=== PATIENT | female | born 1980 | race Caucasian/White ===

== ENCOUNTER 2016-10-19 08:37 | Emergency (ER) | payer MEDICARE, OTHER ==
--- NOTE | 2016-10-19 09:15 | ER Document Report ---
ED GI/ - General Chief Complaint: Lower Abdominal Pain Stated Complaint: MOLD EXPOSURE Time seen by provider: 09:00 Mode of Arrival: Ambulatory Information source: Patient Notes: 36-year-old female presents to ED for abdominal pain concern of swelling to her leg feels like she has a baby moving in her abdomen and concerned about black mold that she might have gotten in [place]. TRAVEL OUTSIDE OF THE [place] IN LAST 30 DAYS: No - HPI Patient complains to provider of: Abdominal pain - Generalized, Other - States she thinks she's and she has been exposed to black mold, states she has some swelling in her legs. Onset: Other - Unsure of the time frame Timing/Duration: Gradual Quality of pain: Achy, Cramping Severity at maximum: Mild Severity in ED: Mild Pain Level: 1 Location: Other - Generalized Vaginal bleeding (Compared to normal period): None LMP: April or May Associated symptoms: Other - Date she feels that her thighs are enlarged Exacerbated by: Denies Relieved by: Denies Similar symptoms previously: Yes Recently seen / treated by doctor: No - Related Data Allergies/Adverse Reactions: oxycodone HCl [From OxyContin] Allergy (Verified 10/19/16 08:38) Past Medical History - General Information source: Patient - Social History Smoking Status: Never Smoker Cigarette use (# per day): No Chew tobacco use (# tins/day): No Smoking Education Provided: No Frequency of alcohol use: None Drug Abuse: None Occupation: none Lives with: Spouse/Significant other Family History: CAD, DM, Malignancy, Other Patient has suicidal ideation: No Patient has homicidal ideation: No - Past Medical History Cardiac Medical History: Reports: None Pulmonary Medical History: Reports: Hx Asthma EENT Medical History: Reports: None Neurological Medical History: Reports: None Endocrine Medical History: Reports: Hx Diabetes Mellitus Type 2 Renal/ Medical History: Reports: None, Hx Pelvic Inflammatory Disease Malignancy Medical History: Reports: None GI Medical History: Reports: Hx Gastroesophageal Reflux Disease Musculoskeltal Medical History: Reports None Skin Medical History: Reports None Psychiatric Medical History: Reports: Hx Bipolar Disorder, Hx Depression Traumatic Medical History: Reports: None Infectious Medical History: Reports: None Past Surgical History: Reports: Hx Adenoidectomy, Hx Section - x1, Hx Gynecologic Surgery - , Hx Orthopedic Surgery - Right Leg Surgery, Hx Tonsillectomy - Immunizations Immunizations up to date: No Hx Diphtheria, Pertussis, Tetanus Vaccination: Yes Hx Pneumococcal Vaccination: 07/12/00 Review of Systems - Review of Systems Constitutional: No symptoms reported EENT: Nose discharge, Sinus discharge Cardiovascular: No symptoms reported Respiratory: No symptoms reported Gastrointestinal: Abdominal pain Genitourinary: No symptoms reported Female Genitourinary: Last menstrual period - April or May Musculoskeletal: Leg swelling - thighs Skin: No symptoms reported Hematologic/Lymphatic: No symptoms reported Neurological/Psychological: No symptoms reported -: Yes All other systems reviewed and negative Physical Exam - Vital signs Vitals: Temp Pulse Resp BP Pulse Ox 98.0 F 106 H 18 136/95 H 98 10/19/16 08:41 10/19/16 08:41 10/19/16 08:41 10/19/16 08:41 10/19/16 08:41 Interpretation: Normal - General General appearance: Appears well, Alert Notes: Morbidly Obese woman with a BMI of 48.6 - HEENT Head: Normocephalic, Atraumatic Eyes: Normal Pupils: PERRL Ears: Normal External canal: Normal Tympanic membrane: Normal Sinus: Normal Nasal: Purulent discharge, Swelling Mouth/Lips: Normal Mucous membranes: Normal Pharynx: Normal Neck: Normal - Respiratory Respiratory status: No respiratory distress Chest status: Nontender Breath sounds: Normal Chest palpation: Normal - Cardiovascular Rhythm: Regular Heart sounds: Normal auscultation Murmur: No - Abdominal Inspection: Normal, Morbidly Obese Distension: No distension Bowel sounds: Normal Tenderness: Tender - Generalized Organomegaly: No organomegaly - Back Back: Normal, Nontender - Extremities General upper extremity: Normal inspection, Nontender, Normal color, Normal ROM , Normal temperature General lower extremity: Normal inspection, Nontender, Normal color, Normal ROM , Normal temperature, Normal weight bearing. No: Cele's sign - Neurological Neuro grossly intact: Yes Cognition: Normal Orientation: AAOx4 Eliu Coma Scale Eye Opening: Spontaneous [place] Coma Scale Verbal: Oriented Eliu Coma Scale Motor: Obeys Commands [place] Coma Scale Total: 15 Speech: Normal Motor strength normal: LUE, RUE, LLE, RLE Sensory: Normal - Psychological Associated symptoms: Normal affect, Normal mood - Skin Skin Temperature: Warm Skin Moisture: Dry Skin Color: Normal Course - Re-evaluation Re-evalutation: 10/19/16 11:[address] Blandon concerning her abdominal pain. He suggested an abdominal ultrasound was CBC and chemistry. Urine and urine had already been ordered. Ultrasound came back with a small fatty umbilical hernia no intestines in the hernia. And the patient has an upper respiratory infection will discharge patient home with a name and number of the local surgical group if she would like to follow-up for her umbilical hernia. - Vital Signs Vital signs: Temp Pulse Resp BP Pulse Ox 98 F 106 H 20 134/95 H 98 10/19/16 08:45 10/19/16 08:45 10/19/16 08:45 10/19/16 08:45 10/19/16 08:45 - Laboratory Result Diagrams: 10/19/16 09:35 10/19/16 09:35 Laboratory results interpreted by me: 10/19/16 10/19/16 09:35 09:35 WBC 12.4 H Hgb 11.5 L Hct 34.5 L RDW 15.3 H Glucose 149 H Discharge - Discharge Clinical Impression: small fat umbilical hernia URI (upper respiratory infection) Qualifiers: URI type: unspecified URI Qualified Code(s): J06.9 - Acute upper respiratory infection, unspecified Additional Instructions: UPPER RESPIRATORY ILLNESS: You have a viral infection of the respiratory passages -- a "cold." This common infection causes nasal congestion, drainage, and often sore throat and cough. It is highly contagious. The disease usually lasts about 10 to 14 days. There is no "cure" for the viral infection -- it must run its course. If there is a complication, such as bacterial infection in the nose, sinuses, middle ear, or bronchial tubes, antibiotics may be required. The antibiotics won't affect the virus. Drink plenty of fluids. A humidifier may help. An expectorant medication or decongestant may make you more comfortable. Use acetaminophen or ibuprofen for fever or aches. See the doctor if fever persists over two days, if there is any significant worsening of your symptoms, or if you simply fail to improve as expected. USE OF ACETAMINOPHEN (Tylenol): Acetaminophen may be taken for pain relief or fever control. It's much safer than aspirin, offering a wider range of "safe" dosages. It is safe during . Some brand names are Tylenol, Panadol, Datril, Anacin 3, Tempra, and Liquiprin. Acetaminophen can be repeated every four hours. The following are maximum recommended dosages: >89 pounds or adults 650 mg to 900 mg Acetaminophen can be repeated every four hours. Maximum dose not to exceed 4000 mg a day. Umbilical Hernia There is a hernia in the belly-button area, called an umbilical hernia. There's a weak spot in the abdominal wall where the umbilical cord was attached. Sometimes this weak spot opens up, and bowel slips out of the abdominal cavity, creating a bulge under the skin at the naval. In infants, a small umbilical hernia may seal off by itself. Adults usually need surgery to repair the hernia. It's important that you follow up as recommended. For now, avoid straining , heavy lifting, and vigorous exercise. If the hernia has just appeared and the naval area is painful, apply ice packs to reduce swelling. Complications occur if bowel gets tightly stuck in the hernia. You should come back immediately if the area becomes increasingly painful, swollen, or discolored, or if you develop abdominal pain and vomiting. FOLLOW-UP CARE: If you have been referred to a physician for follow-up care, call the physician s office for an appointment as you were instructed or within the next two days. If you experience worsening or a significant change in your symptoms, notify the physician immediately or return to the Emergency Department at any time for re-evaluation. Prescriptions: Ibuprofen 600 mg PO Q8HP PRN #20 tablet PRN Reason: Forms: Elevated Blood Pressure Referrals: [facility] [Provider Group] - Follow up as needed
[2016-10-19 09:40] LABS: APPEARANCE,URINE CLEAR; BILIRUBIN,URINE NEGATIVE (NEGATIVE); GLUCOSE, URINE NEGATIVE (NEGATIVE); KETONES,URINE NEGATIVE (NEGATIVE); LEUKOCYTE ESTERASE,URINE NEGATIVE (NEGATIVE); NITRITE,URINE NEGATIVE (NEGATIVE); PROTEIN,URINE NEGATIVE (NEGATIVE); URINE SPECIFIC GRAVITY 1.012; UROBILINOGEN,URINE NEGATIVE mg/dL (<2.0)
[2016-10-19 09:54] LABS: ABSOLUTE BASOPHILS # (AUTO) 0.1 10^3/uL (0.0-0.2); ABSOLUTE EOSINOPHILS # (AUTO) 0.2 10^3/uL (0.0-0.6); ABSOLUTE LYMPHOCYTES (AUTO) 3.5 10^3/uL (0.5-4.7); ABSOLUTE NEUT (AUTO) 7.7 10^3/uL (1.7-8.2); BASOPHILS % (AUTO) 0.5 % (0-2); EOSINOPHILS % (AUTO) 1.4 % (0-6); HEMATOCRIT 34.5 % (36.0-47.0); HEMOGLOBIN 11.5 g/dL (12.0-15.5); LYMPHOCYTES % (AUTO) 27.9 % (13-45); MEAN CORPUSCULAR HEMOGLOBIN 27.5 pg (27.0-33.4); MEAN CORPUSCULAR HGB CONC 33.2 g/dL (32.0-36.0); MEAN CORPUSCULAR VOLUME 83 fl (80-97); RED BLOOD COUNT 4.16 10^6/uL (3.72-5.28); RED CELL DISTRIBUTION WIDTH 15.3 % (11.5-14.0); SEGMENTED NEUTROPHILS % (AUTO) 62.2 % (42-78); WHITE BLOOD COUNT 12.4 10^3/uL (4.0-10.5)
[2016-10-19 10:19] LABS: ALANINE AMINOTRANSFERASE 26 U/L (9-52); ALKALINE PHOSPHATASE 121 U/L (38-126); ANION GAP 13 (5-19); ASPARTATE AMINO TRANSFERASE 14 U/L (14-36); BILIRUBIN,DIRECT 0.1 mg/dL (0.0-0.4); BILIRUBIN,TOTAL 0.3 mg/dL (0.2-1.3); BLOOD UREA NITROGEN 15 mg/dL (7-20); CALCIUM 9.4 mg/dL (8.4-10.2); CARBON DIOXIDE 25 mmol/L (22-30); CHLORIDE 104 mmol/L (98-107); CREATININE RESULT 0.67 mg/dL (0.52-1.25); GLUCOSE 149 mg/dL (75-110); SODIUM 141.7 mmol/L (137-145); TOTAL PROTEIN 6.8 g/dL (6.3-8.2)
[2016-10-19 11:13] VITALS: BP 132/90
== END 2016-10-19 11:11 | disposition home or self-care (01) ==
LOC: ER 08:37
DX: K42.9 Umbilical hernia without obstruction or gangrene (principal); J06.9 Acute upper respiratory infection, unspecified; R10.30 Lower abdominal pain, unspecified; R10.84 Generalized abdominal pain; E11.9 Type 2 diabetes mellitus without complications; K21.9 Gastro-esophageal reflux disease without esophagitis; E66.01 Morbid (severe) obesity due to excess calories; Z68.42 Body mass index [BMI] 45.0-49.9, adult; Z88.6 Allergy status to analgesic agent
CPT/HCPCS: 36415; 76705; 80053; 81001; 81025; 85025; 99284

== ENCOUNTER 2016-10-23 11:24 | Emergency (ER) | payer MEDICARE, OTHER ==
[2016-10-23] MEDS ORDERED: KETOROLAC TROMETHAMINE INJ/PF 30 MG/1 ML SDV IV ONE (11:39)
--- NOTE | 2016-10-23 11:42 | ER Document Report ---
ED Medical Screen (RME) - General Chief Complaint: Abdominal Pain Stated Complaint: STOMACH PAIN Notes: I briefly seen and evaluated this patient in my role as physician in triage. I have initiated orders based on this initial evaluation. Please see my colleague' s documentation for complete history, physical, management, diagnosis, and ultimate disposition. My brief evaluation: Patient indicates that she was here on Wednesday and diagnosed with a fat hernia in her abdomen. She says that on Wednesday she started having continuous pain in the abdomen. Pain is increasing in severity. She says that she has been trying to eat but has no appetite. She denies any nausea or vomiting. She says that she has not had a bowel movement in 3 days. She is Simone urinary frequency but denies any dysuria or hematuria. The patient says that she is a diet-controlled diabetic. On exam, patient alert and oriented in no acute distress vital signs are stable patient is afebrile nontoxic appearing. Abdomen is soft with tenderness to mild palpation mid abdomen, no peritoneal findings, bowel sounds are present. Medical decision making: Well initiated abdominal pain workup and give Toradol for pain. TRAVEL OUTSIDE OF THE [place] IN LAST 30 DAYS: No - Related Data Allergies/Adverse Reactions: oxycodone HCl [From OxyContin] Allergy (Verified 10/23/16 11:30) Past Medical History Pulmonary Medical History: Reports: Hx Asthma Endocrine Medical History: Reports: Hx Diabetes Mellitus Type 2 Renal/ Medical History: Reports: Hx Pelvic Inflammatory Disease. Denies: Hx Peritoneal Dialysis GI Medical History: Reports: Hx Gastroesophageal Reflux Disease Psychiatric Medical History: Reports: Hx Bipolar Disorder, Hx Depression Past Surgical History: Reports: Hx Adenoidectomy, Hx Section - x1, Hx Gynecologic Surgery - , Hx Orthopedic Surgery - Right Leg Surgery, Hx Tonsillectomy - Immunizations Immunizations up to date: No Hx Diphtheria, Pertussis, Tetanus Vaccination: Yes Physical Exam - Vital signs Vitals: Temp Pulse Resp BP Pulse Ox 97.6 F 84 20 133/76 H 96 10/23/16 11:30 10/23/16 11:30 10/23/16 11:30 10/23/16 11:30 10/23/16 11:30 Course - Vital Signs Vital signs: Temp Pulse Resp BP Pulse Ox 97.6 F 84 20 133/76 H 96 10/23/16 11:30 10/23/16 11:30 10/23/16 11:30 10/23/16 11:30 10/23/16 11:30
[2016-10-23 12:05] LABS: ABSOLUTE BASOPHILS # (AUTO) 0.1 10^3/uL (0.0-0.2); ABSOLUTE EOSINOPHILS # (AUTO) 0.2 10^3/uL (0.0-0.6); ABSOLUTE LYMPHOCYTES (AUTO) 3.6 10^3/uL (0.5-4.7); ABSOLUTE MONOCYTES (AUTO) 0.7 10^3/uL (0.1-1.4); ABSOLUTE NEUT (AUTO) 5.9 10^3/uL (1.7-8.2); BASOPHILS % (AUTO) 0.7 % (0-2); EOSINOPHILS % (AUTO) 2.1 % (0-6); HEMATOCRIT 34.2 % (36.0-47.0); HEMOGLOBIN 11.5 g/dL (12.0-15.5); HGB HCT DIFFERENCE 0.3; LYMPHOCYTES % (AUTO) 34.5 % (13-45); MEAN CORPUSCULAR HEMOGLOBIN 27.7 pg (27.0-33.4); MEAN CORPUSCULAR HGB CONC 33.6 g/dL (32.0-36.0); MEAN CORPUSCULAR VOLUME 83 fl (80-97); MONOCYTES % (AUTO) 6.4 % (3-13); RED BLOOD COUNT 4.14 10^6/uL (3.72-5.28); RED CELL DISTRIBUTION WIDTH 14.7 % (11.5-14.0); SEGMENTED NEUTROPHILS % (AUTO) 56.3 % (42-78); WHITE BLOOD COUNT 10.5 10^3/uL (4.0-10.5)
[2016-10-23 12:22] LABS: ALANINE AMINOTRANSFERASE 23 U/L (9-52); ALBUMIN 3.7 g/dL (3.5-5.0); ALKALINE PHOSPHATASE 101 U/L (38-126); ANION GAP 9 (5-19); ASPARTATE AMINO TRANSFERASE 13 U/L (14-36); BILIRUBIN,DIRECT 0.1 mg/dL (0.0-0.4); BILIRUBIN,TOTAL 0.4 mg/dL (0.2-1.3); BLOOD UREA NITROGEN 16 mg/dL (7-20); CALCIUM 9.1 mg/dL (8.4-10.2); CARBON DIOXIDE 28 mmol/L (22-30); CHLORIDE 106 mmol/L (98-107); CREATININE RESULT 0.65 mg/dL (0.52-1.25); GLUCOSE 123 mg/dL (75-110); LIPASE 41.8 U/L (23-300); POTASSIUM 4.2 mmol/L (3.6-5.0); SODIUM 142.5 mmol/L (137-145); TOTAL PROTEIN 6.2 g/dL (6.3-8.2)
[2016-10-23 14:26] LABS: APPEARANCE,URINE SLIGHTLY-CLOUDY; BILIRUBIN,URINE NEGATIVE (NEGATIVE); GLUCOSE, URINE NEGATIVE (NEGATIVE); KETONES,URINE NEGATIVE (NEGATIVE); LEUKOCYTE ESTERASE,URINE TRACE (NEGATIVE); NITRITE,URINE NEGATIVE (NEGATIVE); PROTEIN,URINE NEGATIVE (NEGATIVE); URINE SPECIFIC GRAVITY 1.024; UROBILINOGEN,URINE NEGATIVE mg/dL (<2.0)
--- NOTE | 2016-10-23 15:18 | ER Document Report ---
ED GI/ - General Chief Complaint: Abdominal Pain Stated Complaint: STOMACH PAIN Time seen by provider: 15:18 Mode of Arrival: Ambulatory Information source: Patient Notes: 36-year-old obese female recently moved back to [place] after being gone a year came in the other day because of abdominal swelling and she felt like she was . She was found to have a small abdominal hernia , negative , and an upper respiratory infection. She feels like her symptoms are getting worse with increased abdominal pain and more nasal congestion. No fever or chills. No nausea or vomiting. Bowel movement 3 days ago. TRAVEL OUTSIDE OF THE [place] IN LAST 30 DAYS: No - Related Data Allergies/Adverse Reactions: oxycodone HCl [From OxyContin] Allergy (Verified 10/23/16 11:30) Past Medical History - General Information source: Patient - Social History Smoking Status: Never Smoker Frequency of alcohol use: None Drug Abuse: None Lives with: Spouse/Significant other Family History: Reviewed & Not Pertinent, CAD, DM, Malignancy, Other Patient has suicidal ideation: No Patient has homicidal ideation: No Pulmonary Medical History: Reports: Hx Asthma Endocrine Medical History: Reports: Hx Diabetes Mellitus Type 2 Renal/ Medical History: Reports: Hx Pelvic Inflammatory Disease. Denies: Hx Peritoneal Dialysis GI Medical History: Reports: Hx Gastroesophageal Reflux Disease, Other - Abdominal wall hernia Psychiatric Medical History: Reports: Hx Bipolar Disorder, Hx Depression Past Surgical History: Reports: Hx Adenoidectomy, Hx Section - x1, Hx Gynecologic Surgery - , Hx Orthopedic Surgery - Right Leg Surgery, Hx Tonsillectomy - Immunizations Immunizations up to date: No Hx Diphtheria, Pertussis, Tetanus Vaccination: Yes Hx Pneumococcal Vaccination: 07/12/00 Review of Systems - Review of Systems Constitutional: No symptoms reported EENT: See HPI Cardiovascular: No symptoms reported Respiratory: No symptoms reported Gastrointestinal: See HPI Genitourinary: No symptoms reported Female Genitourinary: No symptoms reported Musculoskeletal: No symptoms reported Skin: No symptoms reported Hematologic/Lymphatic: No symptoms reported Neurological/Psychological: No symptoms reported Physical Exam - Vital signs Vitals: Temp Pulse Resp BP Pulse Ox 97.6 F 84 20 133/76 H 96 10/23/16 11:30 10/23/16 11:30 10/23/16 11:30 10/23/16 11:30 10/23/16 11:30 Interpretation: Normal - General General appearance: Appears well, Alert In distress: None - HEENT Head: Normocephalic, Atraumatic Eyes: Normal Conjunctiva: Normal Pupils: PERRL Tympanic membrane: Normal Nasal: Other - boggy nares Mucous membranes: Normal Pharynx: Normal Neck: Supple. No: Lymphadenopathy - Respiratory Respiratory status: No respiratory distress Chest status: Nontender Breath sounds: Normal Chest palpation: Normal - Cardiovascular Rhythm: Regular Heart sounds: Normal auscultation Murmur: No - Abdominal Inspection: Normal Distension: No distension Bowel sounds: Normal Tenderness: Tender - Mild diffuse. No: McBurney's point, Kim's sign, Guarding, Rebound Organomegaly: No organomegaly, Other - Superior to the umbilicus is a small abdominal hernia that is nontender and flat when supine. No: Hepatomegaly, Splenomegaly - Back Back: Normal, Nontender. No: CVA tenderness - Extremities General upper extremity: Normal inspection, Nontender, Normal color, Normal ROM , Normal temperature General lower extremity: Normal inspection, Nontender, Normal color, Normal ROM , Normal temperature, Normal weight bearing. No: Cele's sign - Neurological Neuro grossly intact: Yes Cognition: Normal Orientation: AAOx4 Eliu Coma Scale Eye Opening: Spontaneous [place] Coma Scale Verbal: Oriented Eliu Coma Scale Motor: Obeys Commands Eliu Coma Scale Total: 15 Speech: Normal Motor strength normal: LUE, RUE, LLE, RLE Sensory: Normal - Psychological Associated symptoms: Normal affect, Normal mood - Skin Skin Temperature: Warm Skin Moisture: Dry Skin Color: Normal Course - Re-evaluation Re-evalutation: 10/23/16 16:31 Labs are normal, acute abdomen shows constipation, reviewed the case with Dr. Driver, can be discharged home - Vital Signs Vital signs: Temp Pulse Resp BP Pulse Ox 98.0 F 77 16 141/86 H 100 10/23/16 16:26 10/23/16 16:26 10/23/16 16:26 10/23/16 16:26 10/23/16 16:26 - Laboratory Result Diagrams: 10/23/16 11:52 10/23/16 11:52 Laboratory results interpreted by me: 10/23/16 10/23/16 10/23/16 11:52 11:52 13:45 Hgb 11.5 L Hct 34.2 L RDW 14.7 H Glucose 123 H AST 13 L Total Protein 6.2 L Ur Leukocyte Esterase TRACE H Discharge - Discharge Clinical Impression: Abdominal wall hernia, upper respiratory infection Constipation Qualifiers: Constipation type: other constipation type Qualified Code(s): K59.09 - Other constipation Abdominal pain Qualifiers: Abdominal location: upper abdomen, unspecified Qualified Code(s): R10.10 - Upper abdominal pain, unspecified Upper respiratory tract infection Qualifiers: URI type: unspecified viral URI Qualified Code(s): J06.9 - Acute upper respiratory infection, unspecified Condition: Good Disposition: HOME, SELF-CARE Instructions: Abdominal Pain ([facility]), Acetaminophen, Upper Respiratory Illness ( [facility]), Constipation ([facility]) Additional Instructions: plenty of fluids to er if worse daily Miralax 1 capful in full glass of water daily Keep the appointment on October 28 the general surgeon as planned Please complete the patient satisfaction survey if you get one, and return it.. If you do not receive a survey, then you can go to the [facility] website, [email or web address] and place your comments about your very good care. Thank you very much. It was a pleasure being your medical provider today.
[2016-10-23 16:28] VITALS: BP 141/86
== END 2016-10-23 16:35 | disposition home or self-care (01) ==
LOC: ER 11:24
DX: K43.9 Ventral hernia without obstruction or gangrene (principal); K59.09 Other constipation; R10.10 Upper abdominal pain, unspecified; J06.9 Acute upper respiratory infection, unspecified; E11.9 Type 2 diabetes mellitus without complications; K21.9 Gastro-esophageal reflux disease without esophagitis; Z88.6 Allergy status to analgesic agent
CPT/HCPCS: 99284; 96374; 36415; 83690; 85025; 81025; 80053; 81001; 74022; J1885

== ENCOUNTER 2016-11-09 12:20 | Emergency (ER) | payer MEDICARE, OTHER ==
[2016-11-09 13:14] VITALS: BP 132/87
== END 2016-11-09 14:41 | disposition left against medical advice (07) ==
LOC: ER 12:20
DX: Z53.21 Procedure and treatment not carried out due to patient leaving prior to being seen by health care provider (principal)

== ENCOUNTER 2017-02-08 22:41 | Emergency (ER) | payer MEDICARE, MEDICAID ==
--- NOTE | 2017-02-08 23:32 | ER Document Report ---
ED General - General Chief Complaint: Accidental Overdose Stated Complaint: ABDOMINAL PAIN Time Seen by Provider: 02/08/17 23:12 Notes: Patient is a 37-year-old female presents with complaints of hernia pain and possible Tylenol overdose. She says that she has had a hernia for several months. She is at the pain is worse over the last week. She has had no vomiting. She has had normal bowel movements. No blood in her stool. No fevers. Hernias in the ventral location. She says because of the pain she took a bunch of Tylenol. She said she took the Tylenol approximately 2 hours prior to arrival. She took somewhere between fifteen to twenty five 500 mg Tylenol tablets. She denies taking any other medications other than her prescribed medications. She denies taking more than prescribed of her prescribed medications. She denies wanting to hurt herself. She did this because of pain. TRAVEL OUTSIDE OF THE [place] IN LAST 30 DAYS: No - Related Data Allergies/Adverse Reactions: oxycodone HCl [From OxyContin] Allergy (Verified 11/09/16 13:12) Past Medical History - Social History Smoking Status: Unknown if Ever Smoked Frequency of alcohol use: None Drug Abuse: None Family History: Reviewed & Not Pertinent, CAD, DM, Malignancy, Other Pulmonary Medical History: Reports: Hx Asthma Endocrine Medical History: Reports: Hx Diabetes Mellitus Type 2 Renal/ Medical History: Reports: Hx Pelvic Inflammatory Disease. Denies: Hx Peritoneal Dialysis GI Medical History: Reports: Hx Gastroesophageal Reflux Disease Psychiatric Medical History: Reports: Hx Bipolar Disorder, Hx Depression Past Surgical History: Reports: Hx Adenoidectomy, Hx Section - x1, Hx Gynecologic Surgery - , Hx Orthopedic Surgery - Right Leg Surgery, Hx Tonsillectomy - Immunizations Immunizations up to date: No Hx Diphtheria, Pertussis, Tetanus Vaccination: Yes Hx Pneumococcal Vaccination: 07/12/00 Review of Systems - Review of Systems Notes: My Normal Review Basic REVIEW OF SYSTEMS: CONSTITUTIONAL : Denies fever, chills, or sweats. Denies recent illness. EENT: Denies eye, ear, throat, or mouth pain or symptoms. Denies nasal or sinus congestion. CARDIOVASCULAR: Denies chest pain. RESPIRATORY: Denies cough, cold, or chest congestion. Denies shortness of breath, difficulty breathing, or wheezing. GASTROINTESTINAL: Has abdominal pain. Denies nausea, vomiting, or diarrhea. Denies constipation. Last BM: GENITOURINARY: Denies difficulty urinating, painful urination, burning, frequency, or blood in urine. MUSCULOSKELETAL: Denies neck or back pain or joint pain or swelling. SKIN: Denies rash or skin lesions. NEUROLOGICAL: Denies altered mental status or loss of consciousness. Denies headache. Denies weakness or paralysis or loss of use of either side. Denies problems with gait or speech. Denies sensory or motor loss. ALL OTHER SYSTEMS REVIEWED AND NEGATIVE. Physical Exam - Notes Notes: General Appearance: Well nourished, alert, cooperative, no acute distress, no obvious discomfort. Vitals: reviewed, See vital signs table. Head: no swelling or tenderness to the head Eyes: PERRL, EOMI, Conjuctiva clear Mouth: No decreasd moisture Neck: Supple, no neck tenderness, No thyromegaly Lungs: No wheezing, No rales, No rhonci, No accessory muscle use, good air exchange bilaterally. Heart: Normal rate, Regular rythm, No murmur, no rub Abdomen: Normal BS, soft, No rigidity, moderate ventral abdominal tenderness, I cannot feel hernia on my palpation. Patient's abdomen is very obese. No guarding, no rebound, no abdominal masses, no organomegaly Extremities: strength 5/5 in all extremities, good pulses in all extremities, no swelling or tenderness in the extremities, no edema. Skin: warm, dry, appropriate color, no rash Neuro: speech clear, oriented x 3, normal affect, responds appropriately to questions. Course - Re-evaluation Re-evalutation: 02/09/17 05:12 On multiple re-evaluations the patient looks very comfortable but then with complaint of pain whenever I push on her abdomen. She does have a leukocytosis and therefore I did order CT scan to further evaluate her hernia being that I cannot feel on palpation due to her obesity. CT scan just shows a fat- containing hernia without any evidence of process. Her lactic acid is normal. She obviously did not take near the amount of Tylenol that she said she took being that her initial Tylenol level and her 4 hour Tylenol levels were within normal range. At this time I will discharge patient home. I will refer her to the surgery clinic. Encouraged to return to ER if she has vomiting, worsening pain, fevers, or feels unwell. Patient agrees with plan and will be discharged home. Dictation of this chart was performed using voice recognition software; therefore, there may be some unintended grammatical errors. - Laboratory Result Diagrams: 02/08/17 23:19 02/08/17 23:19 Laboratory results interpreted by me: 02/08/17 02/08/17 02/08/17 23:19 23:19 23:40 WBC 14.8 H RDW 15.1 H Absolute Neutrophils 9.7 H Glucose 213 H AST 13 L Urine Glucose (UA) 50 H Salicylates < 1.0 L - EKG Interpretation by Me Additional EKG results interpreted by me: 02/09/17 01:02 EKG is reviewed and interpreted by me. EKG shows normal sinus rhythm with a rate of [address] segment elevation or depression. No ischemic T-wave inversions. NC interval, QRS duration, QTc intervals are within normal range. Old EKG for comparison is from October 12, 2014. Discharge - Discharge Clinical Impression: Abdominal pain Qualifiers: Abdominal location: unspecified location Qualified Code(s): R10.9 - Unspecified abdominal pain Ventral hernia Qualifiers: Obstruction and gangrene presence: without obstruction or gangrene Qualified Code(s): K43.9 - Ventral hernia without obstruction or gangrene Condition: Good Disposition: HOME, SELF-CARE Additional Instructions: Please return to the ER immediately if you develop vomiting, fevers, worsening pain, or feel unwell. Do not take more of the medicine that what is prescribed. Please take the medication with food. Please follow up with the surgery clinic, Dr. Urias. Prescriptions: Naproxen [Naprosyn 250 mg Tablet] 250 mg PO BID #20 tablet Referrals: PERLA URIAS MD [ACTIVE STAFF] - Follow up in 3-5 days
[2017-02-08 23:35] LABS: ABSOLUTE BASOPHILS # (AUTO) 0.1 10^3/uL (0.0-0.2); ABSOLUTE EOSINOPHILS # (AUTO) 0.2 10^3/uL (0.0-0.6); ABSOLUTE LYMPHOCYTES (AUTO) 3.9 10^3/uL (0.5-4.7); ABSOLUTE MONOCYTES (AUTO) 0.9 10^3/uL (0.1-1.4); ABSOLUTE NEUT (AUTO) 9.7 10^3/uL (1.7-8.2); BASOPHILS % (AUTO) 0.7 % (0-2); EOSINOPHILS % (AUTO) 1.1 % (0-6); HEMOGLOBIN 13.1 g/dL (12.0-15.5); HGB HCT DIFFERENCE 1.3; LYMPHOCYTES % (AUTO) 26.3 % (13-45); MEAN CORPUSCULAR HEMOGLOBIN 28.5 pg (27.0-33.4); MEAN CORPUSCULAR HGB CONC 34.4 g/dL (32.0-36.0); MEAN CORPUSCULAR VOLUME 83 fl (80-97); MONOCYTES % (AUTO) 6.4 % (3-13); RED BLOOD COUNT 4.59 10^6/uL (3.72-5.28); RED CELL DISTRIBUTION WIDTH 15.1 % (11.5-14.0); SEGMENTED NEUTROPHILS % (AUTO) 65.5 % (42-78); WHITE BLOOD COUNT 14.8 10^3/uL (4.0-10.5)
[2017-02-08 23:42] LABS: ALANINE AMINOTRANSFERASE 24 U/L (9-52); ALKALINE PHOSPHATASE 112 U/L (38-126); ANION GAP 11 (5-19); ASPARTATE AMINO TRANSFERASE 13 U/L (14-36); BILIRUBIN,DIRECT 0.3 mg/dL (0.0-0.4); BILIRUBIN,TOTAL 0.4 mg/dL (0.2-1.3); BLOOD UREA NITROGEN 13 mg/dL (7-20); CALCIUM 9.2 mg/dL (8.4-10.2); CARBON DIOXIDE 24 mmol/L (22-30); CHLORIDE 103 mmol/L (98-107); CREATININE RESULT 0.67 mg/dL (0.52-1.25); GLUCOSE 213 mg/dL (75-110); POTASSIUM 4.4 mmol/L (3.6-5.0); SODIUM 138.1 mmol/L (137-145); TOTAL PROTEIN 7.2 g/dL (6.3-8.2)
[2017-02-08 23:43] LABS: ALCOHOL < 10 mg/dL (NONE DETECTED)
[2017-02-09 00:34] LABS: APPEARANCE,URINE CLOUDY; BILIRUBIN,URINE NEGATIVE (NEGATIVE); CALCIUM OXALATE CRYSTALS,URINE MANY /HPF; GLUCOSE, URINE 50 mg/dL (NEGATIVE); KETONES,URINE NEGATIVE (NEGATIVE); LEUKOCYTE ESTERASE,URINE NEGATIVE (NEGATIVE); NITRITE,URINE NEGATIVE (NEGATIVE); PROTEIN,URINE NEGATIVE (NEGATIVE); URINE SPECIFIC GRAVITY 1.033; UROBILINOGEN,URINE NEGATIVE mg/dL (<2.0)
[2017-02-09 02:07] LABS: URINE BARBITURATES SCREEN NEGATIVE; URINE METHADONE SCREEN NEGATIVE; URINE OPIATES LOW NEGATIVE; URINE PHENCYCLIDINE SCREEN NEGATIVE
[2017-02-09] MEDS ORDERED: NORMAL SALINE 1000 ML 1,000 ML IV ONE (03:30)
--- NOTE | 2017-02-09 04:53 | RADIOLOGY REPORT (SQ) ---
EXAM DESCRIPTION: CT ABD/PELVIS WITH IV ONLY COMPLETED DATE/TIME: 02/09/2017 4:25 am REASON FOR STUDY: ventral abdominal pain, hx of hernia COMPARISON: 12/04/2015. TECHNIQUE: CT scan of the abdomen and pelvis performed using helical scanning technique with dynamic intravenous contrast injection. No oral contrast. Images reviewed with lung, soft tissue, and bone windows. Reconstructed coronal and sagittal MPR images reviewed. Delayed images for evaluation of the urinary system also acquired. All images stored on PACS. All CT scanners at this facility use dose modulation, iterative reconstruction, and/or weight based d osing when appropriate to reduce radiation dose to as low as reasonably achievable (ALARA). [facility]: Dose Right [facility]: CareDose [facility]: Dose Right [facility]: Teradose 4D [facility]: Lorena Gaxiola CONTRAST TYPE AND DOSE: contrast/concentration: Isovue 370.00 mg/ml; Total Contrast Delivered: 99.0 ml; Total Saline Delivered: 54.0 ml RENAL FUNCTION: None required. The patient is less than 50 years old. RADIATION DOSE: Up-to-date CT equipment and radiation dose reduction techniques were employed. CTDIv ol: 36.0 - 36.3 mGy. DLP: 4254 mGy-cm.. LIMITATIONS: None. FINDINGS: LOWER CHEST: No significant findings. No nodules or infiltrates. LIVER: 2.7 cm likely benign low-attenuation right hepatic lesion with peripheral nodular enhancement suspected consistent with a hepatic hemangioma not definitively characterize. SPLEEN: Normal size. No focal lesions. PANCREAS: No masses. No significant calcifications. No adjacent inflammation or peripancreatic fluid collections. Pancreatic duct not dilated. GALLBLADDER: No identified stones by CT criteria. No inflammatory changes to suggest cholecystitis. ADRENAL GLANDS: No significant masses or asymmetry. RIGHT KIDNEY AND URETER: Moderate malrotation. No solid masses. No significant calcifications. N o hydronephrosis or hydroureter. LEFT KIDNEY AND URETER: No solid masses. 0.3 cm stone. No hydronephrosis or hydroureter. AORTA AND VESSELS: No aneurysm. No dissection. Renal arteries, SMA, celiac without stenosis. RETROPERITONEUM: No retroperitoneal adenopathy, hemorrhage or masses. BOWEL AND PERITONEAL CAVITY: No masses or inflammatory changes. No free fluid or peritoneal masses. Subcentimeter lymph nodes of the mesentery in the right lower abdominal quadrant, stable. APPENDIX: Normal. PELVIS: No mass. No free fluid. Normal bladder. ABDOMINAL WALL: No masses. 5.8 cm umbilical fat only herniation. BONES: No significant or acute findings. OTHER: No other significant finding. IMPRESSION: No acute findings. Stable 5.8 cm umbilical fat only herniation. Uncomplicated 0.3 cm l eft renal stone. TECHNICAL DOCUMENTATION: JOB ID: [id number] Quality ID # [id number]: Final reports with documentation of one or more dose reduction techniques (e.g., Au tomated exposure control, adjustment of the mA and/or kV according to patient size, use of iterative reconstruction technique) 2010 [employer]- All Rights Reserved
[2017-02-09] MEDS ORDERED: NAPROXEN 250 MG TABLET PO ONE (05:11)
[2017-02-09 05:27] VITALS: BP 107/62
--- NOTE | 2017-02-09 08:05 | EKG REPORT ---
SEVERITY:- BORDERLINE ECG - SINUS RHYTHM BORDERLINE T WAVE ABNORMALITIES BORDERLINE PROLONGED QT INTERVAL : Confirmed by: Angel Luis Ruiz MD 09-Feb-2017 08:04:17
== END 2017-02-09 05:27 | disposition home or self-care (01) ==
LOC: ER 22:41
DX: K43.9 Ventral hernia without obstruction or gangrene (principal); R10.9 Unspecified abdominal pain; T39.1X1A Poisoning by 4-Aminophenol derivatives, accidental (unintentional), initial encounter; Z98.890 Other specified postprocedural states
CPT/HCPCS: 93005; 99284; 36415; 80307 ×4; 83605; 84703; 85025; 80053; 81001; 74177; 93010; A9270

== ENCOUNTER 2017-02-15 13:50 | Emergency (ER) | payer MEDICARE, MEDICAID ==
[2017-02-15 14:01] VITALS: BP 150/107
== END 2017-02-15 14:30 | disposition left against medical advice (07) ==
LOC: ER 13:50
DX: Z53.9 Procedure and treatment not carried out, unspecified reason (principal); R10.9 Unspecified abdominal pain

== ENCOUNTER 2017-02-23 12:44 | Day surgery (SDC) | payer MEDICARE, MEDICAID ==
[2017-02-22 10:07] LABS: HEMATOCRIT 35.7 % (36.0-47.0); HGB HCT DIFFERENCE 0.3; MEAN CORPUSCULAR HEMOGLOBIN 28.5 pg (27.0-33.4); MEAN CORPUSCULAR HGB CONC 33.7 g/dL (32.0-36.0); MEAN CORPUSCULAR VOLUME 85 fl (80-97); RED BLOOD COUNT 4.23 10^6/uL (3.72-5.28); RED CELL DISTRIBUTION WIDTH 15.2 % (11.5-14.0); WHITE BLOOD COUNT 10.2 10^3/uL (4.0-10.5)
[2017-02-22 10:38] LABS: ANION GAP 11 (5-19); BLOOD UREA NITROGEN 20 mg/dL (7-20); CALCIUM 9.4 mg/dL (8.4-10.2); CARBON DIOXIDE 25 mmol/L (22-30); CHLORIDE 103 mmol/L (98-107); CREATININE RESULT 0.72 mg/dL (0.52-1.25); GLUCOSE 115 mg/dL (75-110); POTASSIUM 4.2 mmol/L (3.6-5.0); SODIUM 139.1 mmol/L (137-145)
[~2017-02-23 12:44] MED LIST: ACETAMINOPHEN 325 MG TABLET PO PRN; CEFAZOLIN 2 GM/D5W RTU 2 GM/50 ML RTUPB IV PRN; DEXAMETHASONE SOD PHOSPHATE INJ 4 MG/1 ML VIAL ONE; GLYCOPYRROLATE INJ 0.4 MG/2 ML VIAL ONE; KETOROLAC TROMETHAMINE 60 MG/2 ML SDV ONE; LACTATED RINGERS 1000 ML IV PRN; LIDOCAINE 0.5% INJ-PF (5 MG/ML) 50 ML SDV SUBCUT PRN; LIDOCAINE 2% INJ-PF (20 MG/ML) 10 ML AMPUL ONE; NEOSTIGMINE METHYLSULFATE 10 MG/10 ML VIAL ONE; ONDANSETRON HCL INJ/PF 4 MG/2 ML SDV ONE; ROCURONIUM BROMIDE INJ 50 MG/5 ML VIAL IV ONE; SUCCINYLCHOLINE CHLORIDE INJ 200 MG/10 ML VIAL ONE
[2017-02-23] MEDS ORDERED: BUPIVACAINE HCL 0.25 % INJ/PF (2.5 MG/1 ML) 30 ML VIAL ONE (14:41)
[2017-02-23] MEDS ORDERED: ACETAMINOPHEN 100 ML IV ONE (15:30)
[2017-02-23] MEDS ORDERED: FENTANYL CITRATE INJ/PF 100 MCG/2 ML AMPUL ONE (15:30)
[2017-02-23] MEDS ORDERED: MIDAZOLAM 2 MG/2 ML INJ ONE (15:30)
[2017-02-23] MEDS ORDERED: DEXMEDETOMIDINE INJ 80 MCG/20 ML VIAL IV ONE (15:35)
[2017-02-23] MEDS ORDERED: DIPHENHYDRAMINE HCL 50 MG/ML VIAL IV PRN (16:41)
[2017-02-23] MEDS ORDERED: MEPERIDINE HCL/PF INJ 25 MG/1 ML DISP.SYRIN IV PRN (16:41)
[2017-02-23] MEDS ORDERED: FENTANYL CITRATE INJ/PF 100 MCG/2 ML AMPUL IV PRN ×3 (16:41)
[2017-02-23] MEDS ORDERED: OXYCODONE-ACETAMINOPHEN 5-325 MG TABLET PO PRN ×3 (16:41→18:16)
[2017-02-23] MEDS ORDERED: PROMETHAZINE HCL INJ 25 MG/1 ML VIAL IV PRN ×2 (16:41)
[2017-02-23] MEDS ORDERED: MORPHINE SULFATE 10 MG/ML INJ IV PRN ×2 (16:41→18:16)
--- NOTE | 2017-02-23 18:13 | Operative Report ---
Operative Report DATE OF SURGERY: 02/23/17 PREOPERATIVE DIAGNOSIS: Umbilical hernia POSTOPERATIVE DIAGNOSIS: Umbilical hernia OPERATION: Laparoscopic umbilical hernia repair with mesh SURGEON: SUZY PRAKASH ANESTHESIA: GA TISSUE REMOVED OR ALTERED: None COMPLICATIONS: None ESTIMATED BLOOD LOSS: Minimal PROCEDURE: Informed consent was obtained. Patient was brought to the operating room placed on the operating table in the supine position. After satisfactory induction of general anesthesia patient's abdomen was prepped and draped in usual sterile fashion. A subxiphoid midline incision was made dissection carried down through the fascia and the peritoneal cavity was entered without difficulty. Avila trocar was inserted and pneumoperitoneum produced with good patient toleration. Laparoscopic view demonstrated an incarcerated umbilical hernia with incarcerated omentum. There were lower midline omental adhesions as well. The omentum was gently teased away from the umbilicus reducing the omentum. There was some bleeding at the omentum but it is had excellent hemostasis at the end of the case. The omental adhesions at the midline were taken down as well. Taking great care to avoid injury to the underlying bowel. The hernia defect measured about 2 cm in size. A 9 cm Covidien parietex composite mesh was used for the repair. It was tacked on 4 quadrants using trans-fascial PDS sutures and tacked circumferentially using a absorbable tacking device. The insufflation pressure was reduced at the time of the fixation and this allowed the mesh to lay flat with excellent coverage. Hemostasis appeared excellent. All trochars were removed under the direct vision of the laparoscope to ensure hemostasis. Of note to 5 mm trochars were placed in the left lateral abdomen at the beginning of the case and these trochars were removed to the right side during the fixation of the mesh. The Avila trocar site fascial defect was closed with interrupted Vicryl sutures. All skin incisions were closed with subcuticular interrupted Monocryl sutures. Marcaine was injected at the port sites. Patient tolerated procedure well with no apparent complications and was taken to the recovery area in stable condition.
[2017-02-23] MEDS ORDERED: ONDANSETRON HCL INJ/PF 4 MG/2 ML SDV IV PRN (18:16)
[2017-02-23] MEDS ORDERED: RINGERS SOLUTION,LACTATED 1,000 ML IV PRN ×2 (18:16)
--- NOTE | 2017-02-23 18:16 | PDOC DISCHARGE SUMMARY ---
Discharge Summary (SDC) - Discharge Final Diagnosis: Umbilical hernia Date of Surgery: 02/23/17 Discharge Date: 02/23/17 Condition: Good Treatment or Instructions: Umbilical hernia repair with mesh laparoscopically. May discharge patient home when met discharge criteria. Follow-up with me in 2-3 weeks. Stay active but avoid strenuous activity. May shower in 2 days. Keep Steri-Strips on. Prescriptions: Docusate Sodium [Colace 100 mg Capsule] 100 mg PO BID #60 capsule Oxycodone HCl/Acetaminophen [Percocet 5-325 mg Tablet] 1 - 2 tab PO ASDIR PRN # 25 tablet PRN Reason: Discharge Diet: As Tolerated Discharge Activity: Activity As Tolerated - Stay active but avoid strenuous activity. Report the Following to Your Physician Immediately: Fever over 101 Degrees, Unusual Bleeding, Redness, Drainage-Foul Smelling
--- NOTE | 2017-02-23 18:48 | PDOC PROGRESS REPORT ---
Subjective Progress Note for:: 02/23/17 Subjective:: Feels okay. Mild abdominal pain. Physical Exam Vital Signs: Temp Pulse Resp BP Pulse Ox 98.3 F 102 H 16 138/82 H 94 02/23/17 18:14 02/23/17 18:14 02/23/17 18:14 02/23/17 18:14 02/23/17 18:14 Intake & Output 02/22/17 02/23/17 02/24/17 06:59 06:59 06:59 Intake Total 525 Output Total 495 Balance 30 Weight 145.15 kg 145.15 kg General appearance: PRESENT: no acute distress, cooperative Respiratory exam: PRESENT: clear to auscultation maddy Cardiovascular exam: PRESENT: RRR GI/Abdominal exam: PRESENT: other - Soft, nondistended, appropriate tenderness. Extremities exam: PRESENT: other - No tenderness, no swelling. Results Laboratory Results: 02/22/17 09:34 02/22/17 09:34 02/23/17 13:29 Serum HCG, Qual NEGATIVE Assessment & Plan - Diagnosis (1) Umbilical hernia Is this a current diagnosis for this admission?: YesPlan: Status post laparoscopic umbilical hernia repair with mesh. Patient looks good. Will discharge patient home later today. Encouraged patient to stay active at home.
[2017-02-23 21:34] VITALS: BP 147/84
== END 2017-02-23 21:10 | disposition home or self-care (01) ==
LOC: OROUT 12:44 → 2N 19:22 → OROUT 21:10
PROVIDERS: ATTEND Surgery
PROC: 0WUF4JZ Supplement Abdominal Wall with Synthetic Substitute, Percutaneous Endoscopic Approach (ICD-10-PCS; principal; 2017-02-23 14:45)
DX: K42.9 Umbilical hernia without obstruction or gangrene (principal); E11.9 Type 2 diabetes mellitus without complications; E66.9 Obesity, unspecified; I10 Essential (primary) hypertension; M41.9 Scoliosis, unspecified; F31.30 Bipolar disorder, current episode depressed, mild or moderate severity, unspecified; F90.9 Attention-deficit hyperactivity disorder, unspecified type; F41.9 Anxiety disorder, unspecified; Z79.899 Other long term (current) drug therapy; Z79.3 Long term (current) use of hormonal contraceptives
CPT/HCPCS: 36415 ×2; 82962; 84703; 85027; 81025; 80048; 49652; C1781; J2250; J3490 ×3; J1100; J1885; J3010; A9270; J0330; J2405; J0690; J0131; 750

== ENCOUNTER → 2017-03-10 | Outpatient (CLI) | payer MEDICARE, MEDICAID ==
--- NOTE | 2017-03-10 09:58 | RADIOLOGY REPORT (SQ) ---
EXAM DESCRIPTION: L SPINE WHOLE COMPLETED DATE/TIME: 03/10/2017 9:51 am REASON FOR STUDY: LOW BACK PAIN (M54.5) M54.5 LOW BACK PAIN COMPARISON: None. NUMBER OF VIEWS: Five views including obliques. TECHNIQUE: AP, lateral, oblique, and sacral radiographic images acquired of the lumbar spine. LIMITATIONS: None. FINDINGS: MINERALIZATION: Normal. SEGMENTATION: Normal. No transitional anatomy. ALIGNMENT: Normal. VERTEBRAE: Maintained height. No fracture or worrisome bone lesion. DISCS: Preserved height. No significant osteophytes or end plate irregularity. POSTERIOR ELEMENTS: Pedicles and facets are intact. No pars defect or posterior arch defects. HARDWARE: None in the spine. PARASPINAL SOFT TISSUES: Normal. PELVIS: Intact as visualized. No fractures or worrisome bone lesions. SI joints intact. OTHER: No other significant finding. IMPRESSION: NORMAL 5 VIEW LUMBAR SPINE. TECHNICAL DOCUMENTATION: JOB ID: [id number] [employer]- All Rights Reserved
== END ==
LOC: RAD 09:21
PROVIDERS: ATTEND Family Medicine
DX: M54.5 Low back pain (principal)
CPT/HCPCS: 72110

== ENCOUNTER 2017-03-22 20:10 | Emergency (ER) | payer MEDICARE, MEDICAID ==
--- NOTE | 2017-03-22 20:30 | EKG REPORT ---
SEVERITY:- NORMAL ECG - SINUS RHYTHM : Confirmed by: Peter Paul 22-Mar-2017 20:30:09
--- NOTE | 2017-03-22 20:49 | ER Document Report ---
ED Medical Screen (RME) - General Stated Complaint: CHEST PAIN Time Seen by Provider: 03/22/17 20:48 Mode of Arrival: Ambulatory Information source: Patient TRAVEL OUTSIDE OF THE [place] IN LAST 30 DAYS: No - HPI Patient complains to provider of: Chest pain Onset: This morning Notes: 03/22/17 20:48 Patient is a 37-year-old female presenting to the emergency room today complaining of sharp stabbing right-sided chest pain with shortness of breath that started around 11:00 this morning while she was walking, she has a history of diabetes, hypertension and mental illness - Related Data Allergies/Adverse Reactions: No Known Allergies Allergy (Unverified 02/23/17 13:19) Past Medical History - Past Medical History Cardiac Medical History: Reports: Hx Hypertension - on meds Denies: Hx Coronary Artery Disease, Hx Heart Attack Pulmonary Medical History: Denies: Hx Asthma, Hx Bronchitis, Hx COPD, Hx Pneumonia Neurological Medical History: Denies: Hx Cerebrovascular Accident, Hx Seizures Endocrine Medical History: Reports: Hx Diabetes Mellitus Type 2 Renal/ Medical History: Reports: Hx Pelvic Inflammatory Disease. Denies: Hx Peritoneal Dialysis GI Medical History: Reports: Hx Gastroesophageal Reflux Disease Musculoskeltal Medical History: Reports Hx Arthritis - generalized Psychiatric Medical History: Reports: Hx Bipolar Disorder, Hx Depression Past Surgical History: Reports: Hx Adenoidectomy, Hx Section - x1, Hx Gynecologic Surgery - , Hx Orthopedic Surgery - Right Leg Surgery, Hx Tonsillectomy - Immunizations Immunizations up to date: No Hx Diphtheria, Pertussis, Tetanus Vaccination: Yes
--- NOTE | 2017-03-22 21:18 | RADIOLOGY REPORT (SQ) ---
EXAM DESCRIPTION: CHEST SINGLE VIEW COMPLETED DATE/TIME: 03/22/2017 9:04 pm REASON FOR STUDY: cp COMPARISON: December 2013 EXAM PARAMETERS: NUMBER OF VIEWS: One view. TECHNIQUE: Single frontal radiographic view of the chest acquired. RADIATION DOSE: NA LIMITATIONS: None. FINDINGS: LUNGS AND PLEURA: No opacities, masses or pneumothorax. No pleural effusion. MEDIASTINUM AND HILAR STRUCTURES: No masses. Contour normal. HEART AND VASCULAR STRUCTURES: The configuration of the heart and mediastinal structures is unchanged . BONES: No acute findings. HARDWARE: None in the chest. OTHER: No other significant finding. IMPRESSION: No significant interval change. No acute findings. Other findings as noted above TECHNICAL DOCUMENTATION: JOB ID: [id number]
[2017-03-22 21:24] LABS: ABSOLUTE BASOPHILS # (AUTO) 0.1 10^3/uL (0.0-0.2); ABSOLUTE EOSINOPHILS # (AUTO) 0.2 10^3/uL (0.0-0.6); ABSOLUTE LYMPHOCYTES (AUTO) 3.6 10^3/uL (0.5-4.7); ABSOLUTE MONOCYTES (AUTO) 0.8 10^3/uL (0.1-1.4); ABSOLUTE NEUT (AUTO) 7.6 10^3/uL (1.7-8.2); EOSINOPHILS % (AUTO) 1.4 % (0-6); HEMOGLOBIN 11.9 g/dL (12.0-15.5); HGB HCT DIFFERENCE -1.3; LYMPHOCYTES % (AUTO) 29.2 % (13-45); MEAN CORPUSCULAR HEMOGLOBIN 26.9 pg (27.0-33.4); MEAN CORPUSCULAR HGB CONC 32.1 g/dL (32.0-36.0); MEAN CORPUSCULAR VOLUME 84 fl (80-97); MONOCYTES % (AUTO) 6.6 % (3-13); RED BLOOD COUNT 4.42 10^6/uL (3.72-5.28); RED CELL DISTRIBUTION WIDTH 14.2 % (11.5-14.0); SEGMENTED NEUTROPHILS % (AUTO) 61.8 % (42-78); WHITE BLOOD COUNT 12.3 10^3/uL (4.0-10.5)
[2017-03-22 21:36] LABS: ALANINE AMINOTRANSFERASE 28 U/L (9-52); ALBUMIN 4.2 g/dL (3.5-5.0); ALKALINE PHOSPHATASE 139 U/L (38-126); ANION GAP 12 (5-19); ASPARTATE AMINO TRANSFERASE 16 U/L (14-36); BILIRUBIN,DIRECT 0.3 mg/dL (0.0-0.4); BILIRUBIN,TOTAL 0.4 mg/dL (0.2-1.3); BLOOD UREA NITROGEN 15 mg/dL (7-20); CALCIUM 9.6 mg/dL (8.4-10.2); CARBON DIOXIDE 25 mmol/L (22-30); CHLORIDE 102 mmol/L (98-107); CREATINE KINASE 150 U/L (30-135); CREATININE RESULT 0.69 mg/dL (0.52-1.25); GLUCOSE 107 mg/dL (75-110); POTASSIUM 4.2 mmol/L (3.6-5.0); SODIUM 138.7 mmol/L (137-145); TOTAL PROTEIN 7.1 g/dL (6.3-8.2)
[2017-03-22 21:52] LABS: TROPONIN I < 0.012 ng/mL
[2017-03-22 22:20] LABS: CREATINE KINASE MB 0.57 ng/mL (<4.55)
--- NOTE | 2017-03-22 22:42 | ER Document Report ---
ED General - General Chief Complaint: Chest Pain Stated Complaint: CHEST PAIN Time Seen by Provider: 03/22/17 20:48 Mode of Arrival: Ambulatory Notes: The patient is a 37-year-old female, past medical history bipolar, hypertension , presents from the urgent care center after she was having 2 days of right upper chest wall pain and dry cough. Her blood pressure was elevated at the urgent care center, but she did not take her home hydrochlorothiazide this morning. Patient denies leg swelling, numbness, tingling, calf tenderness, estrogen use, nausea, vomiting, back pain, abdominal pain or injury TRAVEL OUTSIDE OF THE [place] IN LAST 30 DAYS: No - Related Data Allergies/Adverse Reactions: No Known Allergies Allergy (Unverified 02/23/17 13:19) Past Medical History - General Information source: Patient - Social History Smoking Status: Never Smoker Family History: Reviewed & Not Pertinent, CAD, DM, Malignancy, Other Patient has suicidal ideation: No Patient has homicidal ideation: No - Past Medical History Cardiac Medical History: Reports: Hx Hypertension - on meds Denies: Hx Coronary Artery Disease, Hx Heart Attack Pulmonary Medical History: Denies: Hx Asthma, Hx Bronchitis, Hx COPD, Hx Pneumonia Neurological Medical History: Denies: Hx Cerebrovascular Accident, Hx Seizures Endocrine Medical History: Reports: Hx Diabetes Mellitus Type 2 Renal/ Medical History: Reports: Hx Pelvic Inflammatory Disease. Denies: Hx Peritoneal Dialysis GI Medical History: Reports: Hx Gastroesophageal Reflux Disease Musculoskeltal Medical History: Reports Hx Arthritis - generalized Psychiatric Medical History: Reports: Hx Bipolar Disorder, Hx Depression Past Surgical History: Reports: Hx Adenoidectomy, Hx Section - x1, Hx Gynecologic Surgery - , Hx Orthopedic Surgery - Right Leg Surgery, Hx Tonsillectomy - Immunizations Immunizations up to date: No Hx Diphtheria, Pertussis, Tetanus Vaccination: Yes Hx Pneumococcal Vaccination: 07/12/00 Review of Systems - Review of Systems Notes: REVIEW OF SYSTEMS: CONSTITUTIONAL: -fevers, -chills EENT: -eye pain, -difficulty swallowing, -nasal congestion CARDIOVASCULAR: +chest pain, -syncope. RESPIRATORY: +cough, -SOB GASTROINTESTINAL: -abdominal pain, - nausea, -vomiting, -diarrhea GENITOURINARY: -dysuria, -hematuria MUSCULOSKELETAL: -back pain, -neck pain SKIN: -rash or skin lesions. HEMATOLOGIC: -easy bruising or bleeding. LYMPHATIC: -swollen, enlarged glands. NEUROLOGICAL: -altered mental status or loss of consciousness, -headache, - neurologic symptoms PSYCHIATRIC: -anxiety, -depression. ALL OTHER SYSTEMS REVIEWED AND NEGATIVE. Physical Exam - Vital signs Vitals: Temp Pulse Resp BP Pulse Ox 97.5 F 97 18 147/106 H 97 03/22/17 20:49 03/22/17 20:49 03/22/17 20:49 03/22/17 20:49 03/22/17 20:49 - Notes Notes: PHYSICAL EXAMINATION: GENERAL: Well-appearing, well-nourished and in no acute distress. HEAD: Atraumatic, normocephalic. EYES: Pupils equal round and reactive to light, extraocular movements intact, sclera anicteric, conjunctiva are normal. ENT: nares patent, oropharynx clear without exudates. Moist mucous membranes. NECK: Normal range of motion, supple without lymphadenopathy LUNGS: Breath sounds clear to auscultation bilaterally and equal. No wheezes rales or rhonchi. HEART: Regular rate and rhythm without murmurs. Tenderness over right upper chest wall. ABDOMEN: Soft, nontender, normoactive bowel sounds. No guarding, no rebound. No masses appreciated. EXTREMITIES: Normal range of motion, no pitting or edema. No cyanosis. NEUROLOGICAL: Cranial nerves grossly intact. Normal speech, normal gait. Normal sensory and motor exams. PSYCH: Normal mood, normal affect. SKIN: Warm, Dry, normal turgor, no rashes or lesions noted. Course - Re-evaluation Re-evalutation: The patient appears well. Her EKG and troponin are negative for ACS and CXR does not show any acute abnormalities. Rest of labs are unremarkable, other than a slight leukocytosis which is non-specific because she does not have anyfevers or signs of infection. She is not . She is PERC negative and her HEART score is 2. Instructed patient about chest wall pain management and following with her primary care physician for further evaluation and treatment. - Vital Signs Vital signs: Temp Pulse Resp BP Pulse Ox 97.5 F 89 17 140/97 H 95 03/22/17 20:50 03/22/17 22:19 03/22/17 22:19 03/22/17 22:19 03/22/17 22:19 - Laboratory Result Diagrams: 03/22/17 21:05 03/22/17 21:05 Laboratory results interpreted by me: 03/22/17 03/22/17 21:05 21:05 WBC 12.3 H Hgb 11.9 L MCH 26.9 L RDW 14.2 H Alkaline Phosphatase 139 H Creatine Kinase 150 H - Diagnostic Test Radiology reviewed: Image reviewed, Reports reviewed Radiology results interpreted by me: CXR: NAD - EKG Interpretation by Me EKG shows normal: Sinus rhythm, [place], Intervals, QRS Complexes, ST-T Waves Rate: Normal Discharge - Discharge Clinical Impression: Cough Chest pain Qualifiers: Chest pain type: unspecified Qualified Code(s): R07.9 - Chest pain, unspecified Condition: Stable Disposition: HOME, SELF-CARE Additional Instructions: CHEST PAIN OF UNCLEAR CAUSE: The exact cause of your chest pain isn't clear. Fortunately, there is no evidence of a dangerous medical condition. Further testing may be required to find the source of the pain. Most often, we find that this pain is coming from the chest wall -- the muscles or rib joints in the chest. But chest pain can come from the lung and lung lining, the esophagus, the heart valves or heart lining, and even the stomach or gallbladder. Rest. Eat lightly until the pain is gone. We may prescribe medicine for pain and inflammation. You should call the physician immediately if the pain radiates to the shoulder, jaw or arms; if you start to run a fever or develop a cough; or if you develop shortness of breath, or other new or alarming symptoms. NORMAL EXAM AND WORKUP: At this time, your examination and workup show no significant abnormality. No significant abnormal physical findings were noted. All laboratory, EKG, and imaging (x-ray, CT scans, ultrasound) studies that were ordered show no significant abnormality. Although your examination and all studies that were ordered showed no significant abnormal finding, there are no examinations and no studies that are 100% accurate. There is always the possibility that some abnormality could exist and not be detected with physical examination or within the limits and capabilities of laboratory and other studies. You should return or follow up as you were instructed on your visit today for further evaluation if your symptoms do not resolve. CHEST WALL PAIN: Your chest pain may be coming from the chest wall. This is often caused by straining the muscles or joints in the chest during physical activity, direct trauma, coughing, or vigorous vomiting. Persons with arthritis are especially prone to this type of pain, due to inflammation of the cartilage joints near the breast bone. Occasionally, no cause can be found. Rest from strenuous physical activity. This kind of chest pain is usually made worse by movement of the chest. Depending on the symptoms, we may prescribe medicine for pain, muscle relaxation, and antiinflammatory effects. If the pain is new, and seems to be due to muscle strain, cold packs can help. Otherwise, apply gentle warmth to the painful area for 15 minutes every hour or two. You should call contact the doctor immediately if things change. Further evaluation is needed if you develop a fever or cough, if the nature of the pain changes, or if you become short of breath. FOLLOW-UP CARE: If you have been referred to a physician for follow-up care, call the physician s office for an appointment as you were instructed or within the next two days. If you experience worsening or a significant change in your symptoms, notify the physician immediately or return to the Emergency Department at any time for re-evaluation. Referrals: HARRIS NARVAEZ MD [ACTIVE STAFF] - Follow up as needed
[2017-03-22 22:49] VITALS: BP 137/80
== END 2017-03-22 23:01 | disposition home or self-care (01) ==
LOC: ER 20:10
DX: R05 Cough (principal); R07.9 Chest pain, unspecified; R07.89 Other chest pain; F31.9 Bipolar disorder, unspecified; I10 Essential (primary) hypertension
CPT/HCPCS: 36415; 71010; 80053; 82550; 82553; 84484; 84703; 85025; 93005; 93010; 99285

== ENCOUNTER → 2017-04-05 | Outpatient (CLI) | payer MEDICARE, MEDICAID ==
--- NOTE | 2017-04-05 12:47 | RADIOLOGY REPORT (SQ) ---
EXAM DESCRIPTION: CHEST PA/LAT COMPLETED DATE/TIME: 04/05/2017 11:33 am REASON FOR STUDY: CHEST PAIN (R07.89) COMPARISON: Two-view chest 01/07/2014, 06/23/2011 EXAM PARAMETERS: NUMBER OF VIEWS: two views TECHNIQUE: Digital Frontal and Lateral radiographic views of the chest acquired. RADIATION DOSE: NA LIMITATIONS: none FINDINGS: LUNGS AND PLEURA: No opacities, masses or pneumothorax. No pleural effusion. MEDIASTINUM AND HILAR STRUCTURES: No masses or contour abnormalities. HEART AND VASCULAR STRUCTURES: Stable moderate cardiomegaly BONES: Osteoporotic. No thoracic compression deformity HARDWARE: None in the chest. OTHER: No other significant finding. IMPRESSION: Stable moderate cardiomegaly. TECHNICAL DOCUMENTATION: JOB ID: [id number] [email or web address]- All Rights Reserved
== END ==
LOC: RAD 11:17
PROVIDERS: ATTEND Family Medicine
DX: R07.89 Other chest pain (principal); I51.7 Cardiomegaly
CPT/HCPCS: 71020

== ENCOUNTER 2017-04-07 05:20 | Emergency (ER) | payer MEDICARE, MEDICAID ==
[2017-04-07 05:42] LABS: ABSOLUTE BASOPHILS # (AUTO) 0.1 10^3/uL (0.0-0.2); ABSOLUTE LYMPHOCYTES (AUTO) 1.7 10^3/uL (0.5-4.7); ABSOLUTE MONOCYTES (AUTO) 0.3 10^3/uL (0.1-1.4); ABSOLUTE NEUT (AUTO) 11.1 10^3/uL (1.7-8.2); BASOPHILS % (AUTO) 0.4 % (0-2); EOSINOPHILS % (AUTO) 0.2 % (0-6); HEMATOCRIT 35.7 % (36.0-47.0); HGB HCT DIFFERENCE 0.3; LYMPHOCYTES % (AUTO) 12.7 % (13-45); MEAN CORPUSCULAR HEMOGLOBIN 27.3 pg (27.0-33.4); MEAN CORPUSCULAR HGB CONC 33.5 g/dL (32.0-36.0); MEAN CORPUSCULAR VOLUME 82 fl (80-97); MONOCYTES % (AUTO) 2.3 % (3-13); RED BLOOD COUNT 4.38 10^6/uL (3.72-5.28); RED CELL DISTRIBUTION WIDTH 13.9 % (11.5-14.0); SEGMENTED NEUTROPHILS % (AUTO) 84.4 % (42-78); WHITE BLOOD COUNT 13.2 10^3/uL (4.0-10.5)
[2017-04-07 05:54] LABS: ALANINE AMINOTRANSFERASE 16 U/L (9-52); ALBUMIN 3.6 g/dL (3.5-5.0); ALKALINE PHOSPHATASE 124 U/L (38-126); ANION GAP 12 (5-19); ASPARTATE AMINO TRANSFERASE 13 U/L (14-36); BILIRUBIN,DIRECT 0.3 mg/dL (0.0-0.4); BILIRUBIN,TOTAL 0.3 mg/dL (0.2-1.3); BLOOD UREA NITROGEN 14 mg/dL (7-20); CALCIUM 9.1 mg/dL (8.4-10.2); CARBON DIOXIDE 22 mmol/L (22-30); CHLORIDE 104 mmol/L (98-107); CREATINE KINASE 66 U/L (30-135); GLUCOSE 362 mg/dL (75-110); POTASSIUM 4.3 mmol/L (3.6-5.0); TOTAL PROTEIN 6.3 g/dL (6.3-8.2)
--- NOTE | 2017-04-07 06:01 | RADIOLOGY REPORT (SQ) ---
EXAM DESCRIPTION: CHEST SINGLE VIEW COMPLETED DATE/TIME: 04/07/2017 5:43 am REASON FOR STUDY: cp COMPARISON: 04/05/2017. EXAM PARAMETERS: NUMBER OF VIEWS: One view. TECHNIQUE: Single frontal radiographic view of the chest acquired. RADIATION DOSE: NA LIMITATIONS: None. FINDINGS: LUNGS AND PLEURA: No opacities, masses or pneumothorax. No pleural effusion. MEDIASTINUM AND HILAR STRUCTURES: No masses. Contour normal. HEART AND VASCULAR STRUCTURES: Borderline cardiac silhouette size, chronic. BONES: No acute findings. HARDWARE: None in the chest. OTHER: No other significant finding. IMPRESSION: No acute cardiopulmonary findings. TECHNICAL DOCUMENTATION: JOB ID: [id number]
[2017-04-07 06:14] LABS: CREATINE KINASE MB 0.61 ng/mL (<4.55); TROPONIN I < 0.012 ng/mL
--- NOTE | 2017-04-07 07:04 | ER Document Report ---
ED General - General Chief Complaint: Chest Pain Stated Complaint: CHEST PAIN Time Seen by Provider: 04/07/17 06:07 Mode of Arrival: Ambulatory Information source: Patient Notes: 37-year-old female presents with complaints of chest pain. Patient has been having chest pain for over 2-3 weeks. Patient notes the pain is on the right anterior chest and is reproducible. Patient denies any fevers or chills nausea vomiting or diarrhea TRAVEL OUTSIDE OF THE [place] IN LAST 30 DAYS: No - HPI Onset: Other Onset/Duration: Persistent Quality of pain: Achy Severity: Mild Pain Level: 1 Associated symptoms: Body/muscle aches, Chest pain Exacerbated by: Movement Relieved by: Denies Similar symptoms previously: Yes Recently seen / treated by doctor: Yes - Related Data Allergies/Adverse Reactions: oxycodone [From OxyContin] Allergy (Verified 04/07/17 05:39) Past Medical History - Social History Smoking Status: Never Smoker Cigarette use (# per day): No Chew tobacco use (# tins/day): No Smoking Education Provided: No Family History: Reviewed & Not Pertinent, CAD, DM, Malignancy, Other - Past Medical History Cardiac Medical History: Reports: Hx Hypertension - on meds Denies: Hx Coronary Artery Disease, Hx Heart Attack Pulmonary Medical History: Denies: Hx Asthma, Hx Bronchitis, Hx COPD, Hx Pneumonia Neurological Medical History: Denies: Hx Cerebrovascular Accident, Hx Seizures Endocrine Medical History: Reports: Hx Diabetes Mellitus Type 2 Renal/ Medical History: Reports: Hx Pelvic Inflammatory Disease. Denies: Hx Peritoneal Dialysis GI Medical History: Reports: Hx Gastroesophageal Reflux Disease Musculoskeltal Medical History: Reports Hx Arthritis - generalized Psychiatric Medical History: Reports: Hx Bipolar Disorder, Hx Depression Past Surgical History: Reports: Hx Adenoidectomy, Hx Section - x1, Hx Gynecologic Surgery - , Hx Orthopedic Surgery - Right Leg Surgery, Hx Tonsillectomy - Immunizations Immunizations up to date: No Hx Diphtheria, Pertussis, Tetanus Vaccination: Yes Hx Pneumococcal Vaccination: 07/12/00 Review of Systems - Review of Systems Notes: REVIEW OF SYSTEMS: CONSTITUTIONAL : Denies fever, chills, or sweats. Denies recent illness. EENT: Denies eye, ear, throat, or mouth pain or symptoms. Denies nasal or sinus congestion or discharge. Denies throat, tongue, or mouth swelling or difficulty swallowing. CARDIOVASCULAR: Admits to right chest wall tenderness RESPIRATORY: Denies cough, cold, or chest congestion. Denies shortness of breath, difficulty breathing, or wheezing. GASTROINTESTINAL: Denies abdominal pain or distention. Denies nausea, vomiting , or diarrhea. Denies blood in vomitus, stools, or per rectum. Denies black, tarry stools. Denies constipation. GENITOURINARY: Denies difficulty urinating, painful urination, burning, frequency, blood in urine, or discharge. FEMALE GENITOURINARY: Denies vaginal bleeding, heavy or abnormal periods, irregular periods. Denies vaginal discharge or odor. MUSCULOSKELETAL: Denies back or neck pain or stiffness. Denies joint pain or swelling. SKIN: Denies rash, lesions or sores. HEMATOLOGIC : Denies easy bruising or bleeding. LYMPHATIC: Denies swollen, enlarged glands. NEUROLOGICAL: Denies confusion or altered mental status. Denies passing out or loss of consciousness. Denies dizziness or lightheadedness. Denies headache. Denies weakness or paralysis or loss of use of either side. Denies problems with gait or speech. Denies sensory loss, numbness, or tingling. Denies seizures. PSYCHIATRIC: Denies anxiety or stress. Denies depression, suicidal ideation, or homicidal ideation. ALL OTHER SYSTEMS REVIEWED AND NEGATIVE. PHYSICAL EXAMINATION: GENERAL: Well-appearing, well-nourished and in no acute distress. HEAD: Atraumatic, normocephalic. EYES: Pupils equal round and reactive to light, extraocular movements intact, conjunctiva are normal. ENT: Nares patent, oropharynx clear without exudates. Moist mucous membranes. NECK: Normal range of motion, supple without lymphadenopathy LUNGS: Breath sounds clear to auscultation bilaterally and equal. No wheezes rales or rhonchi. HEART: Regular rate and rhythm without murmurs ABDOMEN: Soft, nontender, nondistended abdomen. No guarding, no rebound. No masses appreciated. Female : deferred Musculoskeletal: Tenderness on palpation right anterior chest wall NEUROLOGICAL: Cranial nerves grossly intact. Normal speech, normal gait. Normal sensory, motor exams PSYCH: Normal mood, normal affect. SKIN: Warm, Dry, normal turgor, no rashes or lesions noted. Dictation was performed using [employer] voice recognition software Physical Exam - Vital signs Vitals: Pulse Ox 97 04/07/17 05:35 Course - Re-evaluation Re-evalutation: 04/07/17 07:01 Patient's pain is completely reproducible workup was negative it appears to be completely musculoskeletal I will discharge the patient home with anti- inflammatories and follow-up with his primary care physician After performing a Medical Screening Examination, I estimate there is LOW risk for ACUTE CORONARY SYNDROME, RESPIRATORY FAILURE, SEPSIS OR MENINGITIS, thus I consider the discharge disposition reasonable. I have reevaluated this patient multiple times and no significant life threatening changes are noted. The patient and I have discussed the diagnosis and risks, and we agree with discharging home with close follow-up. We also discussed returning to the Emergency Department immediately if new or worsening symptoms occur. We have discussed the symptoms which are most concerning (e.g., changing or worsening pain, trouble swallowing or breathing, neck stiffness, fever) that necessitate immediate return. - Vital Signs Vital signs: Temp Pulse Resp BP Pulse Ox 98.1 F 7 L 150/95 H 98 04/07/17 05:39 04/07/17 05:41 04/07/17 05:41 04/07/17 05:41 - Laboratory Result Diagrams: 04/07/17 05:31 04/07/17 05:31 Laboratory results interpreted by me: 04/07/17 04/07/17 05:31 05:31 WBC 13.2 H Hct 35.7 L Seg Neutrophils % 84.4 H Lymphocytes % 12.7 L Monocytes % 2.3 L Absolute Neutrophils 11.1 H Glucose 362 H AST 13 L - Diagnostic Test Radiology reviewed: Image reviewed, Reports reviewed - EKG Interpretation by Ia EKG shows normal: Sinus rhythm, [place], Intervals, QRS Complexes Discharge - Discharge Clinical Impression: Chest wall pain Condition: Stable Disposition: HOME, SELF-CARE Instructions: Chest Wall Pain ([facility]) Additional Instructions: Follow up with your physician tomorrow for further care or return to the ED IMMEDIATELY if symptoms worsen or new concerns occur. If you cannot afford to follow up with your primary care physician a list of low cost clinics have been provided at the end of your discharge papers as well. Prescriptions: Naproxen 500 mg PO BID #20 tablet
[2017-04-07] MEDS ORDERED: NAPROXEN 250 MG TABLET PO ONE (07:39)
[2017-04-07 07:51] VITALS: BP 146/79
--- NOTE | 2017-04-07 12:19 | EKG REPORT ---
SEVERITY:- BORDERLINE ECG - SINUS RHYTHM BORDERLINE Q WAVES IN INFERIOR LEADS INFERIOR Q WAVES, PROBABLY NORMAL VARIATION : Confirmed by: Regina Almanzar MD 07-Apr-2017 12:18:32
== END 2017-04-07 07:45 | disposition home or self-care (01) ==
LOC: ER 05:20
DX: R07.89 Other chest pain (principal); E11.9 Type 2 diabetes mellitus without complications; I10 Essential (primary) hypertension; Z88.5 Allergy status to narcotic agent; Z82.49 Family history of ischemic heart disease and other diseases of the circulatory system
CPT/HCPCS: 93005; 99285; 36415; 82553; 82550; 85025; 80053; 84484; 71010; 93010; A9270

== ENCOUNTER 2017-04-29 13:49 | Emergency (ER) | payer MEDICARE, MEDICAID ==
--- NOTE | 2017-04-29 15:09 | ER Document Report ---
HPI - HPI Pain Level: 5 Context: patient is a 37-year-old female presents emergency department via EMS complaining of right leg pain. Patient states that she has been having leg pain for a couple of months but states it got worse today when she is at the store. Patient admits to pain along the lateral aspect of the right thigh and into her right knee worse with movement. She denies any fall or trauma. She has been able to ambulate. - REPRODUCTIVE Reproductive: DENIES: : Past Medical History - Social History Smoking Status: Never Smoker Chew tobacco use (# tins/day): No Frequency of alcohol use: None Drug Abuse: None Family History: Reviewed & Not Pertinent, CAD, DM, Malignancy, Other - Past Medical History Cardiac Medical History: Reports: Hx Hypertension - on meds Denies: Hx Coronary Artery Disease, Hx Heart Attack Pulmonary Medical History: Denies: Hx Asthma, Hx Bronchitis, Hx COPD, Hx Pneumonia Neurological Medical History: Denies: Hx Cerebrovascular Accident, Hx Seizures Endocrine Medical History: Reports: Hx Diabetes Mellitus Type 2 Renal/ Medical History: Reports: Hx Pelvic Inflammatory Disease. Denies: Hx Peritoneal Dialysis GI Medical History: Reports: Hx Gastroesophageal Reflux Disease Musculoskeltal Medical History: Reports Hx Arthritis - generalized Psychiatric Medical History: Reports: Hx Bipolar Disorder, Hx Depression Past Surgical History: Reports: Hx Adenoidectomy, Hx Section - x1, Hx Gynecologic Surgery - , Hx Orthopedic Surgery - Right Leg Surgery, Hx Tonsillectomy - Immunizations Immunizations up to date: No Hx Diphtheria, Pertussis, Tetanus Vaccination: Yes Hx Pneumococcal Vaccination: 07/12/00 Vertical Provider Document - CONSTITUTIONAL Notes: PHYSICAL EXAM GENERAL: Alert, interacts well. HEAD: Normocephalic, atraumatic. EYES: Pupils equal, round, and reactive to light. Extraocular movements intact. ENT: Oral mucosa moist, tongue midline. NECK: Full range of motion. Supple. Trachea midline. LUNGS: Clear to auscultation bilaterally, no wheezes, rales, or rhonchi. No respiratory distress. HEART: Regular rate and rhythm. No murmurs, gallops, or rubs. EXTREMITIES: Moves all 4 extremities spontaneously. Has pain with resistance to active range of motion with hip lateral abduction and tenderness over the IT band of the right leg. No palpable deformities. No edema, radial and dorsalis pedis pulses 2/4 bilaterally. No cyanosis. Back: No evidence of paraspinous or spinous process tenderness. Negative for CVA tenderness. No evidence of step-offs, deformities . Gait stable. NEUROLOGICAL: Alert and oriented x4. Normal speech. PSYCH: Normal affect, normal mood. SKIN: Warm, dry, normal turgor. No rashes or lesions noted. - INFECTION CONTROL TRAVEL OUTSIDE OF THE [place] IN LAST 30 DAYS: No - RESPIRATORY O2 Sat by Pulse Oximetry: 97 Course - Re-evaluation Re-evalutation: 04/29/17 14:00 patient is a 37-year-old female who is hemodynamically stable, no acute distress and afebrile. Presentation today is consistent with IT band syndrome. The patient presents with low back pain without signs of spinal cord compression , cauda equina syndrome, infection, aneurysm, or other serious etiology. The patient is neurologically intact. Given the extremely low risk of these diagnoses further testing and evaluation for these possibilities does not appear to be indicated at this time. The patient has been instructed to return if the symptoms worsen or change in any way. - Vital Signs Vital signs: Temp Pulse Resp BP Pulse Ox 98.1 F 99 18 155/108 H 97 04/29/17 13:59 04/29/17 13:59 04/29/17 13:59 04/29/17 13:59 04/29/17 13:59 Discharge - Discharge Clinical Impression: Leg pain Qualifiers: Laterality: right Qualified Code(s): M79.604 - Pain in right leg Condition: Good Disposition: HOME, SELF-CARE Instructions: Low Back Pain ([facility]) Prescriptions: Meloxicam [Mobic] 7.5 mg PO BID #20 tablet Referrals: [facility] [Provider Group] - Follow up as needed
[2017-04-29 15:21] VITALS: BP 148/96
== END 2017-04-29 15:15 | disposition home or self-care (01) ==
LOC: ER 13:49
DX: M79.604 Pain in right leg (principal); I10 Essential (primary) hypertension; E11.9 Type 2 diabetes mellitus without complications; K21.9 Gastro-esophageal reflux disease without esophagitis
CPT/HCPCS: 99283

== ENCOUNTER 2017-08-29 13:58 | Emergency (ER) | payer MEDICARE, MEDICAID ==
[2017-08-29 14:09] VITALS: BP 151/95
[2017-08-29] MEDS ORDERED: DEXAMETHASONE 4 MG TABLET PO ONE (14:31)
[2017-08-29] MEDS ORDERED: DIPHENHYDRAMINE HCL 50 MG CAPSULE PO ONE (14:31)
[2017-08-29] MEDS ORDERED: FAMOTIDINE 20 MG TABLET PO ONE (14:31)
--- NOTE | 2017-08-29 14:31 | ER Document Report ---
HPI - HPI Patient complains to provider of: rash, itching Pain Level: 2 Context: Patient is a 37-year-old female presents emergency department complaining of itching on bilateral upper extremities and lower extremities. Patient states that this is been for the past 3 days. Patient states that she has been taking metronidazole for a bacterial infection in her vagina. She states that since she started taking that she has noticed the itching. She has not taken anything for her symptoms. Other home medications include Trileptal and Cymbalta which she states she has never had any issues with before and has been on them for many many years/. She otherwise denies any difficulty breathing, difficulty swallowing, nausea or vomiting Patient also states that she has had an upper respiratory cold for the past couple of days has been taking a lot of Sudafed as well as [id number] cough medication and states that she has not been drinking as much water she should be. States that she has had normal urine output. - REPRODUCTIVE Reproductive: DENIES: : Past Medical History - Social History Smoking Status: Current Every Day Smoker Family History: Reviewed & Not Pertinent, CAD, DM, Malignancy, Other - Past Medical History Cardiac Medical History: Reports: Hx Hypertension - on meds Denies: Hx Coronary Artery Disease, Hx Heart Attack Pulmonary Medical History: Denies: Hx Asthma, Hx Bronchitis, Hx COPD, Hx Pneumonia Neurological Medical History: Denies: Hx Cerebrovascular Accident, Hx Seizures Endocrine Medical History: Reports: Hx Diabetes Mellitus Type 2 Renal/ Medical History: Reports: Hx Pelvic Inflammatory Disease. Denies: Hx Peritoneal Dialysis GI Medical History: Reports: Hx Gastroesophageal Reflux Disease Musculoskeltal Medical History: Reports Hx Arthritis - generalized Psychiatric Medical History: Reports: Hx Bipolar Disorder, Hx Depression Past Surgical History: Reports: Hx Adenoidectomy, Hx Section - x1, Hx Gynecologic Surgery - , Hx Orthopedic Surgery - Right Leg Surgery, Hx Tonsillectomy - Immunizations Immunizations up to date: No Hx Diphtheria, Pertussis, Tetanus Vaccination: Yes Hx Pneumococcal Vaccination: 07/12/00 Vertical Provider Document - CONSTITUTIONAL Agree With Documented VS: Yes Notes: PHYSICAL EXAM GENERAL: Alert, interacts well. HEAD: Normocephalic, atraumatic. EYES: Pupils equal, round, and reactive to light. Extraocular movements intact. ENT: Oral mucosa moist, tongue midline. NECK: Full range of motion. Supple. Trachea midline. LUNGS: Clear to auscultation bilaterally, no wheezes, rales, or rhonchi. No respiratory distress. HEART: Regular rate and rhythm. No murmurs, gallops, or rubs. ABDOMEN: Soft, nondistended, nontender. No guarding, rebound, or rigidity.. Bowel sounds present in all 4 quadrants. EXTREMITIES: Moves all 4 extremities spontaneously. No edema, radial and dorsalis pedis pulses 2/4 bilaterally. No cyanosis. NEUROLOGICAL: Alert and oriented x4. Normal speech. PSYCH: Normal affect, normal mood. SKIN: Warm, dry, normal turgor. Mild balnching erythema without distinct border noted along bilateral upper extremities, no bulla, vesicle, hives - INFECTION CONTROL TRAVEL OUTSIDE OF THE [place] IN LAST 30 DAYS: No COUNTRY TRAVELED TO/FROM: [facility] - RESPIRATORY O2 Sat by Pulse Oximetry: 98 Course - Re-evaluation Re-evalutation: 08/29/17 14:35 Patient presents with symptoms consistent with an allergic reaction without anaphylaxis. Only cutaneous involvement with multiple areas of blanching erythema on the extremities. Vitals otherwise within normal limits at time of arrival. No respiratory, GI, cardiovascular, or oral pharyngeal symptoms. A trial of decadron, benadryl and pepcid for symptom resolution was offered to the patient. This did resolve the majority of the patient's pruritus. Will recommend ongoing antihistamine therapy as an outpatient. At this time will discharge with return precautions and follow-up recommendations. Verbal discharge instructions given a the bedside and opportunity for questions given. Medication warnings reviewed. Patient is in agreement with this plan and has verbalized understanding of return precautions and the need for primary care follow-up in the next 24-72 hours. - Vital Signs Vital signs: Temp Pulse Resp BP Pulse Ox 97.6 F 133 H 22 H 151/95 H 98 08/29/17 14:03 08/29/17 14:03 08/29/17 14:03 08/29/17 14:03 08/29/17 14:03 Discharge - Discharge Clinical Impression: Rash Condition: Good Disposition: HOME, SELF-CARE Instructions: Acute Allergic Reaction to Drugs ([facility]) Additional Instructions: Please stop taking your home medications for your vaginal infection which is likely the cause your symptoms. He can continue to take Benadryl 25 mg at least twice a day for your itching. Forms: Elevated Blood Pressure Referrals: CEDRIC MCINTOSH MD [Primary Care Provider] - Follow up as needed
== END 2017-08-29 15:18 | disposition home or self-care (01) ==
LOC: ER 13:58
DX: R21 Rash and other nonspecific skin eruption (principal); L29.8 Other pruritus; N76.0 Acute vaginitis; B96.89 Other specified bacterial agents as the cause of diseases classified elsewhere; J00 Acute nasopharyngitis [common cold]; F17.200 Nicotine dependence, unspecified, uncomplicated; I10 Essential (primary) hypertension; E11.9 Type 2 diabetes mellitus without complications
CPT/HCPCS: 99282; A9270 ×3

== ENCOUNTER 2017-09-02 10:41 | Emergency (ER) | payer MEDICARE, MEDICAID ==
--- NOTE | 2017-09-02 11:20 | ER Document Report ---
ED General - General Chief Complaint: Abdominal Pain Stated Complaint: ABDOMINAL PAIN Time Seen by Provider: 09/02/17 11:04 Mode of Arrival: Medic Information source: Patient Notes: 37-year-old female believes she is . Patient states she feels the baby moving and kicking her. She took a home test which was negative, states she had pain approximately an hour ago felt like a contraction therefore she presented to the ED patient denies any vaginal bleeding or discharge she is unsure when her last menses was TRAVEL OUTSIDE OF THE [place] IN LAST 30 DAYS: No COUNTRY TRAVELED TO/FROM: [facility] Onset: Just prior to arrival Onset/Duration: Sudden Quality of pain: Cramping Severity: Mild Pain Level: 1 Associated symptoms: Other Exacerbated by: Denies Relieved by: Denies Similar symptoms previously: Yes Recently seen / treated by doctor: Yes - Related Data Allergies/Adverse Reactions: oxycodone [From OxyContin] Allergy (Verified 09/02/17 10:45) Past Medical History - Social History Smoking Status: Former Smoker Cigarette use (# per day): No Chew tobacco use (# tins/day): No Smoking Education Provided: No Frequency of alcohol use: Rare Drug Abuse: None Family History: Reviewed & Not Pertinent, CAD, DM, Malignancy, Other Patient has suicidal ideation: No Patient has homicidal ideation: No - Past Medical History Cardiac Medical History: Reports: Hx Hypertension - on meds Denies: Hx Coronary Artery Disease, Hx Heart Attack Pulmonary Medical History: Denies: Hx Asthma, Hx Bronchitis, Hx COPD, Hx Pneumonia Neurological Medical History: Denies: Hx Cerebrovascular Accident, Hx Seizures Endocrine Medical History: Reports: Hx Diabetes Mellitus Type 2 Renal/ Medical History: Reports: Hx Pelvic Inflammatory Disease. Denies: Hx Peritoneal Dialysis GI Medical History: Reports: Hx Gastroesophageal Reflux Disease Musculoskeltal Medical History: Reports Hx Arthritis - generalized Psychiatric Medical History: Reports: Hx Bipolar Disorder, Hx Depression Past Surgical History: Reports: Hx Adenoidectomy, Hx Section - x1, Hx Gynecologic Surgery - , Hx Orthopedic Surgery - Right Leg Surgery, Hx Tonsillectomy - Immunizations Immunizations up to date: No Hx Diphtheria, Pertussis, Tetanus Vaccination: Yes Hx Pneumococcal Vaccination: 07/12/00 Review of Systems - Review of Systems Notes: REVIEW OF SYSTEMS: CONSTITUTIONAL : Denies fever, chills, or sweats. Denies recent illness. EENT: Denies eye, ear, throat, or mouth pain or symptoms. Denies nasal or sinus congestion or discharge. Denies throat, tongue, or mouth swelling or difficulty swallowing. CARDIOVASCULAR: Denies chest pain. Denies palpitations or racing or irregular heart beat. Denies ankle edema. RESPIRATORY: Denies cough, cold, or chest congestion. Denies shortness of breath, difficulty breathing, or wheezing. GASTROINTESTINAL: Admits to abdominal pain GENITOURINARY: Denies difficulty urinating, painful urination, burning, frequency, blood in urine, or discharge. FEMALE GENITOURINARY: Denies vaginal bleeding, heavy or abnormal periods, irregular periods. Denies vaginal discharge or odor. MUSCULOSKELETAL: Denies back or neck pain or stiffness. Denies joint pain or swelling. SKIN: Denies rash, lesions or sores. HEMATOLOGIC : Denies easy bruising or bleeding. LYMPHATIC: Denies swollen, enlarged glands. NEUROLOGICAL: Denies confusion or altered mental status. Denies passing out or loss of consciousness. Denies dizziness or lightheadedness. Denies headache. Denies weakness or paralysis or loss of use of either side. Denies problems with gait or speech. Denies sensory loss, numbness, or tingling. Denies seizures. PSYCHIATRIC: Denies anxiety or stress. Denies depression, suicidal ideation, or homicidal ideation. ALL OTHER SYSTEMS REVIEWED AND NEGATIVE. PHYSICAL EXAMINATION: GENERAL: Morbidly obese female HEAD: Atraumatic, normocephalic. EYES: Pupils equal round and reactive to light, extraocular movements intact, conjunctiva are normal. ENT: Nares patent, oropharynx clear without exudates. Moist mucous membranes. NECK: Normal range of motion, supple without lymphadenopathy LUNGS: Breath sounds clear to auscultation bilaterally and equal. No wheezes rales or rhonchi. HEART: Regular rate and rhythm without murmurs ABDOMEN: Soft, nontender, nondistended abdomen. No guarding, no rebound. No masses appreciated. Female : deferred Musculoskeletal: Normal range of motion, no pitting or edema. No cyanosis. NEUROLOGICAL: Cranial nerves grossly intact. Normal speech, normal gait. Normal sensory, motor exams PSYCH: Normal mood, normal affect. SKIN: Warm, Dry, normal turgor, no rashes or lesions noted. Dictation was performed using Dragon voice recognition software Physical Exam - Vital signs Vitals: Temp Pulse Resp BP Pulse Ox 98.6 F 112 H 20 148/102 H 94 09/02/17 10:47 09/02/17 10:47 09/02/17 10:47 09/02/17 10:47 09/02/17 10:47 Course - Re-evaluation Re-evalutation: 09/02/17 11:20 On evaluation the patient is morbidly obese and difficult to tell if she is or not, I will order blood work at her request 09/02/17 12:12 pts hcg was negative , I have extremely low suspicion for any life threatening concerns. Patient examination otherwise is quite benign After performing a Medical Screening Examination, I estimate there is LOW risk for ACUTE APPENDICITIS, BOWEL OBSTRUCTION, ACUTE CHOLECYSTITIS, PERFORATED DIVERTICULITIS, INCARCERATED HERNIA, PANCREATITIS, PELVIC INFLAMMATORY DISEASE, PERFORATED ULCER, ECTOPIC , or TUBO-OVARIAN ABSCESS, thus I consider the discharge disposition reasonable. Also, there is no evidence or peritonitis , sepsis, or toxicity. I have reevaluated this patient multiple times and no significant life threatening changes are noted. The patient and I have discussed the diagnosis and risks, and we agree with discharging home with close follow-up with the understanding that symptoms and presentations can change. We also discussed returning to the Emergency Department immediately if new or worsening symptoms occur. We have discussed the symptoms which are most concerning (e.g., bloody stool, fever, changing or worsening pain, vomiting) that necessitate immediate return. - Vital Signs Vital signs: Temp Pulse Resp BP Pulse Ox 98.6 F 112 H 20 148/102 H 94 09/02/17 10:47 09/02/17 10:47 09/02/17 10:47 09/02/17 10:47 09/02/17 10:47 Discharge - Discharge Clinical Impression: Abdominal pain Qualifiers: Abdominal location: generalized Qualified Code(s): R10.84 - Generalized abdominal pain Condition: Stable Disposition: HOME, SELF-CARE Instructions: Abdominal Pain ([facility]) Referrals: CEDRIC MCINTOSH MD [Primary Care Provider] - Follow up tomorrow
[2017-09-02 12:44] VITALS: BP 141/97
== END 2017-09-02 12:30 | disposition home or self-care (01) ==
LOC: ER 10:41
DX: R10.84 Generalized abdominal pain (principal); K59.00 Constipation, unspecified; E66.01 Morbid (severe) obesity due to excess calories; I10 Essential (primary) hypertension; E11.9 Type 2 diabetes mellitus without complications; K21.9 Gastro-esophageal reflux disease without esophagitis
CPT/HCPCS: 36415; 84702; 99284

== ENCOUNTER 2017-09-20 10:37 | Emergency (ER) | payer MEDICARE, MEDICAID ==
--- NOTE | 2017-09-20 11:32 | ER Document Report ---
ED Medical Screen (RME) - General Chief Complaint: Urinary Retention Stated Complaint: URINARY PROBLEM Time Seen by Provider: 09/20/17 11:30 Notes: Patient states that she is "tired of being sick". She states she commonly has upper respiratory symptoms that come and go. She thinks that she may have been exposed to carbon monoxide due to poor air conditioning and living [place]. She also states that she has had trouble urinating and it does burn when she urinates. She states that she is not sure if she is . No vomiting diarrhea. TRAVEL OUTSIDE OF THE [place] IN LAST 30 DAYS: No COUNTRY TRAVELED TO/FROM: [facility] - Related Data Allergies/Adverse Reactions: oxycodone [From OxyContin] Allergy (Verified 09/02/17 10:45) Past Medical History - Social History Chew tobacco use (# tins/day): No Frequency of alcohol use: None Drug Abuse: None - Past Medical History Cardiac Medical History: Reports: Hx Hypertension - on meds Denies: Hx Coronary Artery Disease, Hx Heart Attack Pulmonary Medical History: Denies: Hx Asthma, Hx Bronchitis, Hx COPD, Hx Pneumonia Neurological Medical History: Denies: Hx Cerebrovascular Accident, Hx Seizures Endocrine Medical History: Reports: Hx Diabetes Mellitus Type 2 Renal/ Medical History: Reports: Hx Pelvic Inflammatory Disease. Denies: Hx Peritoneal Dialysis GI Medical History: Reports: Hx Gastroesophageal Reflux Disease Musculoskeltal Medical History: Reports Hx Arthritis - generalized Psychiatric Medical History: Reports: Hx Bipolar Disorder, Hx Depression Past Surgical History: Reports: Hx Adenoidectomy, Hx Section - x1, Hx Gynecologic Surgery - , Hx Orthopedic Surgery - Right Leg Surgery, Hx Tonsillectomy - Immunizations Immunizations up to date: No Hx Diphtheria, Pertussis, Tetanus Vaccination: Yes Physical Exam - Vital signs Vitals: Temp Pulse Resp BP Pulse Ox 98.0 F 94 20 154/102 H 98 09/20/17 10:45 09/20/17 10:45 09/20/17 10:45 09/20/17 10:45 09/20/17 10:45 Course - Vital Signs Vital signs: Temp Pulse Resp BP Pulse Ox 98.0 F 94 20 154/102 H 98 09/20/17 10:45 09/20/17 10:45 09/20/17 10:45 09/20/17 10:45 09/20/17 10:45
[2017-09-20 11:52] LABS: ABSOLUTE BASOPHILS # (AUTO) 0.1 10^3/uL (0.0-0.2); ABSOLUTE EOSINOPHILS # (AUTO) 0.1 10^3/uL (0.0-0.6); ABSOLUTE MONOCYTES (AUTO) 0.9 10^3/uL (0.1-1.4); ABSOLUTE NEUT (AUTO) 10.4 10^3/uL (1.7-8.2); BASOPHILS % (AUTO) 0.5 % (0-2); EOSINOPHILS % (AUTO) 0.7 % (0-6); HEMATOCRIT 40.7 % (36.0-47.0); HEMOGLOBIN 13.6 g/dL (12.0-15.5); LYMPHOCYTES % (AUTO) 20.7 % (13-45); MEAN CORPUSCULAR HEMOGLOBIN 28.4 pg (27.0-33.4); MEAN CORPUSCULAR HGB CONC 33.5 g/dL (32.0-36.0); MEAN CORPUSCULAR VOLUME 85 fl (80-97); MONOCYTES % (AUTO) 6.4 % (3-13); PLATELET COUNT 284 10^3/uL (150-450); RED CELL DISTRIBUTION WIDTH 14.3 % (11.5-14.0); SEGMENTED NEUTROPHILS % (AUTO) 71.7 % (42-78); TOTAL CELLS COUNTED % (AUTO) 100 %; WHITE BLOOD COUNT 14.5 10^3/uL (4.0-10.5)
[2017-09-20 12:13] LABS: ALANINE AMINOTRANSFERASE 32 U/L (9-52); ALBUMIN 3.9 g/dL (3.5-5.0); ALKALINE PHOSPHATASE 104 U/L (38-126); ANION GAP 9 (5-19); ASPARTATE AMINO TRANSFERASE 18 U/L (14-36); BILIRUBIN,DIRECT 0.4 mg/dL (0.0-0.4); BILIRUBIN,TOTAL 0.4 mg/dL (0.2-1.3); BLOOD UREA NITROGEN 15 mg/dL (7-20); CALCIUM 9.4 mg/dL (8.4-10.2); CARBON DIOXIDE 25 mmol/L (22-30); CHLORIDE 108 mmol/L (98-107); GLUCOSE 190 mg/dL (75-110); POTASSIUM 3.8 mmol/L (3.6-5.0); SODIUM 142.3 mmol/L (137-145); TOTAL PROTEIN 6.7 g/dL (6.3-8.2)
--- NOTE | 2017-09-20 12:26 | RADIOLOGY REPORT (SQ) ---
EXAM DESCRIPTION: CHEST PA/LAT COMPLETED DATE/TIME: 09/20/2017 12:15 pm REASON FOR STUDY: cough COMPARISON: 04/05/2017 EXAM PARAMETERS: NUMBER OF VIEWS: two views TECHNIQUE: Digital Frontal and Lateral radiographic views of the chest acquired. RADIATION DOSE: NA LIMITATIONS: none FINDINGS: LUNGS AND PLEURA: No opacities, masses or pneumothorax. No pleural effusion. MEDIASTINUM AND HILAR STRUCTURES: No masses or contour abnormalities. HEART AND VASCULAR STRUCTURES: Stable mild cardiomegaly. No evidence for failure. BONES: No acute findings. HARDWARE: None in the chest. OTHER: No other significant finding. IMPRESSION: 1 No significant interval changes since the prior study dated 04/05/2017. No acute pulmo nary findings. 2 Stable mild cardiomegaly. TECHNICAL DOCUMENTATION: JOB ID: [id number] [employer]- All Rights Reserved Reading location - IP/workstation name: [email or web address]
[2017-09-20 14:23] LABS: APPEARANCE,URINE TURBID; BILIRUBIN,URINE NEGATIVE (NEGATIVE); COLOR,URINE AMBER; GLUCOSE, URINE 50 mg/dL (NEGATIVE); KETONES,URINE NEGATIVE (NEGATIVE); LEUKOCYTE ESTERASE,URINE MODERATE (NEGATIVE); NITRITE,URINE NEGATIVE (NEGATIVE); PROTEIN,URINE >=500 mg/dL (NEGATIVE); URINE SPECIFIC GRAVITY 1.029; UROBILINOGEN,URINE NEGATIVE mg/dL (<2.0)
[2017-09-20] MEDS ORDERED: CEFTRIAXONE INJ 1000 MG VIAL IM ONE (15:34)
[2017-09-20] MEDS ORDERED: LIDOCAINE 1% INJ-PF (10 MG/ML) 30 ML SDV INFIL ONE (15:34)
--- NOTE | 2017-09-20 15:35 | ER Document Report ---
ED General - General Mode of Arrival: Ambulatory Information source: Patient TRAVEL OUTSIDE OF THE [place] IN LAST 30 DAYS: No COUNTRY TRAVELED TO/FROM: [place] <DAR RODRIGUEZ - Last Filed: 09/20/17 21:09> <BRIA SHEA - Last Filed: 09/20/17 22:19> - General Chief Complaint: Urinary Retention Stated Complaint: URINARY PROBLEM Time Seen by Provider: 09/20/17 11:30 Notes: Patient is a 37 year old female presenting to the emergency department complaining of multiple symptoms including urinary retention, sore throat, neck pain, ear pain, and itchiness. Patient states she is aware of her UTI and further states that she feels something in her apartment is causing her symptoms and frequent respiratory problems. (DAR RODRIGUEZ) - Related Data Allergies/Adverse Reactions: oxycodone [From OxyContin] Allergy (Verified 09/02/17 10:45) Past Medical History - General Information source: Patient - Social History Smoking Status: Never Smoker Chew tobacco use (# tins/day): No Frequency of alcohol use: None Drug Abuse: None Family History: Reviewed & Not Pertinent, CAD, DM, Malignancy, Other Patient has suicidal ideation: No Patient has homicidal ideation: No - Past Medical History Cardiac Medical History: Reports: Hx Hypertension - on meds Endocrine Medical History: Reports: Hx Diabetes Mellitus Type 2 Renal/ Medical History: Reports: Hx Pelvic Inflammatory Disease GI Medical History: Reports: Hx Gastroesophageal Reflux Disease Musculoskeltal Medical History: Reports Hx Arthritis - generalized Psychiatric Medical History: Reports: Hx Bipolar Disorder, Hx Depression Past Surgical History: Reports: Hx Adenoidectomy, Hx Section - x1, Hx Gynecologic Surgery - , Hx Orthopedic Surgery - Right Leg Surgery, Hx Tonsillectomy - Immunizations Immunizations up to date: No Hx Diphtheria, Pertussis, Tetanus Vaccination: Yes Hx Pneumococcal Vaccination: 07/12/00 <DAR RODRIGUEZ - Last Filed: 09/20/17 21:09> Review of Systems - Review of Systems Constitutional: No symptoms reported EENT: See HPI, Ear pain, Throat pain Cardiovascular: No symptoms reported Respiratory: No symptoms reported Gastrointestinal: No symptoms reported Genitourinary: See HPI, Retention Female Genitourinary: No symptoms reported Musculoskeletal: No symptoms reported Skin: No symptoms reported Hematologic/Lymphatic: No symptoms reported Neurological/Psychological: No symptoms reported -: Yes All other systems reviewed and negative <DAR RODRIGUEZ - Last Filed: 09/20/17 21:09> Physical Exam - Vital signs Interpretation: Normal - General General appearance: Appears well, Alert - HEENT Head: Normocephalic, Atraumatic Eyes: Normal Pupils: PERRL - Respiratory Respiratory status: No respiratory distress Chest status: Nontender Breath sounds: Normal Chest palpation: Normal - Cardiovascular Rhythm: Regular Heart sounds: Normal auscultation Murmur: No - Abdominal Inspection: Normal Distension: No distension Bowel sounds: Normal Tenderness: Nontender Organomegaly: No organomegaly - Back Back: Normal, Nontender - Extremities General upper extremity: Normal inspection, Nontender, Normal color, Normal ROM , Normal temperature General lower extremity: Normal inspection, Nontender, Normal color, Normal ROM , Normal temperature, Normal weight bearing. No: Cele's sign - Neurological Neuro grossly intact: Yes Cognition: Normal Orientation: AAOx4 [place] Coma Scale Eye Opening: Spontaneous Eliu Coma Scale Verbal: Oriented Eliu Coma Scale Motor: Obeys Commands [place] Coma Scale Total: 15 Speech: Normal Motor strength normal: LUE, RUE, LLE, RLE Sensory: Normal - Psychological Associated symptoms: Normal affect, Normal mood - Skin Skin Temperature: Warm Skin Moisture: Dry Skin Color: Normal <BRIA SHEA - Last Filed: 09/20/17 22:19> - Vital signs Vitals: Temp Pulse Resp BP Pulse Ox 98.0 F 94 20 154/102 H 98 09/20/17 10:45 09/20/17 10:45 09/20/17 10:45 09/20/17 10:45 09/20/17 10:45 Course - Laboratory Result Diagrams: 09/20/17 11:42 09/20/17 11:42 <DAR RODRIGUEZ - Last Filed: 09/20/17 21:09> - Laboratory Result Diagrams: 09/20/17 11:42 09/20/17 11:42 <BRIA SHEA - Last Filed: 09/20/17 22:19> - Re-evaluation Re-evalutation: 09/20/17 Patient comes in complaining of difficulty urinating and pain with urination. Urine is positive for infection and also blood. Patient states she knows she has UTI. She is not on any medication for. Also complaining of runny nose, itching. She is moving out of her apartment today which she thinks is causing her symptoms. Patient will be given a dose of Rocephin and discharged home with Keflex. Urine culture sent. Able to urinate at the time of discharge. Follow-up with PMD. Return if worsening or concerning symptoms. Stable for discharge. (BRIA SHEA) - Vital Signs Vital signs: Temp Pulse Resp BP Pulse Ox 97.8 F 88 18 149/99 H 99 09/20/17 16:00 09/20/17 16:00 09/20/17 16:00 09/20/17 16:00 09/20/17 16:00 - Laboratory Laboratory results interpreted by me: 09/20/17 09/20/17 09/20/17 11:42 11:42 13:25 WBC 14.5 H RDW 14.3 H Absolute Neutrophils 10.4 H Chloride 108 H Glucose 190 H POC Glucose Urine Protein >=500 H Urine Glucose (UA) 50 H Urine Blood LARGE H Ur Leukocyte Esterase MODERATE H 09/20/17 15:07 WBC RDW Absolute Neutrophils Chloride Glucose POC Glucose 239 H Urine Protein Urine Glucose (UA) Urine Blood Ur Leukocyte Esterase Discharge <DAR RODRIGUEZ - Last Filed: 09/20/17 21:09> <BRIA SHEA - Last Filed: 09/20/17 22:19> - Discharge Clinical Impression: UTI (urinary tract infection) Qualifiers: Urinary tract infection type: site unspecified Hematuria presence: with hematuria Qualified Code(s): N39.0 - Urinary tract infection, site not specified ; R31.9 - Hematuria, unspecified; R31.9 - Hematuria, unspecified Contact dermatitis Qualifiers: Contact dermatitis type: allergic Contact dermatitis trigger: unspecified trigger Qualified Code(s): L23.9 - Allergic contact dermatitis, unspecified cause Condition: Stable Disposition: HOME, SELF-CARE Instructions: Urinary Tract Infection ([facility]) Additional Instructions: Please discuss your allergy symptoms with your primary doctor. Please take medications that were sent to your pharmacy for UTI. A urine culture has been sent. Prescriptions: Ciprofloxacin HCl [Cipro 500 mg Tablet] 500 mg PO BID #10 tablet Referrals: CEDRIC MCINTOSH MD [Primary Care Provider] - Follow up in 3-5 days Scribe Attestation: 09/20/17 22:19 I personally performed the services described in the documentation, reviewed and edited the documentation which was dictated to the scribe in my presence, and it accurately records my words and actions. (BRIA SHEA) Scribe Documentation - Scribe Written by Scribe:: Pito Larios, 09/20/2017 15:42 acting as scribe for :: Jennifer <DAR RODRIGUEZ - Last Filed: 09/20/17 21:09>
[2017-09-20 16:01] VITALS: BP 149/99
== END 2017-09-20 16:01 | disposition home or self-care (01) ==
LOC: ER 10:37
DX: N39.0 Urinary tract infection, site not specified (principal); R31.9 Hematuria, unspecified; R33.9 Retention of urine, unspecified; L23.9 Allergic contact dermatitis, unspecified cause; J02.9 Acute pharyngitis, unspecified; R09.89 Other specified symptoms and signs involving the circulatory and respiratory systems; M54.2 Cervicalgia; H92.09 Otalgia, unspecified ear; I10 Essential (primary) hypertension; E11.9 Type 2 diabetes mellitus without complications; Z88.5 Allergy status to narcotic agent
CPT/HCPCS: 99284; 96372; 51701; 36415; 87086; 82962; 85025; 81025; 87088; 80053; 81001; 87186; 71046; J3490; J0696

== ENCOUNTER 2017-10-09 13:57 | Emergency (ER) | payer MEDICARE, MEDICAID ==
[2017-10-09 14:12] VITALS: BP 147/103
--- NOTE | 2017-10-09 14:37 | ER Document Report ---
ED General - General Chief Complaint: Abdominal Pain Stated Complaint: ABDOMINAL PAIN Time Seen by Provider: 10/09/17 14:26 Mode of Arrival: Ambulatory Information source: Patient Notes: 37-year-old female extensive psychiatric history who has been here multiple times for abdominal pain stating that she wishes to be and has poked holes and condoms of her boyfriend before presents with complaints of right upper quadrant abdominal pain patient notes the pain is been going on for a few days TRAVEL OUTSIDE OF THE [place] IN LAST 30 DAYS: No COUNTRY TRAVELED TO/FROM: [facility] - [facility] Onset: Yesterday Onset/Duration: Persistent Quality of pain: Sharp Severity: Mild Pain Level: 1 Associated symptoms: None Exacerbated by: Denies Relieved by: Denies Similar symptoms previously: Yes Recently seen / treated by doctor: Yes - Related Data Allergies/Adverse Reactions: oxycodone [From OxyContin] Allergy (Verified 10/09/17 14:23) Past Medical History - Social History Smoking Status: Former Smoker Cigarette use (# per day): No Chew tobacco use (# tins/day): No Smoking Education Provided: No Frequency of alcohol use: None Drug Abuse: None Family History: Reviewed & Not Pertinent, CAD, DM, Malignancy, Other Patient has suicidal ideation: No Patient has homicidal ideation: No - Past Medical History Cardiac Medical History: Reports: Hx Hypertension - on meds Denies: Hx Coronary Artery Disease, Hx Heart Attack Pulmonary Medical History: Denies: Hx Asthma, Hx Bronchitis, Hx COPD, Hx Pneumonia Neurological Medical History: Denies: Hx Cerebrovascular Accident, Hx Seizures Endocrine Medical History: Reports: Hx Diabetes Mellitus Type 2 Renal/ Medical History: Reports: Hx Pelvic Inflammatory Disease. Denies: Hx Peritoneal Dialysis GI Medical History: Reports: Hx Gastroesophageal Reflux Disease Musculoskeltal Medical History: Reports Hx Arthritis - generalized Psychiatric Medical History: Reports: Hx Bipolar Disorder, Hx Depression Past Surgical History: Reports: Hx Adenoidectomy, Hx Section - x1, Hx Gynecologic Surgery - , Hx Orthopedic Surgery - Right Leg Surgery, Hx Tonsillectomy - Immunizations Immunizations up to date: No Hx Diphtheria, Pertussis, Tetanus Vaccination: Yes Hx Pneumococcal Vaccination: 07/12/00 Review of Systems - Review of Systems Notes: REVIEW OF SYSTEMS: CONSTITUTIONAL : Denies fever, chills, or sweats. Denies recent illness. EENT: Denies eye, ear, throat, or mouth pain or symptoms. Denies nasal or sinus congestion or discharge. Denies throat, tongue, or mouth swelling or difficulty swallowing. CARDIOVASCULAR: Denies chest pain. Denies palpitations or racing or irregular heart beat. Denies ankle edema. RESPIRATORY: Denies cough, cold, or chest congestion. Denies shortness of breath, difficulty breathing, or wheezing. GASTROINTESTINAL: Admits to right upper quadrant abdominal pain GENITOURINARY: Denies difficulty urinating, painful urination, burning, frequency, blood in urine, or discharge. FEMALE GENITOURINARY: Denies vaginal bleeding, heavy or abnormal periods, irregular periods. Denies vaginal discharge or odor. MUSCULOSKELETAL: Denies back or neck pain or stiffness. Denies joint pain or swelling. SKIN: Denies rash, lesions or sores. HEMATOLOGIC : Denies easy bruising or bleeding. LYMPHATIC: Denies swollen, enlarged glands. NEUROLOGICAL: Denies confusion or altered mental status. Denies passing out or loss of consciousness. Denies dizziness or lightheadedness. Denies headache. Denies weakness or paralysis or loss of use of either side. Denies problems with gait or speech. Denies sensory loss, numbness, or tingling. Denies seizures. PSYCHIATRIC: Denies anxiety or stress. Denies depression, suicidal ideation, or homicidal ideation. ALL OTHER SYSTEMS REVIEWED AND NEGATIVE. PHYSICAL EXAMINATION: GENERAL: Morbidly obese female HEAD: Atraumatic, normocephalic. EYES: Pupils equal round and reactive to light, extraocular movements intact, conjunctiva are normal. ENT: Nares patent, oropharynx clear without exudates. Moist mucous membranes. NECK: Normal range of motion, supple without lymphadenopathy LUNGS: Breath sounds clear to auscultation bilaterally and equal. No wheezes rales or rhonchi. HEART: Regular rate and rhythm without murmurs ABDOMEN: Soft, nontender, nondistended abdomen. No guarding, no rebound. No masses appreciated. Female : deferred Musculoskeletal: Normal range of motion, no pitting or edema. No cyanosis. NEUROLOGICAL: Cranial nerves grossly intact. Normal speech, normal gait. Normal sensory, motor exams PSYCH: Normal mood, normal affect. SKIN: Warm, Dry, normal turgor, no rashes or lesions noted. Dictation was performed using [employer] recognition software Physical Exam - Vital signs Vitals: Temp Pulse Resp BP Pulse Ox 97.3 F 113 H 22 H 147/103 H 95 10/09/17 14:09 10/09/17 14:09 10/09/17 14:09 10/09/17 14:09 10/09/17 14:09 Course - Re-evaluation Re-evalutation: 10/09/17 14:37 Patient's examination is quite benign and I do not expect any life-threatening issues I do not expect any issues related to surgical intervention, lab work is pending at this time 10/09/17 15:59 Patient's lab was noted only hyperglycemia, this is been provided to the patient , she otherwise looks well is in no distress will be discharged home with close follow-up After performing a Medical Screening Examination, I estimate there is LOW risk for ACUTE APPENDICITIS, BOWEL OBSTRUCTION, ACUTE CHOLECYSTITIS, PERFORATED DIVERTICULITIS, INCARCERATED HERNIA, PANCREATITIS, PELVIC INFLAMMATORY DISEASE, PERFORATED ULCER, ECTOPIC , or TUBO-OVARIAN ABSCESS, thus I consider the discharge disposition reasonable. Also, there is no evidence or peritonitis , sepsis, or toxicity. I have reevaluated this patient multiple times and no significant life threatening changes are noted. The patient and I have discussed the diagnosis and risks, and we agree with discharging home with close follow-up with the understanding that symptoms and presentations can change. We also discussed returning to the Emergency Department immediately if new or worsening symptoms occur. We have discussed the symptoms which are most concerning (e.g., bloody stool, fever, changing or worsening pain, vomiting) that necessitate immediate return. - Vital Signs Vital signs: Temp Pulse Resp BP Pulse Ox 97.3 F 113 H 22 H 147/103 H 95 10/09/17 14:09 10/09/17 14:09 10/09/17 14:09 10/09/17 14:09 10/09/17 14:09 - Laboratory Result Diagrams: 10/09/17 14:40 10/09/17 14:40 Laboratory results interpreted by me: 10/09/17 10/09/17 14:40 14:40 RDW 14.4 H Glucose 276 H Discharge - Discharge Clinical Impression: Abdominal pain Qualifiers: Abdominal location: epigastric Qualified Code(s): R10.13 - Epigastric pain Condition: Stable Disposition: HOME, SELF-CARE Instructions: Abdominal Pain ([facility]) Additional Instructions: Follow up with your physician tomorrow for further care or return to the ED IMMEDIATELY if symptoms worsen or new concerns occur. If you cannot afford to follow up with your primary care physician a list of low cost clinics have been provided at the end of your discharge papers as well.
[2017-10-09 14:51] LABS: ABSOLUTE BASOPHILS # (AUTO) 0.1 10^3/uL (0.0-0.2); ABSOLUTE EOSINOPHILS # (AUTO) 0.1 10^3/uL (0.0-0.6); ABSOLUTE LYMPHOCYTES (AUTO) 2.5 10^3/uL (0.5-4.7); ABSOLUTE MONOCYTES (AUTO) 0.5 10^3/uL (0.1-1.4); ABSOLUTE NEUT (AUTO) 6.2 10^3/uL (1.7-8.2); BASOPHILS % (AUTO) 0.7 % (0-2); EOSINOPHILS % (AUTO) 1.2 % (0-6); HEMATOCRIT 38.7 % (36.0-47.0); HEMOGLOBIN 12.9 g/dL (12.0-15.5); LYMPHOCYTES % (AUTO) 26.7 % (13-45); MEAN CORPUSCULAR HGB CONC 33.3 g/dL (32.0-36.0); MEAN CORPUSCULAR VOLUME 84 fl (80-97); PLATELET COUNT 280 10^3/uL (150-450); RED CELL DISTRIBUTION WIDTH 14.4 % (11.5-14.0); SEGMENTED NEUTROPHILS % (AUTO) 66.4 % (42-78); TOTAL CELLS COUNTED % (AUTO) 100 %; WHITE BLOOD COUNT 9.3 10^3/uL (4.0-10.5)
[2017-10-09 15:11] LABS: ALANINE AMINOTRANSFERASE 26 U/L (9-52); ALBUMIN 3.8 g/dL (3.5-5.0); ALKALINE PHOSPHATASE 103 U/L (38-126); ANION GAP 9 (5-19); ASPARTATE AMINO TRANSFERASE 20 U/L (14-36); BILIRUBIN,DIRECT 0.2 mg/dL (0.0-0.4); BILIRUBIN,TOTAL 0.3 mg/dL (0.2-1.3); BLOOD UREA NITROGEN 13 mg/dL (7-20); CALCIUM 9.2 mg/dL (8.4-10.2); CARBON DIOXIDE 28 mmol/L (22-30); CHLORIDE 102 mmol/L (98-107); GLUCOSE 276 mg/dL (75-110); POTASSIUM 4.1 mmol/L (3.6-5.0); SODIUM 139.4 mmol/L (137-145); TOTAL PROTEIN 6.3 g/dL (6.3-8.2)
== END 2017-10-09 16:07 | disposition home or self-care (01) ==
LOC: ER 13:57
DX: R10.13 Epigastric pain (principal); R10.11 Right upper quadrant pain; I10 Essential (primary) hypertension; E11.65 Type 2 diabetes mellitus with hyperglycemia; E66.01 Morbid (severe) obesity due to excess calories; Z68.43 Body mass index [BMI] 50.0-59.9, adult; Z87.42 Personal history of other diseases of the female genital tract; Z87.891 Personal history of nicotine dependence; Z87.19 Personal history of other diseases of the digestive system
CPT/HCPCS: 36415; 80053; 84703; 85025; 99284

== ENCOUNTER 2017-10-10 21:37 | Emergency (ER) | payer MEDICARE, MEDICAID ==
[2017-10-10] MEDS ORDERED: LIDOCAINE 5% (700 MG) TRANSDERMAL ADH..PATCH TP ONE (23:35)
[2017-10-10] MEDS ORDERED: ACETAMINOPHEN 325 MG TABLET PO ONE (23:35)
--- NOTE | 2017-10-11 | ER Document Report ---
ED General - General Chief Complaint: Rib Pain Stated Complaint: RIGHT RIB PAIN Time Seen by Provider: 10/10/17 23:21 Notes: Patient is a 37-year-old female well-known to me and this emergency department presents with abdominal pain. Patient reports that for the past several hours she has had a dull, constant, throbbing pain to her right upper quadrant but she also notes that she has pain at the bilateral lower ribs slightly worse than the right versus the left. She notes a history of similar symptoms many times in the past. She has not tried anything to improve the pain. Nothing worsens the pain. She has not seen her primary doctor regarding today's concerns. She denies any pleuritic pain any dyspnea, any chest pressure, nausea , vomiting or diaphoresis. She denies any association with eating and in fact is asking for food. TRAVEL OUTSIDE OF THE [place] IN LAST 30 DAYS: No COUNTRY TRAVELED TO/FROM: [place] - Related Data Allergies/Adverse Reactions: oxycodone [From OxyContin] Allergy (Verified 10/09/17 14:23) Past Medical History - General Information source: Patient - Social History Smoking Status: Never Smoker Frequency of alcohol use: None Drug Abuse: None Lives with: Family Family History: Reviewed & Not Pertinent, CAD, DM, Malignancy, Other Patient has suicidal ideation: No Patient has homicidal ideation: No - Past Medical History Cardiac Medical History: Reports: Hx Hypertension - on meds Denies: Hx Coronary Artery Disease, Hx Heart Attack Pulmonary Medical History: Denies: Hx Asthma, Hx Bronchitis, Hx COPD, Hx Pneumonia Neurological Medical History: Denies: Hx Cerebrovascular Accident, Hx Seizures Endocrine Medical History: Reports: Hx Diabetes Mellitus Type 2 Renal/ Medical History: Reports: Hx Pelvic Inflammatory Disease. Denies: Hx Peritoneal Dialysis GI Medical History: Reports: Hx Gastroesophageal Reflux Disease Musculoskeltal Medical History: Reports Hx Arthritis - generalized Psychiatric Medical History: Reports: Hx Bipolar Disorder, Hx Depression Past Surgical History: Reports: Hx Adenoidectomy, Hx Section - x1, Hx Gynecologic Surgery - , Hx Orthopedic Surgery - Right Leg Surgery, Hx Tonsillectomy - Immunizations Immunizations up to date: No Hx Diphtheria, Pertussis, Tetanus Vaccination: Yes Hx Pneumococcal Vaccination: 07/12/00 Review of Systems - Review of Systems Notes: Constitutional: Negative for fever. HENT: Negative for sore throat. Eyes: Negative for visual changes. Cardiovascular: Negative for chest pain. Respiratory: Negative for shortness of breath. Gastrointestinal: Positive for abdominal pain Genitourinary: Negative for dysuria. Musculoskeletal: Negative for back pain. Skin: Negative for rash. Neurological: Negative for headaches, weakness or numbness. 10 point ROS negative except as marked above and in HPI. Physical Exam - Vital signs Vitals: Temp Pulse Resp BP Pulse Ox 98.0 F 103 H 20 154/112 H 96 10/10/17 22:34 10/10/17 22:34 10/10/17 22:34 10/10/17 22:34 10/10/17 22:34 Interpretation: Hypertensive Notes: PHYSICAL EXAMINATION: GENERAL: Morbidly obese, otherwise well-appearing, well-nourished and in no acute distress. HEAD: Atraumatic, normocephalic. EYES: Pupils equal round and reactive to light, extraocular movements intact, sclera anicteric, conjunctiva are normal. ENT: nares patent, oropharynx clear without exudates. Moist mucous membranes. NECK: Normal range of motion, supple without lymphadenopathy LUNGS: Breath sounds clear to auscultation bilaterally and equal. No wheezes rales or rhonchi. HEART: Regular rate and rhythm without murmurs Chest wall: Pain on palpation of the bilateral lower ribs slightly worse on the right versus the left ABDOMEN: Soft, morbidly obese abdomen, nontender, normoactive bowel sounds. No guarding, no rebound. No masses appreciated. EXTREMITIES: Normal range of motion, no pitting or edema. No cyanosis. NEUROLOGICAL: No focal neurological deficits. Moves all extremities spontaneously and on command. PSYCH: Normal mood, normal affect. SKIN: Warm, Dry, normal turgor, no rashes or lesions noted. Course - Re-evaluation Re-evalutation: 10/10/17 23:59 Presentation of a patient complaining of right upper quadrant abdominal pain although she is admittedly complaining of bilateral lower rib pain. Patient is well known to me in this emergency department, frequently presents for pain related complaints. She is actually asking to eat denies any association between eating her abdominal pain. Overall very low clinical suspicion for any acute left any pathology but given her complaint of ongoing right upper quadrant abdominal pain will obtain right upper quadrant ultrasound to further clarify. Will also obtain basic laboratories to further exclude an acute pancreatitis, acute hepatitis as well as a chest x-ray to exclude any rib injuries or associated infection. States that this workup will likely be unrevealing the patient can subsequently be discharged home with follow-up recommendations and return precautions. 10/11/17 02:13 Right upper quadrant ultrasound is normal without any evidence of gallbladder pathology. Hepatic steatosis is noted which is consistent with the patient's morbid obesity. After is otherwise unremarkable. Chest x-ray is clear. At this time will discharge with return precautions and follow-up recommendations. Verbal discharge instructions given a the bedside and opportunity for questions given. Medication warnings reviewed. Patient is in agreement with this plan and has verbalized understanding of return precautions and the need for primary care follow-up in the next 24-72 hours. - Vital Signs Vital signs: Temp Pulse Resp BP Pulse Ox 98.0 F 99 20 148/98 H 96 10/10/17 22:34 10/11/17 02:21 10/11/17 02:21 10/11/17 02:21 10/11/17 02:21 - Laboratory Result Diagrams: 10/10/17 23:50 10/10/17 23:50 Laboratory results interpreted by me: 10/10/17 10/10/17 23:50 23:50 WBC 11.0 H RDW 14.2 H Sodium 136.7 L Chloride 97 L Glucose 242 H - Diagnostic Test Radiology reviewed: Image reviewed, Reports reviewed Radiology results interpreted by me: 10/11/17 02:13 Chest x-ray: No acute infiltrate or pneumothorax - EKG Interpretation by Me Additional EKG results interpreted by me: 10/11/17 02:13 Normal sinus rhythm. Rate 99. No ST elevations or depressions. Discharge - Discharge Clinical Impression: Chronic abdominal pain, Rib pain Condition: Good Disposition: HOME, SELF-CARE Additional Instructions: You have been seen in the Emergency Department (ED) for abdominal pain. Your evaluation did not identify a clear cause of your symptoms but was generally reassuring. Please follow up with your doctor as soon as possible regarding today's emergent visit and the symptoms that are bothering you. Return to the ED if your abdominal pain worsens or fails to improve, you develop bloody vomiting, bloody diarrhea, you are unable to tolerate fluids due to vomiting, fever greater than 101, or other symptoms that concern you. Referrals: JAVIER GARCIA MD [Primary Care Provider] - Follow up as needed
[2017-10-11 00:16] LABS: ABSOLUTE BASOPHILS # (AUTO) 0.1 10^3/uL (0.0-0.2); ABSOLUTE EOSINOPHILS # (AUTO) 0.1 10^3/uL (0.0-0.6); ABSOLUTE LYMPHOCYTES (AUTO) 3.1 10^3/uL (0.5-4.7); ABSOLUTE MONOCYTES (AUTO) 0.6 10^3/uL (0.1-1.4); ABSOLUTE NEUT (AUTO) 7.1 10^3/uL (1.7-8.2); BASOPHILS % (AUTO) 0.7 % (0-2); EOSINOPHILS % (AUTO) 1.1 % (0-6); HEMATOCRIT 39.6 % (36.0-47.0); HEMOGLOBIN 13.1 g/dL (12.0-15.5); LYMPHOCYTES % (AUTO) 28.3 % (13-45); MEAN CORPUSCULAR HEMOGLOBIN 27.9 pg (27.0-33.4); MEAN CORPUSCULAR HGB CONC 33.1 g/dL (32.0-36.0); MEAN CORPUSCULAR VOLUME 84 fl (80-97); MONOCYTES % (AUTO) 5.5 % (3-13); PLATELET COUNT 292 10^3/uL (150-450); RED BLOOD COUNT 4.69 10^6/uL (3.72-5.28); RED CELL DISTRIBUTION WIDTH 14.2 % (11.5-14.0); SEGMENTED NEUTROPHILS % (AUTO) 64.4 % (42-78); TOTAL CELLS COUNTED % (AUTO) 100 %
[2017-10-11 00:58] LABS: ALANINE AMINOTRANSFERASE 24 U/L (9-52); ALKALINE PHOSPHATASE 100 U/L (38-126); ANION GAP 11 (5-19); ASPARTATE AMINO TRANSFERASE 23 U/L (14-36); BILIRUBIN,DIRECT 0.2 mg/dL (0.0-0.4); BILIRUBIN,TOTAL 0.4 mg/dL (0.2-1.3); BLOOD UREA NITROGEN 12 mg/dL (7-20); CALCIUM 9.6 mg/dL (8.4-10.2); CARBON DIOXIDE 29 mmol/L (22-30); CHLORIDE 97 mmol/L (98-107); GLUCOSE 242 mg/dL (75-110); LIPASE 51.3 U/L (23-300); POTASSIUM 3.9 mmol/L (3.6-5.0); SODIUM 136.7 mmol/L (137-145); TOTAL PROTEIN 6.5 g/dL (6.3-8.2)
--- NOTE | 2017-10-11 01:08 | RADIOLOGY REPORT (SQ) ---
EXAM DESCRIPTION: CHEST PA/LAT CLINICAL HISTORY: 37 years, Female, rib pain COMPARISON: 3.12.18 NUMBER OF VIEWS: 2 LIMITATIONS: None. FINDINGS: Normal lung volume, clear parenchyma, normal cardiac silhouette, and intact bony thorax. IMPRESSION: No acute cardiopulmonary findings.
--- NOTE | 2017-10-11 02:12 | RADIOLOGY REPORT (SQ) ---
EXAM DESCRIPTION: U/S ABDOMEN LIMITED W/O DOP CLINICAL HISTORY: 37 years, Female, ruq pain COMPARISON: 4..16 LIMITATIONS: Body habitus. Bowel gas artifact. FINDINGS: Gallbladder, negative sonographic Kim's test, hepatobiliary ductal system including a 0.6 cm diameter common bile duct, 14 cm right kidney, moderate hepatic steatosis, obscured pancreas/aorta, and no ascites appear otherwise unremarkable. IMPRESSION: No acute findings. Moderate hepatic steatosis. Obscured pancreas/aorta.
[2017-10-11 02:25] VITALS: BP 148/98
== END 2017-10-11 02:25 | disposition home or self-care (01) ==
LOC: ER 21:37
DX: G89.29 Other chronic pain (principal); R10.9 Unspecified abdominal pain; R07.81 Pleurodynia; Z88.6 Allergy status to analgesic agent
CPT/HCPCS: 99284; 36415; 83690; 85025; 80053; 71046; 76705; A9270

== ENCOUNTER 2017-11-03 23:27 | Emergency (ER) | payer MEDICARE, MEDICAID ==
[2017-11-04 00:49] LABS: ABSOLUTE BASOPHILS # (AUTO) 0.1 10^3/uL (0.0-0.2); ABSOLUTE EOSINOPHILS # (AUTO) 0.1 10^3/uL (0.0-0.6); ABSOLUTE LYMPHOCYTES (AUTO) 3.5 10^3/uL (0.5-4.7); ABSOLUTE MONOCYTES (AUTO) 0.8 10^3/uL (0.1-1.4); ABSOLUTE NEUT (AUTO) 8.4 10^3/uL (1.7-8.2); BASOPHILS % (AUTO) 0.6 % (0-2); EOSINOPHILS % (AUTO) 0.6 % (0-6); HEMATOCRIT 41.6 % (36.0-47.0); HEMOGLOBIN 13.9 g/dL (12.0-15.5); LYMPHOCYTES % (AUTO) 27.3 % (13-45); MEAN CORPUSCULAR HEMOGLOBIN 27.8 pg (27.0-33.4); MEAN CORPUSCULAR HGB CONC 33.4 g/dL (32.0-36.0); MEAN CORPUSCULAR VOLUME 83 fl (80-97); MONOCYTES % (AUTO) 6.5 % (3-13); PLATELET COUNT 320 10^3/uL (150-450); RED CELL DISTRIBUTION WIDTH 14.5 % (11.5-14.0); TOTAL CELLS COUNTED % (AUTO) 100 %; WHITE BLOOD COUNT 12.9 10^3/uL (4.0-10.5)
[2017-11-04 01:10] LABS: ALANINE AMINOTRANSFERASE 32 U/L (9-52); ALBUMIN 4.4 g/dL (3.5-5.0); ALKALINE PHOSPHATASE 113 U/L (38-126); ANION GAP 12 (5-19); ASPARTATE AMINO TRANSFERASE 24 U/L (14-36); BILIRUBIN,DIRECT 0.4 mg/dL (0.0-0.4); BILIRUBIN,TOTAL 0.7 mg/dL (0.2-1.3); BLOOD UREA NITROGEN 11 mg/dL (7-20); CALCIUM 9.9 mg/dL (8.4-10.2); CARBON DIOXIDE 30 mmol/L (22-30); CHLORIDE 95 mmol/L (98-107); GLUCOSE 143 mg/dL (75-110); LIPASE 27.3 U/L (23-300); POTASSIUM 3.5 mmol/L (3.6-5.0); SODIUM 136.9 mmol/L (137-145); TOTAL PROTEIN 7.5 g/dL (6.3-8.2)
[2017-11-04 01:22] LABS: APPEARANCE,URINE SLIGHTLY-CLOUDY; BILIRUBIN,URINE NEGATIVE (NEGATIVE); COLOR,URINE YELLOW; GLUCOSE, URINE NEGATIVE (NEGATIVE); KETONES,URINE NEGATIVE (NEGATIVE); LEUKOCYTE ESTERASE,URINE NEGATIVE (NEGATIVE); NITRITE,URINE NEGATIVE (NEGATIVE); PROTEIN,URINE NEGATIVE (NEGATIVE); URINE SPECIFIC GRAVITY 1.009; UROBILINOGEN,URINE NEGATIVE mg/dL (<2.0)
[2017-11-04] MEDS ORDERED: HYDROCODONE/ACETAMINOPHEN 5-325 MG TABLET PO ONE (01:54)
[2017-11-04] MEDS ORDERED: ONDANSETRON 4 MG TAB.RAPDIS PO ONE (01:55)
--- NOTE | 2017-11-04 01:55 | ER Document Report ---
ED General - General Chief Complaint: Abdominal Pain Stated Complaint: ABDOMINAL PAIN Time Seen by Provider: 11/04/17 00:12 Notes: 37-year-old female patient comes to the emergency department by ambulance for abdominal pain. Patient states that she has a history of a hernia. Was seen by surgery and had hernia repair a year ago. Followed up with the surgeon and was told she was too fat according to patient to have anything done. Doctor told her she needed to lose about 100 pounds before he would operate on her. Patient states that she continues to have pain. Cannot necessarily describe where the pain is. Seems to make it better or worse. Of note, patient states that she has a large amount of nausea and vomiting and was started on some antibiotics a few days ago for "sinusitis". Patient has been taking Augmentin. Having significant amount of nausea. No Fever. No chills. TRAVEL OUTSIDE OF THE [place] IN LAST 30 DAYS: No COUNTRY TRAVELED TO/FROM: [employer] Onset/Duration: Constant Quality of pain: Achy Severity: Moderate Pain Level: 2 - Related Data Allergies/Adverse Reactions: oxycodone [From OxyContin] Allergy (Verified 10/09/17 14:23) Past Medical History - General Information source: Patient - Social History Smoking Status: Current Every Day Smoker Cigarette use (# per day): Yes Smoking Education Provided: Yes Frequency of alcohol use: None Drug Abuse: None Lives with: Family Family History: Reviewed & Not Pertinent, CAD, DM, Malignancy, Other Patient has suicidal ideation: No Patient has homicidal ideation: No - Past Medical History Cardiac Medical History: Reports: Hx Hypertension - on meds Denies: Hx Coronary Artery Disease, Hx Heart Attack Pulmonary Medical History: Denies: Hx Asthma, Hx Bronchitis, Hx COPD, Hx Pneumonia Neurological Medical History: Denies: Hx Cerebrovascular Accident, Hx Seizures Endocrine Medical History: Reports: Hx Diabetes Mellitus Type 2 Renal/ Medical History: Reports: Hx Pelvic Inflammatory Disease. Denies: Hx Peritoneal Dialysis GI Medical History: Reports: Hx Gastroesophageal Reflux Disease Musculoskeltal Medical History: Reports Hx Arthritis - generalized Psychiatric Medical History: Reports: Hx Bipolar Disorder, Hx Depression Past Surgical History: Reports: Hx Adenoidectomy, Hx Section - x1, Hx Gynecologic Surgery - , Hx Orthopedic Surgery - Right Leg Surgery, Hx Tonsillectomy - Immunizations Immunizations up to date: No Hx Diphtheria, Pertussis, Tetanus Vaccination: Yes Hx Pneumococcal Vaccination: 07/12/00 Review of Systems - Review of Systems Constitutional: No symptoms reported EENT: No symptoms reported Cardiovascular: No symptoms reported Respiratory: No symptoms reported Gastrointestinal: Abdominal pain Genitourinary: No symptoms reported Female Genitourinary: No symptoms reported Musculoskeletal: No symptoms reported Skin: No symptoms reported Hematologic/Lymphatic: No symptoms reported Neurological/Psychological: No symptoms reported Physical Exam - Vital signs Vitals: Temp Pulse Resp BP Pulse Ox 97.6 F 96 16 143/100 H 97 11/03/17 23:50 11/03/17 23:50 11/03/17 23:50 11/03/17 23:50 11/03/17 23:50 Interpretation: Normal - General General appearance: Appears well, Alert - HEENT Head: Normocephalic, Atraumatic Eyes: Normal Pupils: PERRL - Respiratory Respiratory status: No respiratory distress Chest status: Nontender Breath sounds: Normal Chest palpation: Normal - Cardiovascular Rhythm: Regular Heart sounds: Normal auscultation Murmur: No - Abdominal Inspection: Normal Distension: No distension Bowel sounds: Normal Tenderness: Nontender Organomegaly: No organomegaly - Back Back: Normal, Nontender - Extremities General upper extremity: Normal inspection, Nontender, Normal color, Normal ROM , Normal temperature General lower extremity: Normal inspection, Nontender, Normal color, Normal ROM , Normal temperature, Normal weight bearing. No: Cele's sign - Neurological Neuro grossly intact: Yes Cognition: Normal Orientation: AAOx4 Eliu Coma Scale Eye Opening: Spontaneous [place] Coma Scale Verbal: Oriented [place] Coma Scale Motor: Obeys Commands Eliu Coma Scale Total: 15 Speech: Normal Motor strength normal: LUE, RUE, LLE, RLE Sensory: Normal - Psychological Associated symptoms: Normal affect, Normal mood - Skin Skin Temperature: Warm Skin Moisture: Dry Skin Color: Normal Course - Re-evaluation Re-evalutation: 11/04/17 02:2 37-year-old female patient with numerous ER visits for abdominal pain and various issues. I find nothing acute at this time. Always has slightly elevated WBC count. Does not have significant epigastric or right upper quadrant tenderness. No guarding. No rebound. A gastroenterology appointment in the morning at 11 AM. At this time will DC. 11/04/17 02:59 X-ray unremarkable. Labs fairly unremarkable at baseline. Find nothing further at this time. Will DC. - Vital Signs Vital signs: Temp Pulse Resp BP Pulse Ox 97.6 F 96 16 143/100 H 97 11/03/17 23:50 11/03/17 23:50 11/03/17 23:50 11/03/17 23:50 11/03/17 23:50 - Laboratory Result Diagrams: 11/04/17 00:30 11/04/17 00:30 Laboratory results interpreted by me: 11/04/17 11/04/17 00:30 00:30 WBC 12.9 H RDW 14.5 H Absolute Neutrophils 8.4 H Sodium 136.9 L Potassium 3.5 L Chloride 95 L Glucose 143 H Discharge - Discharge Clinical Impression: Abdominal pain Qualifiers: Abdominal location: generalized Qualified Code(s): R10.84 - Generalized abdominal pain Disposition: HOME, SELF-CARE Instructions: Abdominal Pain ([facility]) Additional Instructions: These follow-up with your sandstone splitter, regular doctor, surgeon or return to the emergency department in 12 or 24 hours if symptoms are getting worse or no better. Prescriptions: Ondansetron [Zofran Odt 4 mg Tablet] 1 - 2 tab PO Q4H PRN #15 tab.rapdis PRN Reason: For Nausea/Vomiting Referrals: MARILU DAWSON PA-C [Primary Care Provider] - Follow up as needed
--- NOTE | 2017-11-04 02:52 | RADIOLOGY REPORT (SQ) ---
EXAM DESCRIPTION: ACUTE ABDOMEN SERIES CLINICAL HISTORY: 37 years Female, abd pain COMPARISON: None. NUMBER OF VIEWS/TECHNIQUE: 4 LIMITATIONS: None. FINDINGS: Intestinal gas pattern is within normal limits. No suspicious calcification. Grossly intact skeletal structures. No acute cardiopulmonary findings. IMPRESSION: No acute findings.
[2017-11-04] MEDS ORDERED: LACTULOSE SYRUP 20 GM/30 ML UDCUP PO ONE (02:59)
[2017-11-04 03:12] VITALS: BP 132/90
== END 2017-11-04 03:12 | disposition home or self-care (01) ==
LOC: ER 23:27
DX: R10.84 Generalized abdominal pain (principal); D72.829 Elevated white blood cell count, unspecified; R11.2 Nausea with vomiting, unspecified; J32.9 Chronic sinusitis, unspecified; I10 Essential (primary) hypertension; F17.210 Nicotine dependence, cigarettes, uncomplicated; E11.9 Type 2 diabetes mellitus without complications; Z87.19 Personal history of other diseases of the digestive system; Z88.5 Allergy status to narcotic agent
CPT/HCPCS: 99284; 36415; 83690; 85025; 81025; 80053; 81001; 74022; A9270 ×3; S0119

== ENCOUNTER 2017-12-04 12:11 | Emergency (ER) | payer MEDICARE, MEDICAID ==
--- NOTE | 2017-12-04 12:28 | ER Document Report ---
ED Medical Screen (RME) - General Chief Complaint: Shortness Of Breath Stated Complaint: DIFFICULTY BREATHING Time Seen by Provider: 12/04/17 12:25 Notes: RAPID MEDICAL EVALUATION DISCLOSURE I have seen this patient as part of a Rapid Medical Evaluation and, if applicable, placed any initially appropriate orders. The patient will be seen and fully evaluated, including a full history and physical exam, by a provider ( in Main ED or Fast Track) when a room becomes available. 37-year-old female here with complaints of shortness of breath that has been ongoing for quite some time now but is progressively worsening. She states that she has black mold in her apartment and believes this may be causing it. She also talks about having a muscle disorder but does not know the name of the muscle disorder. EXAM CTAB Tachycardic TRAVEL OUTSIDE OF THE [place] IN LAST 30 DAYS: No COUNTRY TRAVELED TO/FROM: [place] - Related Data Allergies/Adverse Reactions: oxycodone [From OxyContin] Allergy (Verified 10/09/17 14:23) Past Medical History - Past Medical History Cardiac Medical History: Reports: Hx Hypertension - on meds Denies: Hx Coronary Artery Disease, Hx Heart Attack Pulmonary Medical History: Denies: Hx Asthma, Hx Bronchitis, Hx COPD, Hx Pneumonia Neurological Medical History: Denies: Hx Cerebrovascular Accident, Hx Seizures Endocrine Medical History: Reports: Hx Diabetes Mellitus Type 2 Renal/ Medical History: Reports: Hx Pelvic Inflammatory Disease. Denies: Hx Peritoneal Dialysis GI Medical History: Reports: Hx Gastroesophageal Reflux Disease Musculoskeltal Medical History: Reports Hx Arthritis - generalized Psychiatric Medical History: Reports: Hx Bipolar Disorder, Hx Depression Past Surgical History: Reports: Hx Adenoidectomy, Hx Section - x1, Hx Gynecologic Surgery - , Hx Orthopedic Surgery - Right Leg Surgery, Hx Tonsillectomy - Immunizations Immunizations up to date: No Hx Diphtheria, Pertussis, Tetanus Vaccination: Yes Physical Exam - Vital signs Vitals: Temp Pulse Resp BP Pulse Ox 99.0 F 109 H 20 128/115 H 100 12/04/17 12:17 12/04/17 12:17 12/04/17 12:17 12/04/17 12:17 12/04/17 12:17 Course - Vital Signs Vital signs: Temp Pulse Resp BP Pulse Ox 99.0 F 109 H 20 128/115 H 100 12/04/17 12:17 12/04/17 12:17 12/04/17 12:17 12/04/17 12:17 12/04/17 12:17
--- NOTE | 2017-12-04 13:19 | RADIOLOGY REPORT (SQ) ---
EXAM DESCRIPTION: CHEST 2 VIEWS COMPLETED DATE/TIME: 12/04/2017 1:09 pm REASON FOR STUDY: SOB tachycardic COMPARISON: 10/11/2017. EXAM PARAMETERS: NUMBER OF VIEWS: two views TECHNIQUE: Digital Frontal and Lateral radiographic views of the chest acquired. RADIATION DOSE: NA LIMITATIONS: none FINDINGS: LUNGS AND PLEURA: No opacities, masses or pneumothorax. No pleural effusion. MEDIASTINUM AND HILAR STRUCTURES: No masses or contour abnormalities. HEART AND VASCULAR STRUCTURES: Heart normal size. No evidence for failure. BONES: No acute findings. HARDWARE: None in the chest. OTHER: No other significant finding. IMPRESSION: NO ACUTE RADIOGRAPHIC FINDING IN THE CHEST. TECHNICAL DOCUMENTATION: JOB ID: [id number] [employer]- All Rights Reserved Reading location - IP/workstation name: [email or web address]
[2017-12-04] MEDS ORDERED: DIPHENHYDRAMINE HCL 50 MG/ML VIAL IV ONE (13:40)
[2017-12-04] MEDS ORDERED: ALBUTEROL SULFATE 0.042% NEB (1.25 MG/3 ML) AMPUL NEB ONE (13:40)
--- NOTE | 2017-12-04 13:45 | ER Document Report ---
ED General - General Chief Complaint: Shortness Of Breath Stated Complaint: DIFFICULTY BREATHING Time Seen by Provider: 12/04/17 12:25 Notes: Chief complaint: Exposure to mold History of complain:( obtained from----patient) 37 years old female with a history of psychiatric disorder depression, states that she is exposed to mold which causing her to have sinus congestion and difficulty in breathing. She also claimed that she is under the care of pain clinic for generalized muscular pains. Denies any fever chills earache sore throat productive cough. Denies any nausea vomiting. Onset: As above gradual Severity: Mild to moderate Quality: Dull Context: Exposure to questionable mold Exacerbating factor and relieving factors: Walking and exercising REVIEW OF SYSTEMS: CONSTITUTIONAL : Denies fever, chills, or sweats. Denies recent illness. EENT: Denies eye, ear, throat, or mouth pain or symptoms. Denies nasal or sinus congestion or discharge. Denies throat, tongue, or mouth swelling or difficulty swallowing. CARDIOVASCULAR: Denies chest pain. Denies palpitations or racing or irregular heart beat. Denies ankle edema. RESPIRATORY: Denies cough, cold, or chest congestion. Denies shortness of breath, difficulty breathing, or wheezing. GASTROINTESTINAL: Denies distention. Denies nausea, vomiting, or diarrhea. Denies blood in vomitus, stools, or per rectum. Denies black, tarry stools. Denies constipation. GENITOURINARY: Denies difficulty urinating, painful urination, burning, frequency, blood in urine, or discharge. FEMALE GENITOURINARY: Denies vaginal bleeding, heavy or abnormal periods, irregular periods. Denies vaginal discharge or odor. MUSCULOSKELETAL: Denies back or neck pain or stiffness. Denies joint pain or swelling. SKIN: Denies rash, lesions or sores. HEMATOLOGIC : Denies easy bruising or bleeding. LYMPHATIC: Denies swollen, enlarged glands. NEUROLOGICAL: Denies confusion or altered mental status. Denies passing out or loss of consciousness. Denies dizziness or lightheadedness. Denies headache. Denies weakness or paralysis or loss of use of either side. Denies problems with gait or speech. Denies sensory loss, numbness, or tingling. Denies seizures. PSYCHIATRIC: Denies anxiety or stress. Denies depression, suicidal ideation, or homicidal ideation. ALL OTHER SYSTEMS REVIEWED AND NEGATIVE. PHYSICAL EXAMINATION: GENERAL: Well-appearing, well-nourished and in no acute distress. Morbid obesity HEAD: Atraumatic, normocephalic. EYES: Pupils equal round and reactive to light, extraocular movements intact, conjunctiva are normal. ENT: Nares patent, oropharynx clear without exudates. Moist mucous membranes. NECK: Normal range of motion, supple without lymphadenopathy LUNGS: Breath sounds clear to auscultation bilaterally and equal. No wheezes rales or rhonchi. HEART: Regular rate and rhythm without murmurs ABDOMEN: Soft, nontender, nondistended abdomen. No guarding, no rebound. No masses appreciated. Examination of genitals-deferred Musculoskeletal: Normal range of motion, no pitting or edema. No cyanosis. NEUROLOGICAL: Cranial nerves grossly intact. Normal speech, normal gait. Normal sensory, motor exams PSYCH: Normal mood, normal affect. SKIN: Warm, Dry, normal turgor, no rashes or lesions noted. Dictation was performed using Sponge voice recognition software TRAVEL OUTSIDE OF THE [place] IN LAST 30 DAYS: No COUNTRY TRAVELED TO/FROM: [facility] Patient complains to provider of: Dictated - Related Data Allergies/Adverse Reactions: oxycodone [From OxyContin] Allergy (Verified 12/04/17 12:31) Past Medical History - Social History Smoking Status: Former Smoker Chew tobacco use (# tins/day): No Frequency of alcohol use: Occasional Drug Abuse: Marijuana Family History: Reviewed & Not Pertinent, CAD, DM, Malignancy, Other Patient has suicidal ideation: No Patient has homicidal ideation: No - Past Medical History Cardiac Medical History: Reports: Hx Hypertension - on meds Denies: Hx Coronary Artery Disease, Hx Heart Attack Pulmonary Medical History: Denies: Hx Asthma, Hx Bronchitis, Hx COPD, Hx Pneumonia Neurological Medical History: Denies: Hx Cerebrovascular Accident, Hx Seizures Endocrine Medical History: Reports: Hx Diabetes Mellitus Type 2 Renal/ Medical History: Reports: Hx Pelvic Inflammatory Disease. Denies: Hx Peritoneal Dialysis GI Medical History: Reports: Hx Gastroesophageal Reflux Disease Musculoskeltal Medical History: Reports Hx Arthritis - generalized Psychiatric Medical History: Reports: Hx Bipolar Disorder, Hx Depression Past Surgical History: Reports: Hx Abdominal Surgery - hernia repair, Hx Adenoidectomy, Hx Section - x1, Hx Gynecologic Surgery - , Hx Orthopedic Surgery - Right Leg Surgery, Hx Tonsillectomy - Immunizations Immunizations up to date: No Hx Diphtheria, Pertussis, Tetanus Vaccination: Yes Hx Pneumococcal Vaccination: 07/12/00 Review of Systems - Review of Systems Notes: Dictated Physical Exam - Vital signs Vitals: Temp Pulse Resp BP Pulse Ox 99.0 F 109 H 20 128/115 H 100 12/04/17 12:17 12/04/17 12:17 12/04/17 12:17 12/04/17 12:17 12/04/17 12:17 - Notes Notes: Dictated Course - Re-evaluation Re-evalutation: 12/04/17 14:16 Given Benadryl and albuterol treatment - Vital Signs Vital signs: Temp Pulse Resp BP Pulse Ox 98.2 F 96 18 145/98 H 99 12/04/17 14:19 12/04/17 14:19 12/04/17 14:19 12/04/17 14:19 12/04/17 14:19 - Laboratory Result Diagrams: 12/04/17 13:25 12/04/17 13:25 Laboratory results interpreted by me: 12/04/17 12/04/17 13:25 13:25 WBC 10.9 H RDW 14.7 H Potassium 3.3 L Glucose 170 H - EKG Interpretation by [place] EKG shows normal: Sinus rhythm Rate: Normal Rhythm: NSR - Normal sinus rhythm at the rate of 92 bpm normal axis no acute ST elevation ST depression T-wave inversion noted. Discharge - Discharge Clinical Impression: Allergic rhinitis Qualifiers: Allergic rhinitis trigger: fungal spores Allergic rhinitis seasonality: non- seasonal Qualified Code(s): J30.89 - Other allergic rhinitis Disposition: HOME, SELF-CARE Instructions: Use of Diphenhydramine, Hay Fever ([facility]) Prescriptions: Levocetirizine Dihydrochloride [Xyzal] 5 mg PO DAILY #30 tablet
[2017-12-04 13:49] LABS: ABSOLUTE BASOPHILS # (AUTO) 0.1 10^3/uL (0.0-0.2); ABSOLUTE EOSINOPHILS # (AUTO) 0.1 10^3/uL (0.0-0.6); ABSOLUTE LYMPHOCYTES (AUTO) 3.2 10^3/uL (0.5-4.7); ABSOLUTE MONOCYTES (AUTO) 0.6 10^3/uL (0.1-1.4); BASOPHILS % (AUTO) 0.6 % (0-2); EOSINOPHILS % (AUTO) 0.8 % (0-6); HEMOGLOBIN 13.5 g/dL (12.0-15.5); LYMPHOCYTES % (AUTO) 28.9 % (13-45); MEAN CORPUSCULAR HEMOGLOBIN 28.8 pg (27.0-33.4); MEAN CORPUSCULAR HGB CONC 34.7 g/dL (32.0-36.0); MEAN CORPUSCULAR VOLUME 83 fl (80-97); MONOCYTES % (AUTO) 5.8 % (3-13); PLATELET COUNT 287 10^3/uL (150-450); RED BLOOD COUNT 4.71 10^6/uL (3.72-5.28); RED CELL DISTRIBUTION WIDTH 14.7 % (11.5-14.0); SEGMENTED NEUTROPHILS % (AUTO) 63.9 % (42-78); TOTAL CELLS COUNTED % (AUTO) 100 %; WHITE BLOOD COUNT 10.9 10^3/uL (4.0-10.5)
[2017-12-04 14:02] LABS: ANION GAP 15 (5-19); BLOOD UREA NITROGEN 11 mg/dL (7-20); CARBON DIOXIDE 25 mmol/L (22-30); CHLORIDE 99 mmol/L (98-107); GLUCOSE 170 mg/dL (75-110); POTASSIUM 3.3 mmol/L (3.6-5.0); SODIUM 139.2 mmol/L (137-145)
[2017-12-04 14:13] LABS: NT PRO BNP 21 pg/mL (<125)
[2017-12-04 14:14] LABS: TROPONIN I < 0.012 ng/mL
[2017-12-04 14:21] VITALS: BP 145/98
--- NOTE | 2017-12-04 16:29 | EKG REPORT ---
SEVERITY:- NORMAL ECG - SINUS RHYTHM : Confirmed by: Angel Luis Ruiz MD 04-Dec-2017 16:28:51
== END 2017-12-04 14:27 | disposition home or self-care (01) ==
LOC: ER 12:11
DX: J30.89 Other allergic rhinitis (principal); R09.81 Nasal congestion; R06.02 Shortness of breath; M79.1 Myalgia; I10 Essential (primary) hypertension; E11.9 Type 2 diabetes mellitus without complications; Z88.5 Allergy status to narcotic agent; Z87.891 Personal history of nicotine dependence
CPT/HCPCS: 93005; 94640; 99285; 96374; 36415; 85025; 80048; 84484; 83880; 71046; 93010; J1200; A9270; J3490

== ENCOUNTER 2017-12-12 13:32 | Emergency (ER) | payer MEDICARE, MEDICAID ==
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
[2017-12-12 15:52] VITALS: BP 134/86
[2017-12-12] MEDS ORDERED: ACETAMINOPHEN 325 MG TABLET PO ONE (15:58)
== END 2017-12-12 16:09 | disposition home or self-care (01) ==
LOC: ER 13:32
DX: S69.91XA Unspecified injury of right wrist, hand and finger(s), initial encounter (principal); S00.411A Abrasion of right ear, initial encounter; H92.01 Otalgia, right ear; R51 Headache; X58.XXXA Exposure to other specified factors, initial encounter; R10.84 Generalized abdominal pain; M79.7 Fibromyalgia; I10 Essential (primary) hypertension; E11.9 Type 2 diabetes mellitus without complications; H92.21 Otorrhagia, right ear; Z88.6 Allergy status to analgesic agent
CPT/HCPCS: 99283; 73110; A9270

== ENCOUNTER 2018-01-04 21:34 | Emergency (ER) | payer MEDICARE, MEDICAID ==
[2018-01-04 21:41] VITALS: BP 136/87
== END 2018-01-05 00:20 | disposition left against medical advice (07) ==
LOC: ER 21:34
DX: Z53.21 Procedure and treatment not carried out due to patient leaving prior to being seen by health care provider (principal)

== ENCOUNTER 2018-01-19 12:37 | Emergency (ER) | payer MEDICARE, MEDICAID ==
[2018-01-19 12:44] VITALS: BP 141/90
--- NOTE | 2018-01-19 13:05 | ER Document Report ---
ED General - General Chief Complaint: Abdominal Pain Stated Complaint: VOMITING Time Seen by Provider: 01/19/18 12:54 Notes: The patient is a 38-year-old female presents by EMS with multiple complaints. She is feeling nauseous and vomited twice after eating a hotdog last night. She is also having several weeks of sinus congestion and is having left ankle pain and swelling after a fall 3 weeks ago. She is also concerned she is . She denies any current nausea, abdominal pain, difficulty swallowing , diarrhea, constipation or difficulty walking. TRAVEL OUTSIDE OF THE [place] IN LAST 30 DAYS: No COUNTRY TRAVELED TO/FROM: [place] - Related Data Allergies/Adverse Reactions: amoxicillin Allergy (Verified 01/19/18 12:58) oxycodone [From OxyContin] Allergy (Verified 01/19/18 12:38) Past Medical History - General Information source: Patient - Social History Smoking Status: Never Smoker Chew tobacco use (# tins/day): No Frequency of alcohol use: None Drug Abuse: None Family History: Reviewed & Not Pertinent, CAD, DM, Malignancy, Other Patient has suicidal ideation: No Patient has homicidal ideation: No - Past Medical History Cardiac Medical History: Reports: Hx Hypertension - on meds Denies: Hx Coronary Artery Disease, Hx Heart Attack Pulmonary Medical History: Denies: Hx Asthma, Hx Bronchitis, Hx COPD, Hx Pneumonia Neurological Medical History: Denies: Hx Cerebrovascular Accident, Hx Seizures Endocrine Medical History: Reports: Hx Diabetes Mellitus Type 2 Renal/ Medical History: Reports: Hx Pelvic Inflammatory Disease. Denies: Hx Peritoneal Dialysis GI Medical History: Reports: Hx Gastroesophageal Reflux Disease Musculoskeltal Medical History: Reports Hx Arthritis - generalized Psychiatric Medical History: Reports: Hx Bipolar Disorder, Hx Depression Past Surgical History: Reports: Hx Abdominal Surgery - hernia repair, Hx Adenoidectomy, Hx Section - x1, Hx Gynecologic Surgery - , Hx Orthopedic Surgery - Right Leg Surgery, Hx Tonsillectomy - Immunizations Immunizations up to date: No Hx Diphtheria, Pertussis, Tetanus Vaccination: Yes Hx Pneumococcal Vaccination: 07/12/00 Review of Systems - Review of Systems Notes: REVIEW OF SYSTEMS: CONSTITUTIONAL: -fevers, -chills EENT: -eye pain, -difficulty swallowing, +nasal congestion CARDIOVASCULAR: -chest pain, -syncope. RESPIRATORY: -cough, -SOB GASTROINTESTINAL: -abdominal pain, -nausea, +vomiting, -diarrhea GENITOURINARY: -dysuria, -hematuria MUSCULOSKELETAL: -back pain, -neck pain, +left ankle pain SKIN: -rash or skin lesions. HEMATOLOGIC: -easy bruising or bleeding. LYMPHATIC: -swollen, enlarged glands. NEUROLOGICAL: -altered mental status or loss of consciousness, -headache, - neurologic symptoms PSYCHIATRIC: -anxiety, -depression. ALL OTHER SYSTEMS REVIEWED AND NEGATIVE. Physical Exam - Vital signs Vitals: Temp Pulse Resp BP Pulse Ox 98.2 F 87 20 141/90 H 98 01/19/18 12:44 01/19/18 12:44 01/19/18 12:44 01/19/18 12:44 01/19/18 12:44 - Notes Notes: PHYSICAL EXAMINATION: GENERAL: Well-appearing, well-nourished and in no acute distress. HEAD: Atraumatic, normocephalic. EYES: Pupils equal round and reactive to light, extraocular movements intact, sclera anicteric, conjunctiva are normal. ENT: nares patent, oropharynx clear without exudates. Moist mucous membranes. NECK: Normal range of motion, supple without lymphadenopathy LUNGS: Breath sounds clear to auscultation bilaterally and equal. No wheezes rales or rhonchi. HEART: Regular rate and rhythm without murmurs ABDOMEN: Soft, nontender, normoactive bowel sounds. No guarding, no rebound. No masses appreciated. : Pt deferred at this time. EXTREMITIES: Swelling of left ankle with generalized tenderness. No base of 5th metatarsal tenderness. Normal range of motion. No cyanosis. NEUROLOGICAL: Cranial nerves grossly intact. Normal speech, normal gait. Normal sensory and motor exams. PSYCH: Bizarre affect. SKIN: Warm, Dry, normal turgor, no rashes or lesions noted. Course - Re-evaluation Re-evalutation: Patient not having any nausea or vomiting at this time. Abdomen is soft and nontender. US reveals a 5 week 4 day IUP. Patient is complaining of her usual herpetic lesions and will begin her on acyclovir. Left ankle x-ray reveals a possible fracture. Instructed her about using Flonase for her nasal congestion , keeping her left ankle and a ankle splint and following up with the [facility], Ortho and OB. Since patient is homeless and newly , will also consult case management to help with follow-up appointments. - Vital Signs Vital signs: Temp Pulse Resp BP Pulse Ox 98.2 F 87 20 141/90 H 98 01/19/18 12:44 01/19/18 12:44 01/19/18 12:44 01/19/18 12:44 01/19/18 12:44 - Laboratory Laboratory results interpreted by me: 01/19/18 13:49 Beta HCG, Quant 4052.50 H - Diagnostic Test Radiology reviewed: Image reviewed, Reports reviewed Radiology results interpreted by me: Left ankle x-ray: Tibiotalar joint effusion with lateral soft tissue swelling. Question tiny avulsion fragment at the fibulotalar ligament on the AP view. OB US: LIVING INTRAUTERINE . EGA 5 weeks 4 days. Procedures - Immobilization Left Ankle Pre-Proc Neuro Vasc Exam: Normal Immobilizer type: Ankle stirrup Performed by: PCT Post-Proc Neuro Vasc Exam: Normal Alignment checked and good: Yes Discharge - Discharge Clinical Impression: Herpes Qualifiers: Weeks of gestation: less than 8 weeks Qualified Code(s): Z3A.01 - Less than 8 weeks gestation of Nausea & vomiting Qualifiers: Vomiting type: unspecified Vomiting Intractability: non-intractable Qualified Code(s): R11.2 - Nausea with vomiting, unspecified Ankle fracture Qualifiers: Encounter type: initial encounter Fracture type: closed Laterality: left Qualified Code(s): S82.892A - Other fracture of left lower leg, initial encounter for closed fracture Condition: Stable Disposition: HOME, SELF-CARE Additional Instructions: Follow-up with the health department for further evaluation treatment of your and herpes. Take the acyclovir as prescribed. Tylenol for any pain. : You are . care is best started as early in as possible. If you're unsure about continuing this , you should discuss this with your physician or with meat team member at [facility]. You should take only medications approved by your physician. Acetaminophen can safely be taken for minor pains. As a rule, medication for chronic conditions such as asthma or seizures can safely be continued. You should discuss with the physician every medicine you take. Any regular exercise program can be continued. Talk to your physician, however, before engaging in competitive or demanding sports. Alcohol, smoking, and "street drugs" are dangerous to your baby. Cocaine is especially dangerous. Don't use any illicit drugs! FOLLOW-UP CARE: If you have been referred to a physician for follow-up care, call the physician s office for an appointment as you were instructed or within the next two days. If you experience worsening or a significant change in your symptoms (very heavy bleeding with large clots of blood, passage of tissue, more severe abdominal / pelvic pain or cramping, feeling faint or severe weakness, fever, etc.), notify the physician immediately or return to the Emergency Department at any time for re-evaluation. OBSTETRIC-GYNECOLOGIC (OB-HEATING AND VENTILATING WORKER) PHYSICIANS IN [place]: The [facility] [address], [place] [phone] [facility] [address], [place] [phone] For active duty and dependents diagnosed with a threatened or miscarriage, you should follow up in the following manner: Standard patients who have a local civilian provider should follow up with that provider. Patients of the Family Practice Clinic should call your Team Nurse at 8: 00 am the following morning for further instructions. If you are neither a Standard patient nor a patient of the Family Practice Clinic, you should follow up at the [facility] ([facility]) . Patients already enrolled in the [facility] OB Clinic, Prime patients not assigned to the Family Practice Clinic, and Active Duty patients not assigned to [facility] should report to the [facility] Lab at 8:00 am the next morning that the [facility] OB [facility] is open and then you will be seen in the OB Clinic at 11:00 am. Prescriptions: Acyclovir [Acyclovir 400 mg Tablet] 400 mg PO TID 5 Days tablet Forms: Elevated Blood Pressure Referrals: CEDRIC MCINTOSH MD [ACTIVE STAFF] - Follow up as needed [facility] [NO LOCAL MD] - Follow up as needed ALAN CLINE MD [NO LOCAL MD] - Follow up as needed
--- NOTE | 2018-01-19 13:40 | RADIOLOGY REPORT (SQ) ---
EXAM DESCRIPTION: ANKLE LEFT COMPLETE COMPLETED DATE/TIME: 01/19/2018 1:25 pm REASON FOR STUDY: left ankle pain fall, injury, lateral left ankle pain COMPARISON: None. NUMBER OF VIEWS: Three views. TECHNIQUE: AP, lateral, and oblique radiographic images acquired of the left ankle. LIMITATIONS: None. FINDINGS: MINERALIZATION: Normal. BONES: Question tiny avulsion fragment at the fibulotalar ligament on the AP view. JOINTS: Tibiotalar joint effusion. Normal alignment of the ankle mortise. SOFT TISSUES: Lateral soft tissue swelling. No radiopaque foreign body. OTHER: Moderate-sized plantar calcaneal spur IMPRESSION: Tibiotalar joint effusion with lateral soft tissue swelling. Question tiny avulsion fra gment at the fibulotalar ligament on the AP view. TECHNICAL DOCUMENTATION: JOB ID: [id number] [employer]- All Rights Reserved Reading location - IP/workstation name: [email or web address]
[2018-01-19] MEDS ORDERED: ACETAMINOPHEN 325 MG TABLET PO ONE (14:36)
--- NOTE | 2018-01-19 15:48 | RADIOLOGY REPORT (SQ) ---
EXAM DESCRIPTION: U/S OB TRANSVAGINAL W/O DOP COMPLETED DATE/TIME: 01/19/2018 3:36 pm REASON FOR STUDY: , abdominal pain COMPARISON: None. TECHNIQUE: Transvaginal static and realtime grayscale images acquired of the pelvis. Additional jose cted spectral and color Doppler images recorded. All images stored on PACs. [facility],[id number] CLINICAL DATES: 09/17/2018 LIMITATIONS: None. FINDINGS: FETUS: Living intrauterine . ULTRASOUND EGA: 5 weeks 4 days ULTRASOUND MIKAELA: 09/17/2018 CRL: 2.7 mm FHR: 123 beats per minute. SUBCHORIONIC BLEED: No SIZE OF BLEED: Not applicable. UTERUS: No masses. No anomalies. CERVICAL LENGTH: 3.1 cm Closed. RIGHT ADNEXA: Right ovary was not visualized. No adnexal free fluid. No adnexal masses. LEFT ADNEXA: Left ovary was not visualized. No adnexal free fluid. No adnexal masses. FREE FLUID: None. OTHER: No other significant finding. IMPRESSION: LIVING INTRAUTERINE . EGA 5 weeks 4 days Trimester of : First - 0 to 13 weeks. TECHNICAL DOCUMENTATION: JOB ID: [id number] [employer]- All Rights Reserved rev Reading location - IP/workstation name: [email or web address]
== END 2018-01-19 16:13 | disposition home or self-care (01) ==
LOC: ER 12:37
DX: O9A.211 Injury, poisoning and certain other consequences of external causes complicating pregnancy, first trimester (principal); S82.892A Other fracture of left lower leg, initial encounter for closed fracture; W19.XXXA Unspecified fall, initial encounter; O21.9 Vomiting of pregnancy, unspecified; O98.511 Other viral diseases complicating pregnancy, first trimester; B00.9 Herpesviral infection, unspecified; M25.572 Pain in left ankle and joints of left foot; R10.9 Unspecified abdominal pain; Z3A.01 Less than 8 weeks gestation of pregnancy; I10 Essential (primary) hypertension; E11.9 Type 2 diabetes mellitus without complications; Z88.6 Allergy status to analgesic agent; Z88.0 Allergy status to penicillin
CPT/HCPCS: 99284; 36415; 84702; 73610; 76817; L1902; A9270

== ENCOUNTER 2018-01-19 23:47 | Emergency (ER) | payer MEDICARE, MEDICAID ==
[2018-01-20] MEDS ORDERED: ACETAMINOPHEN 325 MG TABLET PO ONE ×2 (01:24→08:43)
--- NOTE | 2018-01-20 01:25 | ER Document Report ---
ED General - General Chief Complaint: Suicidal Ideation Stated Complaint: PSYCH EVAL Time Seen by Provider: 01/20/18 01:05 Mode of Arrival: Ambulatory Information source: Patient, [facility] Records Notes: 38-year-old female with ADHD, bipolar disorder, depression, anxiety presents with suicidal ideation. Patient states "I feel like cutting my wrists and taking my life, everything is hopeless, I give up". Patient states that she has come off of her psychiatric medications which include Cymbalta, Trileptal, Xanax and Adderall approximately 1 week ago because she suspected she may be . She was seen earlier here today and her was confirmed. Patient had a transvaginal ultrasound which dated 5 weeks and 4 days. Patient is currently homeless. She states that she is suicidal because she cheated on her current boyfriend. Who is also currently in the emergency department for suicidal ideation. She denies any abdominal pain, vaginal bleeding. She is currently complaining of nasal congestion and repeatedly states "they did not give me an antibiotic". TRAVEL OUTSIDE OF THE [place] IN LAST 30 DAYS: No COUNTRY TRAVELED TO/FROM: [place] - Related Data Allergies/Adverse Reactions: amoxicillin Allergy (Verified 01/19/18 12:58) oxycodone [From OxyContin] Allergy (Verified 01/19/18 12:38) Past Medical History - General Information source: Patient, [facility] Records - Social History Smoking Status: Former Smoker Frequency of alcohol use: None Drug Abuse: None Lives with: Homeless Family History: Reviewed & Not Pertinent, CAD, DM, Malignancy, Other Patient has suicidal ideation: Yes Patient has homicidal ideation: No - Past Medical History Cardiac Medical History: Reports: Hx Hypertension - on meds Denies: Hx Coronary Artery Disease, Hx Heart Attack Pulmonary Medical History: Denies: Hx Asthma, Hx Bronchitis, Hx COPD, Hx Pneumonia Neurological Medical History: Denies: Hx Cerebrovascular Accident, Hx Seizures Endocrine Medical History: Reports: Hx Diabetes Mellitus Type 2 Renal/ Medical History: Reports: Hx Pelvic Inflammatory Disease. Denies: Hx Peritoneal Dialysis GI Medical History: Reports: Hx Gastroesophageal Reflux Disease Musculoskeltal Medical History: Reports Hx Arthritis - generalized Psychiatric Medical History: Reports: Hx Bipolar Disorder, Hx Depression Past Surgical History: Reports: Hx Abdominal Surgery - hernia repair, Hx Adenoidectomy, Hx Section - x1, Hx Gynecologic Surgery - , Hx Orthopedic Surgery - Right Leg Surgery, Hx Tonsillectomy - Immunizations Immunizations up to date: No Hx Diphtheria, Pertussis, Tetanus Vaccination: Yes Hx Pneumococcal Vaccination: 07/12/00 Review of Systems - Review of Systems Notes: REVIEW OF SYSTEMS: CONSTITUTIONAL : Denies fever, chills, or sweats. Denies recent illness. Denies weight loss, recent hospitalizations. EENT: Denies visual changes, eye pain. Denies nasal or sinus congestion or discharge. Denies sore throat, oral lesions, difficulty swallowing. CARDIOVASCULAR: Denies chest pain. Denies palpitations. Denies lower extremity edema. RESPIRATORY: Denies cough, Denies shortness of breath, wheezing. GASTROINTESTINAL: Denies abdominal pain or distention. Denies vomiting, or diarrhea. Denies blood in vomitus, stools, or per rectum. Denies black, tarry stools. Denies constipation. GENITOURINARY: Denies difficulty urinating, painful urination, frequency, blood in urine, or vaginal discharge. MUSCULOSKELETAL: Denies back or neck pain or stiffness. Denies joint pain or swelling. SKIN: Denies rash, lesions or sores. HEMATOLOGIC : Denies easy bruising or bleeding. LYMPHATIC: Denies swollen glands. NEUROLOGICAL: Denies confusion or altered mental status. Denies passing out or loss of consciousness. Denies dizziness or lightheadedness. Denies headache. Denies weakness or paralysis. Denies problems difficulty with ambulation, slurred speech. Denies sensory loss, numbness, or tingling. Denies seizures. PSYCHIATRIC: Denies anxiety or stress. Denies homicidal ideation. Denies visual or auditory hallucinations. Physical Exam - Vital signs Vitals: Temp Pulse Resp BP Pulse Ox 97.9 F 96 18 133/85 H 97 01/19/18 23:58 01/19/18 23:58 01/19/18 23:58 01/19/18 23:58 01/19/18 23:58 - Notes Notes: PHYSICAL EXAMINATION: GENERAL: Well-appearing, well-nourished and in no acute distress. HEAD: Atraumatic, normocephalic. EYES: Pupils equal round and reactive to light, extraocular movements intact, conjunctiva are normal. ENT: Nares patent, oropharynx clear without exudates. Moist mucous membranes. NECK: Normal range of motion, supple without lymphadenopathy LUNGS: Breath sounds clear to auscultation bilaterally and equal. No wheezes rales or rhonchi. HEART: Regular rate and rhythm without murmurs ABDOMEN: Soft, nontender, nondistended abdomen. No guarding, no rebound. No masses appreciated. Female : deferred Musculoskeletal: Normal range of motion, no pitting or edema. No cyanosis. NEUROLOGICAL: Cranial nerves grossly intact. Normal speech, normal gait. Normal sensory, motor exams PSYCH: Admits to suicidal ideation, denies homicidal ideation, visual and auditory hallucinations. SKIN: Warm, Dry, normal turgor, no rashes or lesions noted. Course - Re-evaluation Re-evalutation: Laboratory 01/20/18 01/20/18 01:11 01:11 Urine Color YELLOW Urine Appearance SLIGHTLY-CLOUDY Urine pH 7.0 Ur Specific [place] 1.018 Urine Protein NEGATIVE Urine Glucose (UA) NEGATIVE Urine Ketones NEGATIVE Urine Blood NEGATIVE Urine Nitrite NEGATIVE Urine Bilirubin NEGATIVE Urine Urobilinogen NEGATIVE Ur Leukocyte Esterase NEGATIVE Urine WBC (Auto) 3 Urine RBC (Auto) 3 Urine Bacteria (Auto) TRACE Squamous Epi Cells Auto 17 Urine Mucus (Auto) RARE Urine Ascorbic Acid NEGATIVE Urine HCG, Qual POSITIVE H Urine Opiates Screen NEGATIVE Urine Methadone Screen NEGATIVE Ur Barbiturates Screen NEGATIVE Ur Phencyclidine Scrn NEGATIVE Ur Amphetamines Screen NEGATIVE U Benzodiazepines Scrn NEGATIVE Urine Cocaine Screen NEGATIVE U Marijuana (THC) Screen NEGATIVE 01/20/18 02:55 38-year-old female with ADHD, bipolar disorder, depression, anxiety presents with suicidal ideation. Patient states "I feel like cutting my wrists and taking my life, everything is hopeless, I give up". Patient states that she has come off of her psychiatric medications which include Cymbalta, Trileptal, Xanax and Adderall approximately 1 week ago because she suspected she may be . She was seen earlier here today and her was confirmed. She states this is a wanted . Patient had a transvaginal ultrasound which dated 5 weeks and 4 days. Patient is currently homeless. She states that she is suicidal because she cheated on her current boyfriend. Who is also currently in the emergency department for suicidal ideation. She denies any abdominal pain, vaginal bleeding. She is currently complaining of nasal congestion and repeatedly states "they did not give me an antibiotic" upon arrival vitals were reviewed patient is afebrile, mildly hypertensive but not hypoxic. She does not appear toxic or dehydrated. She is in no acute distress. Previous medical records and today's imaging were reviewed by myself. IVC initiated. Patient is cleared for psychiatric evaluation. 01/20/18 02:55 01/20/18 02:57 - Vital Signs Vital signs: Temp Pulse Resp BP Pulse Ox 97.9 F 96 18 133/85 H 97 01/19/18 23:58 01/19/18 23:58 01/19/18 23:58 01/19/18 23:58 01/19/18 23:58 - Laboratory Result Diagrams: 01/20/18 02:23 01/20/18 02:23 Laboratory results interpreted by me: 01/20/18 01:11 Urine HCG, Qual POSITIVE H - Diagnostic Test Radiology reviewed: Image reviewed Discharge - Discharge Clinical Impression: Suicidal ideation, First trimester Qualifiers: Weeks of gestation: less than 8 weeks Qualified Code(s): Z3A.01 - Less than 8 weeks gestation of Condition: Good Referrals: LOCALMD,NO [Primary Care Provider] - Follow up as needed
[2018-01-20 01:32] LABS: APPEARANCE,URINE SLIGHTLY-CLOUDY; BILIRUBIN,URINE NEGATIVE (NEGATIVE); COLOR,URINE YELLOW; GLUCOSE, URINE NEGATIVE (NEGATIVE); KETONES,URINE NEGATIVE (NEGATIVE); LEUKOCYTE ESTERASE,URINE NEGATIVE (NEGATIVE); NITRITE,URINE NEGATIVE (NEGATIVE); PROTEIN,URINE NEGATIVE (NEGATIVE); URINE SPECIFIC GRAVITY 1.018; UROBILINOGEN,URINE NEGATIVE mg/dL (<2.0)
[2018-01-20 01:54] LABS: URINE AMPHETAMINES SCREEN NEGATIVE; URINE BARBITURATES SCREEN NEGATIVE; URINE BENZODIAZEPINES SCREEN NEGATIVE; URINE COCAINE SCREEN NEGATIVE; URINE MARIJUANA (THC) SCREEN NEGATIVE; URINE METHADONE SCREEN NEGATIVE; URINE PHENCYCLIDINE SCREEN NEGATIVE
[2018-01-20 02:51] LABS: ABSOLUTE LYMPHOCYTES (AUTO) 2.1 10^3/uL (0.5-4.7); ABSOLUTE MONOCYTES (AUTO) 0.5 10^3/uL (0.1-1.4); ABSOLUTE NEUT (AUTO) 3.7 10^3/uL (1.7-8.2); BASOPHILS % (AUTO) 0.2 % (0-2); EOSINOPHILS % (AUTO) 0.5 % (0-6); HEMOGLOBIN 12.8 g/dL (12.0-15.5); LYMPHOCYTES % (AUTO) 32.7 % (13-45); MEAN CORPUSCULAR HEMOGLOBIN 28.5 pg (27.0-33.4); MEAN CORPUSCULAR HGB CONC 33.7 g/dL (32.0-36.0); MEAN CORPUSCULAR VOLUME 85 fl (80-97); MONOCYTES % (AUTO) 8.6 % (3-13); PLATELET COUNT 253 10^3/uL (150-450); RED CELL DISTRIBUTION WIDTH 14.4 % (11.5-14.0); TOTAL CELLS COUNTED % (AUTO) 100 %; WHITE BLOOD COUNT 6.3 10^3/uL (4.0-10.5)
[2018-01-20 03:00] LABS: ALANINE AMINOTRANSFERASE 21 U/L (9-52); ALBUMIN 3.9 g/dL (3.5-5.0); ALKALINE PHOSPHATASE 82 U/L (38-126); ANION GAP 14 (5-19); ASPARTATE AMINO TRANSFERASE 29 U/L (14-36); BILIRUBIN,DIRECT 0.4 mg/dL (0.0-0.4); BILIRUBIN,TOTAL 0.5 mg/dL (0.2-1.3); BLOOD UREA NITROGEN 10 mg/dL (7-20); CALCIUM 9.1 mg/dL (8.4-10.2); CARBON DIOXIDE 29 mmol/L (22-30); CHLORIDE 100 mmol/L (98-107); GLUCOSE 112 mg/dL (75-110); POTASSIUM 3.2 mmol/L (3.6-5.0); SODIUM 142.8 mmol/L (137-145)
[2018-01-20 03:02] LABS: ACETAMINOPHEN < 10 ug/mL (10-30); ALCOHOL < 10 mg/dL (NONE DETECTED); SALICYLATE < 1.0 mg/dL (2.0-20.0)
[2018-01-20 09:38] VITALS: BP 134/73
--- NOTE | 2018-01-20 09:45 | ER Document Report ---
Doctor's Note Notes: 01/20/18 09:44 Rounds: Chart reviewed and patient interviewed. Patient is here with her fianc . Patient is also . They are both homeless. She says that she is having suicidal thoughts, but less today than when she came in last night. Lab studies are all essentially normal. Positive test on urine sample. Vital signs are all essentially normal. Patient appears to be medically stable for transfer or discharge. Zach Blandon MD
--- NOTE | 2018-01-20 20:30 | EKG REPORT ---
SEVERITY:- NORMAL ECG - SINUS RHYTHM : Confirmed by: Regina Almanzar MD 20-Jan-2018 20:29:47
== END 2018-01-20 09:50 | disposition home or self-care (01) ==
LOC: ER 23:47
DX: R45.851 Suicidal ideations (principal); O26.91 Pregnancy related conditions, unspecified, first trimester; R09.81 Nasal congestion; Z3A.01 Less than 8 weeks gestation of pregnancy; Z59.0 Homelessness
CPT/HCPCS: 93005; 99285; 36415; 80307 ×4; 85025; 81025; 80053; 81001; 93010; A9270

== ENCOUNTER 2018-02-01 17:28 | Emergency (ER) | payer MEDICARE, MEDICAID ==
[2018-02-01] MEDS ORDERED: ACETAMINOPHEN 325 MG TABLET PO ONE (19:12)
--- NOTE | 2018-02-01 19:50 | RADIOLOGY REPORT (SQ) ---
EXAM DESCRIPTION: ANKLE LEFT COMPLETE COMPLETED DATE/TIME: 02/01/2018 7:32 pm REASON FOR STUDY: L ankle new inversion injury, prior 01/19 injury COMPARISON: 01/19/2018 NUMBER OF VIEWS: Three views. TECHNIQUE: AP, lateral, and oblique radiographic images acquired of the left ankle. LIMITATIONS: None. FINDINGS: MINERALIZATION: Normal. BONES: No acute fracture or dislocation. Similar tiny inferior-lateral malleolar avulsion fracture i dentified. . JOINTS: Trace joint effusion. SOFT TISSUES: Moderate soft tissue swelling. No foreign body. OTHER: No other significant finding. IMPRESSION: Similar tiny inferior-lateral malleolar avulsion fracture identified. Trace joint effus ion. TECHNICAL DOCUMENTATION: JOB ID: [id number] [id number] 2010 [employer]- All Rights Reserved Reading location - IP/workstation name: [email or web address]
--- NOTE | 2018-02-01 20:28 | ER Document Report ---
ED General - General Chief Complaint: Ankle Injury Stated Complaint: FALL/ ANKLE PAIN Time Seen by Provider: 02/01/18 19:01 Information source: Patient TRAVEL OUTSIDE OF THE [place] IN LAST 30 DAYS: No COUNTRY TRAVELED TO/FROM: [facility] Notes: Patient is a 38-year-old female currently 6 weeks by report presents to the emergency department with reports that she fell and injured her left ankle with a fracture on 01/19/18. She states she was ambulating not using any crutches or splint in went over uneven ground and fell again, this time with her left foot into a hole. The patient reports worsening pain to the ankle since that time. She denies any knee pain back pain head injury neck pain or chest pain. She reports no vaginal bleeding or abdominal pain. She has already had an ultrasound performed on the . - Related Data Allergies/Adverse Reactions: amoxicillin Allergy (Verified 02/01/18 17:30) oxycodone [From OxyContin] Allergy (Verified 02/01/18 17:30) Past Medical History - General Information source: Patient - Social History Smoking Status: Unknown if Ever Smoked Frequency of alcohol use: None Drug Abuse: None Lives with: Friend Family History: Reviewed & Not Pertinent, CAD, DM, Malignancy, Other Patient has suicidal ideation: No Patient has homicidal ideation: No - Past Medical History Cardiac Medical History: Reports: Hx Hypertension - on meds Denies: Hx Coronary Artery Disease, Hx Heart Attack Pulmonary Medical History: Denies: Hx Asthma, Hx Bronchitis, Hx COPD, Hx Pneumonia Neurological Medical History: Denies: Hx Cerebrovascular Accident, Hx Seizures Endocrine Medical History: Reports: Hx Diabetes Mellitus Type 2 Renal/ Medical History: Reports: Hx Pelvic Inflammatory Disease. Denies: Hx Peritoneal Dialysis GI Medical History: Reports: Hx Gastroesophageal Reflux Disease Musculoskeletal Medical History: Reports Hx Arthritis - generalized Psychiatric Medical History: Reports: Hx Bipolar Disorder, Hx Depression Past Surgical History: Reports: Hx Abdominal Surgery - hernia repair, Hx Adenoidectomy, Hx Section - x1, Hx Gynecologic Surgery - , Hx Orthopedic Surgery - Right Leg Surgery, Hx Tonsillectomy - Immunizations Immunizations up to date: No Hx Diphtheria, Pertussis, Tetanus Vaccination: Yes Hx Pneumococcal Vaccination: 07/12/00 Review of Systems - Review of Systems -: Yes All other systems reviewed and negative Physical Exam - Vital signs Vitals: Temp Pulse Resp BP Pulse Ox 98.1 F 94 20 119/77 99 02/01/18 17:35 02/01/18 17:35 02/01/18 17:35 02/01/18 17:35 02/01/18 17:35 - Notes Notes: PHYSICAL EXAMINATION: GENERAL: Well-appearing, well-nourished and in no acute distress. HEAD: Atraumatic, normocephalic. EYES: Pupils equal round and reactive to light, extraocular movements intact, conjunctiva are normal. ENT: Nares patent, oropharynx clear without exudates. Moist mucous membranes. NECK: Normal range of motion, supple without lymphadenopathy LUNGS: Breath sounds clear to auscultation bilaterally and equal. No wheezes rales or rhonchi. HEART: Regular rate and rhythm without murmurs ABDOMEN: Soft, nontender, nondistended abdomen. No guarding, no rebound. No masses appreciated. Morbidly obese Female : deferred Musculoskeletal: Normal range of motion. No cyanosis. Patient has pain appreciated to the lateral greater than medial aspect of the ankle. The foot is nontender the knee is nontender. Distally, the patient is neurovascularly intact with good distal sensation and capillary refill. The patient was noted to be ambulating without significant difficulty while in the emergency department going to the bathroom. No gross crepitance or bony deformity. No significant swelling or erythema. 1+ bilateral lower extremity edema. NEUROLOGICAL: Cranial nerves grossly intact. Normal speech, normal gait. Normal sensory, motor exams PSYCH: Normal mood, normal affect. SKIN: Warm, Dry, normal turgor, no rashes or lesions noted. Course - Re-evaluation Re-evalutation: 02/01/18 20:28 X-ray of the ankle as interpreted by me did show small lateral avulsion fracture fragment to the distal inferior malleolus. This was largely unchanged from previous x-ray reviewed from 01/19/18. Patient was given a stirrup splint and crutches. She will was given Tylenol for pain, although she requested other medications for her fibromyalgia and other painful conditions. No evidence for neurovascular compromise or clinical suggestion for compromise. 02/01/18 20:29 After soft tissue stirrup splint, patient was neurovascularly intact on repeat exam. She was given crutches. - Vital Signs Vital signs: Temp Pulse Resp BP Pulse Ox 98.1 F 94 20 119/77 99 02/01/18 17:35 02/01/18 17:35 02/01/18 17:35 02/01/18 17:35 02/01/18 17:35 Discharge - Discharge Clinical Impression: Closed left ankle fracture Qualifiers: Encounter type: initial encounter Qualified Code(s): S82.892A - Other fracture of left lower leg, initial encounter for closed fracture Condition: Stable Disposition: HOME, SELF-CARE Instructions: Use of Crutches ([facility]), Ice & Elevation ([facility]), Soft Ankle Splint ( [facility]) Additional Instructions: You may take Tylenol as directed for pain. Elevate and limit motion and use crutches. Follow-up with orthopedics as needed. Referrals: SARAH COLORADO DO [ACTIVE STAFF] - Follow up in 1 week
[2018-02-01 20:53] VITALS: BP 153/79
== END 2018-02-01 20:53 | disposition home or self-care (01) ==
LOC: ER 17:28
DX: O9A.211 Injury, poisoning and certain other consequences of external causes complicating pregnancy, first trimester (principal); S82.892A Other fracture of left lower leg, initial encounter for closed fracture; O16.1 Unspecified maternal hypertension, first trimester; Z3A.01 Less than 8 weeks gestation of pregnancy; W18.39XA Other fall on same level, initial encounter; Z88.0 Allergy status to penicillin; Z88.6 Allergy status to analgesic agent
CPT/HCPCS: 99283; 73610; L1902; A9270

== ENCOUNTER 2018-02-02 13:46 | Emergency (ER) | payer MEDICARE, MEDICAID ==
--- NOTE | 2018-02-02 14:39 | ER Document Report ---
ED General - General Chief Complaint: Suicidal Ideation Stated Complaint: DIZZINESS Time Seen by Provider: 02/02/18 14:09 Notes: Chief complaint: Feeling sick History of complain:( obtained from----patient) 38 years female who is presents today with morning sickness nauseous, and also states that she has condition will need something for that. She has been treated with Ceftin without improvement she states. No cough. But has sinus congestion. Denies any chest pain or shortness of breath. Feverish, but has no fever or chills. She told the EMS that he is suicidal but on arrival she is saying that he is not suicidal anymore. Onset: Duration: Severity: Quality: Context: Exacerbating factor and relieving factors: REVIEW OF SYSTEMS: CONSTITUTIONAL : Denies fever, chills, or sweats. Denies recent illness. EENT: Denies eye, ear, throat, or mouth pain or symptoms. Denies nasal or sinus congestion or discharge. Denies throat, tongue, or mouth swelling or difficulty swallowing. CARDIOVASCULAR: Denies chest pain. Denies palpitations or racing or irregular heart beat. Denies ankle edema. RESPIRATORY: Denies cough, cold, or chest congestion. Denies shortness of breath, difficulty breathing, or wheezing. GASTROINTESTINAL: Denies distention. Denies nausea, vomiting, or diarrhea. Denies blood in vomitus, stools, or per rectum. Denies black, tarry stools. Denies constipation. GENITOURINARY: Denies difficulty urinating, painful urination, burning, frequency, blood in urine, or discharge. FEMALE GENITOURINARY: Denies vaginal bleeding, heavy or abnormal periods, irregular periods. Denies vaginal discharge or odor. MUSCULOSKELETAL: Denies back or neck pain or stiffness. Denies joint pain or swelling. SKIN: Denies rash, lesions or sores. HEMATOLOGIC : Denies easy bruising or bleeding. LYMPHATIC: Denies swollen, enlarged glands. NEUROLOGICAL: Denies confusion or altered mental status. Denies passing out or loss of consciousness. Denies dizziness or lightheadedness. Denies headache. Denies weakness or paralysis or loss of use of either side. Denies problems with gait or speech. Denies sensory loss, numbness, or tingling. Denies seizures. PSYCHIATRIC: Denies anxiety or stress. Denies depression, suicidal ideation, or homicidal ideation. ALL OTHER SYSTEMS REVIEWED AND NEGATIVE. PHYSICAL EXAMINATION: GENERAL: Well-appearing, well-nourished and in no acute distress. Morbid obesity HEAD: Atraumatic, normocephalic. EYES: Pupils equal round and reactive to light, extraocular movements intact, conjunctiva are normal. ENT: Nares patent, oropharynx clear without exudates. Moist mucous membranes. NECK: Normal range of motion, supple without lymphadenopathy LUNGS: Breath sounds clear to auscultation bilaterally and equal. No wheezes rales or rhonchi. HEART: Regular rate and rhythm without murmurs ABDOMEN: Soft, nontender, nondistended abdomen. No guarding, no rebound. No masses appreciated. Examination of genitals-deferred Musculoskeletal: Normal range of motion, no pitting or edema. No cyanosis. NEUROLOGICAL: Cranial nerves grossly intact. Normal speech, normal gait. Normal sensory, motor exams PSYCH: Normal mood, normal affect. SKIN: Warm, Dry, normal turgor, no rashes or lesions noted. Dictation was performed using [employer] voice recognition software TRAVEL OUTSIDE OF THE [place] IN LAST 30 DAYS: No COUNTRY TRAVELED TO/FROM: [place] - Related Data Allergies/Adverse Reactions: amoxicillin Allergy (Verified 02/02/18 13:50) oxycodone [From OxyContin] Allergy (Verified 02/02/18 13:50) Past Medical History - Social History Smoking Status: Unknown if Ever Smoked Frequency of alcohol use: Occasional Drug Abuse: Prescription drugs Lives with: Family Family History: Reviewed & Not Pertinent, CAD, DM, Malignancy, Other - Past Medical History Cardiac Medical History: Reports: Hx Hypertension - on meds Denies: Hx Coronary Artery Disease, Hx Heart Attack Pulmonary Medical History: Denies: Hx Asthma, Hx Bronchitis, Hx COPD, Hx Pneumonia Neurological Medical History: Denies: Hx Cerebrovascular Accident, Hx Seizures Endocrine Medical History: Reports: Hx Diabetes Mellitus Type 2 Renal/ Medical History: Reports: Hx Pelvic Inflammatory Disease. Denies: Hx Peritoneal Dialysis GI Medical History: Reports: Hx Gastroesophageal Reflux Disease Musculoskeletal Medical History: Reports Hx Arthritis - generalized Psychiatric Medical History: Reports: Hx Bipolar Disorder, Hx Depression Past Surgical History: Reports: Hx Abdominal Surgery - hernia repair, Hx Adenoidectomy, Hx Section - x1, Hx Gynecologic Surgery - , Hx Orthopedic Surgery - Right Leg Surgery, Hx Tonsillectomy - Immunizations Immunizations up to date: No Hx Diphtheria, Pertussis, Tetanus Vaccination: Yes Hx Pneumococcal Vaccination: 07/12/00 Review of Systems - Review of Systems Notes: Dictated Physical Exam - Vital signs Vitals: Temp Pulse Resp BP Pulse Ox 97.7 F 99 16 134/79 H 97 02/02/18 14:03 02/02/18 14:03 02/02/18 14:03 02/02/18 14:03 02/02/18 14:03 - Notes Notes: Dictated Course - Vital Signs Vital signs: Temp Pulse Resp BP Pulse Ox 97.7 F 99 16 134/79 H 97 02/02/18 14:03 02/02/18 14:03 02/02/18 14:03 02/02/18 14:03 02/02/18 14:03 Discharge - Discharge Clinical Impression: Sinusitis Qualifiers: Sinusitis location: frontal Chronicity: acute Recurrence: recurrent Qualified Code(s): J01.11 - Acute recurrent frontal sinusitis Qualifiers: Weeks of gestation: less than 8 weeks Qualified Code(s): Z3A.01 - Less than 8 weeks gestation of Condition: Fair Disposition: HOME, SELF-CARE Instructions: (OM)
[2018-02-02 15:09] VITALS: BP 129/85
== END 2018-02-02 15:07 | disposition home or self-care (01) ==
LOC: ER 13:46
DX: O99.511 Diseases of the respiratory system complicating pregnancy, first trimester (principal); J01.11 Acute recurrent frontal sinusitis; O26.891 Other specified pregnancy related conditions, first trimester; R11.0 Nausea; O99.321 Drug use complicating pregnancy, first trimester; F19.10 Other psychoactive substance abuse, uncomplicated; O16.1 Unspecified maternal hypertension, first trimester; O24.111 Pre-existing type 2 diabetes mellitus, in pregnancy, first trimester; E11.9 Type 2 diabetes mellitus without complications; O99.211 Obesity complicating pregnancy, first trimester; E66.01 Morbid (severe) obesity due to excess calories; Z68.42 Body mass index [BMI] 45.0-49.9, adult; Z3A.01 Less than 8 weeks gestation of pregnancy; Z88.0 Allergy status to penicillin; Z88.5 Allergy status to narcotic agent
CPT/HCPCS: 99284

== ENCOUNTER 2018-02-03 13:47 | Emergency (ER) | payer MEDICARE, MEDICAID ==
--- NOTE | 2018-02-03 14:11 | ER Document Report ---
HPI - HPI Patient complains to provider of: nausea, ear pain, sore throat Onset: Other - few days Pain Level: 5 Context: 38 yo newly female c/o sore throat, nausea, some vomiting. No abd pain or vaginal bleeding. Associated Symptoms: None Exacerbated by: Denies Relieved by: Denies Similar symptoms previously: Yes Recently seen / treated by doctor: Yes - ROS ROS below otherwise negative: Yes Systems Reviewed and Negative: Yes All other systems reviewed and negative - REPRODUCTIVE Reproductive: DENIES: : Past Medical History - General Information source: Patient - Social History Smoking Status: Never Smoker Frequency of alcohol use: None Drug Abuse: None Lives with: Family Family History: Reviewed & Not Pertinent, CAD, DM, Malignancy, Other - Past Medical History Cardiac Medical History: Reports: Hx Hypertension - on meds Endocrine Medical History: Reports: Hx Diabetes Mellitus Type 2 Renal/ Medical History: Reports: Hx Pelvic Inflammatory Disease. Denies: Hx Peritoneal Dialysis GI Medical History: Reports: Hx Gastroesophageal Reflux Disease Musculoskeletal Medical History: Reports Hx Arthritis - generalized Psychiatric Medical History: Reports: Hx Bipolar Disorder, Hx Depression Past Surgical History: Reports: Hx Abdominal Surgery - hernia repair, Hx Adenoidectomy, Hx Section - x1, Hx Gynecologic Surgery - , Hx Orthopedic Surgery - Right Leg Surgery, Hx Tonsillectomy - Immunizations Immunizations up to date: No Hx Diphtheria, Pertussis, Tetanus Vaccination: Yes Hx Pneumococcal Vaccination: 07/12/00 Vertical Provider Document - CONSTITUTIONAL Agree With Documented VS: Yes Exam Limitations: No Limitations General Appearance: No Apparent Distress - INFECTION CONTROL TRAVEL OUTSIDE OF THE [place] IN LAST 30 DAYS: No COUNTRY TRAVELED TO/FROM: [place] - HEENT HEENT: Normocephalic, Pharyngeal Erythema. negative: Tympanic Membrane Red, Tympanic Membrane Bulging - NECK Neck: Supple. negative: Lymphadenopathy-Left, Lymphadenopathy-Right - RESPIRATORY Respiratory: Breath Sounds Normal, No Respiratory Distress - CARDIOVASCULAR Cardiovascular: Regular Rate, Regular Rhythm - GI/ABDOMEN Gastrointestinal: Abdomen Soft, Abdomen Non-Tender, No Organomegaly - MUSCULOSKELETAL/EXTREMETIES Musculoskeletal/Extremeties: LINDA COLON - NEURO Level of Consciousness: Alert - DERM Integumentary: No Rash Course - Re-evaluation Re-evalutation: 02/03/18 16:56 The patient's quantitative hCG is elevating as it should, she had a viable IUP on January 19 by ultrasound. She feels a lot better and is eating at this time. Potassium is mildly low 3.3 she is taking 40 mEq of potassium and I have recommended that she eat a banana daily - Vital Signs Vital signs: Temp Pulse Resp BP Pulse Ox 99.1 F 203 H 22 H 173/91 H 02/03/18 13:55 02/03/18 13:55 02/03/18 13:55 02/03/18 13:55 - Laboratory Result Diagrams: 02/03/18 15:10 02/03/18 15:10 Discharge - Discharge Clinical Impression: Nausea, Hypokalemia Qualifiers: Weeks of gestation: less than 8 weeks Qualified Code(s): Z3A.01 - Less than 8 weeks gestation of Condition: Good Disposition: HOME, SELF-CARE Instructions: Hypokalemia (OM), Nausea or Vomiting, Nonspecific ([facility]), [facility], ([facility]), [facility] ([facility]) Additional Instructions: Eat a banana a day Follow-up the health department [facility] for this Return to the emergency room for any abdominal pain vaginal bleeding worsening of symptoms Take a multivitamin daily Your glucose was 134 today please have a [facility] recheck your glucoses.
[2018-02-03] MEDS ORDERED: NORMAL SALINE 1000 ML 1,000 ML IV ONE (14:24)
[2018-02-03] MEDS ORDERED: METOCLOPRAMIDE HCL INJ/PF 10 MG/2 ML SDV IV ONE (14:24)
[2018-02-03 15:38] LABS: ABSOLUTE BASOPHILS # (AUTO) 0.1 10^3/uL (0.0-0.2); ABSOLUTE EOSINOPHILS # (AUTO) 0.1 10^3/uL (0.0-0.6); ABSOLUTE LYMPHOCYTES (AUTO) 2.6 10^3/uL (0.5-4.7); ABSOLUTE MONOCYTES (AUTO) 0.8 10^3/uL (0.1-1.4); ABSOLUTE NEUT (AUTO) 6.6 10^3/uL (1.7-8.2); BASOPHILS % (AUTO) 0.6 % (0-2); EOSINOPHILS % (AUTO) 0.6 % (0-6); HEMATOCRIT 38.2 % (36.0-47.0); HEMOGLOBIN 12.7 g/dL (12.0-15.5); LYMPHOCYTES % (AUTO) 25.8 % (13-45); MEAN CORPUSCULAR HGB CONC 33.2 g/dL (32.0-36.0); MEAN CORPUSCULAR VOLUME 85 fl (80-97); MONOCYTES % (AUTO) 7.5 % (3-13); PLATELET COUNT 276 10^3/uL (150-450); RED BLOOD COUNT 4.52 10^6/uL (3.72-5.28); RED CELL DISTRIBUTION WIDTH 14.1 % (11.5-14.0); SEGMENTED NEUTROPHILS % (AUTO) 65.5 % (42-78); TOTAL CELLS COUNTED % (AUTO) 100 %
[2018-02-03 15:51] LABS: ALANINE AMINOTRANSFERASE 24 U/L (9-52); ALBUMIN 4.1 g/dL (3.5-5.0); ALKALINE PHOSPHATASE 81 U/L (38-126); ANION GAP 16 (5-19); ASPARTATE AMINO TRANSFERASE 18 U/L (14-36); BILIRUBIN,DIRECT 0.3 mg/dL (0.0-0.4); BILIRUBIN,TOTAL 0.6 mg/dL (0.2-1.3); BLOOD UREA NITROGEN 9 mg/dL (7-20); CALCIUM 9.7 mg/dL (8.4-10.2); CARBON DIOXIDE 24 mmol/L (22-30); CHLORIDE 98 mmol/L (98-107); GLUCOSE 134 mg/dL (75-110); POTASSIUM 3.3 mmol/L (3.6-5.0); SODIUM 137.9 mmol/L (137-145); TOTAL PROTEIN 7.4 g/dL (6.3-8.2)
[2018-02-03 16:21] LABS: APPEARANCE,URINE CLEAR; BILIRUBIN,URINE NEGATIVE (NEGATIVE); COLOR,URINE YELLOW; GLUCOSE, URINE NEGATIVE (NEGATIVE); KETONES,URINE TRACE mg/dL (NEGATIVE); LEUKOCYTE ESTERASE,URINE NEGATIVE (NEGATIVE); NITRITE,URINE NEGATIVE (NEGATIVE); PROTEIN,URINE NEGATIVE (NEGATIVE); URINE SPECIFIC GRAVITY 1.014; UROBILINOGEN,URINE NEGATIVE mg/dL (<2.0)
[2018-02-03] MEDS ORDERED: POTASSIUM CHLORIDE 20 MEQ/15 ML UDCUP PO ONE (16:42)
[2018-02-03 17:16] VITALS: BP 122/77
== END 2018-02-03 17:18 | disposition home or self-care (01) ==
LOC: ER 13:47
DX: O26.91 Pregnancy related conditions, unspecified, first trimester (principal); R11.0 Nausea; H92.09 Otalgia, unspecified ear; E87.6 Hypokalemia; Z3A.01 Less than 8 weeks gestation of pregnancy
CPT/HCPCS: 99283; 96361; 96374; 36415; 84702; 85025; 80053; 81001; J2765; A9270; J7030

== ENCOUNTER 2018-02-07 15:37 | Emergency (ER) | payer MEDICARE, MEDICAID ==
--- NOTE | 2018-02-07 16:35 | ER Document Report ---
ED ENT - General Chief Complaint: Sinus Congestion Stated Complaint: SINUS CONGESTION Time Seen by Provider: 02/07/18 16:27 TRAVEL OUTSIDE OF THE [place] IN LAST 30 DAYS: No COUNTRY TRAVELED TO/FROM: [facility] Notes: 38-year-old female, exceptionally well known to the emergency department and a frequent visitor who presents with sinusitis. She states that she was recently treated with antibiotics and it is not any better. Scrubs essentially several months now sinus pressure and pain. Some equivocal drainage down the back of her throat. No fever, no runny nose. She is taking antihistamines with no relief. No other modifying factors, no other associated symptoms, no other provocative or palliative factors. Gradual onset. Nonradiating. - Related Data Allergies/Adverse Reactions: amoxicillin Allergy (Verified 02/07/18 15:40) oxycodone [From OxyContin] Allergy (Verified 02/07/18 15:40) Past Medical History - Social History Smoking Status: Never Smoker Family History: Reviewed & Not Pertinent, CAD, DM, Malignancy, Other Patient has suicidal ideation: No Patient has homicidal ideation: No - Past Medical History Cardiac Medical History: Reports: Hx Hypertension - on meds Denies: Hx Coronary Artery Disease, Hx Heart Attack Pulmonary Medical History: Denies: Hx Asthma, Hx Bronchitis, Hx COPD, Hx Pneumonia Neurological Medical History: Denies: Hx Cerebrovascular Accident, Hx Seizures Endocrine Medical History: Reports: Hx Diabetes Mellitus Type 2 Renal/ Medical History: Reports: Hx Pelvic Inflammatory Disease. Denies: Hx Peritoneal Dialysis GI Medical History: Reports: Hx Gastroesophageal Reflux Disease Musculoskeletal Medical History: Reports Hx Arthritis - generalized Psychiatric Medical History: Reports: Hx Bipolar Disorder, Hx Depression Past Surgical History: Reports: Hx Abdominal Surgery - hernia repair, Hx Adenoidectomy, Hx Section - x1, Hx Gynecologic Surgery - , Hx Orthopedic Surgery - Right Leg Surgery, Hx Tonsillectomy - Immunizations Immunizations up to date: No Hx Diphtheria, Pertussis, Tetanus Vaccination: Yes Hx Pneumococcal Vaccination: 07/12/00 Review of Systems - Review of Systems Notes: Review of systems as in the history of present illness, otherwise negative x 10 systems. Physical Exam - Vital signs Vitals: Temp Pulse Resp BP Pulse Ox 97.8 F 79 14 132/78 H 96 02/07/18 15:48 02/07/18 15:48 02/07/18 15:48 02/07/18 15:48 02/07/18 15:48 - Notes Notes: General: Well devloped, no acute distress. HEENT: Normocephalic, atraumatic. Pupils equal round reactive to light. Mucosa moist. No JVD. No overlying sinus erythema or edema. No pharyngeal erythema. Mild bilateral maxillary sinus percussion tenderness Chest: No trauma, normal excursion. Respiratory: Good air exchange, normal excursion. Cardiac: Regular rhythm Abdomen: Soft, benign. Nondistended. Back: No asymmetry or gross abnormality. Motor: Grossly normal power and tone. Neurologic: Alert, nonfocal. Vascular: Well perfused Skin: No petechiae or purpura Course - Re-evaluation Re-evalutation: 02/07/18 16:56 Well-appearing female with symptoms that suggest possible chronic sinusitis. No indication for additional antibiotics. Will refer her to ENT, outpatient follow-up. - Vital Signs Vital signs: Temp Pulse Resp BP Pulse Ox 97.8 F 79 14 132/78 H 96 02/07/18 15:48 02/07/18 15:48 02/07/18 15:48 02/07/18 15:48 02/07/18 15:48 Discharge - Discharge Clinical Impression: Sinusitis Qualifiers: Sinusitis location: other Chronicity: chronic Qualified Code(s): J32.8 - Other chronic sinusitis Condition: Good Disposition: HOME, SELF-CARE Instructions: Sinusitis ([facility]) Referrals: ENT [Provider Group] - Follow up as needed
[2018-02-07 17:17] VITALS: BP 132/79
== END 2018-02-07 17:17 | disposition home or self-care (01) ==
LOC: ER 15:37
DX: J32.9 Chronic sinusitis, unspecified (principal); I10 Essential (primary) hypertension; E11.9 Type 2 diabetes mellitus without complications; Z88.0 Allergy status to penicillin; Z88.5 Allergy status to narcotic agent
CPT/HCPCS: 99283

== ENCOUNTER 2018-02-11 09:07 | Emergency (ER) | payer MEDICARE, MEDICAID ==
[2018-02-11 09:14] VITALS: BP 139/84
--- NOTE | 2018-02-11 09:24 | ER Document Report ---
HPI - HPI Patient complains to provider of: SINUS CONGESTION Onset: Other - weeks and weeks Onset/Duration: Persistent Quality of pain: Achy Pain Level: 1 Context: Patient presents today for complaints of dry nasal passages ear pain sinus pain. Patient denies fever vomiting diarrhea. Reports she is taking and Zyrtec Tylenol and nothing is working. Patient has been evaluated for same complaint multiple times. Patient is very agitated and yells with touch to anywhere to her body. Associated Symptoms: Earache, Sinus pain/drainage, Other - dry nares Exacerbated by: Denies Relieved by: Denies Similar symptoms previously: Yes Recently seen / treated by doctor: Yes - REPRODUCTIVE Reproductive: DENIES: : Past Medical History - General Information source: Patient Last Menstrual Period: - Social History Smoking Status: Unknown if Ever Smoked Frequency of alcohol use: None Drug Abuse: None Family History: Reviewed & Not Pertinent, CAD, DM, Malignancy, Other - Past Medical History Cardiac Medical History: Reports: Hx Hypertension - on meds Denies: Hx Coronary Artery Disease, Hx Heart Attack Pulmonary Medical History: Denies: Hx Asthma, Hx Bronchitis, Hx COPD, Hx Pneumonia Neurological Medical History: Denies: Hx Cerebrovascular Accident, Hx Seizures Endocrine Medical History: Reports: Hx Diabetes Mellitus Type 2 Renal/ Medical History: Reports: Hx Pelvic Inflammatory Disease. Denies: Hx Peritoneal Dialysis GI Medical History: Reports: Hx Gastroesophageal Reflux Disease Musculoskeletal Medical History: Reports Hx Arthritis - generalized Psychiatric Medical History: Reports: Hx Bipolar Disorder, Hx Depression Past Surgical History: Reports: Hx Abdominal Surgery - hernia repair, Hx Adenoidectomy, Hx Section - x1, Hx Gynecologic Surgery - , Hx Orthopedic Surgery - Right Leg Surgery, Hx Tonsillectomy - Immunizations Immunizations up to date: No Hx Diphtheria, Pertussis, Tetanus Vaccination: Yes Hx Pneumococcal Vaccination: 07/12/00 Vertical Provider Document - CONSTITUTIONAL Agree With Documented VS: Yes Exam Limitations: No Limitations General Appearance: WD/WN, No Apparent Distress - INFECTION CONTROL TRAVEL OUTSIDE OF THE [place] IN LAST 30 DAYS: No COUNTRY TRAVELED TO/FROM: [place] - HEENT HEENT: Atraumatic, Normal ENT Exam, Normocephalic. negative: Conjuctival Injection, Pharyngeal Exudate, Pharyngeal Tenderness, Pharyngeal Erythema, Tympanic Membrane Red, Tympanic Membrane Bulging - NECK Neck: Normal Inspection, Supple. negative: Lymphadenopathy-Left, Lymphadenopathy-Right - RESPIRATORY Respiratory: Breath Sounds Normal, No Respiratory Distress - CARDIOVASCULAR Cardiovascular: Regular Rate - GI/ABDOMEN Gastrointestinal: Abdomen Soft - MUSCULOSKELETAL/EXTREMETIES Musculoskeletal/Extremeties: MAEW, FROM, Non-Tender - NEURO Level of Consciousness: Awake, Alert, Appropriate Motor/Sensory: No Motor Deficit - DERM Integumentary: Warm, Dry Course - Re-evaluation Re-evalutation: 02/11/18 09:33 Attempted to talk to patient regarding symptoms and treatment. She was very verbal very agitated Repeating him doing everything I am doing everything. We discussed antibiotics and proper use. Patient was still not satisfied. Patient was instructed to follow-up with primary care provider possible ENT referral. She did not want to hear anything about it did not want to talk. Patient got out of the chair and left. - Vital Signs Vital signs: Temp Pulse Resp BP Pulse Ox 98.1 F 79 16 139/84 H 97 02/11/18 09:12 02/11/18 09:12 02/11/18 09:12 02/11/18 09:12 02/11/18 09:12 Discharge - Discharge Clinical Impression: COLD SYMPTOMS Condition: Stable Disposition: HOME, SELF-CARE Instructions: Acetaminophen Additional Instructions: *You have been evaluated for ear pain, sinuse pain, dry nares today *Increase fluid intake *Take Tylenol as indicated *Follow up with your provider, Chuck Johnson within 5 days *Return to ED for worsening condition, changes, needs Forms: Elevated Blood Pressure
== END 2018-02-11 09:33 | disposition home or self-care (01) ==
LOC: ER 09:07
DX: H92.09 Otalgia, unspecified ear (principal); R09.81 Nasal congestion; E11.9 Type 2 diabetes mellitus without complications
CPT/HCPCS: 99283

== ENCOUNTER 2018-03-10 14:54 | Emergency (ER) | payer MEDICARE, MEDICAID ==
[2018-03-10 15:19] VITALS: BP 132/87
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
== END 2018-03-10 16:15 | disposition home or self-care (01) ==
LOC: ER 14:54
DX: O99.519 Diseases of the respiratory system complicating pregnancy, unspecified trimester (principal); J06.9 Acute upper respiratory infection, unspecified; J34.89 Other specified disorders of nose and nasal sinuses; O26.899 Other specified pregnancy related conditions, unspecified trimester; R04.0 Epistaxis; R09.82 Postnasal drip; O99.210 Obesity complicating pregnancy, unspecified trimester; E66.01 Morbid (severe) obesity due to excess calories; O21.9 Vomiting of pregnancy, unspecified; O16.9 Unspecified maternal hypertension, unspecified trimester; O24.119 Pre-existing type 2 diabetes mellitus, in pregnancy, unspecified trimester; E11.9 Type 2 diabetes mellitus without complications; Z3A.00 Weeks of gestation of pregnancy not specified
CPT/HCPCS: 99283

== ENCOUNTER 2018-03-28 06:13 | Emergency (ER) | payer MEDICARE, MEDICAID ==
[2018-03-28 08:35] LABS: ABSOLUTE BASOPHILS # (AUTO) 0.1 10^3/uL (0.0-0.2); ABSOLUTE EOSINOPHILS # (AUTO) 0.1 10^3/uL (0.0-0.6); ABSOLUTE LYMPHOCYTES (AUTO) 3.1 10^3/uL (0.5-4.7); ABSOLUTE MONOCYTES (AUTO) 0.6 10^3/uL (0.1-1.4); ABSOLUTE NEUT (AUTO) 10.5 10^3/uL (1.7-8.2); BASOPHILS % (AUTO) 0.6 % (0-2); EOSINOPHILS % (AUTO) 0.4 % (0-6); HEMATOCRIT 39.1 % (36.0-47.0); HEMOGLOBIN 13.1 g/dL (12.0-15.5); LYMPHOCYTES % (AUTO) 21.7 % (13-45); MEAN CORPUSCULAR HEMOGLOBIN 28.1 pg (27.0-33.4); MEAN CORPUSCULAR HGB CONC 33.4 g/dL (32.0-36.0); MEAN CORPUSCULAR VOLUME 84 fl (80-97); MONOCYTES % (AUTO) 4.1 % (3-13); PLATELET COUNT 303 10^3/uL (150-450); RED BLOOD COUNT 4.65 10^6/uL (3.72-5.28); RED CELL DISTRIBUTION WIDTH 14.6 % (11.5-14.0); SEGMENTED NEUTROPHILS % (AUTO) 73.2 % (42-78); TOTAL CELLS COUNTED % (AUTO) 100 %; WHITE BLOOD COUNT 14.4 10^3/uL (4.0-10.5)
[2018-03-28] MEDS ORDERED: NORMAL SALINE 1000 ML 1,000 ML IV ONE (08:55)
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
[2018-03-28 08:57] LABS: ALANINE AMINOTRANSFERASE 9 U/L (9-52); ALBUMIN 4.1 g/dL (3.5-5.0); ALKALINE PHOSPHATASE 85 U/L (38-126); ANION GAP 13 (5-19); ASPARTATE AMINO TRANSFERASE 15 U/L (14-36); BILIRUBIN,DIRECT 0.5 mg/dL (0.0-0.4); BILIRUBIN,TOTAL 0.6 mg/dL (0.2-1.3); BLOOD UREA NITROGEN 7 mg/dL (7-20); CALCIUM 9.9 mg/dL (8.4-10.2); CARBON DIOXIDE 22 mmol/L (22-30); CHLORIDE 102 mmol/L (98-107); GLUCOSE 170 mg/dL (75-110); POTASSIUM 4.1 mmol/L (3.6-5.0); SODIUM 137.3 mmol/L (137-145); TOTAL PROTEIN 7.7 g/dL (6.3-8.2)
--- NOTE | 2018-03-28 09:43 | RADIOLOGY REPORT (SQ) ---
EXAM DESCRIPTION: U/S OB LIMITED COMPLETED DATE/TIME: 03/28/2018 9:34 am REASON FOR STUDY: pelvic pain COMPARISON: None. TECHNIQUE: Limited transabdominal grayscale ultrasound for evaluation of specific requested obstetri sandra parameters. LIMITATIONS: None. FINDINGS: CERVICAL LENGTH: 3.2 cm Closed. BALDOMERO: 5.4 cm L INFORMATION SECURITY MANAGER. FHR: 163 beats per minute. PRESENTATION: Cephalic. OTHER: Posterior placenta IMPRESSION: LIMITED OBSTETRICAL ULTRASOUND WITH MEASURED PARAMETERS DELINEATED ABOVE. Trimester of : Second trimester - 13 weeks 1 day to 27 weeks 6 days. TECHNICAL DOCUMENTATION: JOB ID: [id number] [employer]- All Rights Reserved Reading location - IP/workstation name: [email or web address]
[2018-03-28 10:14] LABS: CALCIUM OXALATE CRYSTALS,URINE FEW /HPF
[2018-03-28 10:17] LABS: APPEARANCE,URINE CLOUDY; BILIRUBIN,URINE MODERATE (NEGATIVE); COLOR,URINE DARK YELLOW; GLUCOSE, URINE NEGATIVE (NEGATIVE); KETONES,URINE 25 mg/dL (NEGATIVE); LEUKOCYTE ESTERASE,URINE LARGE (NEGATIVE); NITRITE,URINE NEGATIVE (NEGATIVE); PROTEIN,URINE 30 mg/dL (NEGATIVE); URINE SPECIFIC GRAVITY 1.029
[2018-03-28] MEDS ORDERED: CEPHALEXIN 500 MG CAPSULE PO ONE (11:19)
[2018-03-28] MEDS ORDERED: PROMETHAZINE HCL 25 MG SUPP (4 SUPP/ER DISP) PR ONE (11:26)
[2018-03-28 11:43] VITALS: BP 126/76
== END 2018-03-28 12:27 | disposition home or self-care (01) ==
LOC: ER 06:13
DX: O23.40 Unspecified infection of urinary tract in pregnancy, unspecified trimester (principal); O21.9 Vomiting of pregnancy, unspecified; O26.899 Other specified pregnancy related conditions, unspecified trimester; R10.2 Pelvic and perineal pain; R10.817 Generalized abdominal tenderness; O16.9 Unspecified maternal hypertension, unspecified trimester; O24.119 Pre-existing type 2 diabetes mellitus, in pregnancy, unspecified trimester; E11.9 Type 2 diabetes mellitus without complications; Z3A.00 Weeks of gestation of pregnancy not specified; Z65.5 Exposure to disaster, war and other hostilities; Z88.0 Allergy status to penicillin; Z88.5 Allergy status to narcotic agent; Z87.42 Personal history of other diseases of the female genital tract
CPT/HCPCS: 99284; 96360; 86900; 86901; 36415; 87086; 84702; 83690; 85025; 80053; 81001; 76815; A9270 ×2; J3490

== ENCOUNTER 2018-03-31 12:47 | Emergency (ER) | payer MEDICARE, MEDICAID ==
[2018-03-31 13:02] VITALS: BP 118/70
--- NOTE | 2018-03-31 13:16 | ER Document Report ---
ED Medical Screen (RME) - General Chief Complaint: Vaginal Discharge Stated Complaint: VAGINAL ISSUES Time Seen by Provider: 03/31/18 13:14 Notes: 38 years old female presents today with vagina leaching and vaginal discharge for the last few days. Morbidly obese individual. TRAVEL OUTSIDE OF THE [place] IN LAST 30 DAYS: No COUNTRY TRAVELED TO/FROM: [place] - Related Data Allergies/Adverse Reactions: amoxicillin Allergy (Verified 03/31/18 12:48) oxycodone [From OxyContin] Allergy (Verified 03/31/18 12:48) Past Medical History - Past Medical History Cardiac Medical History: Reports: Hx Hypertension - on meds Denies: Hx Coronary Artery Disease, Hx Heart Attack Pulmonary Medical History: Denies: Hx Asthma, Hx Bronchitis, Hx COPD, Hx Pneumonia Neurological Medical History: Denies: Hx Cerebrovascular Accident, Hx Seizures Endocrine Medical History: Reports: Hx Diabetes Mellitus Type 2 Renal/ Medical History: Reports: Hx Pelvic Inflammatory Disease. Denies: Hx Peritoneal Dialysis GI Medical History: Reports: Hx Gastroesophageal Reflux Disease Musculoskeltal Medical History: Reports Hx Arthritis - generalized Psychiatric Medical History: Reports: Hx Bipolar Disorder, Hx Depression Past Surgical History: Reports: Hx Abdominal Surgery - hernia repair, Hx Adenoidectomy, Hx Section - x1, Hx Gynecologic Surgery - , Hx Orthopedic Surgery - Right Leg Surgery, Hx Tonsillectomy - Immunizations Immunizations up to date: No Hx Diphtheria, Pertussis, Tetanus Vaccination: Yes Physical Exam - Vital signs Vitals: Temp Pulse Resp BP Pulse Ox 97.9 F 94 18 118/70 98 03/31/18 13:01 03/31/18 13:01 03/31/18 13:01 03/31/18 13:01 03/31/18 13:01 Course - Vital Signs Vital signs: Temp Pulse Resp BP Pulse Ox 97.9 F 94 18 118/70 98 03/31/18 13:01 03/31/18 13:01 03/31/18 13:01 03/31/18 13:01 03/31/18 13:01
[2018-03-31 14:38] LABS: RBCS (WET MOUNT) FEW RBCS SEEN; T.VAGINALIS (WET MOUNT) NO TRICHOMONAS SEEN; WBCS (WET MOUNT) 4+ WBCS SEEN; YEAST (WET MOUNT) YEAST SEEN
[2018-03-31 14:39] LABS: BACTERIA (WET MOUNT) 4+ BACTERIA SEEN; EPITHELIALS (WET MOUNT) 3+ EPITHELIALS SEEN
--- NOTE | 2018-03-31 16:44 | ER Document Report ---
ED General - General Chief Complaint: Vaginal Discharge Stated Complaint: VAGINAL ISSUES Time Seen by Provider: 03/31/18 13:14 TRAVEL OUTSIDE OF THE [place] IN LAST 30 DAYS: No COUNTRY TRAVELED TO/FROM: [facility] Patient complains to provider of: Vaginal discharge Notes: Patient is coming in for approximate 2 day history of yellow vaginal discharge. Patient states he has not been sexually active for approximately 1 week patient is approximately 15 weeks . Patient states that she is a . Patient otherwise is resting healthy upon my evaluation denies any fevers chills nausea vomiting diarrhea. Patient states currently being treated with Keflex for urinary tract infection. - Related Data Allergies/Adverse Reactions: amoxicillin Allergy (Verified 03/31/18 12:48) oxycodone [From OxyContin] Allergy (Verified 03/31/18 12:48) Past Medical History - Social History Smoking Status: Unknown if Ever Smoked Family History: Reviewed & Not Pertinent, CAD, DM, Malignancy, Other Patient has suicidal ideation: No Patient has homicidal ideation: No - Past Medical History Cardiac Medical History: Reports: Hx Hypertension - on meds Denies: Hx Coronary Artery Disease, Hx Heart Attack Pulmonary Medical History: Denies: Hx Asthma, Hx Bronchitis, Hx COPD, Hx Pneumonia Neurological Medical History: Denies: Hx Cerebrovascular Accident, Hx Seizures Endocrine Medical History: Reports: Hx Diabetes Mellitus Type 2 Renal/ Medical History: Reports: Hx Pelvic Inflammatory Disease. Denies: Hx Peritoneal Dialysis GI Medical History: Reports: Hx Gastroesophageal Reflux Disease Musculoskeletal Medical History: Reports Hx Arthritis - generalized Psychiatric Medical History: Reports: Hx Bipolar Disorder, Hx Depression Past Surgical History: Reports: Hx Abdominal Surgery - hernia repair, Hx Adenoidectomy, Hx Section - x1, Hx Gynecologic Surgery - , Hx Orthopedic Surgery - Right Leg Surgery, Hx Tonsillectomy - Immunizations Immunizations up to date: No Hx Diphtheria, Pertussis, Tetanus Vaccination: Yes Hx Pneumococcal Vaccination: 07/12/00 Review of Systems - Review of Systems Constitutional: No symptoms reported EENT: No symptoms reported Cardiovascular: No symptoms reported Respiratory: No symptoms reported Gastrointestinal: No symptoms reported Genitourinary: No symptoms reported Female Genitourinary: Vaginal discharge Musculoskeletal: No symptoms reported Skin: No symptoms reported Hematologic/Lymphatic: No symptoms reported Neurological/Psychological: No symptoms reported -: Yes All other systems reviewed and negative Physical Exam - Vital signs Vitals: Temp Pulse Resp BP Pulse Ox 97.9 F 94 18 118/70 98 03/31/18 13:01 03/31/18 13:01 03/31/18 13:01 03/31/18 13:01 03/31/18 13:01 Interpretation: Normal - General General appearance: Appears well, Alert - HEENT Head: Normocephalic, Atraumatic Eyes: Normal Pupils: PERRL - Respiratory Respiratory status: No respiratory distress Chest status: Nontender Breath sounds: Normal Chest palpation: Normal - Cardiovascular Rhythm: Regular Heart sounds: Normal auscultation Murmur: No - Abdominal Inspection: Normal Distension: No distension Bowel sounds: Normal Tenderness: Nontender Organomegaly: No organomegaly - Back Back: Normal, Nontender - Extremities General upper extremity: Normal inspection, Nontender, Normal color, Normal ROM , Normal temperature General lower extremity: Normal inspection, Nontender, Normal color, Normal ROM , Normal temperature, Normal weight bearing. No: Cele's sign - Neurological Neuro grossly intact: Yes Cognition: Normal Orientation: AAOx4 [place] Coma Scale Eye Opening: Spontaneous Eliu Coma Scale Verbal: Oriented [place] Coma Scale Motor: Obeys Commands Eliu Coma Scale Total: 15 Speech: Normal Motor strength normal: LUE, RUE, LLE, RLE Sensory: Normal - Psychological Associated symptoms: Normal affect, Normal mood - Skin Skin Temperature: Warm Skin Moisture: Dry Skin Color: Normal Course - Re-evaluation Re-evalutation: 03/31/18 19:29 Patient eloped prior to all studies being performed - Vital Signs Vital signs: Temp Pulse Resp BP Pulse Ox 97.9 F 94 18 118/70 98 03/31/18 13:01 03/31/18 13:01 03/31/18 13:01 03/31/18 13:01 03/31/18 13:01 Discharge - Discharge Clinical Impression: Vaginal yeast infection Qualifiers: Weeks of gestation: 15 weeks Qualified Code(s): Z3A.15 - 15 weeks gestation of Condition: Good Disposition: ELOPED Instructions: Vaginal Yeast Infection ([facility]) Additional Instructions: Your wet mount swab shows signs of a vaginal yeast infection. Please apply the cream as prescribed. Return to ER symptoms worsen. Prescriptions: Clotrimazole [Clotrimazole AF] 30 gm TP QHS 7 Days cream..g.
== END 2018-03-31 17:30 | disposition left against medical advice (07) ==
LOC: ER 12:47
DX: O98.812 Other maternal infectious and parasitic diseases complicating pregnancy, second trimester (principal); B37.3 Candidiasis of vulva and vagina; O24.912 Unspecified diabetes mellitus in pregnancy, second trimester; O16.2 Unspecified maternal hypertension, second trimester; Z3A.15 15 weeks gestation of pregnancy; Z79.899 Other long term (current) drug therapy
CPT/HCPCS: 87210; 99281

== ENCOUNTER 2018-04-02 02:54 | Emergency (ER) | payer MEDICARE, MEDICAID ==
--- NOTE | 2018-04-02 05:09 | ER Document Report ---
ED Medical Screen (RME) - General Chief Complaint: Psych Problem Stated Complaint: PSYCH PROBLEM Time Seen by Provider: 04/02/18 04:49 Notes: 38-year-old female at 16 weeks gestation that comes emergency department for chief complaint of suicidal ideations. She states that she has a lot of stressors going on and she is not being taken seriously, she states that she is considering going home and killing herself by either cutting her wrists or overdosing on medications. She states she has a rash but she denies any physical complaints otherwise. TRAVEL OUTSIDE OF THE [place] IN LAST 30 DAYS: No COUNTRY TRAVELED TO/FROM: [place] - Related Data Allergies/Adverse Reactions: amoxicillin Allergy (Verified 03/31/18 12:48) oxycodone [From OxyContin] Allergy (Verified 03/31/18 12:48) Past Medical History - Past Medical History Cardiac Medical History: Reports: Hx Hypertension - on meds Denies: Hx Coronary Artery Disease, Hx Heart Attack Pulmonary Medical History: Denies: Hx Asthma, Hx Bronchitis, Hx COPD, Hx Pneumonia Neurological Medical History: Denies: Hx Cerebrovascular Accident, Hx Seizures Endocrine Medical History: Reports: Hx Diabetes Mellitus Type 2 Renal/ Medical History: Reports: Hx Pelvic Inflammatory Disease. Denies: Hx Peritoneal Dialysis GI Medical History: Reports: Hx Gastroesophageal Reflux Disease Musculoskeltal Medical History: Reports Hx Arthritis - generalized Psychiatric Medical History: Reports: Hx Bipolar Disorder, Hx Depression Past Surgical History: Reports: Hx Abdominal Surgery - hernia repair, Hx Adenoidectomy, Hx Section - x1, Hx Gynecologic Surgery - , Hx Orthopedic Surgery - Right Leg Surgery, Hx Tonsillectomy - Immunizations Immunizations up to date: No Hx Diphtheria, Pertussis, Tetanus Vaccination: Yes Physical Exam - General General appearance: Appears well In distress: None - Abdominal Inspection: Normal Tenderness: Nontender. No: Tender, Guarding
[2018-04-02 06:14] LABS: ABSOLUTE EOSINOPHILS # (AUTO) 0.1 10^3/uL (0.0-0.6); ABSOLUTE LYMPHOCYTES (AUTO) 2.4 10^3/uL (0.5-4.7); ABSOLUTE MONOCYTES (AUTO) 0.5 10^3/uL (0.1-1.4); ABSOLUTE NEUT (AUTO) 5.2 10^3/uL (1.7-8.2); BASOPHILS % (AUTO) 0.4 % (0-2); EOSINOPHILS % (AUTO) 1.4 % (0-6); HEMATOCRIT 32.6 % (36.0-47.0); HEMOGLOBIN 11.2 g/dL (12.0-15.5); LYMPHOCYTES % (AUTO) 29.2 % (13-45); MEAN CORPUSCULAR HEMOGLOBIN 28.7 pg (27.0-33.4); MEAN CORPUSCULAR HGB CONC 34.2 g/dL (32.0-36.0); MEAN CORPUSCULAR VOLUME 84 fl (80-97); MONOCYTES % (AUTO) 6.6 % (3-13); PLATELET COUNT 228 10^3/uL (150-450); RED CELL DISTRIBUTION WIDTH 14.6 % (11.5-14.0); SEGMENTED NEUTROPHILS % (AUTO) 62.4 % (42-78); TOTAL CELLS COUNTED % (AUTO) 100 %; WHITE BLOOD COUNT 8.3 10^3/uL (4.0-10.5)
[2018-04-02 06:26] LABS: ALANINE AMINOTRANSFERASE 21 U/L (9-52); ALKALINE PHOSPHATASE 77 U/L (38-126); ANION GAP 9 (5-19); ASPARTATE AMINO TRANSFERASE 11 U/L (14-36); BILIRUBIN,DIRECT 0.2 mg/dL (0.0-0.4); BILIRUBIN,TOTAL 0.3 mg/dL (0.2-1.3); BLOOD UREA NITROGEN 4 mg/dL (7-20); CARBON DIOXIDE 24 mmol/L (22-30); CHLORIDE 104 mmol/L (98-107); GLUCOSE 101 mg/dL (75-110); POTASSIUM 3.9 mmol/L (3.6-5.0); SODIUM 137.1 mmol/L (137-145); TOTAL PROTEIN 5.9 g/dL (6.3-8.2)
[2018-04-02 06:28] LABS: ACETAMINOPHEN < 10 ug/mL (10-30); ALCOHOL < 10 mg/dL (NONE DETECTED); SALICYLATE < 1.0 mg/dL (2.0-20.0)
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
[2018-04-02 07:23] LABS: APPEARANCE,URINE SLIGHTLY-CLOUDY; BILIRUBIN,URINE NEGATIVE (NEGATIVE); COLOR,URINE YELLOW; GLUCOSE, URINE NEGATIVE (NEGATIVE); KETONES,URINE TRACE mg/dL (NEGATIVE); LEUKOCYTE ESTERASE,URINE LARGE (NEGATIVE); NITRITE,URINE NEGATIVE (NEGATIVE); PROTEIN,URINE NEGATIVE (NEGATIVE); URINE SPECIFIC GRAVITY 1.013; UROBILINOGEN,URINE NEGATIVE mg/dL (<2.0)
[2018-04-02 07:33] LABS: URINE AMPHETAMINES SCREEN NEGATIVE; URINE BARBITURATES SCREEN NEGATIVE; URINE BENZODIAZEPINES SCREEN NEGATIVE; URINE COCAINE SCREEN NEGATIVE; URINE MARIJUANA (THC) SCREEN NEGATIVE; URINE METHADONE SCREEN NEGATIVE; URINE PHENCYCLIDINE SCREEN NEGATIVE
[2018-04-02 08:55] VITALS: BP 126/78
[2018-04-02] MEDS ORDERED: MICONAZOLE NITRATE 2% VAGINAL CREAM 45 GM TUBE VG ONE (12:21)
--- NOTE | 2018-04-02 12:38 | EKG REPORT ---
SEVERITY:- NORMAL ECG - SINUS RHYTHM : Confirmed by: Regina Almanzar MD 02-Apr-2018 12:37:29
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
== END 2018-04-02 16:24 | disposition home or self-care (01) ==
LOC: ER 02:54
DX: O99.341 Other mental disorders complicating pregnancy, first trimester (principal); F31.62 Bipolar disorder, current episode mixed, moderate; O26.891 Other specified pregnancy related conditions, first trimester; R45.851 Suicidal ideations; O98.811 Other maternal infectious and parasitic diseases complicating pregnancy, first trimester; B37.3 Candidiasis of vulva and vagina; O9A.211 Injury, poisoning and certain other consequences of external causes complicating pregnancy, first trimester; S93.492D Sprain of other ligament of left ankle, subsequent encounter; X58.XXXD Exposure to other specified factors, subsequent encounter; O99.331 Smoking (tobacco) complicating pregnancy, first trimester; O16.1 Unspecified maternal hypertension, first trimester; O24.111 Pre-existing type 2 diabetes mellitus, in pregnancy, first trimester; E11.9 Type 2 diabetes mellitus without complications; Z3A.11 11 weeks gestation of pregnancy; Z59.0 Homelessness; Z88.0 Allergy status to penicillin; Z88.5 Allergy status to narcotic agent
CPT/HCPCS: 93005; 99285; 36415; 82962; 80307 ×4; 84703; 85025; 80053; 81001; 93010; J3490

== ENCOUNTER 2018-04-07 02:19 | Emergency (ER) | payer MEDICARE, MEDICAID ==
[2018-04-07 02:28] VITALS: BP 119/79
--- NOTE | 2018-04-07 03:19 | ER Document Report ---
HPI - HPI Pain Level: 4 Notes: Patient is a 38-year-old female in her second trimester and history of mental health disease who presents to the ED requesting an ultrasound to be performed as she has had abdominal cramping over the last day. Patient states that she also has nasal congestion and discharge and occasional sore throat that began last night. Patient states that she does have generalized body ache , but is still eating and drinking without any difficulties. She is urinating normally and having normal bowel movements. She has not noticed any vaginal discharge, odor, or bleeding. No other concerns or complaints at this time. Denies any headache, fever, neck pain, URI, sore throat, chest pain, palpitations, syncope, cough, shortness of breath, wheeze, dyspnea, nausea/ vomiting/diarrhea, urinary retention, dysuria, hematuria, back pain, loss of control of bowel or bladder, numbness/tingling, saddle anesthesia, muscle paralysis/weakness, or rash. Pt is well-known to this ED and is noted to be at baseline with behavior/mentation. - ROS Systems Reviewed and Negative: Yes All other systems reviewed and negative - REPRODUCTIVE LMP: November Reproductive: DENIES: : Past Medical History - Social History Smoking Status: Unknown if Ever Smoked Family History: Reviewed & Not Pertinent, CAD, DM, Malignancy, Other - Past Medical History Cardiac Medical History: Reports: Hx Hypertension - on meds Denies: Hx Coronary Artery Disease, Hx Heart Attack Pulmonary Medical History: Denies: Hx Asthma, Hx Bronchitis, Hx COPD, Hx Pneumonia Neurological Medical History: Denies: Hx Cerebrovascular Accident, Hx Seizures Endocrine Medical History: Reports: Hx Diabetes Mellitus Type 2 Renal/ Medical History: Reports: Hx Pelvic Inflammatory Disease. Denies: Hx Peritoneal Dialysis GI Medical History: Reports: Hx Gastroesophageal Reflux Disease Musculoskeletal Medical History: Reports Hx Arthritis - generalized Psychiatric Medical History: Reports: Hx Bipolar Disorder, Hx Depression Past Surgical History: Reports: Hx Abdominal Surgery - hernia repair, Hx Adenoidectomy, Hx Section - x1, Hx Gynecologic Surgery, Hx Herniorrhaphy, Hx Orthopedic Surgery - Right Leg Surgery, Hx Tonsillectomy - Immunizations Immunizations up to date: No Hx Diphtheria, Pertussis, Tetanus Vaccination: Yes Hx Pneumococcal Vaccination: 07/12/00 Vertical Provider Document - CONSTITUTIONAL Agree With Documented VS: No - HR 90 during exam Notes: PHYSICAL EXAMINATION: GENERAL: Well-appearing, well-nourished and in no acute distress. A&Ox4. Answers questions appropriately. HEAD: Atraumatic, normocephalic. EYES: Pupils equal round and reactive to light, extraocular movements intact, sclera anicteric, conjunctiva are normal. ENT: nares patent and without discharge. oropharynx clear without exudates. No tonsilar hypertrophy or erythema. Moist mucous membranes. No airway compromise. No sinus tenderness. NECK: Normal range of motion, supple without lymphadenopathy. No rigidity/ meningismus. LUNGS: Breath sounds clear to auscultation bilaterally and equal. No wheezes rales or rhonchi. HEART: Regular rate and rhythm without murmurs, rubs, gallops. ABDOMEN: Soft, nontender, nondistended abdomen. No guarding, no rebound. No masses appreciated. Normal bowel sounds present. No CVA tenderness bilaterally. : deferred Musculoskeletal: FROM to passive/active. Strength 5+/5. Extremities: No cyanosis, clubbing, or edema b/l. Peripheral pulses 2+. Capillary refill less than 3 seconds. NEUROLOGICAL: Cranial nerves grossly intact. Normal speech, normal gait. PSYCH: Normal mood, normal affect. SKIN: Warm, Dry, normal turgor, no rashes or lesions noted. - INFECTION CONTROL TRAVEL OUTSIDE OF THE [place] IN LAST 30 DAYS: No COUNTRY TRAVELED TO/FROM: [facility] Course - Re-evaluation Re-evalutation: 04/07/18 05:47 Patient is an afebrile, well-hydrated, 38-year-old female who presents to the ED with pelvic pain/cramping, unspecified, with suspected viral URI. Vitals are acceptable without any significant tachycardia, tachypnea, or hypoxia. PE is otherwise unremarkable. Urinalysis and TVUS are unremarkable for any acute pathology. Patient is nontoxic-appearing is tolerating p.o. without any difficulties. No other labs or imaging warranted at this time based on H&P. Pt 's abd is soft and non-tender throughout. Low suspicion/risk for acute appendicitis, bowel obstruction, acute cholecystitis, acute cholangitis, perforated diverticulitis, incarcerated hernia, pancreatitis, perforated ulcer, peritonitis, sepsis, pelvic inflammatory disease, ectopic , tubo- ovarian abscess, ovarian torsion, or other systemic emergent condition at this time. Patient is aware that her condition can change from initial presentation and she needs to monitor symptoms closely and seek medical attention if any acute changes. I will send her home with a zofran dispense pack. Conservative measures otherwise for symptoms. Recheck with your PCM/OBGYN in 3-5 days. Return to the ED with any worsening/concerning symptoms otherwise as reviewed in discharge. Patient is in agreement. - Vital Signs Vital signs: Temp Pulse Resp BP Pulse Ox 98.4 F 129 H 20 119/79 99 04/07/18 02:25 04/07/18 02:25 04/07/18 02:25 04/07/18 02:04/07/18 02:25 Discharge - Discharge Clinical Impression: Pelvic pain, Acute URI Condition: Stable Disposition: HOME, SELF-CARE Instructions: Pelvic Pain ([facility]), Upper Respiratory Illness ([facility]) Additional Instructions: Maintain fluid intake Proper hygenic technique Keep the skin clean Tylenol/ibuprofen as needed Return immediately if symptoms worsen F/u with your PCM/OBGYN in 3-5 days for a recheck Return to the ED with any development of IGNACIO/fever, trouble with vision, eye redness, worsening pain, urethral discharge, urinary retention, blood in the urine, flank pain, abdominal pain, n/v, Chest Pain, shortness of breath, joint pains, trouble breathing, or any other worsening/concerning symptoms as needed otherwise. Referrals: RONNIE KELLEY MD [Primary Care Provider] - Follow up in 3-5 days
[2018-04-07 03:37] LABS: APPEARANCE,URINE SLIGHTLY-CLOUDY; BILIRUBIN,URINE NEGATIVE (NEGATIVE); COLOR,URINE YELLOW; GLUCOSE, URINE NEGATIVE (NEGATIVE); KETONES,URINE NEGATIVE (NEGATIVE); LEUKOCYTE ESTERASE,URINE NEGATIVE (NEGATIVE); NITRITE,URINE NEGATIVE (NEGATIVE); PROTEIN,URINE NEGATIVE (NEGATIVE); URINE SPECIFIC GRAVITY 1.014; UROBILINOGEN,URINE NEGATIVE mg/dL (<2.0)
--- NOTE | 2018-04-07 04:40 | RADIOLOGY REPORT (SQ) ---
EXAM DESCRIPTION: US LIMITED COMPLETED DATE/TME: 04/07/2018 03:09 CLINICAL HISTORY: 38 years Female, >14 weeks , cramps, transabd US Comparison: 03/28/18 TECHNIQUE/LIMITATION: Targeted OB sonogram for requested parameters only. FINDINGS: EGA is 16w 3d with MIKAELA of 09/19/18 EFW is 155g LVP: 5.1-cm Placenta: Posterior. No evidence of abruption. No placenta previa. Presentation: Transverse Cervical length: 3.3-cm. Closed appearance. cardiac activity: 157-bpm IMPRESSION: Targeted OB sonogram for requested parameters
[2018-04-07] MEDS ORDERED: ACETAMINOPHEN 325 MG TABLET PO ONE (04:42)
[2018-04-07] MEDS ORDERED: ONDANSETRON 4 MG TAB.RAPDIS PO ONE (04:42)
[2018-04-07] MEDS ORDERED: ONDANSETRON ODT 4 MG TAB (6 TAB/ER DISP) PO PRN (05:54)
== END 2018-04-07 06:15 | disposition home or self-care (01) ==
LOC: ER 02:19
DX: O26.892 Other specified pregnancy related conditions, second trimester (principal); R10.2 Pelvic and perineal pain; R09.81 Nasal congestion; O99.512 Diseases of the respiratory system complicating pregnancy, second trimester; J06.9 Acute upper respiratory infection, unspecified; O16.2 Unspecified maternal hypertension, second trimester; O24.112 Pre-existing type 2 diabetes mellitus, in pregnancy, second trimester; E11.9 Type 2 diabetes mellitus without complications; Z3A.00 Weeks of gestation of pregnancy not specified
CPT/HCPCS: 99284; 87086; 81001; 76815; A9270 ×3; S0119

== ENCOUNTER 2018-04-10 21:16 | Emergency (ER) | payer MEDICARE, MEDICAID ==
[2018-04-10] MEDS ORDERED: ACETAMINOPHEN 325 MG TABLET PO ONE (23:58)
--- NOTE | 2018-04-11 | ER Document Report ---
ED Medical Screen (RME) - General Chief Complaint: Other Stated Complaint: STOMACH PAIN/NOT FEELING WELL Time Seen by Provider: 04/10/18 23:54 Mode of Arrival: Ambulatory Information source: Patient Notes: Patient is currently 16 weeks . Patient reports generalized lower abdominal pain with diarrhea. Patient states pain started today. Patient denies any vaginal leading or discharge. Patient denies any nausea or vomiting. Patient denies any urinary symptoms. Patient states that she is been staying at a nursing home that has not had very clean the bathrooms and she is concerned that she has some type of vaginal infection. I have greeted and performed a rapid initial assessment of this patient. A comprehensive ED assessment and evaluation of the patient, analysis of test results and completion of the medical decision making process will be conducted by additional ED providers. TRAVEL OUTSIDE OF THE [place] IN LAST 30 DAYS: No COUNTRY TRAVELED TO/FROM: [place] - Related Data Allergies/Adverse Reactions: amoxicillin Allergy (Verified 04/10/18 21:46) oxycodone [From OxyContin] Allergy (Verified 04/10/18 21:46) Past Medical History - Past Medical History Cardiac Medical History: Reports: Hx Hypertension - on meds Denies: Hx Coronary Artery Disease, Hx Heart Attack Pulmonary Medical History: Denies: Hx Asthma, Hx Bronchitis, Hx COPD, Hx Pneumonia Neurological Medical History: Denies: Hx Cerebrovascular Accident, Hx Seizures Endocrine Medical History: Reports: Hx Diabetes Mellitus Type 2 Renal/ Medical History: Reports: Hx Pelvic Inflammatory Disease. Denies: Hx Peritoneal Dialysis GI Medical History: Reports: Hx Gastroesophageal Reflux Disease Musculoskeltal Medical History: Reports Hx Arthritis - generalized Psychiatric Medical History: Reports: Hx Bipolar Disorder, Hx Depression Past Surgical History: Reports: Hx Abdominal Surgery - hernia repair, Hx Adenoidectomy, Hx Section - x1, Hx Gynecologic Surgery, Hx Herniorrhaphy, Hx Orthopedic Surgery - Right Leg Surgery, Hx Tonsillectomy - Immunizations Immunizations up to date: No Hx Diphtheria, Pertussis, Tetanus Vaccination: Yes Physical Exam - Vital signs Vitals: Temp Pulse Resp BP Pulse Ox 97.5 F 101 H 20 136/84 H 100 04/10/18 21:48 04/10/18 21:48 04/10/18 21:48 04/10/18 21:48 04/10/18 21:48 - Abdominal Tenderness: Tender - Generalized lower abdomen Course - Vital Signs Vital signs: Temp Pulse Resp BP Pulse Ox 97.5 F 101 H 20 136/84 H 100 04/10/18 21:48 04/10/18 21:48 04/10/18 21:48 04/10/18 21:48 04/10/18 21:48 Doctor's Discharge - Discharge Referrals: RONNIE KELLEY MD [Primary Care Provider] - Follow up as needed
[2018-04-11 00:57] LABS: BACTERIA (WET MOUNT) 4+ BACTERIA SEEN; T.VAGINALIS (WET MOUNT) NO TRICHOMONAS SEEN; WBCS (WET MOUNT) 1+ WBCS SEEN; YEAST (WET MOUNT) NO YEAST SEEN
[2018-04-11 02:04] LABS: APPEARANCE,URINE CLOUDY; BILIRUBIN,URINE NEGATIVE (NEGATIVE); GLUCOSE, URINE NEGATIVE (NEGATIVE); KETONES,URINE TRACE mg/dL (NEGATIVE); LEUKOCYTE ESTERASE,URINE NEGATIVE (NEGATIVE); NITRITE,URINE NEGATIVE (NEGATIVE); PROTEIN,URINE 30 mg/dL (NEGATIVE); URINE SPECIFIC GRAVITY 1.028
[2018-04-11 02:06] LABS: COLOR,URINE YELLOW
--- NOTE | 2018-04-11 02:33 | ER Document Report ---
ED General - General Chief Complaint: Other Stated Complaint: STOMACH PAIN/NOT FEELING WELL Time Seen by Provider: 04/10/18 23:54 Mode of Arrival: Ambulatory Notes: Patient is a 38-year old female G2 at 16 weeks by LMP who presents with complaints of vaginal discharge " I think it picked up an infection from the toilet states that that nasty residential". She also complains of intermittent lower abdominal pain which she currently denies. Nothing improves or worsens her symptoms. She states that this feels similar to when she has had urinary tract infections or yeast infections in the past. She denies fever or constitutional symptoms. She has not contacted her general doctor regarding today's concerns. TRAVEL OUTSIDE OF THE [place] IN LAST 30 DAYS: No COUNTRY TRAVELED TO/FROM: [place] - Related Data Allergies/Adverse Reactions: amoxicillin Allergy (Verified 04/10/18 21:46) oxycodone [From OxyContin] Allergy (Verified 04/10/18 21:46) Past Medical History - General Information source: Patient - Social History Smoking Status: Never Smoker Frequency of alcohol use: None Drug Abuse: None Family History: Reviewed & Not Pertinent, CAD, DM, Malignancy, Other - Past Medical History Cardiac Medical History: Reports: Hx Hypertension - on meds Denies: Hx Coronary Artery Disease, Hx Heart Attack Pulmonary Medical History: Denies: Hx Asthma, Hx Bronchitis, Hx COPD, Hx Pneumonia Neurological Medical History: Denies: Hx Cerebrovascular Accident, Hx Seizures Endocrine Medical History: Reports: Hx Diabetes Mellitus Type 2 Renal/ Medical History: Reports: Hx Pelvic Inflammatory Disease. Denies: Hx Peritoneal Dialysis GI Medical History: Reports: Hx Gastroesophageal Reflux Disease Musculoskeletal Medical History: Reports Hx Arthritis - generalized Psychiatric Medical History: Reports: Hx Bipolar Disorder, Hx Depression Past Surgical History: Reports: Hx Abdominal Surgery - hernia repair, Hx Adenoidectomy, Hx Section - x1, Hx Gynecologic Surgery, Hx Herniorrhaphy, Hx Orthopedic Surgery - Right Leg Surgery, Hx Tonsillectomy - Immunizations Immunizations up to date: No Hx Diphtheria, Pertussis, Tetanus Vaccination: Yes Hx Pneumococcal Vaccination: 07/12/00 Review of Systems - Review of Systems Notes: Constitutional: Negative for fever. HENT: Negative for sore throat. Eyes: Negative for visual changes. Cardiovascular: Negative for chest pain. Respiratory: Negative for shortness of breath. Gastrointestinal: Positive for lower abdominal pain Genitourinary: Positive for vaginal discharge Musculoskeletal: Negative for back pain. Skin: Negative for rash. Neurological: Negative for headaches, weakness or numbness. 10 point ROS negative except as marked above and in HPI. Physical Exam - Vital signs Vitals: Temp Pulse Resp BP Pulse Ox 97.5 F 101 H 20 136/84 H 100 04/10/18 21:48 04/10/18 21:48 04/10/18 21:48 04/10/18 21:48 04/10/18 21:48 Interpretation: Tachycardic - Resolved at the time of my assessment Notes: PHYSICAL EXAMINATION: GENERAL: Well-appearing, well-nourished and in no acute distress. HEAD: Atraumatic, normocephalic. EYES: Pupils equal round and reactive to light, extraocular movements intact, sclera anicteric, conjunctiva are normal. ENT: nares patent, oropharynx clear without exudates. Moist mucous membranes. NECK: Normal range of motion, supple without lymphadenopathy LUNGS: Breath sounds clear to auscultation bilaterally and equal. No wheezes rales or rhonchi. HEART: Regular rate and rhythm without murmurs ABDOMEN: Soft, nontender, normoactive bowel sounds. No guarding, no rebound. No masses appreciated. Bedside ultrasound shows living intrauterine , active movement, heart rate 142 EXTREMITIES: Normal range of motion, no pitting or edema. No cyanosis. NEUROLOGICAL: No focal neurological deficits. Moves all extremities spontaneously and on command. PSYCH: Normal mood, normal affect. SKIN: Warm, Dry, normal turgor, no rashes or lesions noted. Course - Re-evaluation Re-evalutation: 04/11/18 02:31 Patient presents with vaginal discharge and a feeling that she may have "picked up an infection at that [facility] residential". The patient declines pelvic examination. Transabdominal ultrasound of the bedside shows a viable intrauterine , heart rate 142. The patient has no focal abdominal tenderness, rebound or guarding. She did self swab and wet mount does show findings consistent with likely bacterial vaginosis. Urinalysis without evidence of infection. I do not clinically suspect any acute intra-abdominal pathology based on benign abdominal exam and clinical history. She will be started on a course of metronidazole to treat possible bacterial vaginosis. At this time will discharge with return precautions and follow-up recommendations. Verbal discharge instructions given a the bedside and opportunity for questions given. Medication warnings reviewed. Patient is in agreement with this plan and has verbalized understanding of return precautions and the need for primary care follow-up in the next 24-72 hours. - Vital Signs Vital signs: Temp Pulse Resp BP Pulse Ox 97.7 F 92 18 138/83 H 100 04/11/18 02:49 04/11/18 02:49 04/11/18 02:49 04/11/18 02:49 04/11/18 02:49 - Laboratory Laboratory results interpreted by me: 04/11/18 01:33 Urine Protein 30 H Urine Ketones TRACE H Urine Urobilinogen 2.0 H Discharge - Discharge Clinical Impression: Vaginal discharge, related abdominal pain of lower quadrant, antepartum Condition: Good Disposition: HOME, SELF-CARE Additional Instructions: You have an overgrowth of natural vaginal bacteria, called bacterial vaginosis. You are being treated with an antibiotic called metronidazole. Do not drink alcohol while taking this medication. Complete all of the antibiotic even if your symptoms have resolved. Return for abdominal pain, vomiting, fever of greater than 101F, or any other symptoms that are worrisome to you. Please follow-up with your DATA PROCESSING MANAGER or primary care doctor as needed. Prescriptions: Metronidazole [Flagyl 500 mg Tablet] 500 mg PO Q6H #28 tablet Referrals: RONNIE KELLEY MD [Primary Care Provider] - Follow up as needed
[2018-04-11 02:50] VITALS: BP 138/83
== END 2018-04-11 02:51 | disposition home or self-care (01) ==
LOC: ER 21:16
DX: O26.892 Other specified pregnancy related conditions, second trimester (principal); N89.8 Other specified noninflammatory disorders of vagina; R10.30 Lower abdominal pain, unspecified; O16.2 Unspecified maternal hypertension, second trimester; O24.112 Pre-existing type 2 diabetes mellitus, in pregnancy, second trimester; E11.9 Type 2 diabetes mellitus without complications; Z3A.16 16 weeks gestation of pregnancy; Z87.440 Personal history of urinary (tract) infections; Z87.42 Personal history of other diseases of the female genital tract; Z88.0 Allergy status to penicillin; Z88.5 Allergy status to narcotic agent
CPT/HCPCS: 81001; 87210; 99284

== ENCOUNTER 2018-04-19 20:47 | Emergency (ER) | payer MEDICAID, MEDICARE ==
--- NOTE | 2018-04-19 23:09 | ER Document Report ---
ED General - General Chief Complaint: Fever Stated Complaint: VAGINAL ISSUE Time Seen by Provider: 04/19/18 22:39 TRAVEL OUTSIDE OF THE [place] IN LAST 30 DAYS: No COUNTRY TRAVELED TO/FROM: [facility] Notes: Patient is a 38-year-old female at 16 weeks gestation that presents to the emergency department for chief complaint of sinus congestion and vaginal discharge. Patient states she is currently being treated for bacterial vaginitis. She has 4 pills left of her Flagyl. She reports that she is having some decrease in her vaginal discharge but it has not completely gone away. She now has vaginal itching as well which feels like a yeast infection she has had in the past. Patient also states that she has had sinus congestion with cough and runny nose for the last 3 days. She denies fevers or chills. She denies any chest pain, shortness of breath, nausea, vomiting and abdominal pain. She has an appointment with SUPERINTENDENT MARINE at [facility] for reevaluation but states she has not been seen by them yet. Past Medical History: Hypertension, hyperlipidemia, obesity Past Surgical History: Social History: Reviewed in chart Family History: Reviewed and noncontributory for presenting illness Allergies: Reviewed, see documented allergy list. REVIEW OF SYSTEMS: CONSTITUTIONAL : No fever No chills No diaphoresis No recent illness EENT: No vision changes congestion No sore throat CARDIOVASCULAR: No chest pain No palpitations RESPIRATORY: No shortness of breath cough No difficulty breathing GASTROINTESTINAL: No abdominal pain No nausea No vomiting No diarrhea GENITOURINARY: Vaginal itching Vaginal discharge No dysuria No hematuria No difficulty urinating MUSCULOSKELETAL: No back pain No leg pain No arm pain SKIN: No rashes No lesions LYMPHATIC: No swollen, enlarged glands. NEUROLOGICAL: No lightheadedness No headache No weakness No paresthesias PSYCHIATRIC: No anxiety No depression PHYSICAL EXAMINATION: Vital signs reviewed, nursing noted reviewed. GENERAL: Obese, well-appearing, well-nourished and in no acute distress. HEAD: Atraumatic, normocephalic. EYES: Eyes appear normal, extraocular movements intact, sclera anicteric, conjunctiva are normal. ENT: nares patent, oropharynx clear without exudates. Moist mucous membranes. Bilateral nasal mucosal edema and rhinorrhea NECK: Normal range of motion, supple without lymphadenopathy LUNGS: Breath sounds clear to auscultation bilaterally and equal. No wheezes rales or rhonchi. HEART: Regular rate and rhythm without murmurs ABDOMEN: Soft, nontender, normoactive bowel sounds. No rebound, guarding, or rigidity. No masses appreciated. Difficult to appreciate uterus because of patient's body habitus : Patient refused EXTREMITIES: Nontender, good range of motion, no pitting or edema. NEUROLOGICAL: No focal neurological deficits. Moves all extremities spontaneously Motor and sensory grossly intact on exam. PSYCH: Normal mood, normal affect. SKIN: Warm, Dry, normal turgor, no rashes or lesions noted on exposed skin - Related Data Allergies/Adverse Reactions: amoxicillin Allergy (Verified 04/10/18 21:46) oxycodone [From OxyContin] Allergy (Verified 04/10/18 21:46) Past Medical History - Social History Smoking Status: Current Every Day Smoker Family History: Reviewed & Not Pertinent, CAD, DM, Malignancy, Other Patient has suicidal ideation: No Patient has homicidal ideation: No - Past Medical History Cardiac Medical History: Reports: Hx Hypertension - on meds Denies: Hx Coronary Artery Disease, Hx Heart Attack Pulmonary Medical History: Denies: Hx Asthma, Hx Bronchitis, Hx COPD, Hx Pneumonia Neurological Medical History: Denies: Hx Cerebrovascular Accident, Hx Seizures Endocrine Medical History: Reports: Hx Diabetes Mellitus Type 2 Renal/ Medical History: Reports: Hx Pelvic Inflammatory Disease. Denies: Hx Peritoneal Dialysis GI Medical History: Reports: Hx Gastroesophageal Reflux Disease Musculoskeletal Medical History: Reports Hx Arthritis - generalized Psychiatric Medical History: Reports: Hx Bipolar Disorder, Hx Depression Past Surgical History: Reports: Hx Abdominal Surgery - hernia repair, Hx Adenoidectomy, Hx Section - x1, Hx Gynecologic Surgery, Hx Herniorrhaphy, Hx Orthopedic Surgery - Right Leg Surgery, Hx Tonsillectomy - Immunizations Immunizations up to date: No Hx Diphtheria, Pertussis, Tetanus Vaccination: Yes Hx Pneumococcal Vaccination: 07/12/00 Review of Systems - Review of Systems Notes: dictated Physical Exam - Vital signs Vitals: Temp Pulse Resp BP Pulse Ox 97.4 F 80 16 121/70 99 04/19/18 21:07 04/19/18 21:07 04/19/18 21:07 04/19/18 21:07 04/19/18 21:07 - Notes Notes: dictated Course - Re-evaluation Re-evalutation: 04/19/18 23:09 Vitals reviewed. Nursing notes reviewed. Patient oxygenating well on room air and in no respiratory distress. She has no fever or productive cough. I do not clinically suspect pneumonia. She does have sinus congestion but has only had symptoms for 3 days and antibiotics are not currently indicated for her sinusitis and URI. Patient is currently being treated for BV and was encouraged to finish her treatment of Flagyl. Because she is she cannot receive Diflucan. She will be given miconazole cream for yeast vaginitis. 04/19/18 23:21 Recommended obtaining urinalysis. Patient states that she provided a urine sample however no urine sample has been obtained. I did check with lab and they do not have a urine sample on this patient. She is refusing to urinate again stating that she has already given a sample. I did explain that I do not have a sample able to be tested for urinary tract infection. She states she cannot provide another sample and does not want to wait until she is able to. Patient will follow with SUPERINTENDENT MARINE for further management of her . She will follow with her primary care doctor for reevaluation of her upper respiratory infection if symptoms are not improving. She will return to the emergency room for new or worsening symptoms. Discharged in stable condition. 04/19/18 23:45 Patient now feels that she is able to provide a urine sample. Bedside point-of- care ultrasound shows 1 single live intrauterine gestation with good movement. heart rate 155. 04/20/18 00:04 Urine sample is contaminated with no obvious infection, urine culture sent. Patient discharged in stable condition - Vital Signs Vital signs: Temp Pulse Resp BP Pulse Ox 97.4 F 80 16 121/70 99 04/19/18 21:07 04/19/18 21:07 04/19/18 21:07 04/19/18 21:07 04/19/18 21:07 - Laboratory Laboratory results interpreted by me: 04/19/18 23:28 Urine Protein 30 H Urine Glucose (UA) 50 H Ur Leukocyte Esterase SMALL H Urine Ascorbic Acid 20 H Discharge - Discharge Clinical Impression: Yeast vaginitis, Bacterial vaginitis URI (upper respiratory infection) Qualifiers: URI type: unspecified URI Qualified Code(s): J06.9 - Acute upper respiratory infection, unspecified Condition: Stable Disposition: HOME, SELF-CARE Instructions: Upper Respiratory Illness ([facility]), Vaginal Yeast Infection ([facility]) Additional Instructions: Please return to the emergency department if you have any worsening, or concern of your symptoms. Please return to the emergency department if you develop chest pain, difficulty breathing, severe abdominal pain, or ongoing vomiting. Please follow-up with your primary care physician in 2-3 days and any other recommended physicians. If prescribed, take all medications as directed. If you have any questions or concerns do not hesitate to return the emergency department for evaluation. Follow with SUPERINTENDENT MARINE at [facility] as already scheduled for reevaluation of your BV and yeast vaginitis and . Apply miconazole cream externally only to affected areas of your vagina twice a day for 7 days. Prescriptions: Miconazole Nitrate [Miconazole 3] 24 gm VG BID 7 Days #1 [id number] Referrals: RONNIE KELLEY MD [Primary Care Provider] - Follow up as needed
[2018-04-19 23:52] LABS: APPEARANCE,URINE CLEAR; BILIRUBIN,URINE NEGATIVE (NEGATIVE); CALCIUM OXALATE CRYSTALS,URINE FEW /HPF; COLOR,URINE AMBER; GLUCOSE, URINE 50 mg/dL (NEGATIVE); KETONES,URINE NEGATIVE (NEGATIVE); LEUKOCYTE ESTERASE,URINE SMALL (NEGATIVE); NITRITE,URINE NEGATIVE (NEGATIVE); PROTEIN,URINE 30 mg/dL (NEGATIVE); UROBILINOGEN,URINE NEGATIVE mg/dL (<2.0)
[2018-04-19 23:59] LABS: URINE SPECIFIC GRAVITY 1.027
[2018-04-20 00:23] VITALS: BP 120/86
== END 2018-04-20 00:23 | disposition home or self-care (01) ==
LOC: ER 20:47
DX: O98.812 Other maternal infectious and parasitic diseases complicating pregnancy, second trimester (principal); B37.3 Candidiasis of vulva and vagina; O23.592 Infection of other part of genital tract in pregnancy, second trimester; B96.89 Other specified bacterial agents as the cause of diseases classified elsewhere; O99.512 Diseases of the respiratory system complicating pregnancy, second trimester; J06.9 Acute upper respiratory infection, unspecified; J32.9 Chronic sinusitis, unspecified; J34.89 Other specified disorders of nose and nasal sinuses; R09.81 Nasal congestion; O99.332 Smoking (tobacco) complicating pregnancy, second trimester; O26.892 Other specified pregnancy related conditions, second trimester; O16.2 Unspecified maternal hypertension, second trimester; O24.112 Pre-existing type 2 diabetes mellitus, in pregnancy, second trimester; E11.9 Type 2 diabetes mellitus without complications; O99.212 Obesity complicating pregnancy, second trimester; Z3A.16 16 weeks gestation of pregnancy; Z88.0 Allergy status to penicillin; Z88.5 Allergy status to narcotic agent
CPT/HCPCS: 81001; 87086; 99283

== ENCOUNTER 2018-04-30 20:47 | Emergency (ER) | payer MEDICAID, MEDICARE ==
[2018-04-30 22:45] LABS: ABSOLUTE BASOPHILS # (AUTO) 0.1 10^3/uL (0.0-0.2); ABSOLUTE EOSINOPHILS # (AUTO) 0.1 10^3/uL (0.0-0.6); ABSOLUTE LYMPHOCYTES (AUTO) 3.4 10^3/uL (0.5-4.7); ABSOLUTE MONOCYTES (AUTO) 0.8 10^3/uL (0.1-1.4); ABSOLUTE NEUT (AUTO) 12.6 10^3/uL (1.7-8.2); BASOPHILS % (AUTO) 0.8 % (0-2); EOSINOPHILS % (AUTO) 0.6 % (0-6); HEMATOCRIT 34.8 % (36.0-47.0); HEMOGLOBIN 11.7 g/dL (12.0-15.5); MEAN CORPUSCULAR HEMOGLOBIN 28.2 pg (27.0-33.4); MEAN CORPUSCULAR HGB CONC 33.5 g/dL (32.0-36.0); MEAN CORPUSCULAR VOLUME 84 fl (80-97); MONOCYTES % (AUTO) 4.8 % (3-13); PLATELET COUNT 264 10^3/uL (150-450); RED BLOOD COUNT 4.14 10^6/uL (3.72-5.28); SEGMENTED NEUTROPHILS % (AUTO) 73.8 % (42-78); TOTAL CELLS COUNTED % (AUTO) 100 %; WHITE BLOOD COUNT 17.1 10^3/uL (4.0-10.5)
--- NOTE | 2018-04-30 22:48 | ER Document Report ---
ED General - General Chief Complaint: Abdominal Pain Stated Complaint: ABDOMINAL PAIN Time Seen by Provider: 04/30/18 21:41 Notes: Patient is a 38-year-old female currently approximately 19 weeks who presents complaining of abdominal pain. The patient is a very difficult historian, states that she had abdominal pain earlier but has gone away now. She states that she was walking around all day and that she had pain diffusely in her abdomen mostly towards the lower abdomen. This is contrary to what she stated in triage when apparently that she was stating that the pain was in the upper abdomen. She denies history of similar pain in the past. She does arrive by EMS. She denies vaginal bleeding or vaginal discharge. She denies dysuria. No fever or constitutional symptom. She is requesting something to eat and drink. TRAVEL OUTSIDE OF THE [place] IN LAST 30 DAYS: No COUNTRY TRAVELED TO/FROM: [place] - Related Data Allergies/Adverse Reactions: amoxicillin Allergy (Verified 04/10/18 21:46) oxycodone [From OxyContin] Allergy (Verified 04/10/18 21:46) Past Medical History - General Information source: Patient - Social History Smoking Status: Former Smoker Frequency of alcohol use: None Drug Abuse: None Family History: Reviewed & Not Pertinent, CAD, DM, Malignancy, Other Patient has suicidal ideation: No Patient has homicidal ideation: No - Past Medical History Cardiac Medical History: Reports: Hx Hypertension - on meds Denies: Hx Coronary Artery Disease, Hx Heart Attack Pulmonary Medical History: Denies: Hx Asthma, Hx Bronchitis, Hx COPD, Hx Pneumonia Neurological Medical History: Denies: Hx Cerebrovascular Accident, Hx Seizures Endocrine Medical History: Reports: Hx Diabetes Mellitus Type 2 Renal/ Medical History: Reports: Hx Pelvic Inflammatory Disease. Denies: Hx Peritoneal Dialysis GI Medical History: Reports: Hx Gastroesophageal Reflux Disease Musculoskeletal Medical History: Reports Hx Arthritis - generalized Psychiatric Medical History: Reports: Hx Bipolar Disorder, Hx Depression Past Surgical History: Reports: Hx Abdominal Surgery - hernia repair, Hx Adenoidectomy, Hx Section - x1, Hx Gynecologic Surgery, Hx Herniorrhaphy, Hx Orthopedic Surgery - Right Leg Surgery, Hx Tonsillectomy - Immunizations Immunizations up to date: No Hx Diphtheria, Pertussis, Tetanus Vaccination: Yes Hx Pneumococcal Vaccination: 07/12/00 Review of Systems - Review of Systems Notes: Constitutional: Negative for fever. HENT: Negative for sore throat. Eyes: Negative for visual changes. Cardiovascular: Negative for chest pain. Respiratory: Negative for shortness of breath. Gastrointestinal: Positive for abdominal pain that has now resolved Genitourinary: Negative for dysuria. Musculoskeletal: Negative for back pain. Skin: Negative for rash. Neurological: Negative for headaches, weakness or numbness. 10 point ROS negative except as marked above and in HPI. Physical Exam - Vital signs Vitals: Temp Pulse Resp BP Pulse Ox 97.8 F 109 H 16 110/69 97 04/30/18 20:59 04/30/18 20:59 04/30/18 20:59 04/30/18 20:59 04/30/18 20:59 Interpretation: Tachycardic - Resolved at the time of my assessment Notes: PHYSICAL EXAMINATION: GENERAL: Well-appearing, well-nourished and in no acute distress. HEAD: Atraumatic, normocephalic. EYES: Pupils equal round and reactive to light, extraocular movements intact, sclera anicteric, conjunctiva are normal. ENT: nares patent, oropharynx clear without exudates. Moist mucous membranes. NECK: Normal range of motion, supple without lymphadenopathy LUNGS: Breath sounds clear to auscultation bilaterally and equal. No wheezes rales or rhonchi. HEART: Regular rate and rhythm without murmurs ABDOMEN: Soft, nontender, normoactive bowel sounds. No guarding, no rebound. No masses appreciated. EXTREMITIES: Normal range of motion, no pitting or edema. No cyanosis. NEUROLOGICAL: No focal neurological deficits. Moves all extremities spontaneously and on command. PSYCH: Somewhat agitated SKIN: Warm, Dry, normal turgor, no rashes or lesions noted. Course - Re-evaluation Re-evalutation: 04/30/18 22:47 Patient is currently and presenting with lower abdominal pain. No vaginal bleeding or discharge. Bedside ultrasound shows a viable intrauterine , appropriate cardiac activity and active movement. Patient denies any dysuria and urinalysis from yesterday is normal. The patient does not have any focal right lower quadrant tenderness, rebound or guarding to suggest acute appendicitis. No right upper quadrant tenderness to suggest cholestasis of or an acute cholecystitis. Patient has tolerated oral intake here in the emergency department without difficulty. Vitals are within normal limits at the time of my assessment without tachycardia. Labs were sent via nursing protocol which I do not believe are indicated at the time of my assessment the patient was not having any complaint of any kind other than being hungry and stating that she needs a cab ride. Her symptoms appear to likely related from walking for prolonged period of time as she states that she was standing on most all day, began to have an aching in her lower abdomen which has now resolved she lied down in the bed. I do not see any indication to further evaluate the nonspecific leukocytosis of 17. On 2 separate abdominal exams the patient has been without any tenderness or focality. At this time will discharge with return precautions and follow-up recommendations. Verbal discharge instructions given a the bedside and opportunity for questions given. Medication warnings reviewed. Patient is in agreement with this plan and has verbalized understanding of return precautions and the need for primary care follow-up in the next 24-72 hours. - Vital Signs Vital signs: Temp Pulse Resp BP Pulse Ox 97.9 F 78 20 120/68 98 05/01/18 00:02 05/01/18 00:02 05/01/18 00:02 05/01/18 00:02 05/01/18 00:02 - Laboratory Result Diagrams: 04/30/18 22:29 04/30/18 22:29 Laboratory results interpreted by me: 04/30/18 04/30/18 22:29 22:29 WBC 17.1 H Hgb 11.7 L Hct 34.8 L RDW 15.0 H Absolute Neutrophils 12.6 H Carbon Dioxide 21 L Albumin 3.4 L Beta HCG, Quant 10192.00 H Discharge - Discharge Clinical Impression: Abdominal pain affecting Condition: Good Disposition: HOME, SELF-CARE Additional Instructions: You were seen for abdominal pain during . Your ultrasound and labs are normal today. The exact cause your pain is uncertain but is likely related to your developing baby. Please follow-up with your MOBILE SECURITY ARCHITECT in the next 24-48 hours. Return to the emergency department immediately if you have worsening of your pain, have persistent vomiting, develop a fever of greater than 100.4F, begin to have vaginal bleeding, or any other symptoms that are worrisome to you. Referrals: RONNIE KELLEY MD [Primary Care Provider] - Follow up as needed
[2018-05-01 00:03] LABS: ALANINE AMINOTRANSFERASE 13 U/L (9-52); ALBUMIN 3.4 g/dL (3.5-5.0); ALKALINE PHOSPHATASE 70 U/L (38-126); ANION GAP 12 (5-19); ASPARTATE AMINO TRANSFERASE 19 U/L (14-36); BILIRUBIN,DIRECT 0.2 mg/dL (0.0-0.4); BILIRUBIN,TOTAL 0.5 mg/dL (0.2-1.3); BLOOD UREA NITROGEN 8 mg/dL (7-20); CALCIUM 9.5 mg/dL (8.4-10.2); CARBON DIOXIDE 21 mmol/L (22-30); CHLORIDE 104 mmol/L (98-107); GLUCOSE 108 mg/dL (75-110); POTASSIUM 3.9 mmol/L (3.6-5.0); SODIUM 137.4 mmol/L (137-145); TOTAL PROTEIN 6.5 g/dL (6.3-8.2)
[2018-05-01 00:31] VITALS: BP 120/68
== END 2018-05-01 00:02 | disposition home or self-care (01) ==
LOC: ER 20:47
DX: O26.92 Pregnancy related conditions, unspecified, second trimester (principal); R10.30 Lower abdominal pain, unspecified; Z3A.19 19 weeks gestation of pregnancy; Z88.6 Allergy status to analgesic agent; Z88.0 Allergy status to penicillin
CPT/HCPCS: 36415; 80053; 84702; 85025; 99284

== ENCOUNTER 2018-05-07 07:29 | Outpatient (CLI) | payer MEDICARE, MEDICAID ==
[2018-05-07 09:50] LABS: ABSOLUTE EOSINOPHILS # (AUTO) 0.1 10^3/uL (0.0-0.6); ABSOLUTE LYMPHOCYTES (AUTO) 3.1 10^3/uL (0.5-4.7); ABSOLUTE MONOCYTES (AUTO) 0.6 10^3/uL (0.1-1.4); ABSOLUTE NEUT (AUTO) 7.8 10^3/uL (1.7-8.2); BASOPHILS % (AUTO) 0.3 % (0-2); EOSINOPHILS % (AUTO) 0.7 % (0-6); HEMATOCRIT 33.3 % (36.0-47.0); HEMOGLOBIN 11.3 g/dL (12.0-15.5); LYMPHOCYTES % (AUTO) 26.7 % (13-45); MEAN CORPUSCULAR HEMOGLOBIN 28.6 pg (27.0-33.4); MEAN CORPUSCULAR HGB CONC 33.8 g/dL (32.0-36.0); MEAN CORPUSCULAR VOLUME 85 fl (80-97); MONOCYTES % (AUTO) 4.8 % (3-13); PLATELET COUNT 262 10^3/uL (150-450); RED BLOOD COUNT 3.94 10^6/uL (3.72-5.28); RED CELL DISTRIBUTION WIDTH 14.7 % (11.5-14.0); SEGMENTED NEUTROPHILS % (AUTO) 67.5 % (42-78); TOTAL CELLS COUNTED % (AUTO) 100 %; WHITE BLOOD COUNT 11.6 10^3/uL (4.0-10.5)
[2018-05-07 10:23] LABS: APPEARANCE,URINE SLIGHTLY-CLOUDY; BILIRUBIN,URINE NEGATIVE (NEGATIVE); CALCIUM OXALATE CRYSTALS,URINE FEW /HPF; COLOR,URINE YELLOW; GLUCOSE, URINE 50 mg/dL (NEGATIVE); KETONES,URINE NEGATIVE (NEGATIVE); LEUKOCYTE ESTERASE,URINE NEGATIVE (NEGATIVE); NITRITE,URINE NEGATIVE (NEGATIVE); PROTEIN,URINE NEGATIVE (NEGATIVE); URINE SPECIFIC GRAVITY 1.014; UROBILINOGEN,URINE NEGATIVE mg/dL (<2.0)
[2018-05-07 10:33] LABS: URINE AMPHETAMINES SCREEN NEGATIVE; URINE BARBITURATES SCREEN NEGATIVE; URINE BENZODIAZEPINES SCREEN NEGATIVE; URINE COCAINE SCREEN NEGATIVE; URINE MARIJUANA (THC) SCREEN NEGATIVE; URINE METHADONE SCREEN NEGATIVE; URINE PHENCYCLIDINE SCREEN NEGATIVE
[2018-05-07 10:34] LABS: RUBELLA IGG ANTIBODY < 0.58 IU/mL; RUBELLA INTERPRETATION NEGATIVE
--- NOTE | 2018-05-07 11:50 | RADIOLOGY REPORT (SQ) ---
EXAM DESCRIPTION: U/S OB 14+ TRNABD 1GES W/O DOP COMPLETED DATE/TIME: 05/07/2018 10:21 am REASON FOR STUDY: No care abd pain R45.1 RESTLESSNESS AND AGITATION O00.01 ABDOMINAL PRE GNANCY WITH INTRAUTERINE COMPARISON: None. TECHNIQUE: Static and Dynamic grayscale imaging performed of gravid uterus using transabdominal appr oach. Additional selected color Doppler and spectral images recorded. All stored on PACS. LIMITATIONS: None. FINDINGS: FETUSES SEEN:1 EGA: 21 weeks 3 days Calculated using BPD,FL,HC,AC documented on images. No discrepancy with clinica l dates. MIKAELA: 09/14/2018 EFW: 450 grams PERCENTILE: Not calculated. BALDOMERO: 7.6 PLACENTA: Posterior. GRADE: I PRESENTATION: Breech. ANATOMY: HEART RATE: 143 beats per minute. FOUR CHAMBER HEART: Visualized. THREE VESSEL CORD: Yes. CORD INSERTION: Visualized. KIDNEYS AND BLADDER: Visualized. Appear normal. STOMACH: Visualized. Appears normal. SPINE: Normal as visualized. BRAIN AND LATERAL VENTRICLES: Visualized. Appear normal. OTHER: No other significant finding. MATERNAL ADNEXA: Maternal ovaries not visualized. CERVICAL LENGTH: 4.3 cm. Closed. OTHER: No other significant finding. IMPRESSION: LIVING INTRAUTERINE . ESTIMATED GESTATIONAL AGE 21 weeks 3 days. NO VISUALIZED ANOMALIES. Trimester of : Second trimester - 13 weeks 1 day to 27 weeks 6 days. TECHNICAL DOCUMENTATION: JOB ID: [id number] [employer]- All Rights Reserved Reading location - IP/workstation name: [email or web address]
[2018-05-09 14:38] LABS: HEPATITIS C VIRUS AB <0.1 s/co ratio (0.0-0.9)
[2018-05-09 18:42] LABS: HEPATITS B SURFACE ANTIGEN Negative (Negative)
== END 2018-05-07 12:27 | disposition home or self-care (01) ==
LOC: LC 07:29
PROVIDERS: ATTEND Obstetrics & Gynecology
PROC: 4A1HXCZ Monitoring of Products of Conception, Cardiac Rate, External Approach (ICD-10-PCS; principal; 2018-05-07)
DX: O26.892 Other specified pregnancy related conditions, second trimester (principal); R10.9 Unspecified abdominal pain; R45.1 Restlessness and agitation; O09.32 Supervision of pregnancy with insufficient antenatal care, second trimester; Z3A.21 21 weeks gestation of pregnancy
CPT/HCPCS: 36415; 76805; 80307; 81001; 85025; 86592; 86701; 86762; 86803; 86804; 86850; 86900; 86901; 87340

== ENCOUNTER 2018-05-08 11:14 | Outpatient (CLI) | payer MEDICARE, MEDICAID ==
[2018-05-08 12:26] LABS: APPEARANCE,URINE SLIGHTLY-CLOUDY; BILIRUBIN,URINE NEGATIVE (NEGATIVE); COLOR,URINE AMBER; GLUCOSE, URINE NEGATIVE (NEGATIVE); KETONES,URINE NEGATIVE (NEGATIVE); LEUKOCYTE ESTERASE,URINE NEGATIVE (NEGATIVE); NITRITE,URINE NEGATIVE (NEGATIVE); PROTEIN,URINE 30 mg/dL (NEGATIVE); URINE SPECIFIC GRAVITY 1.025; UROBILINOGEN,URINE NEGATIVE mg/dL (<2.0)
== END 2018-05-08 14:25 | disposition home or self-care (01) ==
LOC: LC 11:14
PROVIDERS: ATTEND Obstetrics & Gynecology Gynecology
PROC: 4A1HXCZ Monitoring of Products of Conception, Cardiac Rate, External Approach (ICD-10-PCS; principal; 2018-05-08)
DX: O26.892 Other specified pregnancy related conditions, second trimester (principal); R10.10 Upper abdominal pain, unspecified; O24.912 Unspecified diabetes mellitus in pregnancy, second trimester; O09.522 Supervision of elderly multigravida, second trimester; O09.32 Supervision of pregnancy with insufficient antenatal care, second trimester; Z3A.20 20 weeks gestation of pregnancy
CPT/HCPCS: 81001

== ENCOUNTER 2018-05-09 09:22 | Emergency (ER) | payer MEDICARE, MEDICAID ==
--- NOTE | 2018-05-09 09:37 | ER Document Report ---
ED Medical Screen (RME) - General Chief Complaint: Abdominal Pain Stated Complaint: BODY PAIN Time Seen by Provider: 05/09/18 09:35 Notes: 38 years old female who is 21 weeks presents today with upper abdominal pain due to a persistent hernia. She claims the pain is so severe. Denies any nausea vomiting fever chills or other constitutional symptoms. On examination-upper abdomen is tender on palpation. TRAVEL OUTSIDE OF THE [place]. IN LAST 30 DAYS: No COUNTRY TRAVELED TO/FROM: [place] - Related Data Allergies/Adverse Reactions: amoxicillin Allergy (Verified 05/09/18 09:25) oxycodone [From OxyContin] Allergy (Verified 05/09/18 09:25) Past Medical History - Past Medical History Cardiac Medical History: Reports: Hx Hypertension - on meds Denies: Hx Coronary Artery Disease, Hx Heart Attack Pulmonary Medical History: Denies: Hx Asthma, Hx Bronchitis, Hx COPD, Hx Pneumonia Neurological Medical History: Denies: Hx Cerebrovascular Accident, Hx Seizures Endocrine Medical History: Reports: Hx Diabetes Mellitus Type 2 Renal/ Medical History: Reports: Hx Pelvic Inflammatory Disease. Denies: Hx Peritoneal Dialysis GI Medical History: Reports: Hx Gastroesophageal Reflux Disease Musculoskeltal Medical History: Reports Hx Arthritis - generalized Psychiatric Medical History: Reports: Hx Bipolar Disorder, Hx Depression Past Surgical History: Reports: Hx Abdominal Surgery - hernia repair, Hx Adenoidectomy, Hx Section - x1, Hx Gynecologic Surgery, Hx Herniorrhaphy, Hx Orthopedic Surgery - Right Leg Surgery, Hx Tonsillectomy - Immunizations Immunizations up to date: No Hx Diphtheria, Pertussis, Tetanus Vaccination: Yes Physical Exam - Vital signs Vitals: Temp Pulse Resp BP Pulse Ox 98.1 F 89 18 115/79 97 05/09/18 09:28 05/09/18 09:28 05/09/18 09:28 05/09/18 09:28 05/09/18 09:28 Course - Vital Signs Vital signs: Temp Pulse Resp BP Pulse Ox 98.1 F 89 18 115/79 97 05/09/18 09:28 05/09/18 09:28 05/09/18 09:28 05/09/18 09:28 05/09/18 09:28 Doctor's Discharge - Discharge Referrals: RONNIE KELLEY MD [Primary Care Provider] - Follow up as needed
[2018-05-09 10:34] LABS: ABSOLUTE EOSINOPHILS # (AUTO) 0.1 10^3/uL (0.0-0.6); ABSOLUTE LYMPHOCYTES (AUTO) 3.2 10^3/uL (0.5-4.7); ABSOLUTE MONOCYTES (AUTO) 0.6 10^3/uL (0.1-1.4); BASOPHILS % (AUTO) 0.4 % (0-2); EOSINOPHILS % (AUTO) 0.7 % (0-6); HEMATOCRIT 35.4 % (36.0-47.0); HEMOGLOBIN 12.1 g/dL (12.0-15.5); LYMPHOCYTES % (AUTO) 29.3 % (13-45); MEAN CORPUSCULAR HEMOGLOBIN 28.8 pg (27.0-33.4); MEAN CORPUSCULAR HGB CONC 34.1 g/dL (32.0-36.0); MEAN CORPUSCULAR VOLUME 84 fl (80-97); MONOCYTES % (AUTO) 5.3 % (3-13); PLATELET COUNT 273 10^3/uL (150-450); RED CELL DISTRIBUTION WIDTH 15.3 % (11.5-14.0); SEGMENTED NEUTROPHILS % (AUTO) 64.3 % (42-78); TOTAL CELLS COUNTED % (AUTO) 100 %; WHITE BLOOD COUNT 10.9 10^3/uL (4.0-10.5)
[2018-05-09 10:54] LABS: ALANINE AMINOTRANSFERASE 11 U/L (9-52); ALBUMIN 3.7 g/dL (3.5-5.0); ALKALINE PHOSPHATASE 77 U/L (38-126); ANION GAP 11 (5-19); ASPARTATE AMINO TRANSFERASE 16 U/L (14-36); BILIRUBIN,DIRECT 0.1 mg/dL (0.0-0.4); BILIRUBIN,TOTAL 0.3 mg/dL (0.2-1.3); BLOOD UREA NITROGEN 9 mg/dL (7-20); CARBON DIOXIDE 25 mmol/L (22-30); CHLORIDE 104 mmol/L (98-107); GLUCOSE 90 mg/dL (75-110); POTASSIUM 4.2 mmol/L (3.6-5.0); SODIUM 140.4 mmol/L (137-145); TOTAL PROTEIN 6.8 g/dL (6.3-8.2)
--- NOTE | 2018-05-09 11:30 | ER Document Report ---
ED GI/ - General Mode of Arrival: Medic Information source: Patient TRAVEL OUTSIDE OF THE [place].S. IN LAST 30 DAYS: No COUNTRY TRAVELED TO/FROM: [place] <ADA CLIFFORD - Last Filed: 05/09/18 12:07> <ARISTEO LEYVA - Last Filed: 05/09/18 13:15> - General Chief Complaint: Abdominal Pain Stated Complaint: BODY PAIN Time Seen by Provider: 05/09/18 09:35 Notes: 38-year-old female that is 21 weeks that presents to the emergency department today with complaints of upper abdominal pain. Patient is well- known to this emergency department and has been checked each of the last 2 days for a labor check. Patient states today her pain is located in her upper abdomen where she has an umbilical hernia. Patient states she had a previous hernia operation with mesh placed. Patient states she has seen several surgeons about getting this fixed again however they all have told her that they will not operate on her because of her weight. (ADA CLIFFROD) - Related Data Allergies/Adverse Reactions: amoxicillin Allergy (Verified 05/09/18 09:25) oxycodone [From OxyContin] Allergy (Verified 05/09/18 09:25) Past Medical History - General Information source: Patient - Social History Smoking Status: Unknown if Ever Smoked Cigarette use (# per day): No Frequency of alcohol use: None Drug Abuse: None Lives with: Family Family History: Reviewed & Not Pertinent, CAD, DM, Malignancy, Other Patient has suicidal ideation: No Patient has homicidal ideation: No - Past Medical History Cardiac Medical History: Reports: Hx Hypertension - on meds Endocrine Medical History: Reports: Hx Diabetes Mellitus Type 2 Renal/ Medical History: Reports: Hx Pelvic Inflammatory Disease GI Medical History: Reports: Hx Gastroesophageal Reflux Disease Musculoskeletal Medical History: Reports Hx Arthritis - generalized Psychiatric Medical History: Reports: Hx Bipolar Disorder, Hx Depression Past Surgical History: Reports: Hx Abdominal Surgery - hernia repair, Hx Adenoidectomy, Hx Section - x1, Hx Gynecologic Surgery, Hx Herniorrhaphy, Hx Orthopedic Surgery - Right Leg Surgery, Hx Tonsillectomy - Immunizations Immunizations up to date: No Hx Diphtheria, Pertussis, Tetanus Vaccination: Yes Hx Pneumococcal Vaccination: 07/12/00 <ADA CLIFFORD - Last Filed: 05/09/18 12:07> Review of Systems - Review of Systems Constitutional: No symptoms reported EENT: No symptoms reported Cardiovascular: No symptoms reported Respiratory: No symptoms reported Gastrointestinal: See HPI, Abdominal pain Genitourinary: No symptoms reported Female Genitourinary: See HPI, Musculoskeletal: No symptoms reported Skin: No symptoms reported Hematologic/Lymphatic: No symptoms reported Neurological/Psychological: No symptoms reported -: Yes All other systems reviewed and negative <ADA CLIFFORD - Last Filed: 05/09/18 12:07> Physical Exam <ADA CLIFFORD - Last Filed: 05/09/18 12:07> <ARISTEO LEYVA - Last Filed: 05/09/18 13:15> - Vital signs Vitals: Temp Pulse Resp BP Pulse Ox 98.1 F 89 18 115/79 97 05/09/18 09:28 05/09/18 09:28 05/09/18 09:28 05/09/18 09:28 05/09/18 09:28 - Notes Notes: Physical Exam: General: Alert, appears at baseline. HEENT: Normocephalic. Atraumatic. PERRL. Extraocular movements intact. Oropharynx clear. Neck: Supple. Non-tender. Respiratory: No respiratory distress. Clear and equal breath sounds bilaterally. Cardiovascular: Regular rate and rhythm. Abdominal: Morbidly obese. Epigastric tenderness with palpation. Gravid uterus. No distension. Normal Bowel Sounds. Back: Non-tender. No deformity or step off. Extremities: Moves all four extremities. Upper extremities: Normal inspection. Normal ROM. Lower extremities: Normal inspection. No edema. Normal ROM. Neurological: Normal cognition. AAOx4. Normal speech. Psychological: Normal affect. Normal Mood. Skin: Warm. Dry. Normal color. (ADA CLIFFORD) Course - Laboratory Result Diagrams: 05/09/18 10:05 05/09/18 10:05 <ADA CLIFFORD - Last Filed: 05/09/18 12:07> - Laboratory Result Diagrams: 05/09/18 10:05 05/09/18 10:05 <ARISTEO LEYVA - Last Filed: 05/09/18 13:15> - Re-evaluation Re-evalutation: 05/09/18 13:11 The patient did get relief of her discomfort from the GI cocktail. (ARISTEO LEYVA) - Vital Signs Vital signs: Temp Pulse Resp BP Pulse Ox 98.1 F 89 18 115/79 97 05/09/18 09:28 05/09/18 09:28 05/09/18 09:28 05/09/18 09:28 05/09/18 09:28 - Laboratory Laboratory results interpreted by me: 05/09/18 05/09/18 10:05 10:05 WBC 10.9 H Hct 35.4 L RDW 15.3 H Creatinine 0.50 L Beta HCG, Quant 81321.00 H Discharge <ADA CLIFFORD - Last Filed: 05/09/18 12:07> <ARISTEO LEYVA - Last Filed: 05/09/18 13:15> - Discharge Clinical Impression: Second trimester Gastroesophageal reflux disease Qualifiers: Esophagitis presence: esophagitis presence not specified Qualified Code(s): K21.9 - Gastro-esophageal reflux disease without esophagitis Condition: Stable Disposition: HOME, SELF-CARE Additional Instructions: Reflux Disease (GERD) Gastro-Esophageal Reflux Disease (GERD) is caused by stomach acid refluxing back up into the esophagus. The valve at the end of the esophagus may be weak. This is common in persons with a hiatal hernia. GERD symptoms can include indigestion, chest pain, heartburn, or food "sticking." Certain foods, alcohol, and aspirin can make GERD worse. Treatment depends on the severity. Usually, antacids or acid-suppressing medicines are used. When the esophagus is acutely inflamed, the physician will often prescribe membrane-protective drugs such as Carafate. Some patients benefit from medication such as Reglan that tightens the valve at the top of the stomach. Avoid those foods that bring on your symptoms. For many people, these foods are coffee, chocolate, onions, garlic, and carbonated drinks. Don't use alcohol, aspirin, caffeine, or tobacco. Don't eat late at night -- within 4 hours of bedtime. Don't over-eat. If necessary, elevate the head of your bed about 4 inches so that stomach acid will not roll up into your esophagus. Call the doctor if you develop severe chest pain, inability to swallow fluids, fever, or worsening symptoms. The relief of pain provided by the GI cocktail shows that your abdominal discomfort symptoms are coming from heartburn or reflux, not from an abdominal hernia. This is a very common problem during . You should take antacids between meals and at bedtime. Avoid hot and spicy foods and avoid eating late in the evening before going to bed. Take Prilosec OTC once daily for the next few days to help decrease acid production in your stomach. Follow-up with your TECHNOLOGY ADOPTION MANAGER doctor this week for recheck. RETURN TO THE EMERGENCY ROOM IF ANY NEW OR WORSENING SYMPTOMS. Referrals: RONNIE KELLEY MD [NO LOCAL MD] - Follow up as needed Scribe Attestation: 05/09/18 11:35 I personally performed the services described in the documentation, reviewed and edited the documentation which was dictated to the scribe in my presence, and it accurately records my words and actions. (ARISTEO LEYVA) Scribe Documentation - Scribe Written by Pito:: Pito Cornejo, 05/09/2018 1215 acting as scribe for :: Henry <ADA CLIFFORD - Last Filed: 05/09/18 12:07>
[2018-05-09] MEDS ORDERED: MAG HYDROX/AL HYDROX/SIMETH SUSP 30 ML UDCUP PO ONE (11:33)
[2018-05-09] MEDS ORDERED: LIDOCAINE 2% VISCOUS SOLN 20 ML UDCUP PO ONE (11:33)
[2018-05-09 13:31] VITALS: BP 116/87
--- NOTE | 2018-05-09 13:32 | RADIOLOGY REPORT (SQ) ---
EXAM DESCRIPTION: U/S ABDOMEN LIMITED W/O DOP COMPLETED DATE/TIME: 05/09/2018 12:48 pm REASON FOR STUDY: Abdominal hernia COMPARISON: 10/11/2017 TECHNIQUE: Dynamic and static grayscale images acquired of the abdomen and recorded on PACS. Vashtio jonathan selected color Doppler and spectral images recorded. LIMITATIONS: None. FINDINGS: Imaging of the area of concern shows no abdominal wall hernia. Evaluation limited because of body habitus. IMPRESSION: No abdominal wall hernia is seen. TECHNICAL DOCUMENTATION: JOB ID: [id number] [employer]- All Rights Reserved Reading location - IP/workstation name: [email or web address]
== END 2018-05-09 13:36 | disposition home or self-care (01) ==
LOC: ER 09:22
DX: O99.612 Diseases of the digestive system complicating pregnancy, second trimester (principal); K21.9 Gastro-esophageal reflux disease without esophagitis; K42.9 Umbilical hernia without obstruction or gangrene; O26.892 Other specified pregnancy related conditions, second trimester; R10.10 Upper abdominal pain, unspecified; R10.816 Epigastric abdominal tenderness; O24.112 Pre-existing type 2 diabetes mellitus, in pregnancy, second trimester; E11.9 Type 2 diabetes mellitus without complications; O16.2 Unspecified maternal hypertension, second trimester; Z3A.21 21 weeks gestation of pregnancy; Z88.0 Allergy status to penicillin; Z88.5 Allergy status to narcotic agent
CPT/HCPCS: 99284; 36415; 84702; 85025; 80053; 76705; J3490

== ENCOUNTER 2018-05-22 23:33 | Observation (INO) | payer MEDICARE, MEDICAID ==
[2018-05-23 00:06] VITALS: BP 119/75
[2018-05-23] MEDS ORDERED: RINGERS SOLUTION,LACTATED 1,000 ML IV ONE (01:43)
[2018-05-23] MEDS ORDERED: RINGERS SOLUTION,LACTATED 1,000 ML IV PRN (01:45)
[2018-05-23 01:52] LABS: APPEARANCE,URINE CLOUDY; BILIRUBIN,URINE SMALL (NEGATIVE); COLOR,URINE AMBER; GLUCOSE, URINE NEGATIVE (NEGATIVE); KETONES,URINE 20 mg/dL (NEGATIVE); LEUKOCYTE ESTERASE,URINE TRACE (NEGATIVE); NITRITE,URINE NEGATIVE (NEGATIVE); PROTEIN,URINE 100 mg/dL (NEGATIVE); URINE SPECIFIC GRAVITY 1.029
[2018-05-23 02:13] LABS: URINE AMPHETAMINES SCREEN NEGATIVE; URINE BARBITURATES SCREEN NEGATIVE; URINE BENZODIAZEPINES SCREEN NEGATIVE; URINE COCAINE SCREEN NEGATIVE; URINE MARIJUANA (THC) SCREEN NEGATIVE; URINE METHADONE SCREEN NEGATIVE; URINE PHENCYCLIDINE SCREEN NEGATIVE
--- NOTE | 2018-05-23 02:31 | RADIOLOGY REPORT (SQ) ---
EXAM DESCRIPTION: US LIMITED COMPLETED DATE/TME: 05/23/2018 01:46 CLINICAL HISTORY: 38 years Female, wellbeing, placental status and location Comparison:05/07/2018 TECHNIQUE/LIMITATION: Targeted OB sonogram for requested parameters only. FINDINGS: EGA is 23w1d with MIKAELA of 09/18/18 EFW is 576g at 40% (Rob) Cardiac activity: 152-bpm. LVP: 4.3-cm Placenta: Posterior. No evidence of abruption. No placenta previa. Presentation: Breech. Cervical length: 4.7-cm. Closed appearance. IMPRESSION: Targeted OB sonogram for requested parameters
[2018-05-23] MEDS ORDERED: CEFTRIAXONE INJ 1000 MG VIAL ONE (02:45)
[2018-05-23] MEDS ORDERED: CEFTRIAXONE SODIUM 1,000 MG in DEXTROSE 5%-WATER 100 ML IV ONE (03:00)
[2018-05-23 03:15] LABS: ABSOLUTE BASOPHILS # (AUTO) 0.1 10^3/uL (0.0-0.2); ABSOLUTE EOSINOPHILS # (AUTO) 0.1 10^3/uL (0.0-0.6); ABSOLUTE LYMPHOCYTES (AUTO) 4.1 10^3/uL (0.5-4.7); ABSOLUTE MONOCYTES (AUTO) 0.9 10^3/uL (0.1-1.4); ABSOLUTE NEUT (AUTO) 13.2 10^3/uL (1.7-8.2); BASOPHILS % (AUTO) 0.6 % (0-2); EOSINOPHILS % (AUTO) 0.6 % (0-6); HEMATOCRIT 36.5 % (36.0-47.0); HEMOGLOBIN 12.1 g/dL (12.0-15.5); LYMPHOCYTES % (AUTO) 22.2 % (13-45); MEAN CORPUSCULAR HEMOGLOBIN 28.1 pg (27.0-33.4); MEAN CORPUSCULAR HGB CONC 33.2 g/dL (32.0-36.0); MEAN CORPUSCULAR VOLUME 85 fl (80-97); MONOCYTES % (AUTO) 4.7 % (3-13); PLATELET COUNT 317 10^3/uL (150-450); RED BLOOD COUNT 4.31 10^6/uL (3.72-5.28); RED CELL DISTRIBUTION WIDTH 15.1 % (11.5-14.0); SEGMENTED NEUTROPHILS % (AUTO) 71.9 % (42-78); TOTAL CELLS COUNTED % (AUTO) 100 %; WHITE BLOOD COUNT 18.4 10^3/uL (4.0-10.5)
[2018-05-23 03:34] LABS: ALANINE AMINOTRANSFERASE 12 U/L (9-52); ALBUMIN 3.9 g/dL (3.5-5.0); ALKALINE PHOSPHATASE 92 U/L (38-126); ANION GAP 17 (5-19); ASPARTATE AMINO TRANSFERASE 14 U/L (14-36); BILIRUBIN,DIRECT 0.3 mg/dL (0.0-0.4); BILIRUBIN,TOTAL 0.6 mg/dL (0.2-1.3); BLOOD UREA NITROGEN 14 mg/dL (7-20); CARBON DIOXIDE 22 mmol/L (22-30); CHLORIDE 101 mmol/L (98-107); GLUCOSE 131 mg/dL (75-110); POTASSIUM 3.9 mmol/L (3.6-5.0); SODIUM 139.7 mmol/L (137-145); TOTAL PROTEIN 7.1 g/dL (6.3-8.2)
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
[2018-05-23] MEDS ORDERED: ACETAMINOPHEN 325 MG TABLET ONE (08:57)
[2018-05-23] MEDS ORDERED: ACETAMINOPHEN 325 MG TABLET PO ONE (09:30)
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
== END 2018-05-23 17:41 | disposition home or self-care (01) ==
LOC: ER 23:33 → LC 23:33 → LR 05-23 01:46
PROVIDERS: ADMIT Student in an Organized Health Care Education/Training Program; ATTEND Student in an Organized Health Care Education/Training Program
PROC: 4A0HXCZ Measurement of Products of Conception, Cardiac Rate, External Approach (ICD-10-PCS; principal; 2018-05-23)
DX: O23.42 Unspecified infection of urinary tract in pregnancy, second trimester (principal); R31.9 Hematuria, unspecified; O26.892 Other specified pregnancy related conditions, second trimester; R10.30 Lower abdominal pain, unspecified; O9A.512 Psychological abuse complicating pregnancy, second trimester; O9A.312 Physical abuse complicating pregnancy, second trimester; Y07.03 Male partner, perpetrator of maltreatment and neglect; O32.1XX0 Maternal care for breech presentation, not applicable or unspecified; O24.912 Unspecified diabetes mellitus in pregnancy, second trimester; O16.2 Unspecified maternal hypertension, second trimester; F19.11 Other psychoactive substance abuse, in remission; O09.522 Supervision of elderly multigravida, second trimester; Z3A.23 23 weeks gestation of pregnancy; Z59.0 Homelessness; Z87.891 Personal history of nicotine dependence
CPT/HCPCS: 36415; 87086; 82962; 85025; 80053; 81001; 80307; 76815; 59025; G0378; G0379; A9270; J0696

== ENCOUNTER 2018-06-24 12:47 | Emergency (ER) | payer MEDICARE, MEDICAID ==
[2018-06-24 12:58] VITALS: BP 113/66
--- NOTE | 2018-06-24 13:17 | ER Document Report ---
ED General - General Chief Complaint: Cough Stated Complaint: COUGH,CONGESTION Time Seen by Provider: 06/24/18 13:15 Mode of Arrival: Ambulatory Information source: Patient Notes: Chief complaint: URI symptoms History of complain:( obtained from----patient) 38 years old female who is 26 weeks presents today with a running nose sore throat cough for the last 3 days. But has been abdominal pains since being . Has been evaluated a month ago. She has not seen any did not have the opportunity to go see an Psychiatric Assistant. States he lives in a custodial. No fever chills or other constitutional symptoms She had an ultrasound done May 23 which was normal. Onset: Gradual Duration: Last few days Severity: Moderate Quality: dull Context: As above Exacerbating factor and relieving factors: REVIEW OF SYSTEMS: CONSTITUTIONAL : Denies fever, chills, or sweats. Denies recent illness. EENT: Denies eye, ear, throat, or mouth pain or symptoms. Denies nasal or sinus congestion or discharge. Denies throat, tongue, or mouth swelling or difficulty swallowing. CARDIOVASCULAR: Denies chest pain. Denies palpitations or racing or irregular heart beat. Denies ankle edema. RESPIRATORY: Denies cough, cold, or chest congestion. Denies shortness of breath, difficulty breathing, or wheezing. GASTROINTESTINAL: Denies distention. Denies nausea, vomiting, or diarrhea. Denies blood in vomitus, stools, or per rectum. Denies black, tarry stools. Denies constipation. GENITOURINARY: Denies difficulty urinating, painful urination, burning, frequency, blood in urine, or discharge. FEMALE GENITOURINARY: Denies vaginal bleeding, heavy or abnormal periods, irregular periods. Denies vaginal discharge or odor. MUSCULOSKELETAL: Denies back or neck pain or stiffness. Denies joint pain or swelling. SKIN: Denies rash, lesions or sores. HEMATOLOGIC : Denies easy bruising or bleeding. LYMPHATIC: Denies swollen, enlarged glands. NEUROLOGICAL: Denies confusion or altered mental status. Denies passing out or loss of consciousness. Denies dizziness or lightheadedness. Denies headache. Denies weakness or paralysis or loss of use of either side. Denies problems with gait or speech. Denies sensory loss, numbness, or tingling. Denies seizures. PSYCHIATRIC: Denies anxiety or stress. Denies depression, suicidal ideation, or homicidal ideation. ALL OTHER SYSTEMS REVIEWED AND NEGATIVE. PHYSICAL EXAMINATION: GENERAL: Well-appearing, well-nourished and in no acute distress. Obese HEAD: Atraumatic, normocephalic. EYES: Pupils equal round and reactive to light, extraocular movements intact, conjunctiva are normal. ENT: Nares patent, oropharynx clear without exudates. Moist mucous membranes. NECK: Normal range of motion, supple without lymphadenopathy LUNGS: Breath sounds clear to auscultation bilaterally and equal. No wheezes rales or rhonchi. HEART: Regular rate and rhythm without murmurs ABDOMEN: Soft, nontender, nondistended abdomen. No guarding, no rebound. No masses appreciated. Examination of genitals-deferred Musculoskeletal: Normal range of motion, no pitting or edema. No cyanosis. NEUROLOGICAL: Cranial nerves grossly intact. Normal speech, normal gait. Normal sensory, motor exams PSYCH: Normal mood, normal affect. SKIN: Warm, Dry, normal turgor, no rashes or lesions noted. Dictation was performed using [employer] voice recognition software TRAVEL OUTSIDE OF THE [place]. IN LAST 30 DAYS: No COUNTRY TRAVELED TO/FROM: [facility] Notes: As above - Related Data Allergies/Adverse Reactions: amoxicillin Allergy (Verified 06/24/18 12:48) oxycodone [From OxyContin] Allergy (Verified 06/24/18 12:48) Penicillins Allergy (Verified 06/24/18 12:48) Past Medical History - Social History Smoking Status: Unknown if Ever Smoked Frequency of alcohol use: Rare Drug Abuse: None Lives with: Homeless Family History: Reviewed & Not Pertinent, CAD, DM, Malignancy, Other Patient has suicidal ideation: No Patient has homicidal ideation: No - Past Medical History Cardiac Medical History: Reports: Hx Hypertension - on meds Denies: Hx Coronary Artery Disease, Hx Heart Attack Pulmonary Medical History: Denies: Hx Asthma, Hx Bronchitis, Hx COPD, Hx Pneumonia Neurological Medical History: Denies: Hx Cerebrovascular Accident, Hx Seizures Endocrine Medical History: Reports: Hx Diabetes Mellitus Type 2 Renal/ Medical History: Reports: Hx Pelvic Inflammatory Disease. Denies: Hx Peritoneal Dialysis GI Medical History: Reports: Hx Gastroesophageal Reflux Disease Musculoskeletal Medical History: Reports Hx Arthritis - generalized Psychiatric Medical History: Reports: Hx Bipolar Disorder, Hx Depression Past Surgical History: Reports: Hx Abdominal Surgery - hernia repair, Hx Adenoidectomy, Hx Section - x1, Hx Gynecologic Surgery, Hx Herniorrhaphy, Hx Orthopedic Surgery - Right Leg Surgery, Hx Tonsillectomy - Immunizations Immunizations up to date: No Hx Diphtheria, Pertussis, Tetanus Vaccination: Yes Hx Pneumococcal Vaccination: 07/12/00 Review of Systems - Review of Systems Notes: Dictated Physical Exam - Vital signs Vitals: Temp Pulse Resp BP Pulse Ox 97.4 F 96 14 113/66 96 06/24/18 12:56 06/24/18 12:56 06/24/18 12:56 06/24/18 12:56 06/24/18 12:56 - Notes Notes: Dictated Course - Vital Signs Vital signs: Temp Pulse Resp BP Pulse Ox 97.4 F 96 14 113/66 96 06/24/18 12:56 06/24/18 12:56 06/24/18 12:56 06/24/18 12:56 06/24/18 12:56 - Laboratory Laboratory results interpreted by me: 06/24/18 13:21 Ur Leukocyte Esterase TRACE H Discharge - Discharge Clinical Impression: URI (upper respiratory infection) Qualifiers: URI type: unspecified viral URI Qualified Code(s): J06.9 - Acute upper respiratory infection, unspecified Condition: Fair Disposition: HOME, SELF-CARE Instructions: Upper Respiratory Illness ([facility]) Prescriptions: Azithromycin [Zithromax 250 mg Tablet] 250 mg PO ASDIR PRN #6 tablet PRN Reason: Referrals: DESTINY BARAHONA MD [Primary Care Provider] - Follow up as needed
[2018-06-24 13:42] LABS: APPEARANCE,URINE CLOUDY; BILIRUBIN,URINE NEGATIVE (NEGATIVE); COLOR,URINE YELLOW; GLUCOSE, URINE NEGATIVE (NEGATIVE); KETONES,URINE NEGATIVE (NEGATIVE); LEUKOCYTE ESTERASE,URINE TRACE (NEGATIVE); NITRITE,URINE NEGATIVE (NEGATIVE); PROTEIN,URINE NEGATIVE (NEGATIVE); URINE SPECIFIC GRAVITY 1.016; UROBILINOGEN,URINE NEGATIVE mg/dL (<2.0)
== END 2018-06-24 14:30 | disposition home or self-care (01) ==
LOC: ER 12:47
DX: O26.92 Pregnancy related conditions, unspecified, second trimester (principal); J06.9 Acute upper respiratory infection, unspecified; Z3A.26 26 weeks gestation of pregnancy; Z88.0 Allergy status to penicillin; Z88.6 Allergy status to analgesic agent
CPT/HCPCS: 81001; 99283

== ENCOUNTER 2018-06-28 20:11 | Emergency (ER) | payer MEDICARE, MEDICAID ==
[2018-06-28] MEDS ORDERED: NORMAL SALINE 1000 ML 1,000 ML IV ONE (20:28)
--- NOTE | 2018-06-28 20:36 | ER Document Report ---
ED General - General Mode of Arrival: Medic Information source: Patient, Emergency Med Personnel TRAVEL OUTSIDE OF THE U.S. IN LAST 30 DAYS: No COUNTRY TRAVELED TO/FROM: [facility] Onset: This evening Onset/Duration: Sudden Quality of pain: No pain Severity: Mild Associated symptoms: None Exacerbated by: Denies Relieved by: Denies Similar symptoms previously: No Recently seen / treated by doctor: No <MAGEN GALVAN - Last Filed: 06/28/18 23:37> <SHERIDAN WRIGHT - Last Filed: 06/29/18 11:51> - General Stated Complaint: POSSIBLE OVERDOSE Time Seen by Provider: 06/28/18 20:16 Notes: 38-year-old female brought to the emergency department by EMS for overdose on her prescription medication. Empty bottles of lexapro, seroquel, valtrex and Zyprexa were found. Unknown amount ingested. Patient is homeless and has been living in a hotel room. Today was her last night in the hotel room. Mobile [employer]ra[employer] worker believes she was upset about having to leave the hotel and acted out by taking the pills. This occurred around 1700 per EMS. Patient is tachycardic, drowsy in the ED. Patient is 26 weeks . (MAGEN GALVAN) - Related Data Allergies/Adverse Reactions: amoxicillin Allergy (Verified 06/24/18 12:48) oxycodone [From OxyContin] Allergy (Verified 06/24/18 12:48) Penicillins Allergy (Verified 06/24/18 12:48) Past Medical History - General Information source: Patient - Social History Smoking Status: Unknown if Ever Smoked Family History: Reviewed & Not Pertinent, CAD, DM, Malignancy, Other - Past Medical History Cardiac Medical History: Reports: Hx Hypertension - on meds Denies: Hx Coronary Artery Disease, Hx Heart Attack Pulmonary Medical History: Denies: Hx Asthma, Hx Bronchitis, Hx COPD, Hx Pneumonia Neurological Medical History: Denies: Hx Cerebrovascular Accident, Hx Seizures Endocrine Medical History: Reports: Hx Diabetes Mellitus Type 2 Renal/ Medical History: Reports: Hx Pelvic Inflammatory Disease. Denies: Hx Peritoneal Dialysis GI Medical History: Reports: Hx Gastroesophageal Reflux Disease Musculoskeletal Medical History: Reports Hx Arthritis - generalized Psychiatric Medical History: Reports: Hx Bipolar Disorder, Hx Depression Past Surgical History: Reports: Hx Abdominal Surgery - hernia repair, Hx Adenoidectomy, Hx Section - x1, Hx Gynecologic Surgery, Hx Herniorrhaphy, Hx Orthopedic Surgery - Right Leg Surgery, Hx Tonsillectomy - Immunizations Immunizations up to date: No Hx Diphtheria, Pertussis, Tetanus Vaccination: Yes Hx Pneumococcal Vaccination: 07/12/00 <MAGEN GALVAN - Last Filed: 06/28/18 23:37> Review of Systems - Review of Systems -: Yes ROS unobtainable due to patient's medical condition <MAGEN GALVAN - Last Filed: 06/28/18 23:37> Physical Exam <MAGEN GALVAN - Last Filed: 06/28/18 23:37> - Vital signs Vitals: Resp Pulse Ox 26 H 97 06/28/18 20:15 06/28/18 20:15 - Notes Notes: PHYSICAL EXAMINATION: GENERAL: Drowsy. HEAD: Atraumatic, normocephalic. EYES: Pupils equal round and reactive to light, extraocular movements intact, conjunctiva are normal. ENT: Nares patent, oropharynx clear without exudates. Moist mucous membranes. NECK: Normal range of motion, supple without lymphadenopathy LUNGS: Breath sounds clear to auscultation bilaterally and equal. No wheezes rales or rhonchi. HEART: Tachycardic. S1S2 appreciated. ABDOMEN: Morbidly obese. sSft, nontender, nondistended abdomen. No guarding, no rebound. Female : deferred Musculoskeletal: Normal range of motion, no pitting or edema. No cyanosis. NEUROLOGICAL: Cranial nerves grossly intact. Normal speech. Normal sensory, motor exams PSYCH: Suicidal ideations. SKIN: Warm, Dry, normal turgor, no rashes or lesions noted. (MAGEN GALVAN) Course - Laboratory Result Diagrams: 06/28/18 21:32 06/28/18 21:32 <MAGEN GALVAN - Last Filed: 06/28/18 23:37> - Laboratory Result Diagrams: 06/28/18 21:32 06/28/18 21:32 <SHERIDAN WRIGHT - Last Filed: 06/29/18 11:51> - Re-evaluation Re-evalutation: 06/28/18 20:38 Poison control contacted. They recommend supportive care and a repeat tylenol level at 4 hours. 06/28/18 21:05 EKG: Ventricular rate 136, MI interval 128, cures duration 90, QTc 452, sinus tachycardia. No ST segment elevation. 06/28/18 23:33 OB contacted by nurse to obtain monitoring. Dr. Messina came down and examined patient. heart rate was normal. Patient IVC'd by mobile crisis. Behavioral health consult in place. 06/28/18 23:37 (MGAEN GALVAN) - Vital Signs Vital signs: Temp Pulse Resp BP Pulse Ox 98.2 F 98 20 123/70 98 06/29/18 06:39 06/29/18 06:39 06/29/18 06:39 06/29/18 06:39 06/29/18 06:39 - Laboratory Laboratory results interpreted by me: 06/28/18 06/28/18 06/28/18 20:34 21:32 21:32 WBC 14.0 H Hgb 11.0 L Hct 32.3 L RDW 15.0 H Seg Neutrophils % 83.5 H Absolute Neutrophils 11.7 H Sodium 136.6 L Glucose 161 H Total Protein 6.2 L Albumin 3.2 L Serum HCG, Qual Beta HCG, Quant 08859.00 H Urine Ketones 20 H Salicylates < 1.0 L Acetaminophen < 10 L 06/28/18 06/29/18 21:32 00:34 WBC Hgb Hct RDW Seg Neutrophils % Absolute Neutrophils Sodium Glucose Total Protein Albumin Serum HCG, Qual POSITIVE H Beta HCG, Quant Urine Ketones Salicylates Acetaminophen < 10 L Discharge <MAGEN GALVAN - Last Filed: 06/28/18 23:37> <SHERIDAN WRIGHT - Last Filed: 06/29/18 11:51> - Discharge Clinical Impression: Bipolar 1 disorder Condition: Stable Disposition: HOME, SELF-CARE Additional Instructions: You have been evaluated both medical and behavioral health teams and been deemed appropriate for discharge. You are highly encouraged to follow-up with your outpatient mental health provider of [facility] from [place] in 3-5 days for continued outpatient mental health services. AT ANY TIME, IF YOUR SYMPTOMS CHANGE SIGNIFICANTLY OR WORSEN OR YOU DEVELOP NEW SYMPTOMS, RETURN TO THE EMERGENCY DEPARTMENT IMMEDIATELY FOR RE-EVALUATION.
[2018-06-28 20:57] LABS: APPEARANCE,URINE SLIGHTLY-CLOUDY; BILIRUBIN,URINE NEGATIVE (NEGATIVE); COLOR,URINE YELLOW; GLUCOSE, URINE NEGATIVE (NEGATIVE); KETONES,URINE 20 mg/dL (NEGATIVE); LEUKOCYTE ESTERASE,URINE NEGATIVE (NEGATIVE); NITRITE,URINE NEGATIVE (NEGATIVE); PROTEIN,URINE NEGATIVE (NEGATIVE); URINE SPECIFIC GRAVITY 1.017; UROBILINOGEN,URINE NEGATIVE mg/dL (<2.0)
[2018-06-28 21:04] LABS: URINE AMPHETAMINES SCREEN NEGATIVE; URINE BARBITURATES SCREEN NEGATIVE; URINE BENZODIAZEPINES SCREEN NEGATIVE; URINE COCAINE SCREEN NEGATIVE; URINE MARIJUANA (THC) SCREEN NEGATIVE; URINE METHADONE SCREEN NEGATIVE; URINE PHENCYCLIDINE SCREEN NEGATIVE
[2018-06-28 21:51] LABS: ABSOLUTE LYMPHOCYTES (AUTO) 1.8 10^3/uL (0.5-4.7); ABSOLUTE MONOCYTES (AUTO) 0.4 10^3/uL (0.1-1.4); ABSOLUTE NEUT (AUTO) 11.7 10^3/uL (1.7-8.2); BASOPHILS % (AUTO) 0.2 % (0-2); EOSINOPHILS % (AUTO) 0.2 % (0-6); HEMATOCRIT 32.3 % (36.0-47.0); MEAN CORPUSCULAR HEMOGLOBIN 29.2 pg (27.0-33.4); MEAN CORPUSCULAR HGB CONC 34.1 g/dL (32.0-36.0); MEAN CORPUSCULAR VOLUME 86 fl (80-97); MONOCYTES % (AUTO) 3.1 % (3-13); PLATELET COUNT 253 10^3/uL (150-450); RED BLOOD COUNT 3.78 10^6/uL (3.72-5.28); SEGMENTED NEUTROPHILS % (AUTO) 83.5 % (42-78); TOTAL CELLS COUNTED % (AUTO) 100 %
[2018-06-28 21:59] LABS: ALANINE AMINOTRANSFERASE 12 U/L (9-52); ALBUMIN 3.2 g/dL (3.5-5.0); ALKALINE PHOSPHATASE 89 U/L (38-126); ANION GAP 10 (5-19); ASPARTATE AMINO TRANSFERASE 14 U/L (14-36); BILIRUBIN,DIRECT 0.2 mg/dL (0.0-0.4); BILIRUBIN,TOTAL 0.3 mg/dL (0.2-1.3); BLOOD UREA NITROGEN 9 mg/dL (7-20); CALCIUM 9.4 mg/dL (8.4-10.2); CARBON DIOXIDE 22 mmol/L (22-30); CHLORIDE 105 mmol/L (98-107); GLUCOSE 161 mg/dL (75-110); POTASSIUM 3.9 mmol/L (3.6-5.0); SODIUM 136.6 mmol/L (137-145); TOTAL PROTEIN 6.2 g/dL (6.3-8.2)
[2018-06-28 22:16] LABS: ACETAMINOPHEN < 10 ug/mL (10-30); ALCOHOL < 10 mg/dL (NONE DETECTED); SALICYLATE < 1.0 mg/dL (2.0-20.0)
--- NOTE | 2018-06-29 07:40 | EKG REPORT ---
SEVERITY:- BORDERLINE ECG - SINUS TACHYCARDIA NONSPECIFIC ST-T CHANGES- INFERIOR LEADS : Confirmed by: Angel Luis Ruiz MD 29-Jun-2018 07:39:56
--- NOTE | 2018-06-29 10:15 | ER Document Report ---
Doctor's Note Notes: 06/29/18 10:11 Rounds: Chart reviewed and patient interviewed. Interviewed limited because patient is very sleepy. Reviewing her chart reveals the patient has taken an unknown quantity of Lexapro, Seroquel, and Zyprexa. She has been living in a hotel room, but will be unable to stay there any longer. She is also 26 weeks . When she was admitted yesterday, her EKG showed a heart rate of 136, but her heart rate today when vital signs were taken was 98. At bedside, at this time, patient's heart rate is 104. Other vital signs are all normal. Her only other lab finding of significance was a white count of 14,000, but unexplained reason. Patient appears to be medically stable for transfer or discharge. Zach Blandon MD
--- NOTE | 2018-06-29 11:50 | PSYCHOLOGICAL NOTE ---
Psych Note - Psych Note Date seen by psych provider: 06/29/18 Time seen by psych provider: 07:20 Psych Note: Reason for Consult: IVC 38-year-old female brought to the emergency department by EMS for overdose on her prescription medication. Empty bottles of lexapro, seroquel, valtrex and Zyprexa were found. Unknown amount ingested. Patient is homeless and has been living in a hotel room. First attempt to see patient: Patient is observed laying down and quickly re sponded with hello when clinician stated good morning. Patient turned over and say clinician and then quickly shut her eyes and started "snoring." Patient refused to engage with clinician. Second attempt to see patient: patient is awoke by nurse and placed in bedside chair. Patient started out with slurring her words and was very difficult to understand. At this time, lunch was delivered and clinician recommended the patient's food to stay at the nurses station since patient was having such difficulties staying awake. Patient "woke up" and spoke with clinician and food tray was brought to patient. Patient reports that she has been stay in a hotel and working with Marco [facility] from [place]. she reports that she has been working with [employer] and they have been paying for the hotel and "just need to inspect the apartment" and she can move in. She states she is looking forward to having her own place. When asked what happened last night she reports she is "tired of men..all men...I am tired of being cheated on." She continued to state that she no longer has thoughts of wanting to harm herself. Patient is alert and orientated to person, place, time and circumstance. Mood is irritable with congruent affect. Patient denies current suicidal ideation reports intentional overdose last night. Patient denies homicidal ideation. Delusions are absent behaviors congruent with an intact reality based presentation i.e. organized linear thought process. Eye contact is poor. Conversational speech started out slurred and difficult to understand until patient became irritated and patient's speech became very clear and easy to understand. Intellectual abilities appear to be within the average range. Attention and concentration are fair. Insight, judgment, impulse control are fair. No medication recommendations at this time Diagnosis: V60.0 (Z59.0) Homelessness; chronic 300.00 (F41.9) unspecified anxiety disorder per history provided by the patient 296.80 (F31.9) unspecified bipolar disorder per history provided by the patient Impression/Plan: Patient is recommended for rescind of IVC and is cleared from acute psychiatric services. Patient does not meet IVC criteria per [place] 122C. This patient is well known to this clinician and department. There has been multiple attempts to assist the patient from multiple agencies; however, she continued to use emergency services in an attempt to meet her social/housing needs. She has been in contact with multiple community programs in attempt for continued services and refuses to follow up as requested (ie [facility], [facility], [facility], and [facility], domestic abuse penitentiary, disaster recovery center, homeless penitentiary). She had an outpatient mental health provider with [facility]; however, she is no longer able to receive services from them. She frequently reports she has attempted to harm herself then later confirms she reported the information and was "only thinking" about. She is chronic homeless and was staying in a hotel that she was being evicted from which resulted in the patient stating she overdosed. The patient is currently demonstrating behaviours indicating secondary gain as the patient refused to engage with clinician and pretends to be sleeping (patient initially quickly responded by saying "hello" and then when she saw it was the clinician quickly closed her eyes and started "snoring"). Patient denies current thoughts of wanting to harm herself and demonstrated forward thinking with having her own apartment soon. Patient is recommended to continue working with [facility] from [place]. Dr. Peterson was consulted on the care and management of this patent; attending physciain is in agreement with recommendations and disposition.
[2018-06-29 12:07] LABS: ABSOLUTE EOSINOPHILS # (AUTO) 0.1 10^3/uL (0.0-0.6); ABSOLUTE LYMPHOCYTES (AUTO) 2.4 10^3/uL (0.5-4.7); ABSOLUTE MONOCYTES (AUTO) 0.6 10^3/uL (0.1-1.4); ABSOLUTE NEUT (AUTO) 8.1 10^3/uL (1.7-8.2); BASOPHILS % (AUTO) 0.2 % (0-2); EOSINOPHILS % (AUTO) 0.6 % (0-6); HEMATOCRIT 30.5 % (36.0-47.0); HEMOGLOBIN 10.4 g/dL (12.0-15.5); LYMPHOCYTES % (AUTO) 21.6 % (13-45); MEAN CORPUSCULAR HEMOGLOBIN 29.1 pg (27.0-33.4); MEAN CORPUSCULAR HGB CONC 34.1 g/dL (32.0-36.0); MEAN CORPUSCULAR VOLUME 85 fl (80-97); MONOCYTES % (AUTO) 5.4 % (3-13); PLATELET COUNT 244 10^3/uL (150-450); RED BLOOD COUNT 3.57 10^6/uL (3.72-5.28); RED CELL DISTRIBUTION WIDTH 15.2 % (11.5-14.0); SEGMENTED NEUTROPHILS % (AUTO) 72.2 % (42-78); TOTAL CELLS COUNTED % (AUTO) 100 %; WHITE BLOOD COUNT 11.2 10^3/uL (4.0-10.5)
[2018-06-29 14:31] VITALS: BP 122/76
== END 2018-06-29 14:00 | disposition home or self-care (01) ==
LOC: ER 20:11
DX: O99.342 Other mental disorders complicating pregnancy, second trimester (principal); F31.9 Bipolar disorder, unspecified; O9A.212 Injury, poisoning and certain other consequences of external causes complicating pregnancy, second trimester; T43.592A Poisoning by other antipsychotics and neuroleptics, intentional self-harm, initial encounter; T37.5X2A Poisoning by antiviral drugs, intentional self-harm, initial encounter; R00.0 Tachycardia, unspecified; Y92.59 Other trade areas as the place of occurrence of the external cause; Z59.0 Homelessness; Z3A.26 26 weeks gestation of pregnancy; Z88.0 Allergy status to penicillin; Z88.6 Allergy status to analgesic agent; I10 Essential (primary) hypertension; E11.9 Type 2 diabetes mellitus without complications
CPT/HCPCS: 93005; 99285; 96360; 96361; 36415; 80307 ×4; 84702; 83540; 84703; 85025; 80053; 81001; 93010; J7030

== ENCOUNTER 2018-07-07 05:08 | Outpatient (CLI) | payer MEDICARE, MEDICAID ==
[2018-07-07 06:34] LABS: APPEARANCE,URINE CLOUDY; BILIRUBIN,URINE NEGATIVE (NEGATIVE); COLOR,URINE RED; GLUCOSE, URINE NEGATIVE (NEGATIVE); KETONES,URINE NEGATIVE (NEGATIVE); LEUKOCYTE ESTERASE,URINE NEGATIVE (NEGATIVE); NITRITE,URINE NEGATIVE (NEGATIVE); PROTEIN,URINE 100 mg/dL (NEGATIVE); UROBILINOGEN,URINE NEGATIVE mg/dL (<2.0)
[2018-07-07 06:56] LABS: URINE AMPHETAMINES SCREEN NEGATIVE; URINE BARBITURATES SCREEN NEGATIVE; URINE BENZODIAZEPINES SCREEN NEGATIVE; URINE COCAINE SCREEN NEGATIVE; URINE MARIJUANA (THC) SCREEN NEGATIVE; URINE METHADONE SCREEN NEGATIVE; URINE PHENCYCLIDINE SCREEN NEGATIVE
--- NOTE | 2018-07-07 06:59 | RADIOLOGY REPORT (SQ) ---
EXAM DESCRIPTION: US LIMITED COMPLETED DATE/TME: 07/07/2018 05:49 CLINICAL HISTORY: 38 years, Female, vaginal bleeding, ?source, placenta?,cvx length COMPARISON: None. TECHNIQUE: Limited second/third trimester OB ultrasound LIMITATIONS: None. FINDINGS: Personal auger for, the exam is significantly limited due to patient body habitus. Detailed anatomic assessment was not performed. However, there is suggestion of oligohydramnios with amniotic fluid index of approximately 2.0 cm. Cervical length is 3.8 cm. The external os appears closed. heart tones were obtained at 175 bpm. The patient's obstetric provider was at the bedside during the exam. IMPRESSION: Significantly limited exam, as above. Close obstetric follow-up recommended. A single, live intrauterine gestation is present, however there is suggestion of oligohydramnios with amniotic fluid index of only 2.0 cm. copyright 2010 [id number]- All Rights Reserved
[2018-07-07 07:08] LABS: ABSOLUTE BASOPHILS # (AUTO) 0.1 10^3/uL (0.0-0.2); ABSOLUTE EOSINOPHILS # (AUTO) 0.1 10^3/uL (0.0-0.6); ABSOLUTE LYMPHOCYTES (AUTO) 3.5 10^3/uL (0.5-4.7); ABSOLUTE MONOCYTES (AUTO) 0.9 10^3/uL (0.1-1.4); ABSOLUTE NEUT (AUTO) 10.5 10^3/uL (1.7-8.2); BASOPHILS % (AUTO) 0.4 % (0-2); EOSINOPHILS % (AUTO) 0.8 % (0-6); HEMATOCRIT 34.6 % (36.0-47.0); HEMOGLOBIN 11.7 g/dL (12.0-15.5); LYMPHOCYTES % (AUTO) 23.2 % (13-45); MEAN CORPUSCULAR HEMOGLOBIN 28.7 pg (27.0-33.4); MEAN CORPUSCULAR VOLUME 85 fl (80-97); PLATELET COUNT 294 10^3/uL (150-450); RED BLOOD COUNT 4.09 10^6/uL (3.72-5.28); RED CELL DISTRIBUTION WIDTH 14.9 % (11.5-14.0); SEGMENTED NEUTROPHILS % (AUTO) 69.6 % (42-78); TOTAL CELLS COUNTED % (AUTO) 100 %; WHITE BLOOD COUNT 15.2 10^3/uL (4.0-10.5)
[2018-07-07 07:27] LABS: INTERNATIONAL RATION (INR) 0.98; PARTIAL THROMBOPLASTIN TIME 33.5 SEC (23.5-35.8); PROTHROMBIN TIME 13.4 SEC (11.4-15.4)
[2018-07-07] MEDS ORDERED: BETAMET ACET/BETAMET NA INJ 6 MG/1 ML ONE (07:32)
[2018-07-07] MEDS ORDERED: CLINDAMYCIN 900 MG/D5W RTU 900 MG/50 ML RTUPB IV ONE (07:33)
[2018-07-07] MEDS ORDERED: AZITHROMYCIN INJ 500 MG VIAL IV ONE ×2 (07:35→07:40)
[2018-07-07] MEDS ORDERED: BETAMET ACET/BETAMET NA INJ 6 MG/1 ML IM SCH (07:45)
[2018-07-07] MEDS ORDERED: MAGNESIUM SULFATE 4 GM/100 ML RTUPB IV ONE ×2 (07:48→07:53)
[2018-07-07] MEDS ORDERED: MAGNESIUM SULFATE 20 GM/500 ML RTUINJ IV PRN (08:17)
[2018-07-07] MEDS ORDERED: BETAMET ACET/BETAMET NA INJ 6 MG/1 ML IM ONE (08:17)
[2018-07-07] MEDS ORDERED: MAGNESIUM SULFATE 20 GM/500 ML RTUINJ IV ONE (08:25)
[2018-07-07 09:35] LABS: RBCS (WET MOUNT) 4+ RBCS SEEN; T.VAGINALIS (WET MOUNT) NO TRICHOMONAS SEEN; WBCS (WET MOUNT) RARE WBCS SEEN; YEAST (WET MOUNT) NO YEAST SEEN
[2018-07-07 10:12] LABS: FETAL RBC COUNT 0
[2018-07-07 10:13] LABS: KB INTERPRETATION NEGATIVE (NEGATIVE)
[2018-07-07 10:58] LABS: CHLAM PCR NOT DETECTED (NOT DETECT); GON PCR NOT DETECTED (NOT DETECT)
[2018-07-07] MEDS ORDERED: INSULIN LISPRO 100 UNIT/ML 3 ML VIAL ONE (11:20)
[2018-07-07] MEDS ORDERED: INSULIN LISPRO 100 UNIT/ML 3 ML VIAL SUBCUT ONE (11:23)
[2018-07-07] MEDS ORDERED: CLINDAMYCIN 900 MG/D5W RTU 900 MG/50 ML RTUPB IV SCH (14:00)
--- NOTE | 2018-07-07 15:38 | PDOC TRANSFER SUMMARY ---
General Admission Date/PCP: Pt was not admitted--was seen on 07/06/18 to 07/07/18 Admission Date: 07/07/18 - not admitted Transfer Date: 07/07/18 Accepting Facility: [facility] Accepting Physician: Dr. Galeana Resuscitation Status: Full Code - Transfer Diagnosis (1) 29 weeks gestation of Is this a current diagnosis for this admission?: Yes (2) premature rupture of membranes Is this a current diagnosis for this admission?: Yes (3) Vaginal bleeding during Is this a current diagnosis for this admission?: Yes (4) Oligohydramnios in prieto in third trimester Is this a current diagnosis for this admission?: Yes - Transfer Medications Home Medications: Hydrochlorothiazide 25 mg PO DAILY MDD FULL BOTTLE FILLED 05/11/18 02/22/17 Carisoprodol 350 mg PO ACHS 05/07/18 Vit No.109/Iron/FA [Vinate Care Chewable Tablet] 1 each PO DAILY 05/07/18 Sertraline HCl [Zoloft 50 mg Tablet] 100 mg PO DAILY 05/23/18 Loratadine [Claritin 10 mg Tablet] 10 mg PO DAILY 06/28/18 Olanzapine [Zyprexa] 10 mg PO DAILY 06/28/18 Ranitidine HCl [Zantac 150 mg Tablet] 150 mg PO BID 06/28/18 Levocetirizine Dihydrochloride [Allergy Relief] 1 tab PO DAILY 07/07/18 Vit No.109/Iron/FA [Vinate Care Chewable Tablet] 1 tab PO DAILY 07/07/18 Promethazine HCl [Phenergan 25 mg Tablet] 1 tab PO DAILY 07/07/18 Valacyclovir HCl [Valtrex 500 mg Tablet] 1 tab PO DAILY 07/07/18 - Allergies Allergies/Adverse Reactions: amoxicillin Allergy (Verified 07/07/18 07:00) oxycodone [From OxyContin] Allergy (Verified 07/07/18 07:00) Nausea Penicillins Allergy (Verified 07/07/18 07:00) - Diet/Activity Discharge Activity: Bedrest Hospital Course Hospital Course: This 38 year old with an intrauterine at 29-3/7 weeks, arrived v ia ambulance, complaining of vaginal bleeding. She admitted to good movement and patient denied cramping. This patient received care and [facility]. The vaginal bleeding was minimal prior to transfer. Patient gave history of leaking fluid for approximately 1 week. She underwent a formal ultrasound which showed oligohydramnios, with an BALDOMERO of 2 cm her placenta was posterior but difficult to fully visualize, therefore abruption was not ruled out. She is also a prior section, who is morbidly obese Physical Exam Vital Signs: Intake & Output 07/06/18 07/07/18 07/08/18 06:59 06:59 06:59 Weight 130.7 kg General appearance: PRESENT: no acute distress Respiratory exam: PRESENT: clear to auscultation maddy Cardiovascular exam: PRESENT: RRR GI/Abdominal exam: PRESENT: normal bowel sounds, soft - reports good movement and denies cramping Extremities exam: ABSENT: calf tenderness, clubbing, full ROM, joint swelling, pedal edema, tenderness, +1 edema, +2 edema, other Results Laboratory Results: 07/07/18 06:38 07/07/18 07/07/18 07/07/18 05:30 06:38 06:38 WBC 15.2 H RBC 4.09 Hgb 11.7 L Hct 34.6 L MCV 85 MCH 28.7 MCHC 34.0 RDW 14.9 H Plt Count 294 Seg Neutrophils % 69.6 Lymphocytes % 23.2 Monocytes % 6.0 Eosinophils % 0.8 Basophils % 0.4 Absolute Neutrophils 10.5 H Absolute Lymphocytes 3.5 Absolute Monocytes 0.9 Absolute Eosinophils 0.1 Absolute Basophils 0.1 Urine Color RED Urine Appearance CLOUDY Urine pH 6.0 Ur Specific [place] 1.020 Urine Protein 100 H Urine Glucose (UA) NEGATIVE Urine Ketones NEGATIVE Urine Blood LARGE H Urine Nitrite NEGATIVE Ur Leukocyte Esterase NEGATIVE Urine WBC (Auto) 88 Urine RBC (Auto) >182 Blood Type O POSITIVE Antibody Screen NEGATIVE Impressions: Obstetrics Ultrasound 07/07/18 05:49 IMPRESSION: Significantly limited exam, as above. Close obstetric follow-up recommended. A single, live intrauterine gestation is present, however there is suggestion of oligohydramnios with amniotic fluid index of only 2.0 cm. copyright 2011 [employer]- All Rights Reserved Plan Discharge Plan: Transfer to [facility], where she receives care and where a NICU is available. She is agreeable to this plan. Time Spent: Greater than 30 Minutes
== END 2018-07-07 12:12 | disposition short-term general hospital (02) ==
LOC: LC 05:08
PROVIDERS: ATTEND Student in an Organized Health Care Education/Training Program
DX: O46.93 Antepartum hemorrhage, unspecified, third trimester (principal); O42.92 Full-term premature rupture of membranes, unspecified as to length of time between rupture and onset of labor; Z3A.29 29 weeks gestation of pregnancy; Z79.899 Other long term (current) drug therapy; Z88.0 Allergy status to penicillin; Z88.5 Allergy status to narcotic agent
CPT/HCPCS: 86900; 86901; 36415; 87210; 86850; 82962; 85025; 85362; 85610; 85730; 87077; 86592; 81001; 87081; 85460; 80307; 87491; 87591; 84112; 76815; J3475 ×2; A9270; J0702; J0456; J1815

== ENCOUNTER 2018-07-21 09:34 | Inpatient (IN) | payer MEDICARE, MEDICAID ==
[2018-07-21] MEDS ORDERED: MORPHINE SULFATE 10 MG/ML INJ IV ONE (10:44)
[2018-07-21] MEDS ORDERED: ONDANSETRON HCL INJ/PF 4 MG/2 ML SDV IV ONE (10:44)
--- NOTE | 2018-07-21 10:46 | ER Document Report ---
ED Medical Screen (RME) - General Chief Complaint: Post Problem Stated Complaint: ABDOMINAL PAIN Time Seen by Provider: 07/21/18 10:42 Notes: 38 years old female 7 days, , presents today with diffuse lower abdominal pain incontinence of urine. TRAVEL OUTSIDE OF THE U.S. IN LAST 30 DAYS: No COUNTRY TRAVELED TO/FROM: [place] - Related Data Allergies/Adverse Reactions: amoxicillin Allergy (Verified 07/21/18 09:36) oxycodone [From OxyContin] Allergy (Verified 07/21/18 09:36) Nausea Penicillins Allergy (Verified 07/21/18 09:36) Past Medical History - Past Medical History Cardiac Medical History: Reports: Hx Hypertension - on meds Denies: Hx Coronary Artery Disease, Hx Heart Attack Pulmonary Medical History: Denies: Hx Asthma, Hx Bronchitis, Hx COPD, Hx Pneumonia Neurological Medical History: Denies: Hx Cerebrovascular Accident, Hx Seizures Endocrine Medical History: Reports: Hx Diabetes Mellitus Type 2 Renal/ Medical History: Reports: Hx Pelvic Inflammatory Disease. Denies: Hx Peritoneal Dialysis GI Medical History: Reports: Hx Gastroesophageal Reflux Disease Musculoskeltal Medical History: Reports Hx Arthritis - generalized Psychiatric Medical History: Reports: Hx Bipolar Disorder, Hx Depression Past Surgical History: Reports: Hx Abdominal Surgery - hernia repair, Hx Adenoidectomy, Hx Section - x1, Hx Gynecologic Surgery, Hx Herniorrhaphy, Hx Orthopedic Surgery - Right Leg Surgery, Hx Tonsillectomy - Immunizations Immunizations up to date: No Hx Diphtheria, Pertussis, Tetanus Vaccination: Yes Physical Exam - Vital signs Vitals: Temp Pulse Resp BP Pulse Ox 98.2 F 116 H 24 H 130/82 H 100 07/21/18 10:00 07/21/18 10:00 07/21/18 10:00 07/21/18 10:00 07/21/18 10:00 Course - Vital Signs Vital signs: Temp Pulse Resp BP Pulse Ox 98.2 F 116 H 24 H 130/82 H 100 07/21/18 10:00 07/21/18 10:00 07/21/18 10:00 07/21/18 10:00 07/21/18 10:00
--- NOTE | 2018-07-21 12:29 | ER Document Report ---
ED GI/ - General Chief Complaint: Post Problem Stated Complaint: ABDOMINAL PAIN Time Seen by Provider: 07/21/18 10:42 Notes: Patient is here complaining of abdominal pains and swelling of her abdomen. She was delivered at 7 months gestation by in [place] on July 14. She spent about 4 days in the hospital and went home [place]. Patient is complaining of severe pain of her lower half of her abdomen. She denies any n ausea or vomiting. Says she has not had a bowel movement since before she delivered at the and feels constipated. She thinks she had fever off and on and she is having chills. This is her second . She was delivered by in her first , as well. Patient says she is lost control of her bladder and cannot hold her urine. Patient's is in [facility] at this time. TRAVEL OUTSIDE OF THE U.S. IN LAST 30 DAYS: No COUNTRY TRAVELED TO/FROM: [place] - Related Data Allergies/Adverse Reactions: amoxicillin Allergy (Verified 07/21/18 09:36) oxycodone [From OxyContin] Allergy (Verified 07/21/18 09:36) Nausea Penicillins Allergy (Verified 07/21/18 09:36) Past Medical History - Social History Smoking Status: Current Some Day Smoker Chew tobacco use (# tins/day): No Frequency of alcohol use: None Drug Abuse: None Family History: Reviewed & Not Pertinent, CAD, DM, Malignancy, Other Patient has suicidal ideation: No Patient has homicidal ideation: No - Past Medical History Cardiac Medical History: Reports: Hx Hypertension - on meds Endocrine Medical History: Reports: Hx Diabetes Mellitus Type 1, Hx Diabetes Mellitus Type 2 GI Medical History: Reports: Hx Gastroesophageal Reflux Disease Musculoskeletal Medical History: Reports Hx Arthritis - generalized Psychiatric Medical History: Reports: Hx Bipolar Disorder, Hx Depression Past Surgical History: Reports: Hx Abdominal Surgery - hernia repair, Hx Adenoidectomy, Hx Section - x2, Hx Gynecologic Surgery, Hx Herniorrhaphy, Hx Orthopedic Surgery - Right Leg Surgery, Hx Tonsillectomy - Immunizations Immunizations up to date: No Hx Diphtheria, Pertussis, Tetanus Vaccination: Yes Hx Pneumococcal Vaccination: 07/12/00 Review of Systems - Review of Systems Notes: REVIEW OF SYSTEMS: Patient basically answers yes to every question of asked her about her review of systems. CONSTITUTIONAL : Has felt as if she has a fever off and on and some chills EENT: Denies eye, ear, nose or mouth or throat pain or other symptoms. CARDIOVASCULAR: Complains of chest pain. RESPIRATORY: Complains of cough, chest congestion, or shortness of breath. GASTROINTESTINAL: See HPI. GENITOURINARY: Denies difficulty or painful urinating, unable to control her bladder. MUSCULOSKELETAL: Complains of back pain. SKIN: Denies rash or skin lesions. NEUROLOGICAL: Denies LOC or altered mental status. Complains of headache. Denies sensory loss or motor deficits. ALL OTHER SYSTEMS REVIEWED AND NEGATIVE. Physical Exam - Vital signs Vitals: Temp Pulse Resp BP Pulse Ox 98.2 F 116 H 24 H 130/82 H 100 07/21/18 10:00 07/21/18 10:00 07/21/18 10:00 07/21/18 10:00 07/21/18 10:00 Interpretation: Tachycardic Notes: PHYSICAL EXAMINATION: GENERAL: Well-appearing, in no acute distress. Vital signs normal except for slight tachycardia 116. HEAD: Atraumatic, normocephalic. EYES: Pupils equal round and reactive to light, extraocular movements intact. ENT: oropharynx clear without exudates. Moist mucous membranes. NECK: Normal range of motion, supple. LUNGS: Breath sounds clear and equal bilaterally. HEART: Regular rate and rhythm without murmurs. ABDOMEN: Very obese. Abdomen does appear to be significantly distended, but I do not know what this patient's normal appearance and exam might be. Lower 1/3- 1/2 of the abdomen has erythema extending down into the suprapubic region where the patient has a healing incision. Some of the areas of suturing are draining purulent liquid which was cultured. BACK: No tenderness throughout entire back. EXTREMITIES: Limited range of motion negative Homans bilaterally.. NEUROLOGICAL: Normal speech, unable to stand or walk because of her pain.. Normal sensory, motor, and reflex exams. Awake, alert, and oriented x3. Cranial nerves normal. PSYCH: Somewhat depressed. Normal mood, normal affect. SKIN: Warm, dry, no rashes. Course - Re-evaluation Re-evalutation: 07/21/18 19:23 Patient was given 2 g of Rocephin IV. CT scan shows signs suggestive of infec tious process though no collection of fluid like an abscess was seen. Air is present but it is uncertain whether that could be postsurgical or infectious. Discussed case with Dr. Marquis, on-call [facility] RUNNER, who agrees to admit the patient for IV antibiotics. - Vital Signs Vital signs: Temp Pulse Resp BP Pulse Ox 98.4 F 102 H 20 116/73 100 07/21/18 17:25 07/21/18 17:25 07/21/18 17:25 07/21/18 17:25 07/21/18 17:25 - Laboratory Result Diagrams: 07/21/18 13:47 07/21/18 13:47 Laboratory results interpreted by me: 07/21/18 07/21/18 07/21/18 13:47 13:47 13:57 WBC 14.9 H RBC 3.11 L Hgb 9.0 L Hct 26.2 L RDW 15.4 H Seg Neutrophils % 81.5 H Lymphocytes % 12.3 L Absolute Neutrophils 12.1 H Sodium 133.5 L Potassium 2.6 L* Carbon Dioxide 20 L Glucose 158 H Alkaline Phosphatase 131 H Total Protein 5.2 L Albumin 2.6 L Urine Protein 30 H Urine Ketones 20 H Discharge - Discharge Clinical Impression: Infection of caesarean section or perineal wound, Constipation Condition: Stable Disposition: ADMITTED INPATIENT Admitting Provider: [facility] Admitted: Labor and Delivery
[2018-07-21] MEDS ORDERED: CEFTRIAXONE INJ 1000 MG VIAL IV ONE (12:33)
[2018-07-21 14:18] LABS: ABSOLUTE EOSINOPHILS # (AUTO) 0.1 10^3/uL (0.0-0.6); ABSOLUTE LYMPHOCYTES (AUTO) 1.8 10^3/uL (0.5-4.7); ABSOLUTE MONOCYTES (AUTO) 0.8 10^3/uL (0.1-1.4); ABSOLUTE NEUT (AUTO) 12.1 10^3/uL (1.7-8.2); ALANINE AMINOTRANSFERASE 31 U/L (9-52); ALBUMIN 2.6 g/dL (3.5-5.0); ALKALINE PHOSPHATASE 131 U/L (38-126); ANION GAP 14 (5-19); ASPARTATE AMINO TRANSFERASE 15 U/L (14-36); BASOPHILS % (AUTO) 0.2 % (0-2); BILIRUBIN,DIRECT 0.3 mg/dL (0.0-0.4); BILIRUBIN,TOTAL 0.5 mg/dL (0.2-1.3); BLOOD UREA NITROGEN 16 mg/dL (7-20); CALCIUM 8.5 mg/dL (8.4-10.2); CARBON DIOXIDE 20 mmol/L (22-30); CHLORIDE 100 mmol/L (98-107); EOSINOPHILS % (AUTO) 0.6 % (0-6); GLUCOSE 158 mg/dL (75-110); HEMATOCRIT 26.2 % (36.0-47.0); LIPASE 32.1 U/L (23-300); LYMPHOCYTES % (AUTO) 12.3 % (13-45); MEAN CORPUSCULAR HEMOGLOBIN 28.9 pg (27.0-33.4); MEAN CORPUSCULAR HGB CONC 34.3 g/dL (32.0-36.0); MEAN CORPUSCULAR VOLUME 84 fl (80-97); MONOCYTES % (AUTO) 5.4 % (3-13); PLATELET COUNT 384 10^3/uL (150-450); RED BLOOD COUNT 3.11 10^6/uL (3.72-5.28); RED CELL DISTRIBUTION WIDTH 15.4 % (11.5-14.0); SEGMENTED NEUTROPHILS % (AUTO) 81.5 % (42-78); SODIUM 133.5 mmol/L (137-145); TOTAL CELLS COUNTED % (AUTO) 100 %; TOTAL PROTEIN 5.2 g/dL (6.3-8.2); WHITE BLOOD COUNT 14.9 10^3/uL (4.0-10.5)
[2018-07-21 14:23] LABS: POTASSIUM 2.6 mmol/L (3.6-5.0)
[2018-07-21 14:34] LABS: APPEARANCE,URINE SLIGHTLY-CLOUDY; BILIRUBIN,URINE NEGATIVE (NEGATIVE); COLOR,URINE YELLOW; GLUCOSE, URINE NEGATIVE (NEGATIVE); KETONES,URINE 20 mg/dL (NEGATIVE); LEUKOCYTE ESTERASE,URINE NEGATIVE (NEGATIVE); NITRITE,URINE NEGATIVE (NEGATIVE); PROTEIN,URINE 30 mg/dL (NEGATIVE); UROBILINOGEN,URINE NEGATIVE mg/dL (<2.0)
[2018-07-21] MEDS ORDERED: POTASSIUM CHLORIDE 10 MEQ CAPSULE.ER PO ONE (14:45)
--- NOTE | 2018-07-21 15:11 | RADIOLOGY REPORT (SQ) ---
EXAM DESCRIPTION: CT ABD/PELVIS WITH IV ONLY COMPLETED DATE/TIME: 07/21/2018 2:37 pm REASON FOR STUDY: Abdominal pain COMPARISON: 02/09/2017 TECHNIQUE: CT scan of the abdomen and pelvis performed using helical scanning technique with dynamic intravenous contrast injection. No oral contrast. Images reviewed with lung, soft tissue, and bone windows. Reconstructed coronal and sagittal MPR images reviewed. Delayed images for evaluation of the urinary system also acquired. All images stored on PACS. All CT scanners at this facility use dose modulation, iterative reconstruction, and/or weight based d osing when appropriate to reduce radiation dose to as low as reasonably achievable (ALARA). [facility]: Dose Right [facility]: CareDose [facility]: Dose Right [facility]: Teradose 4D [facility]: Genius Pack CONTRAST TYPE AND DOSE: contrast/concentration: Isovue 350.00 mg/ml; Total Contrast Delivered: 100.0 ml; Total Saline Delivered: 68.0 ml RENAL FUNCTION: None required. The patient is less than 50 years old. RADIATION DOSE: CT Rad equipment meets quality standard of care and radiation dose reduction techniq ues were employed. CTDIvol: 20.9 - 21.1 mGy. DLP: 2531 mGy-cm.. LIMITATIONS: None. FINDINGS: LOWER CHEST: No significant findings. No nodules or infiltrates. LIVER: Hepatomegaly. No masses. No dilated ducts. SPLEEN: Normal size. No focal lesions. PANCREAS: No masses. No significant calcifications. No adjacent inflammation or peripancreatic fluid collections. Pancreatic duct not dilated. GALLBLADDER: No identified stones by CT criteria. No inflammatory changes to suggest cholecystitis. ADRENAL GLANDS: No significant masses or asymmetry. RIGHT KIDNEY AND URETER: No solid masses. No significant calcifications. No hydronephrosis or hyd roureter. LEFT KIDNEY AND URETER: No solid masses. No significant calcifications. No hydronephrosis or hydr oureter. AORTA AND VESSELS: No aneurysm. No dissection. Renal arteries, SMA, celiac without stenosis. RETROPERITONEUM: No retroperitoneal adenopathy, hemorrhage or masses. BOWEL AND PERITONEAL CAVITY: No masses or inflammatory changes. No free fluid or peritoneal masses. Large burden of stool in colon. APPENDIX: Normal. PELVIS: No mass. No free fluid. Normal bladder. Post gravid uterus with small foci of gas in the lo wer uterine segment. ABDOMINAL WALL: There is extensive fat stranding about the abdomen and pannus, with scattered foci of subcutaneous gas. There is no definite fluid collection about the wound. The pannus is p artially imaged due to large habitus and scanner bore limitation BONES: No significant or acute findings. OTHER: No other significant finding. IMPRESSION: 1. Postoperative findings of recent with extensive fat stranding of the abdom en and pannus, with scattered foci of subcutaneous gas and small foci of gas in the lower uterine seg ment. There is no definite fluid collection and gas is of uncertain significance in the recent posto perative setting. The abdominal wall and anasarca partially imaged due to large habitus and scanner bore limitation. Targeted ultrasound could be used to further evaluate for localized fluid collectio n if suspected. 2. Large burden of stool in the colon. 3. Hepatomegaly. TECHNICAL DOCUMENTATION: JOB ID: [id number] Quality ID # [id number]: Final reports with documentation of one or more dose reduction techniques (e.g., Au tomated exposure control, adjustment of the mA and/or kV according to patient size, use of iterative reconstruction technique) 2010 [email or web address]- All Rights Reserved Reading location - IP/workstation name: [id number]
[2018-07-21] MEDS ORDERED: OXYCODONE-ACETAMINOPHEN 5-325 MG TABLET PO PRN (17:47)
[2018-07-21] MEDS ORDERED: ACETAMINOPHEN 325 MG TABLET PO PRN (17:47)
[2018-07-21] MEDS: CLINDAMYCIN 900 MG/D5W RTU 900 MG/50 ML RTUPB IV SCH (18:27)
[2018-07-21] MEDS: OXYCODONE-ACETAMINOPHEN 5-325 MG TABLET PO PRN (22:41)
[2018-07-21] MEDS: CEFTRIAXONE 1 GM/D5W RTU 1 GM/50 ML RTUPB IV SCH (22:41)
--- NOTE | 2018-07-21 23:23 | PDOC H&P ---
General Chief Complaint: abd pain - Diagnosis (1) Infection of caesarean section or perineal wound Is this a Current Diagnosis?: Yes - Current Medications/Allergies Home Medications: Carisoprodol 350 mg PO ACHS 05/07/18 Sertraline HCl [Zoloft 50 mg Tablet] 100 mg PO DAILY 05/23/18 Loratadine [Claritin 10 mg Tablet] 10 mg PO DAILY 06/28/18 Olanzapine [Zyprexa] 10 mg PO DAILY 06/28/18 Ranitidine HCl [Zantac 150 mg Tablet] 150 mg PO BID 06/28/18 Valacyclovir HCl [Valtrex 500 mg Tablet] 500 mg PO DAILY 07/07/18 Allergies/Adverse Reactions: amoxicillin Allergy (Verified 07/21/18 09:36) oxycodone [From OxyContin] Allergy (Verified 07/21/18 09:36) Nausea Penicillins Allergy (Verified 07/21/18 09:36) Past Medical History Cardiac Medical History: Reports: None, Hypertension - on meds Denies: Coronary Artery Disease, Myocardial Infarction Pulmonary Medical History: Reports: None Denies: Asthma, Bronchitis, Chronic Obstructive Pulmonary Disease (COPD), Pneumonia Neurological Medical History: Denies: Seizures Endocrine Medical History: Reports: Diabetes Mellitus Type 1, Diabetes Mellitus Type 2 GI Medical History: Reports: Gastroesophageal Reflux Disease Musculoskeltal Medical History: Reports: Arthritis - generalized Psychiatric Medical History: Reports: Bipolar Disorder, Depression Hematology: Denies: Anemia Past Surgical History Past Surgical History: Reports: Adenoidectomy, Section - x2, Herniorrhaphy, Orthopedic Surgery - Right Leg Surgery, Tonsillectomy Family History Family History: Reviewed & Not Pertinent, CAD, DM, Malignancy, Other Parental Family History Reviewed: Yes Children Family History Reviewed: Yes Sibling(s) Family History Reviewed.: Yes Social History Smoking Status: Former Smoker Frequency of Alcohol Use: Occasional Hx Prescription Drug Abuse: No - Pt denies Physical Exam Vital Signs: Temp Pulse Resp BP Pulse Ox 98.5 F 108 H 20 125/70 95 07/21/18 19:48 07/21/18 19:48 07/21/18 19:48 07/21/18 19:48 07/21/18 19:48 Intake & Output 07/20/18 07/21/18 07/22/18 06:59 06:59 06:59 Intake Total 50 Balance 50 Weight 132.7 kg General appearance: PRESENT: no acute distress - incision intact but draining serous fluid pt tender and may have in addition to wound infection and endometritis pt placed on broad spectrum antibiotics and wound does not need to be opened now Additional comments: abd soft serous fluid draining from incision Impression/Plan Impression: post op() infection admit for IV antibiotics Plan: IV antibiotics
[2018-07-21] MEDS ORDERED: IBUPROFEN 800 MG TABLET PO SCH (23:30)
[2018-07-21] MEDS ORDERED: BISACODYL 10 MG SUPP.RECT PR ONE (23:59)
[2018-07-22] MEDS: IBUPROFEN 800 MG TABLET PO PRN ×2 (00:10→08:27)
[2018-07-22] MEDS ORDERED: GLUCAGON,HUMAN RECOMB 1 MG INJ IM PRN (02:00)
[2018-07-22] MEDS ORDERED: DEXTROSE 50%-WATER SYRINGE 25 GM/50 ML DOSE IV PRN (02:00)
[2018-07-22] MEDS ORDERED: DEXTROSE 40% GEL 15 GM TUBE X 2 PO PRN (02:00)
[2018-07-22] MEDS ORDERED: DEXTROSE 40% GEL 15 GM TUBE PO PRN (02:00)
[2018-07-22] MEDS ORDERED: DEXTROSE 50%-WATER SYRINGE 12.5 GM/25 ML DOSE IV PRN (02:00)
[2018-07-22] MEDS: CLINDAMYCIN 900 MG/D5W RTU 900 MG/50 ML RTUPB IV SCH ×3 (02:52→18:39)
[2018-07-22] MEDS: OXYCODONE-ACETAMINOPHEN 5-325 MG TABLET PO PRN ×4 (05:20→23:05)
[2018-07-22 06:43] LABS: HEMATOCRIT 22.6 % (36.0-47.0); MEAN CORPUSCULAR VOLUME 85 fl (80-97); PLATELET COUNT 328 10^3/uL (150-450); RED BLOOD COUNT 2.65 10^6/uL (3.72-5.28); RED CELL DISTRIBUTION WIDTH 15.2 % (11.5-14.0); WHITE BLOOD COUNT 13.9 10^3/uL (4.0-10.5)
[2018-07-22 07:13] LABS: HEMOGLOBIN 7.7 g/dL (12.0-15.5)
[2018-07-22 07:37] LABS: ABSOLUTE LYMPHOCYTES# (MANUAL) 1.9 10^3/uL (0.5-4.7); ABSOLUTE MONOCYTES # (MANUAL) 0.3 10^3/uL (0.1-1.4); ABSOLUTE NEUTROPHILS# (MANUAL) 11.5 10^3/uL (1.7-8.2); BAND NEUTROPHILS % (MANUAL) 1 % (3-5); BASOPHILS % (MANUAL) 0 % (0-2); EOSINOPHILS % (MANUAL) 1 % (0-6); LYMPHOCYTES % (MANUAL) 14 % (13-45); METAMYELOCYTES % (MANUAL) 1 % (0); MONOCYTES % (MANUAL) 2 % (3-13); SEGMENTED NEUTROPHILS % (MAN) 79 % (42-78); TOTAL CELLS COUNTED 100
[2018-07-22 07:38] LABS: MYELOCYTES % (MANUAL) 2 % (0)
[2018-07-22 07:43] LABS: PLATELET CLUMPS PRESENT; ROULEAUX SLIGHT
[2018-07-22 07:44] LABS: POLYCHROMASIA SLIGHT; TOXIC GRANULATION 1+
[2018-07-22] MEDS: INSULIN REG, HUMAN 100 UNIT/ML 3 ML VIAL (PYX) SUBCUT PRN ×4 (08:26→23:06)
[2018-07-22] MEDS ORDERED: DIPHENHYDRAMINE HCL 25 MG CAPSULE PO PRN (09:27)
[2018-07-22] MEDS ORDERED: ACETAMINOPHEN 325 MG TABLET PO PRN (09:27)
[2018-07-22] MEDS ORDERED: FUROSEMIDE 20 MG TABLET PO PRN (09:27)
[2018-07-22] MEDS: MAGNESIUM HYDROXIDE SUSP 30 ML UDCUP PO SCH (09:45)
[2018-07-22] MEDS: CEFTRIAXONE 1 GM/D5W RTU 1 GM/50 ML RTUPB IV SCH ×2 (11:01→23:04)
[2018-07-22 14:43] LABS: PATH REVIEW PATHOLOGIST REVIEWED
--- NOTE | 2018-07-22 18:14 | PDOC PROGRESS REPORT ---
Subjective Progress Note for:: 07/22/18 Subjective:: Patient states that she is painful; pain controlled with Percocet. Patient denies chest pain, shortness of breath, fever/chills or nausea/vomiting. She is ambulating and voiding without difficulty. Reason For Visit: INFECTION OF CAESAREAN SECTION OR PERINEAL WOUND Physical Exam - Physical Exam Vital Signs: Temp Pulse Resp BP Pulse Ox 97.7 F 72 18 93/52 L 96 07/22/18 17:29 07/22/18 17:29 07/22/18 17:29 07/22/18 17:29 07/22/18 17:29 Intake & Output 07/21/18 07/22/18 07/23/18 06:59 06:59 06:59 Intake Total 800 330 Output Total 400 Balance 400 330 Weight 130.544 kg General appearance: PRESENT: no acute distress Respiratory exam: PRESENT: clear to auscultation maddy Cardiovascular exam: PRESENT: RRR GI/Abdominal exam: PRESENT: normal bowel sounds, soft Gentrourinary exam: ABSENT: ecchymosis, erythema, lacerations, lesions, scrotal swelling, testicular tenderness, urethral discharge, indwelling catheter, other Result Laboratory Results: 07/22/18 06:18 07/21/18 13:47 07/22/18 07/22/18 06:18 10:37 WBC 13.9 H RBC 2.65 L Hgb 7.7 L Hct 22.6 L MCV 85 MCH 29.0 MCHC 34.0 RDW 15.2 H Plt Count 328 Seg Neutrophils % Not Reportable Lymphocytes % Not Reportable Monocytes % Not Reportable Eosinophils % Not Reportable Basophils % Not Reportable Absolute Neutrophils Not Reportable Absolute Lymphocytes Not Reportable Absolute Monocytes Not Reportable Absolute Eosinophils Not Reportable Absolute Basophils Not Reportable Blood Type O POSITIVE Antibody Screen NEGATIVE Impressions: Abdomen/Pelvis CT 07/21/18 10:44 IMPRESSION: 1. Postoperative findings of recent with extensive fat stranding of the abdomen and pannus, with scattered foci of subcutaneous gas and small foci of gas in the lower uterine segment. There is no definite fluid collection and gas is of uncertain significance in the recent postoperative setting. The abdominal wall and anasarca partially imaged due to large habitus and scanner bore limitation. Targeted ultrasound could be used to further evaluate for localized fluid collection if suspected. 2. Large burden of stool in the colon. 3. Hepatomegaly. Assessment & Plan - Diagnosis (1) Anemia Qualifiers: Anemia type: iron deficiency Iron deficiency anemia type: unspecified iron deficiency Qualified Code(s): D50.9 - Iron deficiency anemia, unspecified Is this a current diagnosis for this admission?: Yes (2) Hypokalemia Is this a current diagnosis for this admission?: Yes (3) Infection of caesarean section or perineal wound Is this a current diagnosis for this admission?: Yes - Time Time Spent with patient: 15-24 minutes - Plan Summary Plan Summary: 1. Replace potassium 2. MIKE hose 3. Blood transfusion of 2 units of packed red blood cells 4. Wound care consultation
--- NOTE | 2018-07-22 19:16 | PDOC CONSULTATION ---
History of Present Illness Admission Date/PCP: 07/21/18 16:11 History of Present Illness: CARMELA CISNEROS is a 38 year old female Past Medical History Cardiac Medical History: Reports: None, Hypertension - on meds Denies: Coronary Artery Disease, Myocardial Infarction Pulmonary Medical History: Reports: None Denies: Asthma, Bronchitis, Chronic Obstructive Pulmonary Disease (COPD), Pneumonia Neurological Medical History: Denies: Seizures Endocrine Medical History: Reports: Diabetes Mellitus Type 1, Diabetes Mellitus Type 2, Obesity GI Medical History: Reports: Gastroesophageal Reflux Disease Musculoskeltal Medical History: Reports: Arthritis - generalized Psychiatric Medical History: Reports: Bipolar Disorder, Depression Hematology: Denies: Anemia Past Surgical History Past Surgical History: Reports: Adenoidectomy, Section - x2, Herniorrhaphy, Orthopedic Surgery - Right Leg Surgery, Tonsillectomy Social History Smoking Status: Former Smoker Frequency of Alcohol Use: Occasional Hx Prescription Drug Abuse: No - Pt denies Family History Family History: Reviewed & Not Pertinent, CAD, DM, Malignancy, Other Parental Family History Reviewed: No Children Family History Reviewed: Unknown Sibling(s) Family History Reviewed.: Unknown Medication/Allergy Home Medications: Carisoprodol 350 mg PO DAILY 05/07/18 Loratadine [Claritin 10 mg Tablet] 10 mg PO DAILY 06/28/18 Valacyclovir HCl [Valtrex 500 mg Tablet] 500 mg PO DAILY 07/07/18 Dextroamphetamine/Amphetamine [Adderall 10 mg Tablet] 10 mg PO BID 07/22/18 Duloxetine HCl [Cymbalta] 30 mg PO BID 07/22/18 Hydrochlorothiazide [Hydrodiuril 25 mg Tablet] 25 mg PO DAILY 07/22/18 Insulin Aspart [Novolog Insulin (Aspart) 100 unit/mL] 10 unit SQ MEALS 07/22/18 Oxcarbazepine [Trileptal 150 mg Tablet] 150 mg PO DAILY 07/22/18 Allergies/Adverse Reactions: amoxicillin Allergy (Verified 07/21/18 09:36) oxycodone [From OxyContin] Allergy (Verified 07/21/18 09:36) Nausea Penicillins Allergy (Verified 07/21/18 09:36) Physical Exam Vital Signs: Temp Pulse Resp BP Pulse Ox 97.7 F 72 18 93/52 L 96 07/22/18 17:29 07/22/18 17:29 07/22/18 17:29 07/22/18 17:29 07/22/18 17:29 Intake & Output 07/21/18 07/22/18 07/23/18 06:59 06:59 06:59 Intake Total 800 710 Output Total 400 Balance 400 710 Weight 130.544 kg General appearance: PRESENT: no acute distress Head exam: PRESENT: atraumatic, normocephalic Teeth exam: PRESENT: poor dentation Neck exam: PRESENT: full ROM Respiratory exam: PRESENT: clear to auscultation maddy, symmetrical, unlabored Cardiovascular exam: PRESENT: RRR GI/Abdominal exam: PRESENT: soft - lower transverse incision just above the mons pubis with some surrounding cellulitis and lymphedema secondary to the hanging pannus would is open on the rt lateral side with serous drainage ' Extremities exam: PRESENT: full ROM Musculoskeletal exam: PRESENT: full ROM Neurological exam: PRESENT: alert, awake, oriented to time, oriented to situation Psychiatric exam: PRESENT: appropriate affect Results Laboratory Results: 07/22/18 06:18 07/21/18 13:47 07/22/18 07/22/18 06:18 10:37 WBC 13.9 H RBC 2.65 L Hgb 7.7 L Hct 22.6 L MCV 85 MCH 29.0 MCHC 34.0 RDW 15.2 H Plt Count 328 Seg Neutrophils % Not Reportable Lymphocytes % Not Reportable Monocytes % Not Reportable Eosinophils % Not Reportable Basophils % Not Reportable Absolute Neutrophils Not Reportable Absolute Lymphocytes Not Reportable Absolute Monocytes Not Reportable Absolute Eosinophils Not Reportable Absolute Basophils Not Reportable Blood Type O POSITIVE Antibody Screen NEGATIVE Impressions: Abdomen/Pelvis CT 07/21/18 10:44 IMPRESSION: 1. Postoperative findings of recent with extensive fat stranding of the abdomen and pannus, with scattered foci of subcutaneous gas and small foci of gas in the lower uterine segment. There is no definite fluid collection and gas is of uncertain significance in the recent postoperative setting. The abdominal wall and anasarca partially imaged due to large habitus and scanner bore limitation. Targeted ultrasound could be used to further evaluate for localized fluid collection if suspected. 2. Large burden of stool in the colon. 3. Hepatomegaly. 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 wound cont iv abx for the possible celllulitis and erythema of the lower abd wall please reconsult surgery as necessary.
[2018-07-23] MEDS: CLINDAMYCIN 900 MG/D5W RTU 900 MG/50 ML RTUPB IV SCH ×3 (01:35→17:28)
[2018-07-23] MEDS: IBUPROFEN 800 MG TABLET PO PRN ×3 (02:45→19:44)
[2018-07-23] MEDS: OXYCODONE-ACETAMINOPHEN 5-325 MG TABLET PO PRN ×3 (06:54→19:44)
[2018-07-23 07:35] LABS: HEMATOCRIT 25.4 % (36.0-47.0); HEMOGLOBIN 8.6 g/dL (12.0-15.5); MEAN CORPUSCULAR HEMOGLOBIN 28.6 pg (27.0-33.4); MEAN CORPUSCULAR HGB CONC 33.8 g/dL (32.0-36.0); MEAN CORPUSCULAR VOLUME 85 fl (80-97); PLATELET COUNT 396 10^3/uL (150-450); RED CELL DISTRIBUTION WIDTH 15.1 % (11.5-14.0); WHITE BLOOD COUNT 14.8 10^3/uL (4.0-10.5)
[2018-07-23 07:56] LABS: ABSOLUTE LYMPHOCYTES# (MANUAL) 2.2 10^3/uL (0.5-4.7); ABSOLUTE NEUTROPHILS# (MANUAL) 11.4 10^3/uL (1.7-8.2); ANISOCYTOSIS 1+; BAND NEUTROPHILS % (MANUAL) 3 % (3-5); BASOPHILS % (MANUAL) 0 % (0-2); EOSINOPHILS % (MANUAL) 1 % (0-6); LYMPHOCYTES % (MANUAL) 15 % (13-45); MONOCYTES % (MANUAL) 7 % (3-13); PLATELET COMMENT ADEQUATE; SEGMENTED NEUTROPHILS % (MAN) 74 % (42-78); TOTAL CELLS COUNTED 100; TOXIC GRANULATION SLIGHT; TOXIC VACUOLATION PRESENT
[2018-07-23] MEDS: POTASSIUM CHLORIDE 10 MEQ CAPSULE.ER PO SCH ×2 (09:18→09:19)
[2018-07-23] MEDS: MAGNESIUM HYDROXIDE SUSP 30 ML UDCUP PO SCH (09:21)
[2018-07-23] MEDS: CEFTRIAXONE 1 GM/D5W RTU 1 GM/50 ML RTUPB IV SCH ×2 (10:20→22:56)
--- NOTE | 2018-07-23 15:12 | PSYCHOLOGICAL NOTE ---
Psych Note - Psych Note Date seen by psych provider: 07/23/18 Time seen by psych provider: 14:00 Psych Note: Reason for consult: Medication recommendations Patient disclosed that she is not worried about her Adderall right now because she is trying to get a hold of the [employer]. When asked for clarification she reports that she just received a phone call message that the [employer] called and said that she was a winner. She is unable to call them back without a phone card. Patient is highly agitated at this stating " I won a the lotto and need to claim it." Clinician asked to hear the recording, patient played the recording. Recording clearly states that someone is calling identifying themselves as a [employer] franchise sales representative and that the patient has won and needs call back. Clinician asked if the nelson ent ever entered into the drawing. She confirms she did online multiple times; however, is concerned because she was homeless so she would have never received mailing notification. Clinician repressed concern that this may not be an entirely accurate recording and warned the patient to be careful. Patient agreed and calm down. She reports that she is now currently living in the apartment that she had been recently waiting for. She states her address is now [address] [place] [address]. She confirms she just had her baby and it was a little girl. She reports that today the feeding tube was taken out and the baby is now being bottle-fed. She states that she gave at [facility] and the baby is still currently located in the hospital at [facility]. When asked about her mental health providers, she reports that she still goes to [facility] and just saw Dina England the day before coming into the hospital. She reports that she grabbed all of her medications but her Adderall on the way to the hospital; "they keep complaining of me sleeping too much but I cannot stay awake without my Adderall." She denies any thoughts of wanting to harm herself or others however expresses anger at "the people I was dating." Patient is alert and orientated to person, place, time and circumstance. Mood is irritable with congruent affect. Patient denies current suicidal and homicidal ideation. Delusions are absent behaviors congruent with an intact reality based presentation i.e. organized linear thought process. Eye contact is fair. Conversational speech is within normal rate tone and prosody. In tellectual abilities appear to be within the average range. Attention and concentration are fair. Insight, judgment, impulse control are fair. [place] controlled substance abuse reporting system indicates patient received a prescription from her provider at [facility] on 07/20/2018 for Adderall 10 mg twice daily. Patient filled her prescriptions at [facility] on [address]. Due to it being Wednesday afternoon this pharmacy is closed and the behavioral health team is unable to verify full medication list. No medication recommendations at this time Diagnosis: 300.00 (F41.9) unspecified anxiety disorder per history provided by the patient 296.80 (F31.9) unspecified bipolar disorder per history provided by the patient V60.0 (Z59.0) Homelessness; chronic per history- patient reports she is now living at [address] [place] [address] Impression/Plan: Patient is cleared from acute psychiatric services. Patient does not meet IVC criteria per [facility] 122[facility]. This patient is well known to this clinician and department. Patient is historically noncompliant with behaviors in an attempt at achieving secondary gain (ie drug seeking or housing). There has been multiple attempts to assist the patient from multiple agencies; however, she continued to use emergency services in an attempt to meet her social/housing needs. She has been in contact with multiple community programs in attempt for continued services and refuses to follow up as requested (ie [facility], [facility], [facility], and [facility], domestic abuse usp, disaster recovery center, homeless usp). She had an outpatient mental health provider with [facility]. She reports she just went to [facility] the day before she came to the hospital and received her medications. [place] controlled substance report indicates the patient received a prescription from [facility] on 07/20/2018 for Adderall 10 mg twice daily. Historically she reports she has attempted to harm herself then later confirms she reported the information and was "only thinking" about. Patient has been chronic homeless; however, she reports she current has housing. Patient is recommended to continue working with [facility] her outpatient mental health provider. Nicholas was consulted on the care and management of this patent.
[2018-07-24] MEDS: CLINDAMYCIN 900 MG/D5W RTU 900 MG/50 ML RTUPB IV SCH (01:12)
[2018-07-24] MEDS: OXYCODONE-ACETAMINOPHEN 5-325 MG TABLET PO PRN ×2 (01:12→07:49)
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
[2018-07-24] MEDS ORDERED: NA PHOS,M-B/NA PHOS,DI-BA (ADULT) 133 ML ENEMA PR ONE (07:00)
[2018-07-24 07:32] LABS: HEMATOCRIT 25.1 % (36.0-47.0); HEMOGLOBIN 8.6 g/dL (12.0-15.5); MEAN CORPUSCULAR HEMOGLOBIN 28.7 pg (27.0-33.4); MEAN CORPUSCULAR HGB CONC 34.2 g/dL (32.0-36.0); MEAN CORPUSCULAR VOLUME 84 fl (80-97); PLATELET COUNT 392 10^3/uL (150-450); RED BLOOD COUNT 2.99 10^6/uL (3.72-5.28); RED CELL DISTRIBUTION WIDTH 15.3 % (11.5-14.0); WHITE BLOOD COUNT 13.7 10^3/uL (4.0-10.5)
[2018-07-24 07:38] LABS: ALANINE AMINOTRANSFERASE 26 U/L (9-52); ALBUMIN 2.3 g/dL (3.5-5.0); ALKALINE PHOSPHATASE 86 U/L (38-126); ANION GAP 5 (5-19); ASPARTATE AMINO TRANSFERASE 11 U/L (14-36); BILIRUBIN,DIRECT 0.2 mg/dL (0.0-0.4); BILIRUBIN,TOTAL 0.2 mg/dL (0.2-1.3); BLOOD UREA NITROGEN 18 mg/dL (7-20); CALCIUM 8.5 mg/dL (8.4-10.2); CARBON DIOXIDE 28 mmol/L (22-30); CHLORIDE 104 mmol/L (98-107); GLUCOSE 123 mg/dL (75-110); POTASSIUM 3.6 mmol/L (3.6-5.0); SODIUM 137.4 mmol/L (137-145); TOTAL PROTEIN 4.7 g/dL (6.3-8.2)
[2018-07-24 07:57] LABS: ABSOLUTE LYMPHOCYTES# (MANUAL) 2.9 10^3/uL (0.5-4.7); ABSOLUTE MONOCYTES # (MANUAL) 0.3 10^3/uL (0.1-1.4); ABSOLUTE NEUTROPHILS# (MANUAL) 10.3 10^3/uL (1.7-8.2); BASOPHILS % (MANUAL) 0 % (0-2); EOSINOPHILS % (MANUAL) 2 % (0-6); LYMPHOCYTES % (MANUAL) 21 % (13-45); METAMYELOCYTES % (MANUAL) 2 % (0); MONOCYTES % (MANUAL) 2 % (3-13); SEGMENTED NEUTROPHILS % (MAN) 73 % (42-78); TOTAL CELLS COUNTED 100
[2018-07-24 07:59] LABS: ANISOCYTOSIS SLIGHT; OVALOCYTES SLIGHT; PLATELET COMMENT ADEQUATE; PLATELET LARGE PRESENT; POIKILOCYTOSIS SLIGHT
--- NOTE | 2018-07-24 09:09 | PDOC DISCHARGE SUMMARY ---
General - Admit/Disc Date/PCP Admission Date/Primary Care Provider: 07/21/18 16:11 Discharge Date: 07/24/18 - Discharge Diagnosis (1) Hypokalemia Is this a current diagnosis for this admission?: Yes (2) Infection of caesarean section or perineal wound Is this a current diagnosis for this admission?: Yes (3) Anemia Is this a current diagnosis for this admission?: Yes (4) Type 2 diabetes mellitus Is this a current diagnosis for this admission?: Yes (5) Morbid obesity Is this a current diagnosis for this admission?: Yes - Additional Information Discharge Diet: Diabetic Discharge Activity: No Lifting Over 10 Pounds, Pelvic Rest, No tub bath Home Medications: Carisoprodol 350 mg PO DAILY 05/07/18 Loratadine [Claritin 10 mg Tablet] 10 mg PO DAILY 06/28/18 Dextroamphetamine/Amphetamine [Adderall 10 mg Tablet] 10 mg PO BID 07/22/18 Duloxetine HCl [Cymbalta] 30 mg PO BID 07/22/18 Hydrochlorothiazide [Hydrodiuril 25 mg Tablet] 25 mg PO DAILY 07/22/18 Insulin Aspart [Novolog Insulin (Aspart) 100 unit/mL] 10 unit SQ MEALS 07/22/18 Oxcarbazepine [Trileptal 150 mg Tablet] 150 mg PO DAILY 07/22/18 History of Present Illness History of Present Illness: CARMELA CISNEROS is a 38 year old female,who underwent a section at [place], approximately 1 week ago, presented to the emergency department complaining of incisional pain and drainage. Patient had an emergent section at 30 weeks. Her is currently in the NICU at [facility]. She is a type II diabetic with poor blood sugar control. He obese with a large pannus and cannot see her incision. She has poor hygiene. Hospital Course Hospital Course: The hospital course was essentially uneventful, but this patient was requesting pain medication every 4 hours. She is a type II diabetic and her blood sugars were poorly controlled, which was managed with a sliding scale. She uses Levemir and NovoLog at home. Her incisional drainage was serous upon admission which progressed to a more purulent type of drainage. Her wound culture grew beta strep. She was given Rocephin and clindamycin IV, daily. Wound care was consulted which recommended that the wound would not be opened and allow it to continue to drain. This patient also has psychiatric issues, in which a consult was also obtained. Her psychiatric medications were reinitiated. Patient has an appointment with [facility], on Wednesday. Physical Exam - Physical Exam Vital Signs: Temp Pulse Resp BP Pulse Ox 97.3 F 78 16 121/57 L 100 07/24/18 07:52 07/24/18 07:52 07/24/18 07:52 07/24/18 07:52 07/24/18 07:52 Intake & Output 07/23/18 07/24/18 07/25/18 06:59 06:59 06:59 Intake Total 1470 1730 Balance 1470 1730 Weight 130.5 kg 135 kg General appearance: PRESENT: no acute distress Respiratory exam: PRESENT: clear to auscultation maddy Cardiovascular exam: PRESENT: RRR GI/Abdominal exam: PRESENT: normal bowel sounds, soft - incision: Less drainage; resolving superficial cellulitis Extremities exam: ABSENT: calf tenderness, clubbing, full ROM, joint swelling, pedal edema, tenderness, +1 edema, +2 edema, other Result Laboratory Results: 07/24/18 06:53 07/24/18 06:53 07/24/18 07/24/18 06:53 06:53 WBC 13.7 H RBC 2.99 L Hgb 8.6 L Hct 25.1 L MCV 84 MCH 28.7 MCHC 34.2 RDW 15.3 H Plt Count 392 Seg Neutrophils % Not Reportable Lymphocytes % Not Reportable Monocytes % Not Reportable Eosinophils % Not Reportable Basophils % Not Reportable Absolute Neutrophils Not Reportable Absolute Lymphocytes Not Reportable Absolute Monocytes Not Reportable Absolute Eosinophils Not Reportable Absolute Basophils Not Reportable Sodium 137.4 Potassium 3.6 Chloride 104 Carbon Dioxide 28 Anion Gap 5 BUN 18 Creatinine 0.66 Est GFR ( Amer) > 60 Est GFR (Non-Af Amer) > 60 Glucose 123 H Calcium 8.5 Total Bilirubin 0.2 AST 11 L ALT 26 Alkaline Phosphatase 86 Total Protein 4.7 L Albumin 2.3 L 07/21/18 12:06 Abdomen - Incision Site Gram Stain - Final 07/21/18 12:06 Abdomen - Incision Site Wound Culture - Final Group B Beta Streptococcus Skin Alicia Impressions: Abdomen/Pelvis CT 07/21/18 10:44 IMPRESSION: 1. Postoperative findings of recent with extensive fat stranding of the abdomen and pannus, with scattered foci of subcutaneous gas and small foci of gas in the lower uterine segment. There is no definite fluid collection and gas is of uncertain significance in the recent postoperative setting. The abdominal wall and anasarca partially imaged due to large habitus and scanner bore limitation. Targeted ultrasound could be used to further evaluate for localized fluid collection if suspected. 2. Large burden of stool in the colon. 3. Hepatomegaly. Plan Discharge Plan: 1. discharge home today 2. Prescription is given for pain medication, antibiotics and diabetic supplies 3. Follow-up with [facility]GER as soon as possible--she wishes to follow-up in [place] 4. Follow-up with [facility], on Wednesday as scheduled Time Spent: Greater than 30 Minutes - Discussed discharge instructions and follow-up
[2018-07-24] MEDS: POTASSIUM CHLORIDE 10 MEQ CAPSULE.ER PO SCH (10:04)
[2018-07-24] MEDS: MAGNESIUM HYDROXIDE SUSP 30 ML UDCUP PO SCH (10:04)
[2018-07-24] MEDS: IBUPROFEN 800 MG TABLET PO PRN (10:05)
[2018-07-24 10:32] VITALS: BP 112/64
== END 2018-07-24 10:50 | disposition home or self-care (01) | DRG 776 ==
LOC: ER 09:34 → EH 16:11 → 2N 17:18
PROVIDERS: ADMIT Obstetrics & Gynecology Gynecology; ATTEND Obstetrics & Gynecology Gynecology
PROC: 30233N1 Transfusion of Nonautologous Red Blood Cells into Peripheral Vein, Percutaneous Approach (ICD-10-PCS; principal; 2018-07-22)
DX: O86.01 Infection of obstetric surgical wound, superficial incisional site (principal); O24.13 Pre-existing type 2 diabetes mellitus, in the puerperium; O90.89 Other complications of the puerperium, not elsewhere classified; E11.9 Type 2 diabetes mellitus without complications; O99.215 Obesity complicating the puerperium; E66.01 Morbid (severe) obesity due to excess calories; E87.6 Hypokalemia; O90.81 Anemia of the puerperium; R46.0 Very low level of personal hygiene; B95.1 Streptococcus, group B, as the cause of diseases classified elsewhere; O10.93 Unspecified pre-existing hypertension complicating the puerperium; D50.9 Iron deficiency anemia, unspecified; O9A.5 Psychological abuse complicating pregnancy, childbirth and the puerperium; Z87.891 Personal history of nicotine dependence; Z79.899 Other long term (current) drug therapy; Z79.4 Long term (current) use of insulin
CPT/HCPCS: 36415; 36430; 51702; 74177; 80053; 81001; 82962; 83605; 83690; 85025; 86850; 86900; 86901; 86920; 87040; 87070; 87077; 87205; 96365; 96375; 99285; J0696; J1815; J2270; J2405; J3490; P9016

== ENCOUNTER 2018-08-13 01:27 | Emergency (ER) | payer MEDICARE, MEDICAID ==
[2018-08-13 04:32] LABS: ABSOLUTE BASOPHILS # (AUTO) 0.1 10^3/uL (0.0-0.2); ABSOLUTE EOSINOPHILS # (AUTO) 0.2 10^3/uL (0.0-0.6); ABSOLUTE MONOCYTES (AUTO) 0.6 10^3/uL (0.1-1.4); ABSOLUTE NEUT (AUTO) 5.8 10^3/uL (1.7-8.2); BASOPHILS % (AUTO) 0.8 % (0-2); EOSINOPHILS % (AUTO) 1.8 % (0-6); HEMATOCRIT 33.1 % (36.0-47.0); HEMOGLOBIN 11.2 g/dL (12.0-15.5); LYMPHOCYTES % (AUTO) 37.7 % (13-45); MEAN CORPUSCULAR HEMOGLOBIN 28.4 pg (27.0-33.4); MEAN CORPUSCULAR HGB CONC 33.8 g/dL (32.0-36.0); MEAN CORPUSCULAR VOLUME 84 fl (80-97); MONOCYTES % (AUTO) 5.9 % (3-13); PLATELET COUNT 315 10^3/uL (150-450); RED BLOOD COUNT 3.94 10^6/uL (3.72-5.28); RED CELL DISTRIBUTION WIDTH 15.1 % (11.5-14.0); SEGMENTED NEUTROPHILS % (AUTO) 53.8 % (42-78); TOTAL CELLS COUNTED % (AUTO) 100 %; WHITE BLOOD COUNT 10.7 10^3/uL (4.0-10.5)
[2018-08-13 04:50] LABS: T.VAGINALIS (WET MOUNT) NO TRICHOMONAS SEEN; WBCS (WET MOUNT) NO WBCS SEEN; YEAST (WET MOUNT) NO YEAST SEEN
--- NOTE | 2018-08-13 04:53 | ER Document Report ---
ED General - General Chief Complaint: Abdominal Pain Stated Complaint: ABDOMINAL PAIN Time Seen by Provider: 08/13/18 03:47 Primary Care Provider: MARK GAN MD [Primary Care Provider] - Follow up as needed Mode of Arrival: Medic Information source: Patient Notes: Patient is a 38-year-old female who is well-known to our facility presenting with chief complaint of possible infection at her site as well as abnormal vaginal discharge. She states she had a done approximately 3 weeks ago at [facility]. She states she has had an infected incision since then. She states she has been taken back to surgery had the wound debrided and has been taking antibiotics. She most recently saw her surgeon 2 days ago and will had her antibiotic changed to doxycycline 100 mg p.o. twice daily. Patient reports that she is supposed to have wet-to-dry dressing changes however she states that her wound care nurse did not show up yesterday so she had to change the dressing on her own. Patient is unsure if the wound has worsened but states that because the dressing did not get changed appropriately she thinks it may be infected. Patient also reports that she thinks she was exposed to chlamydia as she had unprotected sexual intercourse approximately 1 week ago. She reports pain in the vagina and a foul discharge. She denies any fevers, nausea, vomiting or diarrhea. TRAVEL OUTSIDE OF THE [place] IN LAST 30 DAYS: No COUNTRY TRAVELED TO/FROM: [place] - Related Data Allergies/Adverse Reactions: amoxicillin Allergy (Verified 07/21/18 09:36) oxycodone [From OxyContin] Allergy (Verified 07/21/18 09:36) Nausea Penicillins Allergy (Verified 07/21/18 09:36) Past Medical History - General Information source: Patient - Social History Smoking Status: Never Smoker Chew tobacco use (# tins/day): No Frequency of alcohol use: None Drug Abuse: None Family History: Reviewed & Not Pertinent, CAD, DM, Malignancy, Other Patient has suicidal ideation: No Patient has homicidal ideation: No - Past Medical History Cardiac Medical History: Reports: Hx Hypertension - on meds Denies: Hx Coronary Artery Disease, Hx Heart Attack Pulmonary Medical History: Denies: Hx Asthma, Hx Bronchitis, Hx COPD, Hx Pneumonia Neurological Medical History: Denies: Hx Cerebrovascular Accident, Hx Seizures Endocrine Medical History: Reports: Hx Diabetes Mellitus Type 1, Hx Diabetes Mellitus Type 2 Renal/ Medical History: Reports: Hx Pelvic Inflammatory Disease. Denies: Hx Peritoneal Dialysis GI Medical History: Reports: Hx Gastroesophageal Reflux Disease Musculoskeletal Medical History: Reports Hx Arthritis - generalized Psychiatric Medical History: Reports: Hx Bipolar Disorder, Hx Depression Past Surgical History: Reports: Hx Abdominal Surgery - hernia repair, Hx Koffi oidectomy, Hx Section - x2, Hx Gynecologic Surgery, Hx Herniorrhaphy, Hx Orthopedic Surgery - Right Leg Surgery, Hx Tonsillectomy - Immunizations Immunizations up to date: No Hx Diphtheria, Pertussis, Tetanus Vaccination: Yes Hx Pneumococcal Vaccination: 07/12/00 Review of Systems - Review of Systems Constitutional: denies: Chills, Fever Cardiovascular: No symptoms reported Respiratory: No symptoms reported Gastrointestinal: Abdominal pain - At incision site Genitourinary: Dysuria, Frequency Female Genitourinary: Vaginal discharge, Vaginal odor Musculoskeletal: No symptoms reported Skin: See HPI Hematologic/Lymphatic: No symptoms reported Neurological/Psychological: No symptoms reported Physical Exam - Vital signs Vitals: Temp Pulse Resp BP Pulse Ox 98.3 F 102 H 18 138/116 H 99 08/13/18 01:46 08/13/18 01:46 08/13/18 01:46 08/13/18 01:46 08/13/18 01:46 - Notes Notes: PHYSICAL EXAMINATION: GENERAL: Well-nourished and in no acute distress. HEAD: Atraumatic, normocephalic. EYES: Pupils equal round and reactive to light, extraocular movements intact, conjunctiva are normal. ENT: Nares patent, oropharynx clear without exudates. Moist mucous membranes. NECK: Normal range of motion, supple without lymphadenopathy LUNGS: Breath sounds clear to auscultation bilaterally and equal. No wheezes rales or rhonchi. HEART: Regular rate and rhythm without murmurs ABDOMEN: Obese abdomen with a large pannus. Low transverse incision that is open with small amount of yellowish green drainage and mild surrounding erythema. Female : No CVA tenderness. Normal external genitalia, no cervical motion tenderness, no adnexal tenderness, scant yellowish white discharge from the cervical os. Musculoskeletal: Normal range of motion, no pitting or edema. No cyanosis. NEUROLOGICAL: Cranial nerves grossly intact. Normal speech, normal gait. Normal sensory, motor exams PSYCH: Normal mood, normal affect. SKIN: Warm, Dry, normal turgor, no rashes or lesions noted. Course - Re-evaluation Re-evalutation: 08/13/18 04:54 CBC is unremarkable. CMP pending. No bacteria noted on the wet mount. Chlamydia and gonorrhea are still pending. incision is partially open (approximately 5cm) as she states it was left that way apparently by her most recent surgical procedure. Patient has seen her surgeon as recent as 2 days ago at which time he changed her p.o. antibiotics to doxycycline. She states that she just got this medication filled yesterday. She has not had any fevers or increased abdominal pain. She does state that there is pain at the incisional site however I would expect that given the recent timing of the surgery. 08/13/18 05:45 Nursing staff states patient has been back and forth to the bathroom but has been unable to give us an appropriate urine sample. Patient has been very demanding yelling out from her around but the nurses need to come to change her dressing immediately. When I went back to the room to discuss patient's test results patient had left the room. I called out to the front end web designer and the nurse informed me that the patient was leaving and in the process of getting in a taxi. The patient was asked to come back to the room but she did not and opted to eloped from the emergency department. - Vital Signs Vital signs: Temp Pulse Resp BP Pulse Ox 98.4 F 102 H 18 128/91 H 98 08/13/18 04:18 08/13/18 01:46 08/13/18 01:46 08/13/18 04:18 08/13/18 04:18 - Laboratory Result Diagrams: 08/13/18 04:15 08/13/18 04:15 Laboratory results interpreted by me: 08/13/18 08/13/18 04:15 04:15 WBC 10.7 H Hgb 11.2 L Hct 33.1 L RDW 15.1 H Potassium 3.4 L Glucose 120 H Discharge - Discharge Clinical Impression: Eloped from emergency department, Wound infection after surgery Condition: Stable Disposition: ELOPED Referrals: MARK GAN MD [Primary Care Provider] - Follow up as needed
[2018-08-13 04:54] LABS: ALANINE AMINOTRANSFERASE 24 U/L (9-52); ALKALINE PHOSPHATASE 94 U/L (38-126); ANION GAP 12 (5-19); ASPARTATE AMINO TRANSFERASE 25 U/L (14-36); BILIRUBIN,DIRECT 0.4 mg/dL (0.0-0.4); BILIRUBIN,TOTAL 0.6 mg/dL (0.2-1.3); BLOOD UREA NITROGEN 18 mg/dL (7-20); CALCIUM 9.3 mg/dL (8.4-10.2); CARBON DIOXIDE 25 mmol/L (22-30); CHLORIDE 103 mmol/L (98-107); GLUCOSE 120 mg/dL (75-110); POTASSIUM 3.4 mmol/L (3.6-5.0); SODIUM 139.7 mmol/L (137-145); TOTAL PROTEIN 7.1 g/dL (6.3-8.2)
[2018-08-13 04:58] VITALS: BP 128/91
[2018-08-13 06:16] LABS: CHLAM PCR NOT DETECTED (NOT DETECT); GON PCR NOT DETECTED (NOT DETECT)
== END 2018-08-13 06:05 | disposition left against medical advice (07) ==
LOC: ER 01:27
DX: Z53.21 Procedure and treatment not carried out due to patient leaving prior to being seen by health care provider (principal); O86.00 Infection of obstetric surgical wound, unspecified; R10.9 Unspecified abdominal pain; N89.8 Other specified noninflammatory disorders of vagina; Z98.890 Other specified postprocedural states; Z20.2 Contact with and (suspected) exposure to infections with a predominantly sexual mode of transmission; I10 Essential (primary) hypertension; Z79.899 Other long term (current) drug therapy; E11.9 Type 2 diabetes mellitus without complications
CPT/HCPCS: 36415; 80053; 85025; 87210; 87491; 87591; 99281

== ENCOUNTER 2018-09-18 17:16 | Emergency (ER) | payer MEDICARE, MEDICAID ==
[2018-09-18 17:34] VITALS: BP 151/107
--- NOTE | 2018-09-18 19:30 | ER Document Report ---
ED Medical Screen (RME) - General Chief Complaint: Abdominal Pain Stated Complaint: ABDOMINAL PAIN Time Seen by Provider: 09/18/18 19:28 Primary Care Provider: MARK GAN MD [Primary Care Provider] - Follow up as needed Mode of Arrival: Medic Information source: Patient TRAVEL OUTSIDE OF THE [place] IN LAST 30 DAYS: No COUNTRY TRAVELED TO/FROM: [facility] Patient complains to provider of: low abd pain Onset: Yesterday - pt. with abd pain and vaaginal d/c ("I think I have chla mydia") for the past few days - Related Data Allergies/Adverse Reactions: amoxicillin Allergy (Verified 07/21/18 09:36) oxycodone [From OxyContin] Allergy (Verified 07/21/18 09:36) Nausea Penicillins Allergy (Verified 07/21/18 09:36) Past Medical History - Past Medical History Cardiac Medical History: Reports: Hx Hypertension - on meds Denies: Hx Coronary Artery Disease, Hx Heart Attack Pulmonary Medical History: Denies: Hx Asthma, Hx Bronchitis, Hx COPD, Hx Pneumonia Neurological Medical History: Denies: Hx Cerebrovascular Accident, Hx Seizures Endocrine Medical History: Reports: Hx Diabetes Mellitus Type 1, Hx Diabetes Mellitus Type 2 Renal/ Medical History: Reports: Hx Pelvic Inflammatory Disease. Denies: Hx Peritoneal Dialysis GI Medical History: Reports: Hx Gastroesophageal Reflux Disease Musculoskeltal Medical History: Reports Hx Arthritis - generalized Psychiatric Medical History: Reports: Hx Bipolar Disorder, Hx Depression Past Surgical History: Reports: Hx Abdominal Surgery - hernia repair, Hx Adenoidectomy, Hx Section - x2, Hx Gynecologic Surgery, Hx Herniorrhaphy, Hx Orthopedic Surgery - Right Leg Surgery, Hx Tonsillectomy - Immunizations Immunizations up to date: No Hx Diphtheria, Pertussis, Tetanus Vaccination: Yes Physical Exam - Vital signs Vitals: Temp Pulse Resp BP Pulse Ox 98.0 F 110 H 16 151/107 H 98 09/18/18 17:29 09/18/18 17:29 09/18/18 17:29 09/18/18 17:29 09/18/18 17:29 Course - Vital Signs Vital signs: Temp Pulse Resp BP Pulse Ox 98.0 F 110 H 16 151/107 H 98 09/18/18 17:29 09/18/18 17:29 09/18/18 17:29 09/18/18 17:29 09/18/18 17:29 Doctor's Discharge - Discharge Referrals: MARK GAN MD [Primary Care Provider] - Follow up as needed
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
[2018-09-19 00:07] LABS: APPEARANCE,URINE SLIGHTLY-CLOUDY; BILIRUBIN,URINE NEGATIVE (NEGATIVE); COLOR,URINE YELLOW; GLUCOSE, URINE NEGATIVE (NEGATIVE); KETONES,URINE NEGATIVE (NEGATIVE); LEUKOCYTE ESTERASE,URINE NEGATIVE (NEGATIVE); NITRITE,URINE NEGATIVE (NEGATIVE); PROTEIN,URINE NEGATIVE (NEGATIVE); URINE SPECIFIC GRAVITY 1.016; UROBILINOGEN,URINE NEGATIVE mg/dL (<2.0)
[2018-09-19 03:14] LABS: CHLAM PCR NOT DETECTED (NOT DETECT); GON PCR NOT DETECTED (NOT DETECT)
== END 2018-09-19 01:42 | disposition home or self-care (01) ==
LOC: ER 17:16
DX: R30.0 Dysuria (principal); R10.30 Lower abdominal pain, unspecified; R00.0 Tachycardia, unspecified; N89.8 Other specified noninflammatory disorders of vagina; I10 Essential (primary) hypertension; Z88.0 Allergy status to penicillin; Z88.6 Allergy status to analgesic agent
CPT/HCPCS: 81001; 81025; 87491; 87591; 99283

== ENCOUNTER 2018-09-28 17:37 | Emergency (ER) | payer MEDICARE, MEDICAID ==
[2018-09-28 17:49] VITALS: BP 148/87
--- NOTE | 2018-09-28 18:04 | ER Document Report ---
ED General - General Chief Complaint: Dizziness Stated Complaint: DIZZY Time Seen by Provider: 09/28/18 17:57 Primary Care Provider: MARK GAN MD [Primary Care Provider] - Follow up as needed Mode of Arrival: Ambulatory Information source: Patient, [facility] Records Notes: This 38-year-old female patient with multiple psychiatric comorbidities complains of pelvic pain, not feeling well, her vaginal area swollen for 2 months. She did have a on 07/14/2018. She complains of feeling dizzy and confused for several months but it is getting worse. Her doctor did just start her on Klonopin. TRAVEL OUTSIDE OF THE [place] IN LAST 30 DAYS: No COUNTRY TRAVELED TO/FROM: [place] - Related Data Allergies/Adverse Reactions: amoxicillin Allergy (Verified 09/28/18 17:53) oxycodone [From OxyContin] Allergy (Verified 09/28/18 17:53) Nausea Penicillins Allergy (Verified 09/28/18 17:53) Past Medical History - General Information source: Patient, [facility] Records - Social History Smoking Status: Never Smoker Cigarette use (# per day): No Chew tobacco use (# tins/day): No Smoking Education Provided: No Frequency of alcohol use: None Drug Abuse: None Occupation: Unemployed Lives with: Family Family History: Reviewed & Not Pertinent, CAD, DM, Malignancy, Other Patient has suicidal ideation: No Patient has homicidal ideation: No - Past Medical History Cardiac Medical History: Reports: Hx Hypertension - on meds Endocrine Medical History: Reports: Hx Diabetes Mellitus Type 2 Renal/ Medical History: Reports: Hx Pelvic Inflammatory Disease GI Medical History: Reports: Hx Gastroesophageal Reflux Disease Musculoskeletal Medical History: Reports Hx Arthritis - generalized Psychiatric Medical History: Reports: Hx Bipolar Disorder, Hx Depression Past Surgical History: Reports: Hx Abdominal Surgery - hernia repair, Hx Adenoidectomy, Hx Section - x2, Hx Gynecologic Surgery, Hx Herniorrhaphy, Hx Orthopedic Surgery - Right Leg Surgery, Hx Tonsillectomy - Immunizations Immunizations up to date: No Hx Diphtheria, Pertussis, Tetanus Vaccination: Yes Hx Pneumococcal Vaccination: 07/12/00 Review of Systems - Review of Systems Constitutional: No symptoms reported EENT: No symptoms reported Cardiovascular: No symptoms reported Respiratory: No symptoms reported Gastrointestinal: No symptoms reported Genitourinary: No symptoms reported Female Genitourinary: See HPI Musculoskeletal: No symptoms reported Skin: No symptoms reported Hematologic/Lymphatic: No symptoms reported Neurological/Psychological: Confusion, Other - Dizziness Physical Exam - Vital signs Vitals: Temp Pulse Resp BP Pulse Ox 97.7 F 80 20 148/87 H 98 09/28/18 17:47 09/28/18 17:47 09/28/18 17:47 09/28/18 17:47 09/28/18 17:47 - General General appearance: Appears well, Alert - HEENT Head: Normocephalic, Atraumatic Eyes: Normal Pupils: PERRL - Respiratory Respiratory status: No respiratory distress - Cardiovascular Rhythm: Regular - Abdominal Inspection: Normal - Genitourinary External exam: Other - Patient did not remain long enough for movement into a room to allow adequate exam of her pelvic complaint. - Back Back: Normal - Extremities General upper extremity: Normal inspection General lower extremity: Normal inspection - Neurological Neuro grossly intact: Yes - Psychological Associated symptoms: Normal affect, Normal mood - Skin Skin Temperature: Warm Skin Moisture: Dry Skin Color: Normal Course - Re-evaluation Re-evalutation: 09/28/18 18:03 After doing a history and physical on patient, she reports that she has to be at a NA meeting in 5 minutes and needs to leave. She states she can follow-up with her primary care doctor tomorrow because she has an appointment. She also states that she is feeling much better right now than she did when she first came in. - Vital Signs Vital signs: Temp Pulse Resp BP Pulse Ox 97.7 F 80 20 148/87 H 98 09/28/18 17:47 09/28/18 17:47 09/28/18 17:47 09/28/18 17:47 09/28/18 17:47 Discharge - Discharge Clinical Impression: Pelvic pain, Dizziness, Confusion Condition: Stable Disposition: HOME, SELF-CARE Additional Instructions: Follow-up with your doctor tomorrow as planned. Referrals: MARK GAN MD [Primary Care Provider] - Follow up as needed
== END 2018-09-28 18:01 | disposition home or self-care (01) ==
LOC: ER 17:37
DX: R10.2 Pelvic and perineal pain (principal); R42 Dizziness and giddiness; R41.0 Disorientation, unspecified; I10 Essential (primary) hypertension; E11.9 Type 2 diabetes mellitus without complications; Z87.42 Personal history of other diseases of the female genital tract; Z88.0 Allergy status to penicillin; Z88.5 Allergy status to narcotic agent
CPT/HCPCS: 99283

== ENCOUNTER 2018-10-10 15:03 | Emergency (ER) | payer MEDICARE, MEDICAID ==
--- NOTE | 2018-10-10 17:00 | ER Document Report ---
ED Medical Screen (RME) - General Chief Complaint: Urinary Problem Stated Complaint: URINARY PROBLEMS Time Seen by Provider: 10/10/18 16:51 Mode of Arrival: Ambulatory Information source: Patient Notes: Patient is a 38-year-old female who presents with chief complaint of continued dysuria and urinary frequency despite being treated for urinary tract infection recently. Patient also reports mid abdominal pain. She states that she has a history of a hernia that she claims is in need of repair. She also reports cough and congestion with fever for approximately 1 month, she is concerned she has a pneumonia. Exam: Lung sounds clear to auscultation bilaterally. I have greeted and performed a rapid initial assessment of this patient. A comprehensive ED assessment and evaluation of the patient, analysis of test results and completion of the medical decision making process will be conducted by additional ED providers. Dictation of this chart was performed using voice recognition software; therefore, there may be some unintended grammatical errors. TRAVEL OUTSIDE OF THE [place] IN LAST 30 DAYS: No COUNTRY TRAVELED TO/FROM: [place] - Related Data Allergies/Adverse Reactions: amoxicillin Allergy (Verified 10/10/18 15:04) oxycodone [From OxyContin] Allergy (Verified 10/10/18 15:04) Nausea Penicillins Allergy (Verified 10/10/18 15:04) Past Medical History - Social History Chew tobacco use (# tins/day): No Frequency of alcohol use: None Drug Abuse: None - Past Medical History Cardiac Medical History: Reports: Hx Hypertension - on meds Denies: Hx Coronary Artery Disease, Hx Heart Attack Pulmonary Medical History: Denies: Hx Asthma, Hx Bronchitis, Hx COPD, Hx Pneumonia Neurological Medical History: Denies: Hx Cerebrovascular Accident, Hx Seizures Endocrine Medical History: Reports: Hx Diabetes Mellitus Type 1, Hx Diabetes Mellitus Type 2 Renal/ Medical History: Reports: Hx Pelvic Inflammatory Disease. Denies: Hx Peritoneal Dialysis GI Medical History: Reports: Hx Gastroesophageal Reflux Disease Musculoskeltal Medical History: Reports Hx Arthritis - generalized Psychiatric Medical History: Reports: Hx Bipolar Disorder, Hx Depression Past Surgical History: Reports: Hx Abdominal Surgery - hernia repair, Hx Adenoidectomy, Hx Section - x2, Hx Gynecologic Surgery, Hx Herniorrhaphy, Hx Orthopedic Surgery - Right Leg Surgery, Hx Tonsillectomy - Immunizations Immunizations up to date: No Hx Diphtheria, Pertussis, Tetanus Vaccination: Yes Physical Exam - Vital signs Vitals: Temp Pulse Resp BP Pulse Ox 98.2 F 93 16 150/97 H 97 10/10/18 15:20 10/10/18 15:20 10/10/18 15:20 10/10/18 15:20 10/10/18 15:20 Course - Vital Signs Vital signs: Temp Pulse Resp BP Pulse Ox 98.2 F 93 16 150/97 H 97 10/10/18 15:20 10/10/18 15:20 10/10/18 15:20 10/10/18 15:20 10/10/18 15:20
--- NOTE | 2018-10-10 17:52 | RADIOLOGY REPORT (SQ) ---
EXAM DESCRIPTION: CHEST 2 VIEWS COMPLETED DATE/TIME: 10/10/2018 5:39 pm REASON FOR STUDY: fever, cough x1 month COMPARISON: 12/04/2017. EXAM PARAMETERS: NUMBER OF VIEWS: two views TECHNIQUE: Digital Frontal and Lateral radiographic views of the chest acquired. RADIATION DOSE: NA LIMITATIONS: none FINDINGS: LUNGS AND PLEURA: No opacities, masses or pneumothorax. No pleural effusion. MEDIASTINUM AND HILAR STRUCTURES: No masses or contour abnormalities. HEART AND VASCULAR STRUCTURES: Heart normal size. No evidence for failure. BONES: No acute findings. HARDWARE: None in the chest. OTHER: No other significant finding. IMPRESSION: NO ACUTE RADIOGRAPHIC FINDING IN THE CHEST. TECHNICAL DOCUMENTATION: JOB ID: [id number] [employer]- All Rights Reserved Reading location - IP/workstation name: [email or web address]
[2018-10-10 18:07] LABS: ABSOLUTE BASOPHILS # (AUTO) 0.1 10^3/uL (0.0-0.2); ABSOLUTE EOSINOPHILS # (AUTO) 0.2 10^3/uL (0.0-0.6); ABSOLUTE LYMPHOCYTES (AUTO) 3.8 10^3/uL (0.5-4.7); ABSOLUTE MONOCYTES (AUTO) 0.7 10^3/uL (0.1-1.4); ABSOLUTE NEUT (AUTO) 7.2 10^3/uL (1.7-8.2); EOSINOPHILS % (AUTO) 1.5 % (0-6); HEMATOCRIT 40.1 % (36.0-47.0); HEMOGLOBIN 13.2 g/dL (12.0-15.5); LYMPHOCYTES % (AUTO) 31.5 % (13-45); MEAN CORPUSCULAR HEMOGLOBIN 27.3 pg (27.0-33.4); MEAN CORPUSCULAR HGB CONC 32.8 g/dL (32.0-36.0); MEAN CORPUSCULAR VOLUME 83 fl (80-97); PLATELET COUNT 360 10^3/uL (150-450); RED BLOOD COUNT 4.83 10^6/uL (3.72-5.28); RED CELL DISTRIBUTION WIDTH 15.3 % (11.5-14.0); TOTAL CELLS COUNTED % (AUTO) 100 %
[2018-10-10 18:42] LABS: ALANINE AMINOTRANSFERASE 36 U/L (9-52); ALBUMIN 4.2 g/dL (3.5-5.0); ALKALINE PHOSPHATASE 87 U/L (38-126); ANION GAP 11 (5-19); ASPARTATE AMINO TRANSFERASE 28 U/L (14-36); BILIRUBIN,DIRECT 0.2 mg/dL (0.0-0.4); BILIRUBIN,TOTAL 0.2 mg/dL (0.2-1.3); BLOOD UREA NITROGEN 19 mg/dL (7-20); CALCIUM 9.9 mg/dL (8.4-10.2); CARBON DIOXIDE 27 mmol/L (22-30); CHLORIDE 102 mmol/L (98-107); GLUCOSE 117 mg/dL (75-110); POTASSIUM 4.1 mmol/L (3.6-5.0); SODIUM 139.5 mmol/L (137-145); TOTAL PROTEIN 7.5 g/dL (6.3-8.2)
--- NOTE | 2018-10-10 19:30 | EKG REPORT ---
SEVERITY:- NORMAL ECG - SINUS RHYTHM : Confirmed by: Angel Luis Ruiz MD 10-Oct-2018 19:29:58
[2018-10-10 20:35] LABS: APPEARANCE,URINE CLEAR; BILIRUBIN,URINE NEGATIVE (NEGATIVE); COLOR,URINE YELLOW; GLUCOSE, URINE NEGATIVE (NEGATIVE); KETONES,URINE NEGATIVE (NEGATIVE); LEUKOCYTE ESTERASE,URINE NEGATIVE (NEGATIVE); NITRITE,URINE NEGATIVE (NEGATIVE); PROTEIN,URINE NEGATIVE (NEGATIVE); URINE SPECIFIC GRAVITY 1.027; UROBILINOGEN,URINE NEGATIVE mg/dL (<2.0)
--- NOTE | 2018-10-10 20:41 | ER Document Report ---
ED General - General Chief Complaint: Urinary Problem Stated Complaint: URINARY PROBLEMS Time Seen by Provider: 10/10/18 20:41 Mode of Arrival: Ambulatory Information source: Patient Notes: HISTORY OF PRESENT ILLNESS: Patient is a 38-year-old female with a past medical history of diabetes and bipolar disorder who presents with lower abdominal pain with dysuria. Patient reports that she was recently treated for a UTI with ciprofloxacin that she completed 2 days ago, continues having discomfort. Location: Bladder Onset: 1 week ago Provocation: Urination Quality: Burning, cramping Radiation: None Severity: Moderate Timing: Intermittent LMP: "I gave in July and have had another period yet" REVIEW OF SYSTEMS: CONSTITUTIONAL : Denies fever or chills, no sweats. Denies recent illness. EENT: Denies eye, ear, throat, or mouth pain or symptoms. Denies nasal or sinus congestion. CARDIOVASCULAR: Denies chest pain. RESPIRATORY: Denies cough, cold, or chest congestion. Denies shortness of breath, difficulty breathing, or wheezing. GASTROINTESTINAL: Positive for abdominal pain. Denies nausea, vomiting, or diarrhea. Denies constipation. GENITOURINARY: Positive for painful urination. Denies vaginal bleeding, abnormal or irregular periods. MUSCULOSKELETAL: Denies neck or back pain or joint pain or swelling. SKIN: Denies rash or skin lesions. HEMATOLOGIC : Denies easy bruising or bleeding. LYMPHATIC: Denies swollen, enlarged glands. NEUROLOGICAL: Denies altered mental status or loss of consciousness. Denies headache. Denies weakness or paralysis or loss of use of either side. Denies problems with gait or speech. Denies sensory or motor loss. PSYCHIATRIC: Denies anxiety or stress or depression. All other systems reviewed and negative. PHYSICAL EXAMINATION: GENERAL: Well-appearing, well-nourished and in no acute distress. HEAD: Atraumatic, normocephalic. No scalp deformity, depression, or crepitance. EYES: Pupils are 3 mm and equal/round/reactive to light, extraocular movements intact, sclera anicteric, conjunctiva are normal. ENT: Nares patent bilaterally, oropharynx clear without exudates or palatal petechia. Moist mucous membranes. No tonsil hypertrophy. NECK: Normal range of motion, supple without lymphadenopathy. LUNGS: Breath sounds present, equal, and clear to auscultation bilaterally. No wheezes, rales, or rhonchi. HEART: Regular rate and rhythm without murmurs, rubs, or gallops. 2+ peripheral pulses. Normal capillary refill. ABDOMEN: Soft, nontender, nondistended. Normoactive bowel sounds. No guarding, no rebound. No masses appreciated. BACK: Normal contour, no midline tenderness. Rectal exam deferred. PELVC: Deferred. EXTREMITIES: Normal range of motion, no pitting or edema. No cyanosis. NEUROLOGICAL: No focal neurological deficits. Moves all extremities spontaneously and on command. PSYCH: Normal mood, normal affect. No suicidal thoughts/ideations. No homocidal thoughts/ideations. No hallucinations. SKIN: Warm, dry, normal turgor, no rashes or lesions noted. ASSESSMENT AND PLAN: This patient is a 38-year-old female who presents with lower abdominal discomfort and dysuria consistent with possible cystitis versus UTI. 1. Lab work and urinalysis are normal. 2. We will discharge home with return precautions and follow-up as needed with her primary physician. Patient voices both understanding and agreeing with the plan. TRAVEL OUTSIDE OF THE [place] IN LAST 30 DAYS: No COUNTRY TRAVELED TO/FROM: [place] - Related Data Allergies/Adverse Reactions: amoxicillin Allergy (Verified 10/10/18 15:04) oxycodone [From OxyContin] Allergy (Verified 10/10/18 15:04) Nausea Penicillins Allergy (Verified 10/10/18 15:04) Past Medical History - General Information source: Patient - Social History Smoking Status: Current Every Day Smoker Chew tobacco use (# tins/day): No Frequency of alcohol use: None Drug Abuse: None Lives with: Family Family History: Reviewed & Not Pertinent, CAD, DM, Malignancy, Other Patient has suicidal ideation: No Patient has homicidal ideation: No - Past Medical History Cardiac Medical History: Reports: Hx Hypertension - on meds Denies: Hx Coronary Artery Disease, Hx Heart Attack Pulmonary Medical History: Reports: None Denies: Hx Asthma, Hx Bronchitis, Hx COPD, Hx Pneumonia EENT Medical History: Reports: None Neurological Medical History: Reports: None. Denies: Hx Cerebrovascular Accident, Hx Seizures Endocrine Medical History: Reports: Hx Diabetes Mellitus Type 1, Hx Diabetes Mellitus Type 2 Renal/ Medical History: Reports: Hx Pelvic Inflammatory Disease. Denies: Hx Peritoneal Dialysis Malignancy Medical History: Reports: None GI Medical History: Reports: Hx Gastroesophageal Reflux Disease Musculoskeletal Medical History: Reports Hx Arthritis - generalized Skin Medical History: Reports None Psychiatric Medical History: Reports: Hx Bipolar Disorder, Hx Depression Traumatic Medical History: Reports: None Infectious Medical History: Reports: None Past Surgical History: Reports: Hx Abdominal Surgery - hernia repair, Hx Adenoidectomy, Hx Section - x2, Hx Gynecologic Surgery, Hx Herniorrhaphy, Hx Orthopedic Surgery - Right Leg Surgery, Hx Tonsillectomy - Immunizations Immunizations up to date: No Hx Diphtheria, Pertussis, Tetanus Vaccination: Yes Hx Pneumococcal Vaccination: 07/12/00 Physical Exam - Vital signs Vitals: Temp Pulse Resp BP Pulse Ox 98.2 F 93 16 150/97 H 97 10/10/18 15:20 10/10/18 15:20 10/10/18 15:20 10/10/18 15:20 10/10/18 15:20 Course - Vital Signs Vital signs: Temp Pulse Resp BP Pulse Ox 98.2 F 93 16 150/97 H 97 10/10/18 15:20 10/10/18 15:20 10/10/18 15:20 10/10/18 15:20 10/10/18 15:20 - Laboratory Result Diagrams: 10/10/18 17:55 10/10/18 17:55 Laboratory results interpreted by me: 10/10/18 10/10/18 10/10/18 17:55 17:55 17:55 WBC 12.0 H RDW 15.3 H Glucose 117 H Urine Blood MODERATE H - EKG Interpretation by Hi EKG shows normal: Sinus rhythm Rate: Normal Rhythm: NSR Vista/QRS: No: Right axis deviation, Left axis deviation, RBBB, LBBB, IVCD, LAHB/LAFB, LPHB/LPFB, Bifasicular block Voltage: No: Increased voltage, Consistant with LVH, Decreased voltage, Throughout, Limb leads P Waves: No: BILLY, LAE, Absent, AV Dissociation, Other Heart block present: No: 1st Degree, Mobitz 1, Mobitz 2, CHB (3rd degree block) When compared to previous EKG there are: No significant change Discharge - Discharge Clinical Impression: Dysuria Condition: Good Disposition: HOME, SELF-CARE Additional Instructions: You have been evaluated in the Emergency Department for lower abdominal discomfort and difficulty urinating. While here, you had blood work and urinalysis that were normal and it is now safe to be discharged home. The most likely cause of your symptoms is cystitis from a recent urinary tract infection. Please follow-up with your primary physician as instructed in 1 week to be rechecked. Return to the Emergency Department if you experience high fevers, difficulty urinating that is not getting better, or any other concerning sym ptoms. Prescriptions: Phenazopyridine HCl [Pyridium 100 Mg Tablet] 100 mg PO TID #9 tablet Print Language: Croatian
[2018-10-10 22:26] VITALS: BP 148/86
== END 2018-10-10 22:37 | disposition home or self-care (01) ==
LOC: ER 15:03
DX: R10.30 Lower abdominal pain, unspecified (principal); R30.0 Dysuria; F17.200 Nicotine dependence, unspecified, uncomplicated; I10 Essential (primary) hypertension; E11.9 Type 2 diabetes mellitus without complications; Z88.0 Allergy status to penicillin; Z88.6 Allergy status to analgesic agent
CPT/HCPCS: 36415; 71046; 80053; 81001; 85025; 93005; 93010; 99284

== ENCOUNTER 2018-11-11 03:08 | Emergency (ER) | payer MEDICARE, MEDICAID ==
[2018-11-11] MEDS ORDERED: RINGERS SOLUTION,LACTATED 1,000 ML IV ONE (03:50)
[2018-11-11] MEDS ORDERED: ONDANSETRON HCL INJ/PF 4 MG/2 ML SDV IV ONE (03:50)
--- NOTE | 2018-11-11 04:21 | RADIOLOGY REPORT (SQ) ---
CLINICAL HISTORY: SOB COMPARISON: September 20, 2017. TECHNIQUE: XR CHEST 2 VIEWS 11/11/2018 3:32 AM CDT FINDINGS: Cardiac silhouette is normal in size. Lungs are clear without consolidation, atelectasis, mass or edema. There is no pleural effusion. There is no pneumothorax. There are no acute osseous findings. IMPRESSION: Clear lungs.
[2018-11-11 04:42] LABS: ABSOLUTE BASOPHILS # (AUTO) 0.1 10^3/uL (0.0-0.2); ABSOLUTE EOSINOPHILS # (AUTO) 0.1 10^3/uL (0.0-0.6); ABSOLUTE LYMPHOCYTES (AUTO) 3.9 10^3/uL (0.5-4.7); ABSOLUTE MONOCYTES (AUTO) 0.8 10^3/uL (0.1-1.4); ABSOLUTE NEUT (AUTO) 5.8 10^3/uL (1.7-8.2); BASOPHILS % (AUTO) 0.7 % (0-2); EOSINOPHILS % (AUTO) 1.2 % (0-6); HEMOGLOBIN 13.7 g/dL (12.0-15.5); LYMPHOCYTES % (AUTO) 36.2 % (13-45); MEAN CORPUSCULAR HEMOGLOBIN 27.4 pg (27.0-33.4); MEAN CORPUSCULAR HGB CONC 33.6 g/dL (32.0-36.0); MEAN CORPUSCULAR VOLUME 82 fl (80-97); MONOCYTES % (AUTO) 7.8 % (3-13); PLATELET COUNT 297 10^3/uL (150-450); RED BLOOD COUNT 5.02 10^6/uL (3.72-5.28); RED CELL DISTRIBUTION WIDTH 14.9 % (11.5-14.0); SEGMENTED NEUTROPHILS % (AUTO) 54.1 % (42-78); TOTAL CELLS COUNTED % (AUTO) 100 %; WHITE BLOOD COUNT 10.7 10^3/uL (4.0-10.5)
[2018-11-11 05:04] LABS: ALANINE AMINOTRANSFERASE 32 U/L (9-52); ALBUMIN 4.1 g/dL (3.5-5.0); ALKALINE PHOSPHATASE 95 U/L (38-126); ANION GAP 12 (5-19); ASPARTATE AMINO TRANSFERASE 28 U/L (14-36); BILIRUBIN,DIRECT 0.3 mg/dL (0.0-0.4); BILIRUBIN,TOTAL 0.4 mg/dL (0.2-1.3); BLOOD UREA NITROGEN 9 mg/dL (7-20); CALCIUM 9.8 mg/dL (8.4-10.2); CARBON DIOXIDE 28 mmol/L (22-30); CHLORIDE 97 mmol/L (98-107); GLUCOSE 126 mg/dL (75-110); LIPASE 40.3 U/L (23-300); SODIUM 136.5 mmol/L (137-145); TOTAL PROTEIN 7.2 g/dL (6.3-8.2)
[2018-11-11 05:06] LABS: POTASSIUM 2.9 mmol/L (3.6-5.0)
[2018-11-11] MEDS ORDERED: POTASSIUM CHLORIDE 10 MEQ CAPSULE.ER PO ONE (05:11)
[2018-11-11 05:21] LABS: FREE T3 3.65 pg/mL (2.77-5.27); FREE T4 (FREE THYROXINE) 1.07 ng/dL (0.78-2.19)
[2018-11-11 05:35] LABS: THYROID STIMULATING HORMONE 1.11 uIU/mL (0.47-4.68)
[2018-11-11 05:38] LABS: APPEARANCE,URINE SLIGHTLY-CLOUDY; BILIRUBIN,URINE NEGATIVE (NEGATIVE); COLOR,URINE STRAW; GLUCOSE, URINE NEGATIVE (NEGATIVE); KETONES,URINE NEGATIVE (NEGATIVE); LEUKOCYTE ESTERASE,URINE NEGATIVE (NEGATIVE); NITRITE,URINE NEGATIVE (NEGATIVE); PROTEIN,URINE NEGATIVE (NEGATIVE); URINE SPECIFIC GRAVITY 1.005; UROBILINOGEN,URINE NEGATIVE mg/dL (<2.0)
[2018-11-11] MEDS: MAGNESIUM SULFATE/D5W 1 GM/100 ML RTUPB IV SCH ×2 (05:55→07:25)
[2018-11-11] MEDS: POTASSI CL 20 MEQ/50 ML RIDER 20 MEQ/50 ML RTUPB IV SCH ×2 (05:59→08:32)
--- NOTE | 2018-11-11 06:25 | RADIOLOGY REPORT (SQ) ---
CLINICAL HISTORY: general pain COMPARISON: None. TECHNIQUE: CT ABDOMEN PELVIS WITH IV CONTRAST on 11/11/2018 3:49 AM CDT This exam was performed according to our departmental dose-optimization program, which includes automated exposure control, adjustment of the mA and/or kV according to patient size and/or use of iterative reconstruction technique. FINDINGS: Lower lungs are clear. Abdomen: There is a vague, ill-defined low-density lesion in the right lobe of the liver measuring 2.9 cm. There is no biliary dilatation. Gallbladder is normal in appearance. The pancreas and spleen are normal in appearance. Adrenal glands are unremarkable. Both kidneys are mildly atrophic. There is a mid to lower pole left renal calculus measuring 6 mm. There is no hydronephrosis. Abdominal aorta is normal in course and caliber without aneurysm. There is no free air. There is no retroperitoneal adenopathy. Pelvis: There is no bowel obstruction. Urinary bladder is unremarkable. There is no free fluid. Uterus is normal in size. Appendix is normal. Skeleton: There are no acute osseous findings. No suspicious bony lesions. IMPRESSION: Left nephrolithiasis without hydronephrosis. No acute inflammatory process.
--- NOTE | 2018-11-11 07:33 | ER Document Report ---
ED General - General Chief Complaint: Ear Pain Stated Complaint: TROUBLE BREATHING AND EAR PAIN Time Seen by Provider: 11/11/18 03:32 Primary Care Provider: RONNIE KELLEY MD [Primary Care Provider] - Follow up as needed Notes: Patient is a 38-year-old female presents to the emergency department with multiple complaints. Patient is complaining of a generalized headache, bilateral ear pain, cough, congestion, shortness of breath, nausea, generalized periumbilical abdominal pain. Patient's denying any dysuria or vaginal discharge but is complaining of urinary hesitancy. States she was recently told that her house has black mold. States she went to her primary care provider who told her that it was "in her blood." Patient states she has not followed up with her primary care provider since being told this information. Patient is denying any chest pain but does complaining of generalized respirator y distress along with her cough. Patient states all of these URI symptoms have been within the last 48 hours. Patient's denying any fevers. Past medical history: Diabetes, hypertension, fibromyalgia, bipolar, GERD, herpes, ADHD Medications: Trileptal, Cymbalta, HCTZ, NovoLog, Levemir, control, Adderall, clonazepam, valacyclovir, ranitidine Allergies: Penicillin, oxycodone TRAVEL OUTSIDE OF THE [place] IN LAST 30 DAYS: No COUNTRY TRAVELED TO/FROM: [place] - Related Data Allergies/Adverse Reactions: amoxicillin Allergy (Verified 10/10/18 15:04) oxycodone [From OxyContin] Allergy (Verified 10/10/18 15:04) Nausea Penicillins Allergy (Verified 10/10/18 15:04) Past Medical History - General Information source: Patient - Social History Smoking Status: Unknown if Ever Smoked Family History: Reviewed & Not Pertinent, CAD, DM, Malignancy, Other Patient has suicidal ideation: No Patient has homicidal ideation: No - Past Medical History Cardiac Medical History: Reports: Hx Hypertension - on meds Denies: Hx Coronary Artery Disease, Hx Heart Attack Pulmonary Medical History: Denies: Hx Asthma, Hx Bronchitis, Hx COPD, Hx Pneumonia Neurological Medical History: Denies: Hx Cerebrovascular Accident, Hx Seizures Endocrine Medical History: Reports: Hx Diabetes Mellitus Type 1, Hx Diabetes Mellitus Type 2 Renal/ Medical History: Reports: Hx Pelvic Inflammatory Disease. Denies: Hx Peritoneal Dialysis GI Medical History: Reports: Hx Gastroesophageal Reflux Disease Musculoskeletal Medical History: Reports Hx Arthritis - generalized Psychiatric Medical History: Reports: Hx Bipolar Disorder, Hx Depression Past Surgical History: Reports: Hx Abdominal Surgery - hernia repair, Hx Adenoidectomy, Hx Section - x2, Hx Gynecologic Surgery, Hx Herniorrhaphy, Hx Orthopedic Surgery - Right Leg Surgery, Hx Tonsillectomy - Immunizations Immunizations up to date: No Hx Diphtheria, Pertussis, Tetanus Vaccination: Yes Hx Pneumococcal Vaccination: 07/12/00 Review of Systems - Review of Systems Constitutional: See HPI EENT: See HPI Cardiovascular: See HPI Respiratory: See HPI Gastrointestinal: See HPI Genitourinary: See HPI Female Genitourinary: See HPI Musculoskeletal: No symptoms reported Skin: No symptoms reported Hematologic/Lymphatic: No symptoms reported Neurological/Psychological: See HPI Physical Exam - Vital signs Vitals: Temp Pulse Resp BP Pulse Ox 98 F 110 H 18 144/96 H 98 11/11/18 03:26 11/11/18 03:11/11/18 03:11/11/18 03:11/11/18 03:26 - Notes Notes: GENERAL: Morbidly obese alert, interacts well. No acute distress. HEAD: Normocephalic, atraumatic. No frontal or maxillary sinus tenderness noted EYES: Pupils equal, round, and reactive to light. Extraocular movements intact. ENT: Oral mucosa moist, tongue midline. Nares patent, TM's intact, nonerythematous, nonbulging bilaterally. Pharynx minorly erythematous with no palatal petechiae or exudate noted NECK: Full range of motion. Supple. Trachea midline. No lymphadenopathy appreciated LUNGS: Clear to auscultation bilaterally, no wheezes, rales, or rhonchi. No respiratory distress. HEART: Regular rate and rhythm. No murmur ABDOMEN: Soft, generalized tenderness noted all 4 quadrants and periumbilical. Non-distended. Bowel sounds present in all 4 quadrants. EXTREMITIES: Moves all 4 extremities spontaneously. No edema, normal radial and dorsalis pedis pulses bilaterally. No cyanosis. BACK: no cervical, thoracic, lumbar midline tenderness. No saddle anesthesia, normal distal neurovascular exam. NEUROLOGICAL: Alert and oriented x3. Normal speech. cranial nerves II through XII grossly intact PSYCH: Normal affect, normal mood. SKIN: Warm, dry, normal turgor. No rashes or lesions noted. Course - Re-evaluation Re-evalutation: 11/11/18 07:34 Laboratory 11/11/18 11/11/18 11/11/18 04:15 04:15 04:15 WBC 10.7 H RBC 5.02 Hgb 13.7 Hct 41.0 MCV 82 MCH 27.4 MCHC 33.6 RDW 14.9 H Plt Count 297 Seg Neutrophils % 54.1 Lymphocytes % 36.2 Monocytes % 7.8 Eosinophils % 1.2 Basophils % 0.7 Absolute Neutrophils 5.8 Absolute Lymphocytes 3.9 Absolute Monocytes 0.8 Absolute Eosinophils 0.1 Absolute Basophils 0.1 Sodium 136.5 L Potassium 2.9 L* Chloride 97 L Carbon Dioxide 28 Anion Gap 12 BUN 9 Creatinine 0.63 Est GFR ( Amer) > 60 Est GFR (Non-Af Amer) > 60 Glucose 126 H Calcium 9.8 Magnesium Total Bilirubin 0.4 Direct Bilirubin 0.3 Neonat Total Bilirubin Not Reportable Neonat Direct Bilirubin Not Reportable Neonat Indirect Bili Not Reportable AST 28 ALT 32 Alkaline Phosphatase 95 Total Protein 7.2 Albumin 4.1 Lipase 40.3 TSH Free T4 Free T3 pg/mL Serum HCG, Qual Urine Color Urine Appearance Urine pH Ur Specific [place] Urine Protein Urine Glucose (UA) Urine Ketones Urine Blood Urine Nitrite Urine Bilirubin Urine Urobilinogen Ur Leukocyte Esterase Urine WBC (Auto) Urine Bacteria (Auto) Squamous Epi Cells Auto Urine Mucus (Auto) Urine Ascorbic Acid Monotest NEGATIVE Group A Strep Rapid 11/11/18 11/11/18 11/11/18 04:15 04:15 04:15 WBC RBC Hgb Hct MCV MCH MCHC RDW Plt Count Seg Neutrophils % Lymphocytes % Monocytes % Eosinophils % Basophils % Absolute Neutrophils Absolute Lymphocytes Absolute Monocytes Absolute Eosinophils Absolute Basophils Sodium Potassium Chloride Carbon Dioxide Anion Gap BUN Creatinine Est GFR ( Amer) Est GFR (Non-Af Amer) Glucose Calcium Magnesium 1.6 Total Bilirubin Direct Bilirubin Neonat Total Bilirubin Neonat Direct Bilirubin Neonat Indirect Bili AST ALT Alkaline Phosphatase Total Protein Albumin Lipase TSH 1.11 Free T4 1.07 Free T3 pg/mL 3.65 Serum HCG, Qual Urine Color Urine Appearance Urine pH Ur Specific [place] Urine Protein Urine Glucose (UA) Urine Ketones Urine Blood Urine Nitrite Urine Bilirubin Urine Urobilinogen Ur Leukocyte Esterase Urine WBC (Auto) Urine Bacteria (Auto) Squamous Epi Cells Auto Urine Mucus (Auto) Urine Ascorbic Acid Monotest Group A Strep Rapid NEGATIVE 11/11/18 11/11/18 04:15 05:20 WBC RBC Hgb Hct MCV MCH MCHC RDW Plt Count Seg Neutrophils % Lymphocytes % Monocytes % Eosinophils % Basophils % Absolute Neutrophils Absolute Lymphocytes Absolute Monocytes Absolute Eosinophils Absolute Basophils Sodium Potassium Chloride Carbon Dioxide Anion Gap BUN Creatinine Est GFR ( Amer) Est GFR (Non-Af Amer) Glucose Calcium Magnesium Total Bilirubin Direct Bilirubin Neonat Total Bilirubin Neonat Direct Bilirubin Neonat Indirect Bili AST ALT Alkaline Phosphatase Total Protein Albumin Lipase TSH Free T4 Free T3 pg/mL Serum HCG, Qual NEGATIVE Urine Color STRAW Urine Appearance SLIGHTLY-CLOUDY Urine pH 6.0 Ur Specific [place] 1.005 Urine Protein NEGATIVE Urine Glucose (UA) NEGATIVE Urine Ketones NEGATIVE Urine Blood NEGATIVE Urine Nitrite NEGATIVE Urine Bilirubin NEGATIVE Urine Urobilinogen NEGATIVE Ur Leukocyte Esterase NEGATIVE Urine WBC (Auto) 0 Urine Bacteria (Auto) TRACE Squamous Epi Cells Auto 5 Urine Mucus (Auto) RARE Urine Ascorbic Acid NEGATIVE Monotest Group A Strep Rapid Patient's labs were noted to have a very slight leukocytosis of 10.7 with no bands anemia noted. Patient's potassium did come back at 2.9. Treated with IV and oral replacement in the emergency department as well as magnesium. Patient's urine shows no signs of infection, hCG negative. Rapid strep test and mono testing negative. Patient CT abdomen pelvis shows a left nephrolithiasis with no hydronephrosis. Patient's chest x-ray showed no signs of pneumonia, pneumothorax. Patient has no frontal or maxillary sinus tenderness, she is afebrile, only complains of cough and congestion for the last 48 hours I do not suspect a sinus infection. Discussed close follow-up with primary care provider for repeat on patient's potassium with close return precautions. Patient stable for discharge. - Vital Signs Vital signs: Temp Pulse Resp BP Pulse Ox 98.2 F 110 H 18 144/96 H 98 11/11/18 06:54 11/11/18 03:26 11/11/18 03:26 11/11/18 03:26 11/11/18 03:26 - Laboratory Result Diagrams: 11/11/18 04:15 11/11/18 04:15 Laboratory results interpreted by me: 11/11/18 11/11/18 04:15 04:15 WBC 10.7 H RDW 14.9 H Sodium 136.5 L Potassium 2.9 L* Chloride 97 L Glucose 126 H Discharge - Discharge Clinical Impression: Hypokalemia, Morbid obesity Upper respiratory infection Qualifiers: URI type: unspecified viral URI Qualified Code(s): J06.9 - Acute upper respiratory infection, unspecified Condition: Stable Disposition: HOME, SELF-CARE Instructions: Upper Respiratory Illness ([facility]), Viral Syndrome ([facility]), Hypokalemia ([facility]) Additional Instructions: As we discussed you have been seen and treated in the emergency department for an upper respiratory infection. These are typically caused by viruses and do not respond to antibiotics. You have also been treated for low potassium. Please make sure you follow-up with your primary care provider in the next 24 to 48 hours for repeat blood testing. Is take [id number] Tylenol or Motrin for your generalized body aches or headaches. Please also buy over the counter Coricidin HBP. This is the only cold medication safe with your high blood pressure. Please return to the emergency room should you have any other concern symptoms. Referrals: RONNIE KELLEY MD [Primary Care Provider] - Follow up as needed
[2018-11-11 08:12] VITALS: BP 147/89
== END 2018-11-11 10:24 | disposition home or self-care (01) ==
LOC: ER 03:08
DX: E87.6 Hypokalemia (principal); E66.01 Morbid (severe) obesity due to excess calories; J06.9 Acute upper respiratory infection, unspecified; R10.33 Periumbilical pain; H92.03 Otalgia, bilateral; R51 Headache; I10 Essential (primary) hypertension; E11.9 Type 2 diabetes mellitus without complications; Z88.0 Allergy status to penicillin; Z88.6 Allergy status to analgesic agent
CPT/HCPCS: 99283; 96361; 96375; 96365; 96366; 96368; 36415; 87070; 87086; 84439; 87880; 83690; 83735; 84443; 84703; 85025; 87088; 86308; 80053; 81001; 84481; 71046; 74177; J3475; J2405; J3480; J7120; A9270

== ENCOUNTER 2018-11-17 22:25 | Observation (INO) | payer MEDICARE, MEDICAID ==
[2018-11-17] MEDS ORDERED: RINGERS SOLUTION,LACTATED 2,000 ML IV ONE (22:51)
--- NOTE | 2018-11-17 22:55 | ER Document Report ---
ED General - General Stated Complaint: ALTERED MENTAL STATUS,POSSIBLE OVERDOSE Time Seen by Provider: 11/17/18 22:49 Primary Care Provider: RONNIE KELLEY MD [Primary Care Provider] - Follow up as needed Cannot obtain history due to: Intoxicated, Altered mental status Notes: Patient is a 38-year-old female without chronic medical problems who presents by EMS due to concerns of altered mental status. Apparently the patient took Adderall as well as multiple doses of a cold medication containing Benadryl. Significant other found her to be confused and EMS was called. Patient is not able to provide any meaningful history at time of my initial assessment. History is otherwise limited due to the patient's level of confusion and sedation. TRAVEL OUTSIDE OF THE [place] IN LAST 30 DAYS: No COUNTRY TRAVELED TO/FROM: [place] - Related Data Allergies/Adverse Reactions: amoxicillin Allergy (Verified 11/11/18 13:07) oxycodone [From OxyContin] Allergy (Verified 11/11/18 13:07) Nausea Penicillins Allergy (Verified 11/11/18 13:07) Past Medical History - General Information source: Emergency Med Personnel Cannot obtain history due to: Altered mental status - Social History Smoking Status: Unknown if Ever Smoked Frequency of alcohol use: None Drug Abuse: None Lives with: Spouse/Significant other Family History: Malignancy, CAD, DM, Reviewed & Not Pertinent, Other - Past Medical History Cardiac Medical History: Reports: Hx Hypertension - on meds Denies: Hx Coronary Artery Disease, Hx Heart Attack Pulmonary Medical History: Denies: Hx Asthma, Hx Bronchitis, Hx COPD, Hx Pneumonia Neurological Medical History: Denies: Hx Cerebrovascular Accident, Hx Seizures Endocrine Medical History: Reports: Hx Diabetes Mellitus Type 1, Hx Diabetes Mellitus Type 2 Renal/ Medical History: Reports: Hx Pelvic Inflammatory Disease. Denies: Hx Peritoneal Dialysis GI Medical History: Reports: Hx Gastroesophageal Reflux Disease Musculoskeletal Medical History: Reports Hx Arthritis - generalized Psychiatric Medical History: Reports: Hx Bipolar Disorder, Hx Depression Past Surgical History: Reports: Hx Abdominal Surgery - hernia repair, Hx Adenoid ectomy, Hx Section - x2, Hx Gynecologic Surgery, Hx Herniorrhaphy, Hx Orthopedic Surgery - Right Leg Surgery, Hx Tonsillectomy - Immunizations Immunizations up to date: No Hx Diphtheria, Pertussis, Tetanus Vaccination: Yes Hx Pneumococcal Vaccination: 07/12/00 Review of Systems - Review of Systems -: Yes ROS unobtainable due to patient's medical condition Physical Exam - Vital signs Vitals: Resp 14 11/17/18 22:34 Interpretation: Other - Hypothermic Notes: PHYSICAL EXAMINATION: GENERAL: Lethargic, appears disoriented but in no overt distress HEAD: Atraumatic, normocephalic. EYES: Pupils equal round and reactive to light, extraocular movements intact, sclera anicteric, conjunctiva are normal. ENT: nares patent, oropharynx clear without exudates. Extremely dry mucous membranes. NECK: Normal range of motion, supple without lymphadenopathy LUNGS: Breath sounds clear to auscultation bilaterally and equal. No wheezes rales or rhonchi. HEART: Regular rate and rhythm without murmurs ABDOMEN: Soft, nontender, normoactive bowel sounds. No guarding, no rebound. No masses appreciated. EXTREMITIES: Normal range of motion, no pitting or edema. No cyanosis. NEUROLOGICAL: No focal neurological deficits. Moves all extremities spontaneously and on command. Slow to respond. PSYCH: Lethargic SKIN: Somewhat cool and dry to touch. No lesions or evidence of traumatic ecchymoses. Course - Re-evaluation Re-evalutation: 11/17/18 22:54 Patient presents extremely lethargic, does wake to loud voice and follows commands in all extremities but rapidly falls back to sleep. Noted to be hypothermic with core temperature of 95.5 F on initial evaluation. Patient appears profoundly dehydrated. Apparently took multiple cold medications, Benadryl and Adderall. Patient has a history of polysubstance abuse. Differential this point includes toxidrome versus infectious etiology. The patient is in very guarded condition given her hypothermia, altered mental status. 2 points of IV access will be established. Attempted Siegel catheter will be inserted. Active rewarming is being undertaken. Patient will undergo broad laboratory assessment as well as CT of the head given her altered mental status. Will continue to reassess at regular intervals. Patient is in guarded condition. 11/18/18 00:43 Patient is waking more. She has been reexamined on multiple agents. She is still quite somnolent but will answer some my questions intermittently. Significant other at the bedside does state that the patient may have taken multiple medications for her cold. Will continue to monitor until patient is clinically sober. Her labs are broadly unremarkable. CT of the head as well as chest x-ray are unremarkable. She rates that focal neurologic deficits. She is no longer hypothermic. Will continue to reassess at regular intervals. 11/18/18 02:33 Patient is still minimally interactive, will state her name but does not provide more meaningful information. Still appears quite sedated although mental status is improved from time of initial presentation. She is actively being rewarmed but continues to have mild hypothermia at 96.9. I discussed with Dr. Ruiz for observation in the hospital given her undifferentiated toxidrome and continued altered mental status with associated hypothermia. He has requested that we provide naloxone prior to agreeing to hospitalization. 11/18/18 02:46 No response to Narcan. Case again discussed with Dr. Ruiz who has accepted for observation. Has requested renal ultrasound. - Vital Signs Vital signs: Temp Pulse Resp BP Pulse Ox 96.9 F L 76 19 125/85 97 11/18/18 02:01 11/17/18 22:35 11/18/18 02:01 11/18/18 02:01 11/17/18 23:01 - Laboratory Result Diagrams: 11/17/18 22:50 11/17/18 22:50 Laboratory results interpreted by me: 11/17/18 11/17/18 11/17/18 22:50 22:50 23:15 WBC 13.7 H RDW 15.2 H Seg Neutrophils % 83.8 H Lymphocytes % 11.4 L Absolute Neutrophils 11.5 H Sodium 136.1 L Potassium 3.1 L Chloride 95 L Glucose 158 H Urine Protein 30 H Urine Blood LARGE H Salicylates < 1.0 L Acetaminophen < 10 L - Diagnostic Test Radiology reviewed: Image reviewed, Reports reviewed Radiology results interpreted by me: 11/18/18 02:59 Chest x-ray: No acute infiltrate pneumothorax CT head: No acute intracranial bleed or mass - EKG Interpretation by Me Additional EKG results interpreted by me: 11/18/18 02:59 Sinus rhythm, rate 79. No ST elevations or depressions. QTC is 496. Critical Care Note - Critical Care Note Total time excluding time spent on procedures (mins): 36 Comments: Critical care time spent obtaining history from patient or surrogate, discussions with consultants, development of treatment plan with patient or surrogate, evaluation of patient's response to treatment, examination of patient, ordering and performing treatments and interventions, ordering and review of laboratory studies, re-evaluation of patient's condition, ordering and review of radiographic studies and review of old charts Discharge - Discharge Clinical Impression: Altered mental status Qualifiers: Altered mental status type: unspecified Qualified Code(s): R41.82 - Altered mental status, unspecified Drug overdose Qualifiers: Encounter type: initial encounter Injury intent: undetermined intent Qualified Code(s): T50.904A - Poisoning by unspecified drugs, medicaments and biological substances, undetermined, initial encounter Hypothermia Qualifiers: Encounter type: initial encounter Qualified Code(s): T68.XXXA - Hypothermia, initial encounter Condition: Fair Disposition: ADMITTED OBSERVATION Admitting Provider: Joseph (Hospitalist) Unit Admitted: [facility] Referrals: RONNIE KELLEY MD [Primary Care Provider] - Follow up as needed
[2018-11-17 23:09] LABS: ABSOLUTE BASOPHILS # (AUTO) 0.1 10^3/uL (0.0-0.2); ABSOLUTE LYMPHOCYTES (AUTO) 1.6 10^3/uL (0.5-4.7); ABSOLUTE MONOCYTES (AUTO) 0.6 10^3/uL (0.1-1.4); ABSOLUTE NEUT (AUTO) 11.5 10^3/uL (1.7-8.2); BASOPHILS % (AUTO) 0.6 % (0-2); EOSINOPHILS % (AUTO) 0.1 % (0-6); HEMATOCRIT 39.1 % (36.0-47.0); LYMPHOCYTES % (AUTO) 11.4 % (13-45); MEAN CORPUSCULAR HEMOGLOBIN 27.3 pg (27.0-33.4); MEAN CORPUSCULAR HGB CONC 33.4 g/dL (32.0-36.0); MEAN CORPUSCULAR VOLUME 82 fl (80-97); MONOCYTES % (AUTO) 4.1 % (3-13); PLATELET COUNT 248 10^3/uL (150-450); RED BLOOD COUNT 4.77 10^6/uL (3.72-5.28); RED CELL DISTRIBUTION WIDTH 15.2 % (11.5-14.0); SEGMENTED NEUTROPHILS % (AUTO) 83.8 % (42-78); TOTAL CELLS COUNTED % (AUTO) 100 %; VENOUS BLOOD BASE EXCESS 3.7 mmol/L; VENOUS BLOOD PCO2 52.4 mmHg (35-63); VENOUS BLOOD PH 7.38 (7.30-7.42); WHITE BLOOD COUNT 13.7 10^3/uL (4.0-10.5)
[2018-11-17 23:30] LABS: ALANINE AMINOTRANSFERASE 27 U/L (9-52); ALKALINE PHOSPHATASE 91 U/L (38-126); ANION GAP 11 (5-19); ASPARTATE AMINO TRANSFERASE 17 U/L (14-36); BILIRUBIN,DIRECT 0.2 mg/dL (0.0-0.4); BILIRUBIN,TOTAL 0.3 mg/dL (0.2-1.3); BLOOD UREA NITROGEN 15 mg/dL (7-20); CALCIUM 9.7 mg/dL (8.4-10.2); CARBON DIOXIDE 30 mmol/L (22-30); CHLORIDE 95 mmol/L (98-107); CREATINE KINASE 34 U/L (30-135); GLUCOSE 158 mg/dL (75-110); POTASSIUM 3.1 mmol/L (3.6-5.0); SODIUM 136.1 mmol/L (137-145); TOTAL PROTEIN 6.8 g/dL (6.3-8.2)
[2018-11-17 23:31] LABS: ACETAMINOPHEN < 10 ug/mL (10-30); ALCOHOL < 10 mg/dL (NONE DETECTED); SALICYLATE < 1.0 mg/dL (2.0-20.0)
[2018-11-17 23:45] LABS: APPEARANCE,URINE CLOUDY; BILIRUBIN,URINE NEGATIVE (NEGATIVE); COLOR,URINE YELLOW; GLUCOSE, URINE NEGATIVE (NEGATIVE); KETONES,URINE NEGATIVE (NEGATIVE); LEUKOCYTE ESTERASE,URINE NEGATIVE (NEGATIVE); NITRITE,URINE NEGATIVE (NEGATIVE); PROTEIN,URINE 30 mg/dL (NEGATIVE); URINE SPECIFIC GRAVITY 1.024; UROBILINOGEN,URINE NEGATIVE mg/dL (<2.0)
[2018-11-17 23:58] LABS: URINE AMPHETAMINES SCREEN UNCONFIRMED POSITIVE; URINE BARBITURATES SCREEN NEGATIVE; URINE BENZODIAZEPINES SCREEN NEGATIVE; URINE COCAINE SCREEN NEGATIVE; URINE MARIJUANA (THC) SCREEN NEGATIVE; URINE METHADONE SCREEN NEGATIVE; URINE PHENCYCLIDINE SCREEN NEGATIVE
--- NOTE | 2018-11-18 | RADIOLOGY REPORT (SQ) ---
EXAM DESCRIPTION: CT HEAD WITHOUT IV CONTRAST COMPLETED DATE/TME: 11/17/2018 22:50 CLINICAL HISTORY: 38 years, Female, ams COMPARISON: None. TECHNIQUE: CT brain without contrast. This exam was performed according to our departmental dose optimization program which includes use of automated exposure control, adjustment of the mA and/or kV according to patient size and/or use of iterative reconstruction technique. Images stored on PACS. All CT scanners at this facility use dose modulation, iterative reconstruction, and/or weight based dosing when appropriate to reduce radiation dose to as low as reasonably achievable (ALARA). [facility]: Dose Right [facility]: CareDose [facility]: Dose Right [facility]: Teradose 4D [facility]: [employer] LIMITATIONS: None. FINDINGS: The ventricles, sulci, and cisterns are within normal limits. The carmona-white matter differentiation is preserved. There is no mass effect, midline shift, intra- or extra-axial fluid collection/acute hemorrhage. The osseous structures are unremarkable. The paranasal sinuses and mastoid air cells are clear. IMPRESSION: No acute intracranial abnormalities. TECHNICAL DOCUMENTATION: Quality ID # [id number]: Final reports with documentation of one or more dose reduction techniques (e.g., Automated exposure control, adjustment of the mA and/or kV according to patient size, use of iterative reconstruction technique) copyright 2011 [employer]- All Rights Reserved
--- NOTE | 2018-11-18 00:04 | RADIOLOGY REPORT (SQ) ---
EXAM DESCRIPTION: XR CHEST 1 VIEW COMPLETED DATE/TME: 11/17/2018 22:52 CLINICAL HISTORY: 38 years, Female, ams COMPARISON: None. NUMBER OF VIEWS: TECHNIQUE: LIMITATIONS: None. FINDINGS: No evidence of pulmonary infiltrate or pleural effusion. The heart and mediastinum are unremarkable. Pulmonary vascularity appears normal. IMPRESSION: No acute finding. copyright 2010 [employer]- All Rights Reserved
[2018-11-18] MEDS ORDERED: NALOXONE HCL INJ/PF 0.4 MG/1 ML SDV IV ONE (02:27)
[2018-11-18] MEDS ORDERED: IPRATROPIUM/ALBUTEROL 0.5-2.5 MG/3 ML AMPUL NEB PRN (02:47)
[2018-11-18] MEDS ORDERED: ACETAMINOPHEN 325 MG TABLET PO PRN (02:47)
[2018-11-18] MEDS ORDERED: POTASSIUM CHLORIDE 10 MEQ CAPSULE.ER PO ONE ×2 (02:47→13:17)
[2018-11-18] MEDS ORDERED: MAG HYDROX/AL HYDROX/SIMETH SUSP 30 ML UDCUP PO PRN (02:47)
[2018-11-18] MEDS ORDERED: NORMAL SALINE 1000 ML 1,000 ML IV PRN (03:00)
--- NOTE | 2018-11-18 04:31 | RADIOLOGY REPORT (SQ) ---
EXAM DESCRIPTION: US RETROPERITONEUM LIMITED COMPLETED DATE/TME: 11/18/2018 02:45 CLINICAL HISTORY: 38 years Female, hx nephrolithiasis Comparison: 11/11/18 LIMITATIONS: Bowel gas artifact. FINDINGS: 13-cm right kidney, 13-cm left kidney, and nonvisualized urinary bladder otherwise of normal size, shape, echotexture, and vascularity. Previously demonstrated left renal stone is not discerned. IMPRESSION: No acute findings. Limitation.
[2018-11-18] MEDS: LEVOFLOXACIN 750 MG/D5W RTU 750 MG/150 ML RTUPB IV ONE ×2 (06:03→06:50)
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
[2018-11-18] MEDS: HEPARIN SOD (PORCINE) 5,000 UNIT/ML 1 ML SYRINGE SUBCUT SCH ×3 (06:58→21:09)
[2018-11-18 08:37] LABS: ABSOLUTE EOSINOPHILS # (AUTO) 0.1 10^3/uL (0.0-0.6); ABSOLUTE LYMPHOCYTES (AUTO) 2.1 10^3/uL (0.5-4.7); ABSOLUTE MONOCYTES (AUTO) 0.7 10^3/uL (0.1-1.4); ABSOLUTE NEUT (AUTO) 10.5 10^3/uL (1.7-8.2); BASOPHILS % (AUTO) 0.3 % (0-2); EOSINOPHILS % (AUTO) 0.4 % (0-6); HEMATOCRIT 36.9 % (36.0-47.0); HEMOGLOBIN 12.3 g/dL (12.0-15.5); LYMPHOCYTES % (AUTO) 15.6 % (13-45); MEAN CORPUSCULAR HEMOGLOBIN 27.2 pg (27.0-33.4); MEAN CORPUSCULAR HGB CONC 33.3 g/dL (32.0-36.0); MEAN CORPUSCULAR VOLUME 82 fl (80-97); MONOCYTES % (AUTO) 5.2 % (3-13); PLATELET COUNT 307 10^3/uL (150-450); RED BLOOD COUNT 4.52 10^6/uL (3.72-5.28); RED CELL DISTRIBUTION WIDTH 14.8 % (11.5-14.0); SEGMENTED NEUTROPHILS % (AUTO) 78.5 % (42-78); TOTAL CELLS COUNTED % (AUTO) 100 %; WHITE BLOOD COUNT 13.4 10^3/uL (4.0-10.5)
[2018-11-18 09:08] LABS: ALANINE AMINOTRANSFERASE 26 U/L (9-52); ALBUMIN 3.6 g/dL (3.5-5.0); ALKALINE PHOSPHATASE 82 U/L (38-126); ANION GAP 9 (5-19); ASPARTATE AMINO TRANSFERASE 15 U/L (14-36); BILIRUBIN,DIRECT 0.2 mg/dL (0.0-0.4); BILIRUBIN,TOTAL 0.2 mg/dL (0.2-1.3); BLOOD UREA NITROGEN 12 mg/dL (7-20); CALCIUM 9.4 mg/dL (8.4-10.2); CARBON DIOXIDE 31 mmol/L (22-30); CHLORIDE 97 mmol/L (98-107); GLUCOSE 108 mg/dL (75-110); POTASSIUM 3.3 mmol/L (3.6-5.0); SODIUM 136.5 mmol/L (137-145); TOTAL PROTEIN 6.2 g/dL (6.3-8.2)
[2018-11-18] MEDS: DOCUSATE SODIUM 100 MG CAPSULE PO SCH ×2 (09:11→17:41)
[2018-11-18 09:12] LABS: CREATINE KINASE MB 0.28 ng/mL (<4.55)
[2018-11-18 09:16] LABS: TROPONIN I < 0.012 ng/mL
[2018-11-18 14:31] LABS: FREE T3 3.18 pg/mL (2.77-5.27); FREE T4 (FREE THYROXINE) 0.93 ng/dL (0.78-2.19)
[2018-11-18] MEDS ORDERED: CLONAZEPAM 1 MG TABLET PO PRN (18:42)
[2018-11-18] MEDS: OXCARBAZEPINE 150 MG TABLET PO SCH (21:06)
[2018-11-18] MEDS ORDERED: DULOXETINE HCL 30 MG CAPSULE.DR PO SCH (22:00)
--- NOTE | 2018-11-18 22:31 | EKG REPORT ---
SEVERITY:- BORDERLINE ECG - SINUS RHYTHM BORDERLINE T ABNORMALITIES, INFERIOR LEADS BORDERLINE PROLONGED QT INTERVAL : Confirmed by: Regina Almanzar MD 18-Nov-2018 22:30:53
[2018-11-19 05:47] LABS: ABSOLUTE EOSINOPHILS # (AUTO) 0.1 10^3/uL (0.0-0.6); ABSOLUTE MONOCYTES (AUTO) 0.4 10^3/uL (0.1-1.4); ABSOLUTE NEUT (AUTO) 3.1 10^3/uL (1.7-8.2); BASOPHILS % (AUTO) 0.5 % (0-2); EOSINOPHILS % (AUTO) 1.2 % (0-6); HEMATOCRIT 37.8 % (36.0-47.0); HEMOGLOBIN 12.5 g/dL (12.0-15.5); LYMPHOCYTES % (AUTO) 52.5 % (13-45); MEAN CORPUSCULAR HEMOGLOBIN 27.2 pg (27.0-33.4); MEAN CORPUSCULAR VOLUME 82 fl (80-97); MONOCYTES % (AUTO) 5.8 % (3-13); PLATELET COUNT 269 10^3/uL (150-450); RED BLOOD COUNT 4.59 10^6/uL (3.72-5.28); RED CELL DISTRIBUTION WIDTH 15.1 % (11.5-14.0); TOTAL CELLS COUNTED % (AUTO) 100 %; WHITE BLOOD COUNT 7.6 10^3/uL (4.0-10.5)
[2018-11-19] MEDS: HEPARIN SOD (PORCINE) 5,000 UNIT/ML 1 ML SYRINGE SUBCUT SCH ×2 (05:49→13:09)
[2018-11-19] MEDS ORDERED: LEVOFLOXACIN 750 MG/D5W RTU 750 MG/150 ML RTUPB IV SCH (06:00)
[2018-11-19 06:13] LABS: ALANINE AMINOTRANSFERASE 23 U/L (9-52); ALBUMIN 3.7 g/dL (3.5-5.0); ALKALINE PHOSPHATASE 89 U/L (38-126); ANION GAP 10 (5-19); ASPARTATE AMINO TRANSFERASE 22 U/L (14-36); BILIRUBIN,DIRECT 0.3 mg/dL (0.0-0.4); BILIRUBIN,TOTAL 0.4 mg/dL (0.2-1.3); BLOOD UREA NITROGEN 15 mg/dL (7-20); CALCIUM 9.3 mg/dL (8.4-10.2); CARBON DIOXIDE 31 mmol/L (22-30); CHLORIDE 98 mmol/L (98-107); GLUCOSE 122 mg/dL (75-110); SODIUM 138.8 mmol/L (137-145); TOTAL PROTEIN 6.6 g/dL (6.3-8.2)
[2018-11-19 09:44] VITALS: BP 136/83
[2018-11-19] MEDS ORDERED: HYDROCHLOROTHIAZIDE 50 MG TABLET PO SCH (10:00)
[2018-11-19] MEDS ORDERED: HYDROCHLOROTHIAZIDE 25 MG TABLET PO SCH (10:00)
[2018-11-19] MEDS: OXCARBAZEPINE 150 MG TABLET PO SCH (10:00)
[2018-11-19] MEDS ORDERED: NORGESTIMATE ETHINYL ESTRADIOL PO SCH (10:00)
[2018-11-19] MEDS: DOCUSATE SODIUM 100 MG CAPSULE PO SCH (10:00)
[2018-11-19] MEDS ORDERED: OXCARBAZEPINE 450 MG PO SCH (10:00)
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
== END 2018-11-19 14:30 | disposition home or self-care (01) ==
LOC: ER 22:25 → EH 11-18 02:58 → 5 11-18 05:25
PROVIDERS: ADMIT Internal Medicine; ATTEND Internal Medicine
DX: G93.40 Encephalopathy, unspecified (principal); T68.XXXA Hypothermia, initial encounter; X58.XXXA Exposure to other specified factors, initial encounter; E87.6 Hypokalemia; E11.9 Type 2 diabetes mellitus without complications; F41.9 Anxiety disorder, unspecified; T50.904A Poisoning by unspecified drugs, medicaments and biological substances, undetermined, initial encounter; T76.21XA Adult sexual abuse, suspected, initial encounter; I10 Essential (primary) hypertension; E66.01 Morbid (severe) obesity due to excess calories; F31.9 Bipolar disorder, unspecified; F19.11 Other psychoactive substance abuse, in remission; K21.9 Gastro-esophageal reflux disease without esophagitis; Z91.5 Personal history of self-harm; Z82.49 Family history of ischemic heart disease and other diseases of the circulatory system; Z83.3 Family history of diabetes mellitus; Z79.899 Other long term (current) drug therapy; Z79.4 Long term (current) use of insulin
CPT/HCPCS: 93005; 99291; 96361; 51702; 96374; 36415 ×3; 87040 ×2; 87086; 84439; 82553; 82962; 80307 ×4; 82550 ×2; 83735; 84443; 84703; 85025 ×3; 80053 ×3; 81001; 84484 ×2; 84481; 82533; 82803; 71045; 76775; 70450; 93010; G0378 ×3; A9270 ×8; J1644; J3490; J2310; J7120; J1956 ×2

== ENCOUNTER 2018-11-22 11:52 | Emergency (ER) | payer MEDICARE, MEDICAID ==
--- NOTE | 2018-11-22 12:28 | ER Document Report ---
ED Medical Screen (RME) - General Chief Complaint: Abdominal Pain Stated Complaint: STOMACH PAIN Time Seen by Provider: 11/22/18 12:27 Primary Care Provider: RONNIE KELLEY MD [Primary Care Provider] - Follow up as needed Mode of Arrival: Wheelchair Information source: Patient Notes: 38-year-old female presented to ED for complaint of abdominal pain times a cou ple months. She states is cramping like she is in labor having a baby. She denies any nausea vomiting diarrhea or fever. She states is been hurting for multiple months that she is been seen multiple times. States she has had a C- section in the past and an abdominal hernia repair. She states she does have high blood pressure. She denies smoking she rarely drinks does not use drugs and does not work with her significant other. Patient is alert and oriented. Patient was walking steady and then decided she needed a wheelchair. I have greeted and performed a rapid initial assessment of this patient. A comprehensive ED assessment and evaluation of the patient, analysis of test results and completion of medical decision making process will be conducted by an additional ED providers. Dictation of this chart was performed using voice recognition software; therefore, there may be some unintended grammatical errors. TRAVEL OUTSIDE OF THE [place] IN LAST 30 DAYS: No COUNTRY TRAVELED TO/FROM: [place] - Related Data Allergies/Adverse Reactions: amoxicillin Allergy (Verified 11/11/18 13:07) oxycodone [From OxyContin] Allergy (Verified 11/11/18 13:07) Nausea Penicillins Allergy (Verified 11/11/18 13:07) Past Medical History - Past Medical History Cardiac Medical History: Reports: Hx Hypertension - on meds Denies: Hx Coronary Artery Disease, Hx Heart Attack Pulmonary Medical History: Denies: Hx Asthma, Hx Bronchitis, Hx COPD, Hx Pneumonia Neurological Medical History: Denies: Hx Cerebrovascular Accident, Hx Seizures Endocrine Medical History: Reports: Hx Diabetes Mellitus Type 1, Hx Diabetes Mellitus Type 2 Renal/ Medical History: Reports: Hx Pelvic Inflammatory Disease. Denies: Hx Peritoneal Dialysis GI Medical History: Reports: Hx Gastroesophageal Reflux Disease Musculoskeltal Medical History: Reports Hx Arthritis - generalized Psychiatric Medical History: Reports: Hx Bipolar Disorder, Hx Depression, Hx Personality Disorder Past Surgical History: Reports: Hx Abdominal Surgery - hernia repair, Hx Ad enoidectomy, Hx Section - x2, Hx Gynecologic Surgery, Hx Herniorrhaphy, Hx Orthopedic Surgery - Right Leg Surgery, Hx Tonsillectomy - Immunizations Immunizations up to date: No Hx Diphtheria, Pertussis, Tetanus Vaccination: Yes Doctor's Discharge - Discharge Referrals: RONNIE KELLEY MD [Primary Care Provider] - Follow up as needed
[2018-11-22 13:21] LABS: ABSOLUTE BASOPHILS # (AUTO) 0.1 10^3/uL (0.0-0.2); ABSOLUTE EOSINOPHILS # (AUTO) 0.1 10^3/uL (0.0-0.6); ABSOLUTE LYMPHOCYTES (AUTO) 6.1 10^3/uL (0.5-4.7); ABSOLUTE MONOCYTES (AUTO) 0.8 10^3/uL (0.1-1.4); ABSOLUTE NEUT (AUTO) 6.2 10^3/uL (1.7-8.2); BASOPHILS % (AUTO) 0.8 % (0-2); HEMOGLOBIN 13.4 g/dL (12.0-15.5); LYMPHOCYTES % (AUTO) 45.5 % (13-45); MEAN CORPUSCULAR HEMOGLOBIN 27.5 pg (27.0-33.4); MEAN CORPUSCULAR HGB CONC 33.6 g/dL (32.0-36.0); MEAN CORPUSCULAR VOLUME 82 fl (80-97); MONOCYTES % (AUTO) 6.2 % (3-13); PLATELET COUNT 342 10^3/uL (150-450); RED BLOOD COUNT 4.87 10^6/uL (3.72-5.28); SEGMENTED NEUTROPHILS % (AUTO) 46.5 % (42-78); TOTAL CELLS COUNTED % (AUTO) 100 %; WHITE BLOOD COUNT 13.4 10^3/uL (4.0-10.5)
[2018-11-22 13:39] LABS: ALANINE AMINOTRANSFERASE 31 U/L (9-52); ALBUMIN 4.3 g/dL (3.5-5.0); ALKALINE PHOSPHATASE 93 U/L (38-126); ANION GAP 10 (5-19); ASPARTATE AMINO TRANSFERASE 23 U/L (14-36); BILIRUBIN,DIRECT 0.2 mg/dL (0.0-0.4); BILIRUBIN,TOTAL 0.2 mg/dL (0.2-1.3); BLOOD UREA NITROGEN 16 mg/dL (7-20); CALCIUM 9.9 mg/dL (8.4-10.2); CARBON DIOXIDE 29 mmol/L (22-30); CHLORIDE 101 mmol/L (98-107); GLUCOSE 143 mg/dL (75-110); LIPASE 68.5 U/L (23-300); POTASSIUM 3.8 mmol/L (3.6-5.0); SODIUM 139.8 mmol/L (137-145); TOTAL PROTEIN 7.5 g/dL (6.3-8.2)
== END 2018-11-22 13:55 | disposition left against medical advice (07) ==
LOC: ER 11:52
DX: R10.9 Unspecified abdominal pain (principal); I10 Essential (primary) hypertension; E11.9 Type 2 diabetes mellitus without complications; Z88.0 Allergy status to penicillin; Z88.6 Allergy status to analgesic agent
CPT/HCPCS: 36415; 80053; 83690; 84702; 85025; 99281

== ENCOUNTER 2018-11-25 18:47 | Emergency (ER) | payer MEDICARE, MEDICAID ==
--- NOTE | 2018-11-25 19:08 | ER Document Report ---
ED Medical Screen (RME) - General Chief Complaint: Abdominal Pain Stated Complaint: ABDOMINAL PAIN Time Seen by Provider: 11/25/18 19:06 Primary Care Provider: RONNIE KELLEY MD [Primary Care Provider] - Follow up as needed Mode of Arrival: Wheelchair Information source: Patient Notes: 38-year-old female presents to ED for complaint of abdominal pain and feeling like there is a baby moving her and her stomach. She states she has had multiple negative tests but she is sure she is . She states that she had negative test until she was 4 months with her daughter. She states she had negative blood and urine testing and all is only she was 4 months. Patient is alert oriented respirations regular and unlabored speaking in full sentences. I have greeted and performed a rapid initial assessment of this patient. A comprehensive ED assessment and evaluation of the patient, analysis of test results and completion of medical decision making process will be conducted by an additional ED providers. Dictation of this chart was performed using voice recognition software; therefore, there may be some unintended grammatical errors. TRAVEL OUTSIDE OF THE [place] IN LAST 30 DAYS: No COUNTRY TRAVELED TO/FROM: [place] - Related Data Allergies/Adverse Reactions: amoxicillin Allergy (Verified 11/25/18 18:49) oxycodone [From OxyContin] Allergy (Verified 11/25/18 18:49) Nausea Penicillins Allergy (Verified 11/25/18 18:49) Past Medical History - Social History Frequency of alcohol use: Rare Drug Abuse: None - Past Medical History Cardiac Medical History: Reports: Hx Hypertension - on meds Denies: Hx Coronary Artery Disease, Hx Heart Attack Pulmonary Medical History: Denies: Hx Asthma, Hx Bronchitis, Hx COPD, Hx Pneumonia Neurological Medical History: Denies: Hx Cerebrovascular Accident, Hx Seizures Endocrine Medical History: Reports: Hx Diabetes Mellitus Type 1, Hx Diabetes Mellitus Type 2 Renal/ Medical History: Reports: Hx Pelvic Inflammatory Disease. Denies: Hx Peritoneal Dialysis GI Medical History: Reports: Hx Gastroesophageal Reflux Disease Musculoskeltal Medical History: Reports Hx Arthritis - generalized Psychiatric Medical History: Reports: Hx Bipolar Disorder, Hx Depression, Hx Personality Disorder Past Surgical History: Reports: Hx Abdominal Surgery - hernia repair, Hx Adenoidectomy, Hx Section - x2, Hx Gynecologic Surgery, Hx Herniorrhaphy, Hx Orthopedic Surgery - Right Leg Surgery, Hx Tonsillectomy - Immunizations Immunizations up to date: No Hx Diphtheria, Pertussis, Tetanus Vaccination: Yes Physical Exam - Vital signs Vitals: Temp Pulse Resp BP Pulse Ox 97.7 F 82 16 150/100 H 98 11/25/18 18:53 11/25/18 18:53 11/25/18 18:53 11/25/18 18:53 11/25/18 18:53 Course - Vital Signs Vital signs: Temp Pulse Resp BP Pulse Ox 97.7 F 82 16 150/100 H 98 11/25/18 18:53 11/25/18 18:53 11/25/18 18:53 11/25/18 18:53 11/25/18 18:53 Doctor's Discharge - Discharge Referrals: RONNIE KELLEY MD [Primary Care Provider] - Follow up as needed
--- NOTE | 2018-11-25 19:37 | ER Document Report ---
Addendum entered and electronically signed by NORA LIVE PA-C 11/25/18 20:49: Discharge - Discharge Clinical Impression: Abdominal pain Qualifiers: Abdominal location: generalized Qualified Code(s): R10.84 - Generalized abdominal pain Condition: Good Disposition: HOME, SELF-CARE Instructions: Abdominal Pain ([facility]) Additional Instructions: Your test was negative. I think you need to be seen by another GI doctor. I will give you the name of a GI doctor to follow-up with. Referrals: FILI GALVEZ MD [ACTIVE STAFF] - Follow up as needed Addendum entered and electronically signed by NORA LIVE PA-C 11/25/18 20:47: Discharge - Discharge Clinical Impression: Abdominal pain Qualifiers: Abdominal location: generalized Qualified Code(s): R10.84 - Generalized a bdominal pain Condition: Good Disposition: HOME, SELF-CARE Instructions: Abdominal Pain ([facility]) Additional Instructions: Your test was negative. I think you need to be seen by another GI d octsarah. I will give you the name of a GI doctor to follow-up with. Referrals: RONNIE KELLEY MD [Primary Care Provider] - Follow up as needed Original Note: ED General - General Chief Complaint: Abdominal Pain Stated Complaint: ABDOMINAL PAIN Time Seen by Provider: 11/25/18 19:06 Primary Care Provider: RONNIE KELLEY MD [Primary Care Provider] - Follow up as needed Mode of Arrival: Ambulatory Information source: Patient TRAVEL OUTSIDE OF THE [place] IN LAST 30 DAYS: No COUNTRY TRAVELED TO/FROM: [facility] Patient complains to provider of: Abdominal pain Onset: Other - 3 months ago, at least Onset/Duration: Persistent Quality of pain: Sharp Severity: Moderate Pain Level: 3 Associated symptoms: denies: Chills, Diarrhea, Fever, Nausea, Vomiting Exacerbated by: Denies Relieved by: Denies Similar symptoms previously: No Recently seen / treated by doctor: No Notes: 38-year-old female coming in today with chronic mid abdominal pain which is been going on for 3 months. Multiple visits here. Scan done about 2 weeks ago which was negative. No fevers or chills. No nausea or vomiting. No constipation. No dysuria. - Related Data Allergies/Adverse Reactions: amoxicillin Allergy (Verified 11/25/18 18:49) oxycodone [From OxyContin] Allergy (Verified 11/25/18 18:49) Nausea Penicillins Allergy (Verified 11/25/18 18:49) Past Medical History - General Information source: Patient - Social History Smoking Status: Former Smoker Frequency of alcohol use: Rare Drug Abuse: None Family History: Reviewed & Not Pertinent, CAD, DM, Malignancy, Other Patient has suicidal ideation: No Patient has homicidal ideation: No - Past Medical History Cardiac Medical History: Reports: Hx Hypertension - on meds Denies: Hx Coronary Artery Disease, Hx Heart Attack Pulmonary Medical History: Denies: Hx Asthma, Hx Bronchitis, Hx COPD, Hx Pneumonia Neurological Medical History: Denies: Hx Cerebrovascular Accident, Hx Seizures Endocrine Medical History: Reports: Hx Diabetes Mellitus Type 1, Hx Diabetes Mellitus Type 2 Renal/ Medical History: Reports: Hx Pelvic Inflammatory Disease. Denies: Hx Peritoneal Dialysis GI Medical History: Reports: Hx Gastroesophageal Reflux Disease Musculoskeletal Medical History: Reports Hx Arthritis - generalized Psychiatric Medical History: Reports: Hx Bipolar Disorder, Hx Depression, Hx Personality Disorder Past Surgical History: Reports: Hx Abdominal Surgery - hernia repair, Hx Adenoidectomy, Hx Section - x2, Hx Gynecologic Surgery, Hx Herniorrhaphy, Hx Orthopedic Surgery - Right Leg Surgery, Hx Tonsillectomy - Immunizations Immunizations up to date: No Hx Diphtheria, Pertussis, Tetanus Vaccination: Yes Hx Pneumococcal Vaccination: 07/12/00 Review of Systems - Review of Systems Notes: Constitutional: No fevers. No chills. EENT: No eye redness. No eye pain. No ear pain. No sore throat. Cardiovascular: No chest pain. No palpitations. Respiratory: No cough. No shortness of breath. No respiratory distress. Gastrointestinal: Positive for abdominal pain. No nausea, vomiting, or diarrhea. Genitourinary: Atraumatic. No lesions. No pain. No discharge. Musculoskeletal: Atraumatic. No swelling. No deformities. Skin: No rash or lesions. Lymphatic: No swollen lymph nodes. Neurologic: No headache. No syncope. Psychiatric: No suicidal or homicidal ideation. Physical Exam - Vital signs Vitals: Temp Pulse Resp BP Pulse Ox 97.7 F 82 16 150/100 H 98 11/25/18 18:53 11/25/18 18:53 11/25/18 18:53 11/25/18 18:53 11/25/18 18:53 - Notes Notes: General: Well-developed, well-nourished. In no acute distress. Non-toxic appearing. Cardiac: Well-perfused. Regular rate and rhythm. No murmurs, rubs, or gallops. Pulmonary: No respiratory distress. No cyanosis. Bilateral lung fiels are clear to auscultation. Abdominal: Obese abdomen. Tender to deep palpation of the periumbilical region. Otherwise abdomen is soft. No guarding or rebound. Bowel sounds present all 4 quadrants. HEENT: Head is atraumatic. Conjunctivae not reddened. No tearing. PERRL. EOMI. Orbits atraumatic. No periorbital swelling or erythema. Oropharynx is without erythema, swelling, or exudates. Neck: Supple. No adenopathy. No meningismus. Dermatologic: Warm with good turgor. No rash. Atraumatic. Chest: Atraumatic. No chest wall tenderness to palpation. Musculoskeletal: Moves all extremities well. No range of motion deficits. no muscular or joint tenderness. No paraspinal muscle tenderness. no midline spinal tenderness or step-off. Genitourinary: Examination deferred Neurologic: No gross neurologic deficits. Psychiatric: Normal mood. Course - Re-evaluation Re-evalutation: 11/25/18 20:41 Labs are normal. Urine is borderline. Will send for culture. Sounds like patient needs to follow-up with GI. We will give her the name of Ryan as [facility] take-home [facility]. - Vital Signs Vital signs: Temp Pulse Resp BP Pulse Ox 97.7 F 82 16 150/100 H 98 11/25/18 18:53 11/25/18 18:53 11/25/18 18:53 11/25/18 18:53 11/25/18 18:53 - Laboratory Result Diagrams: 11/25/18 19:22 11/25/18 19:22 Laboratory results interpreted by me: 11/25/18 11/25/18 11/25/18 19:22 19:22 19:22 WBC 12.1 H RDW 14.8 H Lymphocytes % 45.7 H Absolute Lymphocytes 5.5 H Potassium 3.5 L Glucose 124 H Urine Protein 30 H Urine Blood LARGE H Ur Leukocyte Esterase TRACE H Discharge - Discharge Clinical Impression: Abdominal pain Qualifiers: Abdominal location: generalized Qualified Code(s): R10.84 - Generalized abdominal pain Condition: Good Disposition: HOME, SELF-CARE Instructions: Abdominal Pain ([facility]) Additional Instructions: Your test was negative. I think you need to be seen by another GI doctor. I will give you the name of a GI doctor to follow-up with. Referrals: RONNIE KELLEY MD [Primary Care Provider] - Follow up as needed
[2018-11-25 19:53] LABS: ABSOLUTE BASOPHILS # (AUTO) 0.1 10^3/uL (0.0-0.2); ABSOLUTE EOSINOPHILS # (AUTO) 0.1 10^3/uL (0.0-0.6); ABSOLUTE LYMPHOCYTES (AUTO) 5.5 10^3/uL (0.5-4.7); ABSOLUTE MONOCYTES (AUTO) 0.8 10^3/uL (0.1-1.4); ABSOLUTE NEUT (AUTO) 5.6 10^3/uL (1.7-8.2); BASOPHILS % (AUTO) 0.7 % (0-2); EOSINOPHILS % (AUTO) 0.6 % (0-6); HEMATOCRIT 36.1 % (36.0-47.0); LYMPHOCYTES % (AUTO) 45.7 % (13-45); MEAN CORPUSCULAR HEMOGLOBIN 27.3 pg (27.0-33.4); MEAN CORPUSCULAR HGB CONC 33.3 g/dL (32.0-36.0); MEAN CORPUSCULAR VOLUME 82 fl (80-97); MONOCYTES % (AUTO) 6.5 % (3-13); PLATELET COUNT 313 10^3/uL (150-450); RED CELL DISTRIBUTION WIDTH 14.8 % (11.5-14.0); SEGMENTED NEUTROPHILS % (AUTO) 46.5 % (42-78); TOTAL CELLS COUNTED % (AUTO) 100 %; WHITE BLOOD COUNT 12.1 10^3/uL (4.0-10.5)
[2018-11-25 20:11] LABS: ALANINE AMINOTRANSFERASE 25 U/L (9-52); ALBUMIN 3.9 g/dL (3.5-5.0); ALKALINE PHOSPHATASE 81 U/L (38-126); ANION GAP 11 (5-19); ASPARTATE AMINO TRANSFERASE 19 U/L (14-36); BILIRUBIN,DIRECT 0.2 mg/dL (0.0-0.4); BILIRUBIN,TOTAL 0.2 mg/dL (0.2-1.3); BLOOD UREA NITROGEN 16 mg/dL (7-20); CALCIUM 9.6 mg/dL (8.4-10.2); CARBON DIOXIDE 27 mmol/L (22-30); CHLORIDE 104 mmol/L (98-107); GLUCOSE 124 mg/dL (75-110); POTASSIUM 3.5 mmol/L (3.6-5.0); SODIUM 141.7 mmol/L (137-145); TOTAL PROTEIN 6.8 g/dL (6.3-8.2)
[2018-11-25 20:32] LABS: APPEARANCE,URINE SLIGHTLY-CLOUDY; BILIRUBIN,URINE NEGATIVE (NEGATIVE); COLOR,URINE YELLOW; GLUCOSE, URINE NEGATIVE (NEGATIVE); KETONES,URINE NEGATIVE (NEGATIVE); LEUKOCYTE ESTERASE,URINE TRACE (NEGATIVE); NITRITE,URINE NEGATIVE (NEGATIVE); PROTEIN,URINE 30 mg/dL (NEGATIVE); URINE SPECIFIC GRAVITY 1.024; UROBILINOGEN,URINE NEGATIVE mg/dL (<2.0)
[2018-11-25] MEDS ORDERED: HYDROCODONE/ACETAMINOPHEN 5-325 MG (6 TAB/ER DISP) PO PRN (20:45)
[2018-11-25 21:02] VITALS: BP 154/95
== END 2018-11-25 21:10 | disposition home or self-care (01) ==
LOC: ER 18:47
DX: R10.84 Generalized abdominal pain (principal); I10 Essential (primary) hypertension; E11.9 Type 2 diabetes mellitus without complications; Z88.0 Allergy status to penicillin; Z88.6 Allergy status to analgesic agent
CPT/HCPCS: 99284; 36415; 87086; 84702; 85025; 80053; 81001; A9270

== ENCOUNTER 2018-12-22 22:52 | Emergency (ER) | payer MEDICARE, MEDICAID ==
[2018-12-23 00:05] VITALS: BP 142/93
--- NOTE | 2018-12-23 00:54 | ER Document Report ---
ED Medical Screen (RME) - General Chief Complaint: Abdominal Pain Stated Complaint: POSSIBLE WOUND INFECTION Time Seen by Provider: 12/23/18 00:52 Primary Care Provider: RONNIE KELLEY MD [Primary Care Provider] - Follow up as needed Mode of Arrival: Ambulatory Information source: Patient Notes: Patient presents complaining of lower abdominal pain for the past for 5 days. Patient states she has pain along her scar. Patient reports subjective fever at home and feeling lightheaded for the past week. Patient is concerned that she may be . I have greeted and performed a rapid initial assessment of this patient. A comprehensive ED assessment and evaluation of the patient, analysis of test results and completion of the medical decision making process will be conducted by additional ED providers. TRAVEL OUTSIDE OF THE [place] IN LAST 30 DAYS: No COUNTRY TRAVELED TO/FROM: [place] - Related Data Allergies/Adverse Reactions: amoxicillin Allergy (Verified 11/25/18 18:49) oxycodone [From OxyContin] Allergy (Verified 11/25/18 18:49) Nausea Penicillins Allergy (Verified 11/25/18 18:49) Past Medical History - Past Medical History Cardiac Medical History: Reports: Hx Hypertension - on meds Denies: Hx Coronary Artery Disease, Hx Heart Attack Pulmonary Medical History: Denies: Hx Asthma, Hx Bronchitis, Hx COPD, Hx Pneumonia Neurological Medical History: Denies: Hx Cerebrovascular Accident, Hx Seizures Endocrine Medical History: Reports: Hx Diabetes Mellitus Type 1, Hx Diabetes Mellitus Type 2 Renal/ Medical History: Reports: Hx Pelvic Inflammatory Disease. Denies: Hx Peritoneal Dialysis GI Medical History: Reports: Hx Gastroesophageal Reflux Disease Musculoskeltal Medical History: Reports Hx Arthritis - generalized Psychiatric Medical History: Reports: Hx Bipolar Disorder, Hx Depression, Hx Personality Disorder Past Surgical History: Reports: Hx Abdominal Surgery - hernia repair, Hx Adenoidectomy, Hx Section - x2, Hx Gynecologic Surgery, Hx Hernio rrhaphy, Hx Orthopedic Surgery - Right Leg Surgery, Hx Tonsillectomy - Immunizations Immunizations up to date: No Hx Diphtheria, Pertussis, Tetanus Vaccination: Yes Physical Exam - Vital signs Vitals: Temp Pulse Resp BP Pulse Ox 97.7 F 86 20 142/93 H 97 12/23/18 00:03 12/23/18 00:03 12/23/18 00:03 12/23/18 00:03 12/23/18 00:03 - General General appearance: Appears well Notes: Pain to the suprapubic area along incision Course - Vital Signs Vital signs: Temp Pulse Resp BP Pulse Ox 97.7 F 86 20 142/93 H 97 12/23/18 00:03 12/23/18 00:03 12/23/18 00:03 12/23/18 00:03 12/23/18 00:03 Doctor's Discharge - Discharge Referrals: RONNIE KELLEY MD [Primary Care Provider] - Follow up as needed
[2018-12-23 01:18] LABS: ABSOLUTE BASOPHILS # (AUTO) 0.1 10^3/uL (0.0-0.2); ABSOLUTE EOSINOPHILS # (AUTO) 0.1 10^3/uL (0.0-0.6); ABSOLUTE MONOCYTES (AUTO) 0.7 10^3/uL (0.1-1.4); ABSOLUTE NEUT (AUTO) 7.1 10^3/uL (1.7-8.2); HEMATOCRIT 39.2 % (36.0-47.0); HEMOGLOBIN 12.9 g/dL (12.0-15.5); LYMPHOCYTES % (AUTO) 33.5 % (13-45); MEAN CORPUSCULAR HEMOGLOBIN 26.7 pg (27.0-33.4); MEAN CORPUSCULAR HGB CONC 32.8 g/dL (32.0-36.0); MEAN CORPUSCULAR VOLUME 82 fl (80-97); MONOCYTES % (AUTO) 5.6 % (3-13); PLATELET COUNT 337 10^3/uL (150-450); RED BLOOD COUNT 4.81 10^6/uL (3.72-5.28); RED CELL DISTRIBUTION WIDTH 14.9 % (11.5-14.0); SEGMENTED NEUTROPHILS % (AUTO) 58.9 % (42-78); TOTAL CELLS COUNTED % (AUTO) 100 %; WHITE BLOOD COUNT 12.1 10^3/uL (4.0-10.5)
[2018-12-23 01:47] LABS: ALANINE AMINOTRANSFERASE 19 U/L (9-52); ALKALINE PHOSPHATASE 109 U/L (38-126); ANION GAP 7 (5-19); ASPARTATE AMINO TRANSFERASE 17 U/L (14-36); BILIRUBIN,DIRECT 0.2 mg/dL (0.0-0.4); BILIRUBIN,TOTAL 0.2 mg/dL (0.2-1.3); BLOOD UREA NITROGEN 17 mg/dL (7-20); CALCIUM 9.9 mg/dL (8.4-10.2); CARBON DIOXIDE 30 mmol/L (22-30); CHLORIDE 102 mmol/L (98-107); GLUCOSE 114 mg/dL (75-110); SODIUM 138.8 mmol/L (137-145)
[2018-12-23] MEDS ORDERED: ONDANSETRON HCL INJ/PF 4 MG/2 ML SDV IV ONE (03:25)
--- NOTE | 2018-12-23 03:29 | ER Document Report ---
ED General - General Chief Complaint: Abdominal Pain Stated Complaint: POSSIBLE WOUND INFECTION Time Seen by Provider: 12/23/18 00:52 Primary Care Provider: PERLA HATHAWAY MD [ACTIVE STAFF] - Follow up as needed RONNIE KELLEY MD [NO LOCAL MD] - Follow up in 3-5 days Mode of Arrival: Ambulatory Information source: Patient, [facility] Records Notes: 38-year-old female with hypertension, type 1 diabetes, bipolar disorder presents with concern for infection of her site. Patient reports she had a C- section in July 2018 with a subsequent infection which required surgery in August 2018. Patient reports pain of the surgical site that started 3 days prior to arrival. She repeatedly states I just feel sick". She denies any fever, chills, chest pain. She does admit to dysuria but denies hematuria, vaginal discharge. TRAVEL OUTSIDE OF THE [place] IN LAST 30 DAYS: No COUNTRY TRAVELED TO/FROM: [facility] Onset: Other Onset/Duration: Gradual, Persistent Quality of pain: Throbbing Severity: Moderate Pain Level: 1 Associated symptoms: denies: Body/muscle aches, Nonproductive cough, Productive cough, Fever, Nausea, Vomiting, Shortness of breath, Weakness Exacerbated by: Denies Relieved by: Denies Similar symptoms previously: Yes Recently seen / treated by doctor: Yes - Related Data Allergies/Adverse Reactions: amoxicillin Allergy (Verified 11/25/18 18:49) oxycodone [From OxyContin] Allergy (Verified 11/25/18 18:49) Nausea Penicillins Allergy (Verified 11/25/18 18:49) Past Medical History - General Information source: Patient - Social History Smoking Status: Current Every Day Smoker Cigarette use (# per day): Yes - 10 Chew tobacco use (# tins/day): No Smoking Education Provided: Yes - Smoking cessation counseling was provided for 4 minutes at the bedside Frequency of alcohol use: None Drug Abuse: None Lives with: Spouse/Significant other Family History: Reviewed & Not Pertinent, CAD, DM, Malignancy, Other Patient has suicidal ideation: No Patient has homicidal ideation: No - Past Medical History Cardiac Medical History: Reports: Hx Hypertension - on meds Denies: Hx Coronary Artery Disease, Hx Heart Attack Pulmonary Medical History: Denies: Hx Asthma, Hx Bronchitis, Hx COPD, Hx Pneumonia Neurological Medical History: Denies: Hx Cerebrovascular Accident, Hx Seizures Endocrine Medical History: Reports: Hx Diabetes Mellitus Type 1, Hx Diabetes Mellitus Type 2 Renal/ Medical History: Reports: Hx Pelvic Inflammatory Disease. Denies: Hx Peritoneal Dialysis GI Medical History: Reports: Hx Gastroesophageal Reflux Disease Musculoskeletal Medical History: Reports Hx Arthritis - generalized Psychiatric Medical History: Reports: Hx Bipolar Disorder, Hx Depression, Hx Personality Disorder Past Surgical History: Reports: Hx Abdominal Surgery - hernia repair, Hx Adenoidectomy, Hx Section - x2, Hx Gynecologic Surgery, Hx Herniorrhaphy, Hx Orthopedic Surgery - Right Leg Surgery, Hx Tonsillectomy - Immunizations Immunizations up to date: No Hx Diphtheria, Pertussis, Tetanus Vaccination: Yes Hx Pneumococcal Vaccination: 07/12/00 Review of Systems - Review of Systems Notes: REVIEW OF SYSTEMS: CONSTITUTIONAL : Denies fever, chills, or sweats. Denies recent illness. Denies weight loss, recent hospitalizations. EENT: Denies visual changes, eye pain. Denies sore throat, oral lesions, difficulty swallowing. CARDIOVASCULAR: Denies chest pain. Denies palpitations. Denies lower extremity edema. RESPIRATORY: Denies cough. Denies shortness of breath, wheezing. GASTROINTESTINAL: Denies abdominal distention. Denies vomiting, or diarrhea. Denies blood in vomitus, stools, or per rectum. Denies black, tarry stools. Denies constipation. GENITOURINARY: Denies difficulty urinating, painful urination, frequency, blood in urine, or vaginal discharge. MUSCULOSKELETAL: Denies back or neck pain or stiffness. Denies joint pain or swelling. SKIN: Denies rash, lesions or sores. HEMATOLOGIC : Denies easy bruising or bleeding. LYMPHATIC: Denies swollen glands. NEUROLOGICAL: Denies confusion or altered mental status. Denies loss of consciousness. Denies dizziness or lightheadedness. Denies headache. Denies weakness or paralysis. Denies problems difficulty with ambulation, slurred speech. Denies sensory loss, numbness, or tingling. Denies seizures. PSYCHIATRIC: Denies anxiety or stress. Denies depression, suicidal ideation, or homicidal ideation. Denies visual or auditory hallucinations. Physical Exam - Vital signs Vitals: Temp Pulse Resp BP Pulse Ox 97.7 F 86 20 142/93 H 97 12/23/18 00:03 12/23/18 00:03 12/23/18 00:03 12/23/18 00:03 12/23/18 00:03 - Notes Notes: PHYSICAL EXAMINATION: GENERAL: Well-appearing, well-nourished and in no acute distress. HEAD: Atraumatic, normocephalic. EYES: Pupils equal round and reactive to light, extraocular movements intact, conjunctiva are normal. ENT: Nares patent, oropharynx clear without exudates. Moist mucous membranes. NECK: Normal range of motion, supple without lymphadenopathy LUNGS: Breath sounds clear to auscultation bilaterally and equal. No wheezes rales or rhonchi. HEART: Regular rate and rhythm without murmurs ABDOMEN: Tenderness with palpation in the periumbilical region. Surgical cause scar clean dry intact without associated erythema. No fluctuance, induration. No guarding, no rebound. No masses appreciated. Female : deferred Musculoskeletal: Normal range of motion, no pitting or edema. No cyanosis. NEUROLOGICAL: Cranial nerves grossly intact. Normal speech, normal gait. Normal sensory, motor exams PSYCH: Normal mood, normal affect. SKIN: Warm, Dry, normal turgor, no rashes or lesions noted. Course - Re-evaluation Re-evalutation: Temp Pulse Resp BP Pulse Ox 97.7 F 86 20 142/93 H 97 12/23/18 00:03 12/23/18 00:03 12/23/18 00:03 12/23/18 00:03 12/23/18 00:03 Abdomen/Pelvis CT 12/23/18 03:24 IMPRESSION: 1. No acute inflammatory or obstructive process identified. 2. Small fat-containing ventral hernia in the lower abdominal wall likely at the incision site. 3. Stable 2.9 cm indeterminate hypodense lesion in the right hepatic lobe. Correlation with multiphase hepatic CT if not easily performed would be recommended. 4. Nonobstructing left nephrolithiasis. This exam was performed according to our departmental dose-optimization program, which includes automated exposure control, adjustment of the mA and/or kV according to patient size and/or use of iterative reconstruction technique. Temp Pulse Resp BP Pulse Ox 97.7 F 86 20 142/93 H 97 12/23/18 00:03 12/23/18 00:03 12/23/18 00:03 12/23/18 00:03 12/23/18 00:03 Laboratory 12/23/18 12/23/18 12/23/18 01:06 01:06 01:06 WBC 12.1 H RBC 4.81 Hgb 12.9 Hct 39.2 MCV 82 MCH 26.7 L MCHC 32.8 RDW 14.9 H Plt Count 337 Seg Neutrophils % 58.9 Lymphocytes % 33.5 Monocytes % 5.6 Eosinophils % 1.0 Basophils % 1.0 Absolute Neutrophils 7.1 Absolute Lymphocytes 4.0 Absolute Monocytes 0.7 Absolute Eosinophils 0.1 Absolute Basophils 0.1 Sodium 138.8 Potassium 4.0 Chloride 102 Carbon Dioxide 30 Anion Gap 7 BUN 17 Creatinine 0.80 Est GFR ( Amer) > 60 Est GFR (Non-Af Amer) > 60 Glucose 114 H POC Glucose Calcium 9.9 Total Bilirubin 0.2 Direct Bilirubin 0.2 Neonat Total Bilirubin Not Reportable Neonat Direct Bilirubin Not Reportable Neonat Indirect Bili Not Reportable AST 17 ALT 19 Alkaline Phosphatase 109 Total Protein 7.0 Albumin 4.0 Serum HCG, Qual NEGATIVE Urine Color Urine Appearance Urine pH Ur Specific [place] Urine Protein Urine Glucose (UA) Urine Ketones Urine Blood Urine Nitrite Urine Bilirubin Urine Urobilinogen Ur Leukocyte Esterase Urine WBC (Auto) Urine RBC (Auto) Urine Bacteria (Auto) Squamous Epi Cells Auto Urine Mucus (Auto) Urine Ascorbic Acid Chlamydia DNA (PCR) N.gonorrhoeae DNA (PCR) 12/23/18 12/23/18 12/23/18 02:10 03:03 04:30 WBC RBC Hgb Hct MCV MCH MCHC RDW Plt Count Seg Neutrophils % Lymphocytes % Monocytes % Eosinophils % Basophils % Absolute Neutrophils Absolute Lymphocytes Absolute Monocytes Absolute Eosinophils Absolute Basophils Sodium Potassium Chloride Carbon Dioxide Anion Gap BUN Creatinine Est GFR ( Amer) Est GFR (Non-Af Amer) Glucose POC Glucose 198 H Calcium Total Bilirubin Direct Bilirubin Neonat Total Bilirubin Neonat Direct Bilirubin Neonat Indirect Bili AST ALT Alkaline Phosphatase Total Protein Albumin Serum HCG, Qual Urine Color YELLOW Urine Appearance SLIGHTLY-CLOUDY Urine pH 6.0 Ur Specific [place] 1.019 Urine Protein NEGATIVE Urine Glucose (UA) NEGATIVE Urine Ketones NEGATIVE Urine Blood MODERATE H Urine Nitrite NEGATIVE Urine Bilirubin NEGATIVE Urine Urobilinogen NEGATIVE Ur Leukocyte Esterase NEGATIVE Urine WBC (Auto) 1 Urine RBC (Auto) 96 Urine Bacteria (Auto) TRACE Squamous Epi Cells Auto 3 Urine Mucus (Auto) RARE Urine Ascorbic Acid NEGATIVE Chlamydia DNA (PCR) NOT DETECTED N.gonorrhoeae DNA (PCR) NOT DETECTED 12/23/18 03:28 38-year-old female presents with several days of abdominal pain site. Vital signs reviewed and patient is afebrile, mildly hypertensive and not hyp oxic. Patient does not appear toxic or dehydrated. She is in no acute distress. Previous medical records and nursing notes reviewed. Patient has some mild abdominal tenderness but surgical scar is clean dry and intact without associated erythema induration or fluctuance. Vital signs reviewed and within normal limits. Patient seems more preoccupied about how I am going to get her home since her ride has left. CT of the abdomen pelvis show a fat-containing ventral hernia but no other evidence of infection. She is without leukocytosis or anemia. CMP is without significant electrolyte abnormality. Urinalysis not consistent with infection. Gonorrhea and Chlamydia are negative. 12/23/18 23:11 Patient was evaluated and treated as appropriate for the patient's presenting symptoms and complaint, with consideration of any critical or life threatening conditions that may be associated with their obtained history and exam as noted above. All results were discussed with patient. Patient provided the opportunity to ask questions, and express concerns. Patient was educated on treatments based on their presumed diagnosis as noted above. At this time we will discharge the patient with return precautions and follow-up recommendations. Verbal discharge instructions given a the bedside. Medication warnings reviewed. Patient is in agreement with this plan and has verbalized understanding of return precautions. After careful consideration I feel that that patient can be safely discharged from the emergency department, they were advised to followup with a primary care physician in 2-3 days. Dictation on this chart was performed using voice recognition software and may result in unintended grammatical, spelling, syntax or errors. - Vital Signs Vital signs: Temp Pulse Resp BP Pulse Ox 97.7 F 86 20 142/93 H 97 12/23/18 00:03 12/23/18 00:03 12/23/18 00:03 12/23/18 00:03 12/23/18 00:03 - Laboratory Result Diagrams: 12/23/18 01:06 12/23/18 01:06 Laboratory results interpreted by me: 12/23/18 12/23/18 12/23/18 01:06 01:06 02:10 WBC 12.1 H MCH 26.7 L RDW 14.9 H Glucose 114 H POC Glucose 198 H Urine Blood 12/23/18 03:03 WBC MCH RDW Glucose POC Glucose Urine Blood MODERATE H - Diagnostic Test Radiology reviewed: Image reviewed, Reports reviewed Discharge - Discharge Clinical Impression: Ventral hernia Qualifiers: Obstruction and gangrene presence: without obstruction or gangrene Qualified Code(s): K43.9 - Ventral hernia without obstruction or gangrene Abdominal pain Qualifiers: Abdominal location: lower abdomen, unspecified Qualified Code(s): R10.30 - Lower abdominal pain, unspecified Condition: Good Disposition: HOME, SELF-CARE Instructions: Abdominal Pain ([facility]), Hernia ([facility]) Prescriptions: Ibuprofen [Motrin 600 Mg Tablet] 600 mg PO TID #15 tablet Referrals: RONNIE KELLEY MD [NO LOCAL MD] - Follow up in 3-5 days PERLA HATHAWAY MD [ACTIVE STAFF] - Follow up as needed
[2018-12-23 03:31] LABS: APPEARANCE,URINE SLIGHTLY-CLOUDY; BILIRUBIN,URINE NEGATIVE (NEGATIVE); COLOR,URINE YELLOW; GLUCOSE, URINE NEGATIVE (NEGATIVE); KETONES,URINE NEGATIVE (NEGATIVE); LEUKOCYTE ESTERASE,URINE NEGATIVE (NEGATIVE); NITRITE,URINE NEGATIVE (NEGATIVE); PROTEIN,URINE NEGATIVE (NEGATIVE); URINE SPECIFIC GRAVITY 1.019; UROBILINOGEN,URINE NEGATIVE mg/dL (<2.0)
--- NOTE | 2018-12-23 04:23 | RADIOLOGY REPORT (SQ) ---
EXAM DESCRIPTION: CT ABDOMEN PELVIS WITH IV CONTRAST COMPLETED DATE/TME: 12/23/2018 03:24 CLINICAL HISTORY: Lower abdominal pain. COMPARISON: 11/11/2018 TECHNIQUE: CT of the abdomen and pelvis performed following IV administration of 100 mL of Omnipaque 350. DLP: 2399.75 mGycm FINDINGS: Lung Bases: The visualized lung bases are clear. Bones: No destructive bone lesions identified. Abdomen: Liver: The liver has normal size and density. Stable hypodense lesion in the right hepatic lobe measuring 2.9 cm. Gallbladder: No calcified gallstones. Spleen, Pancreas, and Adrenal Glands: The spleen, pancreas, and adrenal glands are unremarkable. Kidneys: The kidneys have normal size and contour without evidence of solid mass or hydronephrosis. 8 mm nonobstructing left renal calculus. Vasculature: The aorta and IVC have normal caliber and position. The portal vein is patent. The proximal visceral and renal arteries are patent. Stomach: The stomach and duodenum have normal course. Other: No free intraperitoneal air. Fat-containing ventral hernia. No free fluid or lymphadenopathy. Pelvis: Bladder: Urinary bladder is unremarkable. Bowel: No dilated loops of large or small bowel. Scattered diverticula of the colon. Appendix: Normal appendix. Pelvis: Uterus is not enlarged. IMPRESSION: 1. No acute inflammatory or obstructive process identified. 2. Small fat-containing ventral hernia in the lower abdominal wall likely at the incision site. 3. Stable 2.9 cm indeterminate hypodense lesion in the right hepatic lobe. Correlation with multiphase hepatic CT if not easily performed would be recommended. 4. Nonobstructing left nephrolithiasis. This exam was performed according to our departmental dose-optimization program, which includes automated exposure control, adjustment of the mA and/or kV according to patient size and/or use of iterative reconstruction technique.
[2018-12-23 06:13] LABS: CHLAM PCR NOT DETECTED (NOT DETECT); GON PCR NOT DETECTED (NOT DETECT)
== END 2018-12-23 05:19 | disposition home or self-care (01) ==
LOC: ER 22:52
DX: K43.9 Ventral hernia without obstruction or gangrene (principal); R10.30 Lower abdominal pain, unspecified; G89.18 Other acute postprocedural pain; R10.9 Unspecified abdominal pain; E10.9 Type 1 diabetes mellitus without complications; F31.9 Bipolar disorder, unspecified; I10 Essential (primary) hypertension; Z98.890 Other specified postprocedural states; Z79.899 Other long term (current) drug therapy; F17.210 Nicotine dependence, cigarettes, uncomplicated
CPT/HCPCS: 99406; 99284; 96374; 36415; 82962; 84703; 85025; 80053; 81001; 87491; 87591; 74177; J2405

== ENCOUNTER 2019-01-17 15:26 | Emergency (ER) | payer MEDICARE, MEDICAID ==
--- NOTE | 2019-01-17 15:57 | ER Document Report ---
ED Psych Disorder / Suicide - General Stated Complaint: POSSIBLE OVERDOSE Time Seen by Provider: 01/17/19 15:51 Notes: Patient was brought in by EMS after the patient took between 12 and 15 of her Cymbalta tablets about 1/2-hour to an hour prior to arrival. Patient says that she is depressed and cannot function anymore. She took the pills while facing her fianc and he is the one that called rescue. Patient has been to this emergency department on several occasions in the past for psychiatric and mental conditions. Patient says she has ADHD, bipolar disorder and depression. Patient says that she is still taking Cymbalta but also had Strattera added to her medications about a week ago. Patient was given charcoal by EMS and says she drank about a half a bottle. Patient also thinks she may have gallbladder disease as she has pain in her right upper quadrant. She also says that she has nausea, little vomiting, but is running fever and having chills. She has had a hernia repair in her abdomen but no other abdominal surgeries. History of fibromyalgia. TRAVEL OUTSIDE OF THE [place] IN LAST 30 DAYS: No COUNTRY TRAVELED TO/FROM: [place] - Related Data Allergies/Adverse Reactions: amoxicillin Allergy (Verified 11/25/18 18:49) oxycodone [From OxyContin] Allergy (Verified 11/25/18 18:49) Nausea Penicillins Allergy (Verified 11/25/18 18:49) Past Medical History - Social History Smoking Status: Unknown if Ever Smoked Family History: Reviewed & Not Pertinent, CAD, DM, Malignancy, Other - Past Medical History Cardiac Medical History: Reports: Hx Hypertension - on meds Endocrine Medical History: Reports: Hx Diabetes Mellitus Type 1, Hx Diabetes Mellitus Type 2 Renal/ Medical History: Reports: Hx Pelvic Inflammatory Disease GI Medical History: Reports: Hx Gastroesophageal Reflux Disease Musculoskeletal Medical History: Reports Hx Arthritis - generalized Psychiatric Medical History: Reports: Hx Bipolar Disorder, Hx Depression, Hx Personality Disorder Past Surgical History: Reports: Hx Abdominal Surgery - hernia repair, Hx Adenoidectomy, Hx Section - x2, Hx Gynecologic Surgery, Hx Herniorrhaphy, Hx Orthopedic Surgery - Right Leg Surgery, Hx Tonsillectomy - Immunizations Immunizations up to date: No Hx Diphtheria, Pertussis, Tetanus Vaccination: Yes Hx Pneumococcal Vaccination: 07/12/00 Review of Systems - Review of Systems Notes: CONSTITUTIONAL : Denies fever. CARDIOVASCULAR: Denies chest pain. RESPIRATORY: Denies cough, chest congestion, or shortness of breath. GASTROINTESTINAL: Patient is having right upper quadrant abdominal pains for some time. See HPI. GENITOURINARY: Denies difficulty or painful urinating, urinary frequency, blood in urine. Physical Exam - Vital signs Vitals: Resp Pulse Ox 8 L 96 01/17/19 15:54 01/17/19 15:54 Interpretation: Normal Notes: PHYSICAL EXAMINATION: GENERAL: Well-appearing, no acute distress. HEAD: Atraumatic, normocephalic. NECK: Normal range of motion, supple. LUNGS: Breath sounds clear and equal bilaterally. HEART: Regular rate and rhythm without murmurs heard. ABDOMEN: Soft, tender in the right upper quadrant region. No masses and no guarding or rebound present. Course - Re-evaluation Re-evalutation: 01/17/19 17:41 All of patient's lab studies are essentially normal. Vital signs were also essentially normal. Patient does not appear to me to be suicidal. I told her that I am not going to do an IVC on her as I do not think is necessary. She was advised that she can spend the night and be evaluated by mental health in the morning. Patient says she would like to do that. 01/17/19 18:47 Patient says that she wishes to leave. She does not want to stay any longer. I do not think this patient is suicidal or any risk of hurting herself or anyone else. She was being allowed to stay overnight to be evaluated by mental health, but I do not think she is in need of an urgent or emergent evaluation. Patient will be discharged. - Vital Signs Vital signs: Temp Pulse Resp BP Pulse Ox 97.8 F 86 16 144/92 H 98 01/17/19 18:46 01/17/19 18:46 01/17/19 18:46 01/17/19 18:46 01/17/19 18:46 - Laboratory Result Diagrams: 01/17/19 15:40 01/17/19 15:40 Laboratory results interpreted by me: 01/17/19 01/17/19 01/17/19 15:40 15:40 16:20 RDW 14.6 H Glucose 155 H Urine Blood MODERATE H Salicylates < 1.0 L Acetaminophen < 10 L - EKG Interpretation by Me EKG shows normal: Sinus rhythm Rate: Normal Rhythm: NSR When compared to previous EKG there are: No significant change Discharge - Discharge Clinical Impression: Overdose, Depression, Suicidal ideation Condition: Stable Disposition: HOME, SELF-CARE Additional Instructions: Suicidal Ideation Suicidal ideation is a common medical term for thoughts about suicide, which may be as detailed as a formulated plan, without the suicidal act itself. Although most people who undergo suicidal ideation do not commit suicide, some go on to make suicide attempts. The range of suicidal ideation varies greatly from fleeting to detailed planning, role playing, and unsuccessful attempts. While thoughts about suicide are common, most people do not carry out serious actions to commit suicide. However, based upon your evalutation and discussion with you, we believe you are currently at risk to act upon your thoughts of suicide. Therefore, you will be admitted to a facility for inpatient care. DEPRESSION: Your evaluation reveals that you have mental depression. While symptoms may be vague, they often include disturbance of sleep, fatigue, loss of appetite, and general loss of interest in life. While depression may be a side effect of drugs, or a reaction to a major change in your life, many cases have no known cause. If depression is acute, and related to a major loss in your life, you can expect it to clear completely with time. If you have been depressed a long time, are prone to repeated bouts of depression or low mood, or have been thinking of suicide, get help. Depression can be treated with anti-depressant medication and counselling. Long-term depression will often take a few weeks to clear, even with appropriate medication. Follow-up care is important. FOLLOW-UP CARE: If you have been referred to a physician for follow-up care, call the physicians office for an appointment as you were instructed or within the next two days.~ If you experience worsening or a significant change in your symptoms, notify the physician immediately or return to the Emergency Department at any time for re-evaluation. At any time, if you wish to be evaluated further, you can return to the emergency department for reevaluation.
[2019-01-17 16:07] LABS: ABSOLUTE EOSINOPHILS # (AUTO) 0.1 10^3/uL (0.0-0.6); ABSOLUTE LYMPHOCYTES (AUTO) 2.3 10^3/uL (0.5-4.7); ABSOLUTE MONOCYTES (AUTO) 0.5 10^3/uL (0.1-1.4); ABSOLUTE NEUT (AUTO) 5.8 10^3/uL (1.7-8.2); BASOPHILS % (AUTO) 0.5 % (0-2); EOSINOPHILS % (AUTO) 0.9 % (0-6); HEMOGLOBIN 13.1 g/dL (12.0-15.5); MEAN CORPUSCULAR HEMOGLOBIN 27.4 pg (27.0-33.4); MEAN CORPUSCULAR HGB CONC 33.5 g/dL (32.0-36.0); MEAN CORPUSCULAR VOLUME 82 fl (80-97); MONOCYTES % (AUTO) 5.8 % (3-13); PLATELET COUNT 253 10^3/uL (150-450); RED BLOOD COUNT 4.77 10^6/uL (3.72-5.28); RED CELL DISTRIBUTION WIDTH 14.6 % (11.5-14.0); SEGMENTED NEUTROPHILS % (AUTO) 66.8 % (42-78); TOTAL CELLS COUNTED % (AUTO) 100 %; WHITE BLOOD COUNT 8.7 10^3/uL (4.0-10.5)
[2019-01-17 16:31] LABS: ACETAMINOPHEN < 10 ug/mL (10-30); ALANINE AMINOTRANSFERASE 22 U/L (9-52); ALBUMIN 4.3 g/dL (3.5-5.0); ALCOHOL < 10 mg/dL (NONE DETECTED); ALKALINE PHOSPHATASE 93 U/L (38-126); ANION GAP 11 (5-19); ASPARTATE AMINO TRANSFERASE 21 U/L (14-36); BILIRUBIN,DIRECT 0.2 mg/dL (0.0-0.4); BILIRUBIN,TOTAL 0.4 mg/dL (0.2-1.3); BLOOD UREA NITROGEN 15 mg/dL (7-20); CALCIUM 9.5 mg/dL (8.4-10.2); CARBON DIOXIDE 26 mmol/L (22-30); CHLORIDE 102 mmol/L (98-107); GLUCOSE 155 mg/dL (75-110); LIPASE 56.8 U/L (23-300); POTASSIUM 3.7 mmol/L (3.6-5.0); SALICYLATE < 1.0 mg/dL (2.0-20.0); SODIUM 138.6 mmol/L (137-145); TOTAL PROTEIN 7.1 g/dL (6.3-8.2)
[2019-01-17 16:43] LABS: APPEARANCE,URINE SLIGHTLY-CLOUDY; BILIRUBIN,URINE NEGATIVE (NEGATIVE); COLOR,URINE YELLOW; GLUCOSE, URINE NEGATIVE (NEGATIVE); KETONES,URINE NEGATIVE (NEGATIVE); LEUKOCYTE ESTERASE,URINE NEGATIVE (NEGATIVE); NITRITE,URINE NEGATIVE (NEGATIVE); PROTEIN,URINE NEGATIVE (NEGATIVE); URINE SPECIFIC GRAVITY 1.026; UROBILINOGEN,URINE NEGATIVE mg/dL (<2.0)
[2019-01-17 16:57] LABS: URINE AMPHETAMINES SCREEN NEGATIVE; URINE BARBITURATES SCREEN NEGATIVE; URINE BENZODIAZEPINES SCREEN NEGATIVE; URINE COCAINE SCREEN NEGATIVE; URINE MARIJUANA (THC) SCREEN NEGATIVE; URINE METHADONE SCREEN NEGATIVE; URINE PHENCYCLIDINE SCREEN NEGATIVE
[2019-01-17 18:49] VITALS: BP 134/93
--- NOTE | 2019-01-17 21:24 | EKG REPORT ---
SEVERITY:- NORMAL ECG - SINUS RHYTHM : Confirmed by: Regina Almanzar MD 17-Jan-2019 21:23:58
== END 2019-01-17 18:53 | disposition home or self-care (01) ==
LOC: ER 15:26
DX: T43.212A Poisoning by selective serotonin and norepinephrine reuptake inhibitors, intentional self-harm, initial encounter (principal); F32.9 Major depressive disorder, single episode, unspecified; F90.9 Attention-deficit hyperactivity disorder, unspecified type; R11.2 Nausea with vomiting, unspecified; R50.9 Fever, unspecified; K82.9 Disease of gallbladder, unspecified; Z79.899 Other long term (current) drug therapy; I10 Essential (primary) hypertension; E11.9 Type 2 diabetes mellitus without complications
CPT/HCPCS: 36415; 80053; 80307; 81001; 83690; 85025; 93005; 93010; 99285

== ENCOUNTER 2019-06-08 00:27 | Emergency (ER) | payer MEDICARE, MEDICAID ==
[2019-06-08 02:01] LABS: APPEARANCE,URINE CLOUDY; BILIRUBIN,URINE NEGATIVE (NEGATIVE); COLOR,URINE RED; GLUCOSE, URINE NEGATIVE (NEGATIVE); KETONES,URINE NEGATIVE (NEGATIVE); LEUKOCYTE ESTERASE,URINE NEGATIVE (NEGATIVE); NITRITE,URINE NEGATIVE (NEGATIVE); PROTEIN,URINE 100 mg/dL (NEGATIVE); URINE SPECIFIC GRAVITY 1.017; UROBILINOGEN,URINE NEGATIVE mg/dL (<2.0)
--- NOTE | 2019-06-08 04:42 | ER Document Report ---
ED General - General Chief Complaint: Vaginal Bleeding Stated Complaint: VAGINAL BLEEDING Time Seen by Provider: 06/08/19 04:41 Primary Care Provider: RONNIE KELLEY MD [Primary Care Provider] - Follow up as needed TRAVEL OUTSIDE OF THE [place] IN LAST 30 DAYS: No COUNTRY TRAVELED TO/FROM: [facility] Notes: 39 wf history of depression, prior term July 2018 (vaginal delivery deferred secondary to herpes) but presents today she says for very heavy vaginal bleeding for 3 days and abdominal cramping she particularly says this seems for sure like she is again. She says her appetite is increased just like when she was and she feels something is "moving around there she is sure she must be. When asked if she and her spouse were trying to conceive she said well yeah and not really. She said her significant other had told her if she was to make sure he was "sitting down before she told him." She also says that usually she does not test positive on her test in the urine until much later than other people. Initially says that last vaginal bleeding before today's presentation was after her " in July. But then on further delineation she says that a few weeks ago she had a few days of vaginal bleeding. She says that she has not had any nausea vomiting or changes in bowels. She says she is compliant with her meds including HCTZ, Vistaril, BuSpar, Zoloft, Trileptal. She says she has a history of PCOS but will never take metformin again because it caused her to cut herself. She denies any passing out or near passing out she says she had one very large clot within this couple days she denies it is related to eating she has not had any recent vaginal intercourse or new sexual partner she denies vaginal discharge. She says she is supposed to check her blood sugar twice a day but really only does it if she feels off. She says yesterday was 104. She says "she only takes Levemir and set up additional NovoLog since her sugars are better after she says. She says she takes 8 units of Levemir at night. She denies any urinary symptoms she denies any back pain - Related Data Allergies/Adverse Reactions: amoxicillin Allergy (Verified 11/25/18 18:49) oxycodone [From OxyContin] Allergy (Verified 11/25/18 18:49) Nausea Penicillins Allergy (Verified 11/25/18 18:49) Home Medications: claritin, vistaril, triliptel, buspar, zoloft, HCTZ, acyclovair, insulin prn, Past Medical History - General Information source: Patient, [facility] Records Cannot obtain history due to: Mentally challenged - Social History Smoking Status: Never Smoker Drug Abuse: Other - Denies any illicit drugs Lives with: Spouse/Significant other Family History: Reviewed & Not Pertinent, CAD, DM, Malignancy, Other Patient has suicidal ideation: No Patient has homicidal ideation: No - Past Medical History Cardiac Medical History: Reports: Hx Hypertension - on meds Denies: Hx Coronary Artery Disease, Hx Heart Attack Pulmonary Medical History: Denies: Hx Asthma, Hx Bronchitis, Hx COPD, Hx Pneumonia Neurological Medical History: Denies: Hx Cerebrovascular Accident, Hx Seizures Endocrine Medical History: Reports: Hx Diabetes Mellitus Type 1, Hx Diabetes Mellitus Type 2 Renal/ Medical History: Reports: Hx Pelvic Inflammatory Disease. Denies: Hx Peritoneal Dialysis GI Medical History: Reports: Hx Gastroesophageal Reflux Disease Musculoskeletal Medical History: Reports Hx Arthritis - generalized Psychiatric Medical History: Reports: Hx Bipolar Disorder, Hx Depression, Hx Personality Disorder Past Surgical History: Reports: Hx Abdominal Surgery - hernia repair, Hx Adenoidectomy, Hx Section - x2, Hx Gynecologic Surgery, Hx Herniorrhaphy, Hx Orthopedic Surgery - Right Leg Surgery, Hx Tonsillectomy - Immunizations Immunizations up to date: No Hx Diphtheria, Pertussis, Tetanus Vaccination: Yes Hx Pneumococcal Vaccination: 07/12/00 Review of Systems - Review of Systems Constitutional: No symptoms reported, Weight gain. denies: Chills, Diaphoresis, Fever, Malaise, Weakness, Weight loss, Recent illness EENT: No symptoms reported. denies: Eye pain, Eye discharge, Blurred vision, Throat swelling, Mouth pain, Vertigo Cardiovascular: No symptoms reported. denies: Chest pain, Palpitations, Heart racing, Orthopnea, Dyspnea, Syncope, Dizziness, Lightheaded, Edema, Paroxysmal Nocturnal Dysp Respiratory: No symptoms reported. denies: Cough, Hurts to breathe, Short of breath, Wheezing Gastrointestinal: No symptoms reported, Abdominal pain. denies: Diarrhea, Nausea, Vomiting, Constipation, Blood streaked bowels, Poor appetite, Black stools Genitourinary: No symptoms reported. denies: Burning, Dysuria, Discharge, Frequency, Flank pain, Hematuria, Incontinence, Urgency Female Genitourinary: No symptoms reported, See HPI, Irregular period. denies: Vaginal discharge, Vaginal odor, Painful intercourse Musculoskeletal: No symptoms reported Skin: No symptoms reported. denies: Change in color, Lesions, Rash Hematologic/Lymphatic: No symptoms reported. denies: Easy bleeding, Easy bruising Neurological/Psychological: No symptoms reported. denies: Anxiety, Hallucinations, Weakness, Gait changes, Seizure, Lost consciousness Physical Exam - Vital signs Vitals: Temp Pulse Resp BP Pulse Ox 97.9 F 88 16 156/115 H 98 06/08/19 00:34 06/08/19 00:34 06/08/19 00:34 06/08/19 00:34 06/08/19 00:34 - General General appearance: Appears well, Alert. No: Anxious, Combative, Lethargic In distress: None Notes: Morbidly obese - HEENT Head: Normocephalic, Atraumatic Eyes: No: Pale conjunctiva, Scleral icterus Extraocular movements intact: Yes Pupils: PERRL Mouth/Lips: Caries. No: Lesions Mucous membranes: Moist Pharynx: No: Erythema, Exudate, Tonsillar hypertrophy, Uvular edema Neck: Supple. No: Lymphadenopathy, Neck mass, Thyroid nodule, Thyromegally - Respiratory Respiratory status: No respiratory distress. No: Cyanosis, Depressed respirations, Retractions, Tachypnea Chest status: Nontender Breath sounds: No: Decreased air movement, Nonproductive cough, Productive cough, Rales, Rhonchi, Stridor, Wheezing Chest palpation: Normal - Cardiovascular Rhythm: Regular Heart sounds: S1 appreciated, S2 appreciated Murmur: No Pulses: Normal: Radial Normal capillary refill: Yes - Abdominal Inspection: Healed incision, Striae, Morbidly Obese. No: Gravid female, Wounds Distension: No distension. No: Distended bladder Tenderness: Nontender. No: McBurney's point, Kim's sign, Guarding, Rebound Organomegaly: No: No organomegaly - Genitourinary External exam: Lesions - Does have a few external papillomatous lesions consistent with wart. No: Laceration, Bruising, Vesicles Speculum exam: Cervix closed, Other - +vb blood not pooling in the vaginal vault not brisk. No: Vaginal discharge, Lesions, Products of conception Vaginal bleeding: Mild Bimanuel exam: No: Cervical motion tender, Adnexal mass, Adnexal tenderness - Back Back: No: Deformity/step-off, CVA tenderness, Vertebra tenderness - Extremities General upper extremity: Normal inspection General lower extremity: Normal inspection - Neurological Neuro grossly intact: Yes - Ambulating without difficulty moving pushing her up in bed and adjusting he Cognition: No: Confused, Inattentive Austin Coma Scale Eye Opening: Spontaneous Speech: No: Dysarthria Cranial nerves: No: Facial palsy - Psychological Associated symptoms: Normal affect, Normal mood, Tangential speech. No: Aggressive, Agitated - Mood and affect congruent pleasant interactive joking., Angry, Anxious, Irritable, Labile - Skin Skin Color: negative: Pale, James, Dusky, Jaundiced, Petechiae, Ecchymosis, Plethora Course - Re-evaluation Re-evalutation: 06/08/19 07:29 Vital signs continued to remain stable within normal limits. She had no evidence of significant blood loss from menses while in the ED. Reassured her I believe this is cramping associated with her irregular periods, and that I think seeing her [facility]PERATIONS SUPERVISOR again and considering PCOS treatment if that is what they have diagnosed her with is a good idea. Also suggested they may want to consider after discussing the risks and benefits with her any control given that may be what controls her symptoms and periods. - Vital Signs Vital signs: Temp Pulse Resp BP Pulse Ox 97.7 F 77 21 H 147/90 H 97 06/08/19 06:09 06/08/19 06:09 06/08/19 06:09 06/08/19 06:09 06/08/19 06:09 - Laboratory Laboratory results interpreted by me: 06/08/19 06/08/19 00:50 04:03 POC Glucose 121 H Urine Protein 100 H Urine Blood LARGE H Discharge - Discharge Clinical Impression: Metrorrhagia, Abdominal cramping Condition: Fair Disposition: HOME, SELF-CARE Additional Instructions: Today your pelvic exam was reassuring there is no signs of infection we will call you if there is any positive test results on the specimens we send for the usual STD screens. I think you are having some abdominal cramping from your irregular vaginal bleeding. Please call for the first available appointment with [facility]ATIONS [facility]PER[facility] doctor to discuss your irregular vaginal bleeding. You can use 600 mg of ibuprofen every 6 hours as needed for cramping or pain. Seek medical care sooner if you have severe abdominal pain that persists associated with vomiting fevers chills sweats Referrals: RONNIE KELLEY MD [Primary Care Provider] - Follow up as needed
[2019-06-08 06:12] VITALS: BP 147/90
[2019-06-08 06:27] LABS: RBCS (WET MOUNT) 4+ RBCS SEEN; T.VAGINALIS (WET MOUNT) NO TRICHOMONAS SEEN; WBCS (WET MOUNT) RARE WBCS SEEN; YEAST (WET MOUNT) NO YEAST SEEN
[2019-06-08 08:03] LABS: CHLAM PCR NOT DETECTED (NOT DETECT)
== END 2019-06-08 06:36 | disposition home or self-care (01) ==
LOC: ER 00:27
DX: N92.1 Excessive and frequent menstruation with irregular cycle (principal); R10.9 Unspecified abdominal pain; Z79.899 Other long term (current) drug therapy; I10 Essential (primary) hypertension; E11.9 Type 2 diabetes mellitus without complications
CPT/HCPCS: 81001; 81025; 82962; 87210; 87491; 87591; 99284

== ENCOUNTER 2019-06-20 16:53 | Emergency (ER) | payer MEDICARE, MEDICAID ==
--- NOTE | 2019-06-20 17:37 | PSYCHOLOGICAL NOTE ---
Psych Note - Psych Note Date seen by psych provider: 06/20/19 Psych Note: Do not transfer to a psychiatric Hospital. Patient will be seen by Behavioral Health tomorrow morning. Patient can be discharged at attending physician's discretion.
[2019-06-20] MEDS ORDERED: 1/2 NORMAL SALINE 1,000 ML IV ONE (17:44)
--- NOTE | 2019-06-20 17:44 | EKG REPORT ---
SEVERITY:- BORDERLINE ECG - SINUS TACHYCARDIA BORDERLINE PROLONGED QT INTERVAL : Confirmed by: Angel Luis Ruiz MD 20-Jun-2019 17:43:23
--- NOTE | 2019-06-20 17:52 | ER Document Report ---
ED General - General TRAVEL OUTSIDE OF THE [place].S. IN LAST 30 DAYS: No COUNTRY TRAVELED TO/FROM: [place] <EKATERINA KING - Last Filed: 06/20/19 23:11> <MARILU MCFARLAND - Last Filed: 06/21/19 15:42> <CALVILLOVILLA - Last Filed: 06/21/19 20:34> - General Chief Complaint: Overdose Stated Complaint: POSSIBLE OVERDOSE Time Seen by Provider: 06/20/19 17:32 Primary Care Provider: [facility] [Outside] - Follow up as needed SUSSY KAY PA-C [Primary Care Provider] - Follow up as needed - [facility] Notes: Ms. Guadalupe is a 39-year-old female with a history of bipolar disorder and multiple prior suicide attempts with a chief complaint of suicidal ideation with intentional overdose starting last night. Patient has 2 children and both of them are currently in Department of Crisis Worker protective custody. She is upset about this and also about some kind of a dispute that she had with her landlord. She says she has a fianc who is been admitted to the hospital somewhere else and she does not know where he is or exactly what is going with him currently either. She says she is become very depressed over the last several days and took "a handful" of Trileptal tablets last night. These were her tablets. But she does not know the strength of the medication. She says that she also took "a few Zoloft" and possibly some BuSpar and Tylenol. She says she is vomited several times since then and feels dizzy. She remains sad and feels suicidal. Patient denies any homicidal ideation. She denies any auditory visual hallucinations. She says she smokes occasionally. She is occasionally used m arijuana but denies other drug use. She says she rarely consumes alcohol. Pertinent prior history: Obesity Hypertension Diabetes mellitus type 2 (EKATERINA KING) - Related Data Allergies/Adverse Reactions: amoxicillin Allergy (Verified 11/25/18 18:49) oxycodone [From OxyContin] Allergy (Verified 11/25/18 18:49) Nausea Penicillins Allergy (Verified 11/25/18 18:49) Past Medical History - General Information source: Patient, Emergency Med Personnel - Social History Smoking Status: Current Some Day Smoker Frequency of alcohol use: Occasional Family History: Reviewed & Not Pertinent, CAD, DM, Malignancy, Other Patient has suicidal ideation: Yes Patient has homicidal ideation: No - Past Medical History Cardiac Medical History: Reports: Hx Hypertension - on meds Denies: Hx Coronary Artery Disease, Hx Heart Attack Pulmonary Medical History: Denies: Hx Asthma, Hx Bronchitis, Hx COPD, Hx Pneumonia Neurological Medical History: Denies: Hx Cerebrovascular Accident, Hx Seizures Endocrine Medical History: Reports: Hx Diabetes Mellitus Type 2 Renal/ Medical History: Reports: Hx Pelvic Inflammatory Disease. Denies: Hx Peritoneal Dialysis GI Medical History: Reports: Hx Gastroesophageal Reflux Disease Musculoskeletal Medical History: Reports Hx Arthritis - generalized Psychiatric Medical History: Reports: Hx Bipolar Disorder, Hx Depression, Hx Personality Disorder Past Surgical History: Reports: Hx Abdominal Surgery - hernia repair, Hx Adenoidectomy, Hx Section - x2, Hx Gynecologic Surgery, Hx Herniorrhaphy, Hx Orthopedic Surgery - Right Leg Surgery, Hx Tonsillectomy - Immunizations Immunizations up to date: No Hx Diphtheria, Pertussis, Tetanus Vaccination: Yes Hx Pneumococcal Vaccination: 07/12/00 <EKATERINA KING - Last Filed: 06/20/19 23:11> Review of Systems <EKATERINA KING - Last Filed: 06/20/19 23:11> - Review of Systems Notes: Constitutional: Negative for fever. HENT: Negative for sore throat. Eyes: Mild blurring of vision. Cardiovascular: Negative for chest pain. Respiratory: Negative for shortness of breath. Gastrointestinal: As per HPI. Genitourinary: Negative for dysuria. Musculoskeletal: Negative for back pain. Skin: Negative for rash. Neurological: Feels dizzy. Negative for headaches, weakness or numbness. 10 point ROS negative except as marked above and in HPI. (EKATERINA KING) Physical Exam <EKATERINA KING - Last Filed: 06/20/19 23:11> - Vital signs Vitals: Temp Pulse Resp BP Pulse Ox 97.8 F 97 20 150/93 H 95 06/20/19 16:54 06/20/19 16:54 06/20/19 16:54 06/20/19 16:54 06/20/19 16:54 - Notes Notes: GENERAL: Middle-aged female very flat affect. Poor personal hygiene. SKIN: Good turgor no rashes. HEAD: Normocephalic atraumatic. EYES: PERRLA. EOMI. Conjunctivae and sclerae clear. EARS: CANALS AND TMS CLEAR. NOSE: CLEAR. MOUTH: Dry oral mucosa. Poor dentition. No stridor or edema. No drooling. NECK: Supple. No masses or thyromegaly. No adenopathy. Carotids 2+ without bruits. No JVD. BACK: Symmetrical without tenderness. CHEST: Respirations unlabored. Breath sounds clear and symmetrical. HEART: Regular rhythm. No murmur gallop or rub. ABDOMEN: Obese. Soft nontender without masses, organomegaly or rebound. Bowel sounds normally active. No bruits. GENITALIA: Deferred. EXTREMITIES: No edema. No calf tenderness. Cap refill less than 1.5 seconds. Dorsalis pedis and posterior tibial pulses 3+ and symmetrical. NEUROLOGICAL: GCS 14. Patient had eyes closed initially but open these to verbal command. Alert and oriented x3. Normal gait. Fluent speech. Cranial nerves II through XII intact. Sensorimotor and cerebellar normal. Normal tone. Psychiatric: Very flat affect. Ongoing suicidal ideation. (EKATERINA KING) Course - Laboratory Result Diagrams: 06/20/19 17:10 06/20/19 17:10 - EKG Interpretation by Nv EKG shows normal: Sinus rhythm, [place] Rate: Tachycardia <EKATERINA KING - Last Filed: 06/20/19 23:11> - Laboratory Result Diagrams: 06/20/19 17:10 06/20/19 17:10 <MARILU MCFARLAND - Last Filed: 06/21/19 15:42> - Laboratory Result Diagrams: 06/20/19 17:10 06/20/19 17:10 <VILLA CALVILLO - Last Filed: 06/21/19 20:34> - Re-evaluation Re-evalutation: 06/20/19 17:56 This is an intentional polydrug overdose in a patient with bipolar disorder and multiple prior suicide attempts. She is petitioned for IVC. We will place patient on cardiac monitoring give her some IV hydration. We are going to check a urine drug screen, blood alcohol, salicylate/acetaminophen levels conference of metabolic profile CBC and test. Telephone consultation will be obtained with [facility] poison control. 06/20/19 18:16 Case discussed with [facility] at [place] but was controlled and they concur with current management. 06/20/19 19:13 Salicylate and acetaminophen levels are not elevated. Remains clinically stable. Await urine tox screen. 06/20/19 23:11 Patient has been cleared medically and moved to the psychiatry holding area. She has become very agitated and threw a cup of water at 1 of the staff members. She is screaming at this time. I am medicating her with IM Ativan. (EKATERINA KING) 06/21/19 20:17 I talked to Ms. Guadalupe and I agree with her being okay for discharge. The psych ologist or a psychiatrist Dr. Peterson called a few hours ago and reiterated her familiarity with Jana. Jana was asleep but easily arousable when I saw her and we talked. We talked about that she still felt suicidal. And I said well we need to make sure that you feel safe enough with the plan she still can be a voluntary patient at [facility] since she had expressed desire to be there with her significant other. She agreed on this plan and that she would be going there now. She told me that she did not plan to harm herself and agreed that is what she wanted to do and she wanted to go get some more food there since the meal tray she ate here was "more like a snack". She asked if I could print the address for her, and the nurses did this for her. She also asked if they could go to the cafeteria for her, but they had already given her meal tray multiple jeanie crackers and therefore she was okay with just drinking the rest of her drink. She was not agitated and calm cooperative present and I feel comfortable she will not in fact try to harm herself in the meantime. (VILLA CALVILLO) - Vital Signs Vital signs: Temp Pulse Resp BP Pulse Ox 97.4 F 106 H 20 146/89 H 96 06/21/19 20:16 06/21/19 20:16 06/21/19 20:16 06/21/19 20:16 06/21/19 20:16 - Laboratory Laboratory results interpreted by me: 06/20/19 06/20/19 06/20/19 17:10 17:10 20:26 WBC 16.8 H RDW 14.3 H Lymph % (Auto) 7.3 L Absolute Neuts (auto) 15.0 H Seg Neutrophils % 89.4 H Glucose 148 H POC Glucose AST 80 H Urine Protein 30 H Urine Ketones TRACE H Urine Blood SMALL H Salicylates < 1.0 L Acetaminophen < 10 L 06/20/19 06/21/19 23:23 08:12 WBC RDW Lymph % (Auto) Absolute Neuts (auto) Seg Neutrophils % Glucose POC Glucose 155 H 141 H AST Urine Protein Urine Ketones Urine Blood Salicylates Acetaminophen - EKG Interpretation by Me Additional EKG results interpreted by me: 06/20/19 17:56 Prolonged QTC 508 ms. (EKATERINA KING) Discharge <EKATERINA KING - Last Filed: 06/20/19 23:11> <MARILU MCFARLAND - Last Filed: 06/21/19 15:42> <VILLA CALVILLO - Last Filed: 06/21/19 20:34> - Discharge Clinical Impression: Intentional polydrug overdose, Suicidal ideation Bipolar disorder current episode depressed Qualifiers: Current episode severity: severe Psychotic features: without psychotic features Qualified Code(s): F31.4 - Bipolar disorder, current episode depressed, severe, without psychotic features Condition: Stable Disposition: HOME, SELF-CARE Additional Instructions: You have been evaluated by both medical and behavioral health teams and have been deemed appropriate for discharge. Please follow up with your provider, [facility]. You have expressed a desire to seek treatment at [facility]. You are free to voluntarily seek treatment at [facility]. SUICIDAL IDEATION: Suicidal ideation is a common medical term for thoughts about suicide, which may be as detailed as a formulated plan, without the suicidal act itself. Although most people who undergo suicidal ideation do not commit suicide, some go on to make suicide attempts. The range of suicidal ideation varies greatly from fleeting to detailed planning, role playing, and unsuccessful attempts. While thoughts about suicide are common, most people do not carry out serious actions to commit suicide. Based upon your evaluation and discussion with you, we do not believe you are currently at risk to act upon your thoughts of suicide. You have agreed to return to the Emergency Department, at any time, if you feel inclined to act upon your suicidal thoughts. Addendum: At discharge, reassessed medical and psychiatric status. You have been cleared for both. I think we have a safe plan in place and you can be at [facility] as a voluntary patient. Referrals: SUSSY KAY PA-C [Primary Care Provider] - Follow up as needed [facility] [Outside] - Follow up as needed
[2019-06-20 18:05] LABS: ABSOLUTE LYMPHOCYTES (AUTO) 1.2 10^3/uL (0.5-4.7); ABSOLUTE MONOCYTES (AUTO) 0.5 10^3/uL (0.1-1.4); BASOPHILS % (AUTO) 0.2 % (0-2); HEMATOCRIT 37.7 % (36.0-47.0); HEMOGLOBIN 12.5 g/dL (12.0-15.5); LYMPHOCYTES % (AUTO) 7.3 % (13-45); MEAN CORPUSCULAR HEMOGLOBIN 27.5 pg (27.0-33.4); MEAN CORPUSCULAR HGB CONC 33.2 g/dL (32.0-36.0); MEAN CORPUSCULAR VOLUME 83 fl (80-97); MONOCYTES % (AUTO) 3.1 % (3-13); PLATELET COUNT 273 10^3/uL (150-450); RED BLOOD COUNT 4.55 10^6/uL (3.72-5.28); RED CELL DISTRIBUTION WIDTH 14.3 % (11.5-14.0); SEGMENTED NEUTROPHILS % (AUTO) 89.4 % (42-78); TOTAL CELLS COUNTED % (AUTO) 100 %; WHITE BLOOD COUNT 16.8 10^3/uL (4.0-10.5)
[2019-06-20 18:30] LABS: ACETAMINOPHEN < 10 ug/mL (10-30); ALBUMIN 4.2 g/dL (3.5-5.0); ALCOHOL < 10 mg/dL (NONE DETECTED); ALKALINE PHOSPHATASE 107 U/L (38-126); ANION GAP 15 (5-19); ASPARTATE AMINO TRANSFERASE 80 U/L (14-36); BILIRUBIN,DIRECT 0.1 mg/dL (0.0-0.4); BILIRUBIN,TOTAL 0.5 mg/dL (0.2-1.3); BLOOD UREA NITROGEN 13 mg/dL (7-20); CALCIUM 9.5 mg/dL (8.4-10.2); CARBON DIOXIDE 24 mmol/L (22-30); CHLORIDE 102 mmol/L (98-107); GLUCOSE 148 mg/dL (75-110); POTASSIUM 3.8 mmol/L (3.6-5.0); SALICYLATE < 1.0 mg/dL (2.0-20.0); TOTAL PROTEIN 7.3 g/dL (6.3-8.2)
[2019-06-20 20:49] LABS: APPEARANCE,URINE CLOUDY; BILIRUBIN,URINE NEGATIVE (NEGATIVE); COLOR,URINE AMBER; GLUCOSE, URINE NEGATIVE (NEGATIVE); KETONES,URINE TRACE mg/dL (NEGATIVE); LEUKOCYTE ESTERASE,URINE NEGATIVE (NEGATIVE); NITRITE,URINE NEGATIVE (NEGATIVE); PROTEIN,URINE 30 mg/dL (NEGATIVE); URINE SPECIFIC GRAVITY 1.023; UROBILINOGEN,URINE NEGATIVE mg/dL (<2.0)
[2019-06-20 21:13] LABS: URINE AMPHETAMINES SCREEN NEGATIVE; URINE BARBITURATES SCREEN NEGATIVE; URINE BENZODIAZEPINES SCREEN NEGATIVE; URINE COCAINE SCREEN NEGATIVE; URINE MARIJUANA (THC) SCREEN NEGATIVE; URINE METHADONE SCREEN NEGATIVE; URINE PHENCYCLIDINE SCREEN NEGATIVE
[2019-06-20] MEDS ORDERED: LORAZEPAM INJ 2 MG/1 ML VIAL IM ONE (23:11)
--- NOTE | 2019-06-21 07:40 | EKG REPORT ---
SEVERITY:- ABNORMAL ECG - SINUS TACHYCARDIA INFERIOR Q WAVES, PROBABLY NORMAL VARIATION BORDERLINE PROLONGED QT INTERVAL NONSPECIFIC IVCD : Confirmed by: Angel Luis Ruiz MD 21-Jun-2019 07:39:48
[2019-06-21] MEDS ORDERED: IBUPROFEN 600 MG TABLET PO ONE (09:12)
--- NOTE | 2019-06-21 12:40 | PSYCHOLOGICAL NOTE ---
Psych Note - Psych Note Date seen by psych provider: 06/21/19 Time seen by psych provider: 10:25 Psych Note: Patient reports "not doing good." Patient complains of medical concerns (dizziness). Patient expressed concern of a possible stroke. Patient reports a recent suicide attempt via taking an unknown quantity of Trileptal. Patient endorses current suicidal ideation. Patient is requesting prescription for Adderall. Patient states behavioral outbursts and "screaming" is correlated to not "being on the Addreall." Patient states all the other medications cause side effects. Patient is requesting "an exam on my head" due to her "hitting her head on the nightstand" and "being on the floor several hours." Patient states she is scheduled for a colonoscopy and needs clinician to reschedule appointment. Patient is "unsure" of mental health diagnosis. Patient is requesting a transfer to [facility]. Patient was informed she needs to discuss medical concern with the medical provider. Patient was informed clinician would not be rescheduling her colonoscopy. Patient is alert and orientated to person, place, time and circumstance. Mood is irritable with congruent affect. Patient endorses suicidal ideation. Patient denies homicidal ideation. Delusions are absent behaviors congruent with an intact reality based presentation i.e. organized linear thought process. Eye contact is fair. Conversational speech is within normal rate tone and prosody. Intellectual abilities appear to be within the average range. Attention and concentration are fair. Insight, judgment, impulse control are fair. Medication recommendations per [facility] contracted psychiatrist Dr. Jose Carlos LEVI is as follows: No medication recommendations at this time DSM Diagnosis: Per report, Anxiety Per report, Bipolar disorder Cluster B Traits Impression/Plan: Patient is cleared from acute psychiatric services. Patient does not meet IVC criteria per [place] GS 122C. This patient is well known to [facility]. Please be advised: Patient will act out behaviorally when presented with discharge. Patient is requesting placement at [facility]. Patient's fiance was recently admitted to [facility]. Due to patient's history of using emergency services for secondary gain, patient's presentation is suggestive of a desire to endorse SI for secondary gain (be with finance with whom she is wanting contact). Clinician observes no behavior that is suggestive of a psychotic state. Patient is recommended to continue working with [facility] her outpatient mental health provider. Patient was informed she could voluntarily walk to [facility] to discuss admittance, however that would be between herself and [facility]. Dr. Peterson was consulted on the care and management of this patent; attending physician is in agreement with recommendations disposition.
[2019-06-21] MEDS ORDERED: HYDROCHLOROTHIAZIDE 25 MG TABLET PO ONE (12:56)
--- NOTE | 2019-06-21 13:43 | ER Document Report ---
Doctor's Note Notes: 06/21/19 13:41 Initial evaluation of the patient she is resting comfortably on stretcher and in no acute distress. Patient does complain of a headache. Patient was noted to be hypertensive and has not had any of her blood pressure medication. Patient reports she does take hydrochlorothiazide 25 mg daily. I will give her a dose of this. Patient reports having neck pain. There is no cervical midline tenderness. Patient does have tenderness to the right trapezius muscle. Patient had been given a dose of ibuprofen earlier for her headache. Patient reports that she was recently started on Zoloft for her depression. Patient reports that this causes her to feel very dizzy and nauseous. Patient reports yesterday she was very dizzy and falling after taking her medication. Patient reports she does have a history of fibromyalgia, hypertension, depression, bipolar, type 2 diabetes and "blackout spells." Patient reports yesterday she did attempt to take a half a bottle of Trileptal. Patient continues to complain of suicidal ideation and states that she has no support system at home and that her significant other is admitted to the hospital at [facility]. I do feel uncomfortable discharging the patient at this time and have consulted with my supervising physician Dr. Richter who will evaluate the patient. Dr. Richter has spoke with Dr. Peterson as well and is aware of the patient's condition, history and complaint. 19:50 Dr. Richter at the bedside for patient evaluation. MD to discharge.
[2019-06-21] MEDS ORDERED: ACETAMINOPHEN 325 MG TABLET PO ONE (18:34)
[2019-06-21 20:19] VITALS: BP 146/89
== END 2019-06-21 20:20 | disposition home or self-care (01) ==
LOC: ER 16:53
DX: R45.851 Suicidal ideations (principal)
CPT/HCPCS: 93005; 99285; 36415; 82962; 80307 ×4; 83735; 85025; 81025; 80053; 81001; 93010; A9270 ×2; J2060

== ENCOUNTER 2019-06-21 20:43 | Emergency (ER) | payer MEDICARE, MEDICAID ==
[2019-06-21 20:58] VITALS: BP 168/119
== END 2019-06-21 21:20 | disposition left against medical advice (07) ==
LOC: ER 20:43
DX: Z53.21 Procedure and treatment not carried out due to patient leaving prior to being seen by health care provider (principal)

== ENCOUNTER → 2020-04-03 | Outpatient (CLI) | payer MEDICARE, MEDICAID ==
--- NOTE | 2020-04-03 08:22 | RADIOLOGY REPORT (SQ) ---
EXAM DESCRIPTION: U/S ABDOMEN LIMITED W/O DOP IMAGES COMPLETED DATE/TIME: 04/03/2020 7:56 am REASON FOR STUDY: R10.13 VOMITING WITHOUT NAUSEA R11.11 VOMITING WITHOUT NAUSEA R10.13 EPIGASTRIC PAIN COMPARISON: 12/23/2018 TECHNIQUE: Dynamic and static grayscale images acquired of the abdomen and recorded on PACS. Additio nal selected color Doppler and spectral images recorded. LIMITATIONS: None. FINDINGS: PANCREAS: No masses. Visualized pancreatic duct normal caliber. LIVER: Lesion demonstrated on recent CT consistent with hemangiomas not identified on today's ultraso und. There is fatty infiltration of liver. Mild hepatomegaly. LIVER VASCULATURE: Normal directional flow of the main portal vein and hepatic veins. GALLBLADDER: Contracted. No stones are identified. ULTRASOUND-DETECTED KAY'S SIGN: Negative. INTRAHEPATIC DUCTS AND COMMON DUCT: CBD and intrahepatic ducts normal caliber. No filling defects. AORTA: No aneurysm. RIGHT KIDNEY: Normal size. Normal echogenicity. No solid or suspicious masses. No hydronephrosis. No calcifications. PERITONEAL AND RIGHT PLEURAL SPACE: No ascites or effusions. OTHER: No other significant findings. IMPRESSION: Hepatic steatosis with mild hepatomegaly. Small lesion demonstrated on prior CT is not identified on today's ultrasound. CT characteristics are most consistent with hemangioma. The gallb ladder is contracted. TECHNICAL DOCUMENTATION: JOB ID: [id number] 2010 [email or web address]- All Rights Reserved Reading location - IP/workstation name: [email or web address]
== END ==
LOC: RAD 07:05
PROVIDERS: ATTEND Internal Medicine Gastroenterology
DX: K76.0 Fatty (change of) liver, not elsewhere classified (principal); R16.0 Hepatomegaly, not elsewhere classified; R10.13 Epigastric pain
CPT/HCPCS: 76705

== ENCOUNTER 2020-05-01 12:45 | Emergency (ER) | payer MEDICARE, MEDICAID ==
--- NOTE | 2020-05-01 13:07 | ER Document Report ---
ED Medical Screen (RME) - General Stated Complaint: DIFFICULTY BREATHING/CONGESTION Time Seen by Provider: 05/01/20 12:57 Primary Care Provider: ISAAC AQUINO MD [Primary Care Provider] - Follow up as needed TRAVEL OUTSIDE OF THE [place].S. IN LAST 30 DAYS: No - HPI Notes: 05/01/20 13:06 40-year-old female to emergency department with complaints of progressively worsening cough and shortness of breath for over 1 week. She states initially she was seen last week for possible sinus infection. She was started on Bactrim. She states that however in the past 3 days she is gotten worse. She states that her chest hurts every time she coughs and takes a big deep breath. She denies any fevers. She denies any sore throat. She does admit to loss of smell but denies loss of taste. She states she has chronic sinus issues. She states that she did have a Covid test last week but it was negative. She is not sure if that was a false negative or not. She states she has been out in the general public at grocery stores. She has been wearing a mask. The patient was evaluated during the global COVID 19 pandemic, and that diagnosis was suspected/considered upon their initial presentation. Their evaluation, treatment, and testing was consistent with current guidelines for patients who present with complaints or symptoms that may be related to COVID-19. I performed a brief medical screening exam on the patient determined that the patient needs further evaluation and management by main side provider. I have placed initial orders to help expedite care. - Related Data Allergies/Adverse Reactions: amoxicillin Allergy (Verified 11/25/18 18:49) oxycodone [From OxyContin] Allergy (Verified 11/25/18 18:49) Nausea Penicillins Allergy (Verified 11/25/18 18:49) Past Medical History - Past Medical History Cardiac Medical History: Reports: Hx Hypertension - on meds Denies: Hx Coronary Artery Disease, Hx Heart Attack Pulmonary Medical History: Denies: Hx Asthma, Hx Bronchitis, Hx COPD, Hx Pneumonia Neurological Medical History: Denies: Hx Cerebrovascular Accident, Hx Seizures Endocrine Medical History: Reports: Hx Diabetes Mellitus Type 1, Hx Diabetes Mellitus Type 2 Renal/ Medical History: Reports: Hx Pelvic Inflammatory Disease. Denies: Hx Peritoneal Dialysis GI Medical History: Reports: Hx Gastroesophageal Reflux Disease Musculoskeltal Medical History: Reports Hx Arthritis - generalized Psychiatric Medical History: Reports: Hx Bipolar Disorder, Hx Depression, Hx Personality Disorder Past Surgical History: Reports: Hx Abdominal Surgery - hernia repair, Hx Adenoidectomy, Hx Section - x2, Hx Gynecologic Surgery, Hx Herniorrhaphy, Hx Orthopedic Surgery - Right Leg Surgery, Hx Tonsillectomy - Immunizations Immunizations up to date: No Hx Diphtheria, Pertussis, Tetanus Vaccination: Yes Physical Exam - Vital signs Vitals: Temp Pulse Resp BP Pulse Ox 97.4 F 108 H 16 150/98 H 97 05/01/20 12:54 05/01/20 12:54 05/01/20 12:54 05/01/20 12:54 05/01/20 12:54 Course - Vital Signs Vital signs: Temp Pulse Resp BP Pulse Ox 97.4 F 108 H 16 150/98 H 97 05/01/20 12:54 05/01/20 12:54 05/01/20 12:54 05/01/20 12:54 05/01/20 12:54 Doctor's Discharge - Discharge Referrals: ISAAC AQUINO MD [Primary Care Provider] - Follow up as needed
[2020-05-01] MEDS ORDERED: NORMAL SALINE 1000 ML 1,000 ML IV ONE (13:59)
[2020-05-01 14:02] LABS: ABSOLUTE BASOPHILS # (AUTO) 0.1 10^3/uL (0.0-0.2); ABSOLUTE EOSINOPHILS # (AUTO) 0.1 10^3/uL (0.0-0.6); ABSOLUTE LYMPHOCYTES (AUTO) 2.8 10^3/uL (0.5-4.7); ABSOLUTE MONOCYTES (AUTO) 0.7 10^3/uL (0.1-1.4); ABSOLUTE NEUT (AUTO) 6.7 10^3/uL (1.7-8.2); BASOPHILS % (AUTO) 0.8 % (0-2); HEMATOCRIT 43.1 % (36.0-47.0); HEMOGLOBIN 14.8 g/dL (12.0-15.5); LYMPHOCYTES % (AUTO) 26.8 % (13-45); MEAN CORPUSCULAR HEMOGLOBIN 26.7 pg (27.0-33.4); MEAN CORPUSCULAR HGB CONC 34.2 g/dL (32.0-36.0); MEAN CORPUSCULAR VOLUME 78 fl (80-97); PLATELET COUNT 342 10^3/uL (150-450); RED BLOOD COUNT 5.53 10^6/uL (3.72-5.28); RED CELL DISTRIBUTION WIDTH 16.5 % (11.5-14.0); SEGMENTED NEUTROPHILS % (AUTO) 64.4 % (42-78); TOTAL CELLS COUNTED % (AUTO) 100 %; WHITE BLOOD COUNT 10.4 10^3/uL (4.0-10.5)
[2020-05-01 14:21] LABS: ALBUMIN 4.6 g/dL (3.5-5.0); ALKALINE PHOSPHATASE 136 U/L (38-126); ANION GAP 12 (5-19); ASPARTATE AMINO TRANSFERASE 23 U/L (14-36); BILIRUBIN,DIRECT 0.4 mg/dL (0.0-0.4); BILIRUBIN,TOTAL 0.6 mg/dL (0.2-1.3); BLOOD UREA NITROGEN 18 mg/dL (7-20); CALCIUM 10.1 mg/dL (8.4-10.2); CARBON DIOXIDE 27 mmol/L (22-30); CHLORIDE 100 mmol/L (98-107); GLUCOSE 150 mg/dL (75-110); POTASSIUM 4.4 mmol/L (3.6-5.0); TOTAL PROTEIN 8.2 g/dL (6.3-8.2)
--- NOTE | 2020-05-01 14:35 | RADIOLOGY REPORT (SQ) ---
EXAM DESCRIPTION: CHEST SINGLE VIEW IMAGES COMPLETED DATE/TIME: 05/01/2020 2:13 pm REASON FOR STUDY: SOB, chest COMPARISON: AP chest 11/17/2018 EXAM PARAMETERS: NUMBER OF VIEWS: One view. TECHNIQUE: Single frontal radiographic view of the chest acquired. RADIATION DOSE: NA LIMITATIONS: None. FINDINGS: LUNGS AND PLEURA: No opacities, masses or pneumothorax. No pleural effusion. MEDIASTINUM AND HILAR STRUCTURES: No masses. Contour normal. HEART AND VASCULAR STRUCTURES: Heart normal in size. Normal vasculature. BONES: No acute findings. HARDWARE: None in the chest. OTHER: No other significant finding. IMPRESSION: NO ACUTE RADIOGRAPHIC FINDING IN THE CHEST. TECHNICAL DOCUMENTATION: JOB ID: [id number] 2010 [employer]- All Rights Reserved Reading location - IP/workstation name: [id number]
--- NOTE | 2020-05-01 14:39 | RADIOLOGY REPORT (SQ) ---
EXAM DESCRIPTION: KNEE RIGHT 4 VIEWS IMAGES COMPLETED DATE/TIME: 05/01/2020 2:13 pm REASON FOR STUDY: fall, knee pain COMPARISON: None. NUMBER OF VIEWS: Four views. TECHNIQUE: AP, lateral, and both oblique radiographic images acquired of the right knee. LIMITATIONS: None. FINDINGS: MINERALIZATION: Normal. BONES: No acute fracture or dislocation. No worrisome bone lesions. JOINT: No effusion. SOFT TISSUES: No soft tissue swelling. No radio-opaque foreign body. OTHER: No other significant finding. IMPRESSION: NEGATIVE STUDY OF THE RIGHT KNEE. NO RADIOGRAPHIC EVIDENCE OF ACUTE INJURY. TECHNICAL DOCUMENTATION: JOB ID: [id number] 2010 [employer]- All Rights Reserved Reading location - IP/workstation name: [email or web address]
--- NOTE | 2020-05-01 15:48 | ER Document Report ---
ED General - General Chief Complaint: Shortness Of Breath Stated Complaint: DIFFICULTY BREATHING/CONGESTION Time Seen by Provider: 05/01/20 12:57 Primary Care Provider: ISAAC AQUINO MD [Primary Care Provider] - Follow up as needed Mode of Arrival: Ambulatory Information source: Patient Notes: 40-year-old female to emergency department with complaints of progressively worsening cough and shortness of breath for over 1 week. She states initially she was seen last week for possible sinus infection. She was started on Bactrim. She states that however in the past 3 days she is gotten worse. She states that her chest hurts every time she coughs and takes a big deep breath. She denies any fevers. She denies any sore throat. She does admit to loss of smell but denies loss of taste. She states she has chronic sinus issues. She states that she did have a Covid test last week but it was negative. She is not sure if that was a false negative or not. She states she has been out in the general public at grocery stores. She has been wearing a mask. TRAVEL OUTSIDE OF THE [place] IN LAST 30 DAYS: No - Related Data Allergies/Adverse Reactions: amoxicillin Allergy (Verified 05/01/20 13:43) oxycodone [From OxyContin] Allergy (Verified 05/01/20 13:43) Nausea Penicillins Allergy (Verified 05/01/20 13:43) Home Medications: antibiotic Past Medical History - General Information source: Patient - Social History Smoking Status: Never Smoker Frequency of alcohol use: Occasional Drug Abuse: None Family History: CAD, DM, Malignancy, Other - Past Medical History Cardiac Medical History: Reports: Hx Hypertension - on meds Denies: Hx Coronary Artery Disease, Hx Heart Attack Pulmonary Medical History: Denies: Hx Asthma, Hx Bronchitis, Hx COPD, Hx Pneumonia Neurological Medical History: Denies: Hx Cerebrovascular Accident, Hx Seizures Endocrine Medical History: Reports: Hx Diabetes Mellitus Type 1, Hx Diabetes Mellitus Type 2 Renal/ Medical History: Reports: Hx Pelvic Inflammatory Disease. Denies: Hx Peritoneal Dialysis GI Medical History: Reports: Hx Gastroesophageal Reflux Disease Musculoskeletal Medical History: Reports Hx Arthritis - generalized Psychiatric Medical History: Reports: Hx Bipolar Disorder, Hx Depression, Hx Personality Disorder Past Surgical History: Reports: Hx Abdominal Surgery - hernia repair, Hx Adenoid ectomy, Hx Section - x2, Hx Gynecologic Surgery, Hx Herniorrhaphy, Hx Orthopedic Surgery - Right Leg Surgery, Hx Tonsillectomy - Immunizations Immunizations up to date: No Hx Diphtheria, Pertussis, Tetanus Vaccination: Yes Hx Pneumococcal Vaccination: 07/12/00 Review of Systems - Review of Systems Constitutional: denies: Fever EENT: Nose congestion, Nose discharge Respiratory: Cough, Short of breath, Sputum -: Yes All other systems reviewed and negative Physical Exam - Vital signs Vitals: Temp Pulse Resp BP Pulse Ox 97.4 F 108 H 16 150/98 H 97 05/01/20 12:54 05/01/20 12:54 05/01/20 12:54 05/01/20 12:54 05/01/20 12:54 - Notes Notes: PHYSICAL EXAMINATION: GENERAL: Well-appearing, well-nourished and in no acute distress. HEAD: Atraumatic, normocephalic. EYES: Pupils equal round and reactive to light, extraocular movements intact, conjunctiva are normal. ENT: Nares patent, oropharynx clear without exudates. Moist mucous membranes. NECK: Normal range of motion, supple without lymphadenopathy LUNGS: Breath sounds clear to auscultation bilaterally and equal. No wheezes rales or rhonchi. HEART: Mildly tachycardic. ABDOMEN: Soft, nontender, nondistended abdomen. No guarding, no rebound. No masses appreciated. Female : deferred Musculoskeletal: Normal range of motion, no pitting or edema. No cyanosis. NEUROLOGICAL: Cranial nerves grossly intact. Normal speech, normal gait. Normal sensory, motor exams PSYCH: Normal mood, normal affect. SKIN: Warm, Dry, normal turgor, no rashes or lesions noted. Course - Re-evaluation Re-evalutation: Patient appears well, nontoxic. Mildly tachycardic on arrival. This resolved after patient received IV fluids. Her lung sounds are clear and equal bilaterally. No indication for admission to the hospital. She has not been tachypneic or hypoxic. Patient was tested for COVID-19 today. She understands the need to self quarantine until she has received these results and has received further guidance from the health department. - Vital Signs Vital signs: Temp Pulse Resp BP Pulse Ox 98.4 F 108 H 16 136/91 H 100 05/01/20 16:07 05/01/20 12:54 05/01/20 16:07 05/01/20 16:07 05/01/20 16:07 - Laboratory Result Diagrams: 05/01/20 13:47 05/01/20 13:47 Laboratory results interpreted by me: 05/01/20 05/01/20 13:47 13:47 RBC 5.53 H MCV 78 L MCH 26.7 L RDW 16.5 H Glucose 150 H Alkaline Phosphatase 136 H - Diagnostic Test Radiology reviewed: Image reviewed, Reports reviewed - EKG Interpretation by Me EKG shows normal: Sinus rhythm - Tachycardic at 111, no ST segment elevations or depressions, normal axis, normal intervals. Discharge - Discharge Clinical Impression: Upper respiratory infection Qualifiers: URI type: unspecified URI Qualified Code(s): J06.9 - Acute upper respiratory infection, unspecified Condition: Stable Disposition: HOME, SELF-CARE Instructions: Upper Respiratory Illness ([facility]) Additional Instructions: If you were prescribed medications during today's visit please take them exactly as prescribed. Push fluids. Get plenty of rest. Your COVID-19 test is pending. Someone will contact you in 2 to 3 days with the results. Tylenol or Motrin for fever and body aches. Good handwashing and stay away from others. Return to the emergency department with any new or worsening symptoms such as difficulty breathing, or any other worsening symptoms. Prescriptions: Benzonatate [Tessalon Perles 100 mg Capsule] 2 tab PO Q8HP PRN #30 capsule PRN Reason: Albuterol Sulfate [Proair HFA Inhalation Aerosol 8.5 gm MDI] 2 puff IH Q4H PRN #1 mdi PRN Reason: Forms: Return to Work Referrals: ISAAC AQUINO MD [Primary Care Provider] - Follow up as needed
[2020-05-01 16:11] VITALS: BP 136/91
--- NOTE | 2020-05-01 16:18 | EKG REPORT ---
SEVERITY:- OTHERWISE NORMAL ECG - SINUS TACHYCARDIA : Confirmed by: Corky Velasquez MD 01-May-2020 16:18:08
== END 2020-05-01 16:18 | disposition home or self-care (01) ==
LOC: ER 12:45
DX: J06.9 Acute upper respiratory infection, unspecified (principal); R05 Cough; R06.02 Shortness of breath; R09.81 Nasal congestion; R00.0 Tachycardia, unspecified; R43.9 Unspecified disturbances of smell and taste; R07.1 Chest pain on breathing; I10 Essential (primary) hypertension; E11.9 Type 2 diabetes mellitus without complications; Z88.0 Allergy status to penicillin; Z88.6 Allergy status to analgesic agent; Z88.5 Allergy status to narcotic agent; Z20.828 Contact with and (suspected) exposure to other viral communicable diseases
CPT/HCPCS: 93005; 99285; 96360; 36415; 85025; 80053; 71045; 73564; 93010; U0003; J7030; C9803; 87635

== ENCOUNTER 2020-05-02 18:17 | Emergency (ER) | payer MEDICARE, MEDICAID ==
[2020-05-02] MEDS ORDERED: ACTIVATED CHARCOAL 25 GM BOTTLE PO ONE (19:01)
--- NOTE | 2020-05-02 19:16 | ER Document Report ---
ED Medical Screen (RME) - General Chief Complaint: Accidental Overdose Stated Complaint: TOOK TOO MUCH MEDS/ANXIETY Time Seen by Provider: 05/02/20 18:57 Primary Care Provider: ISAAC AQUINO MD [Primary Care Provider] - Follow up as needed TRAVEL OUTSIDE OF THE [place] IN LAST 30 DAYS: No - HPI Notes: 05/02/20 19:10 40-year-old female to the emergency department with complaints of intentional Cymbalta overdose. She states that she and her boyfriend got in a fight today so she took somewhere between 10 and 2059 mg of Cymbalta. She states that she is having some upset stomach and nausea. She states that as soon as she took them she realized she had made a mistake. She states this happened approximately 1 hour ago. She states she does not want to hurt herself currently. Denies any HI or hallucinations. Did contact poison control. Their recommendation is a 10-hour monitor. They agree with activated charcoal since she just took it. They also stated to watch for hypotension and seizures. If any hypotension patient is supposed to get fluids and if any seizure she should get benzos to prevent them. I performed a brief medical screening exam on the patient determined that the patient needs further evaluation and management by main side provider. I have placed initial orders to help expedite care. - Related Data Allergies/Adverse Reactions: amoxicillin Allergy (Verified 05/01/20 13:43) oxycodone [From OxyContin] Allergy (Verified 05/01/20 13:43) Nausea Penicillins Allergy (Verified 05/01/20 13:43) Home Medications: cymbalta, farideh Past Medical History - Social History Chew tobacco use (# tins/day): No Frequency of alcohol use: Occasional - Past Medical History Cardiac Medical History: Reports: Hx Hypertension - on meds Denies: Hx Coronary Artery Disease, Hx Heart Attack Pulmonary Medical History: Denies: Hx Asthma, Hx Bronchitis, Hx COPD, Hx Pneumonia Neurological Medical History: Denies: Hx Cerebrovascular Accident, Hx Seizures Endocrine Medical History: Reports: Hx Diabetes Mellitus Type 1, Hx Diabetes Mellitus Type 2 Renal/ Medical History: Reports: Hx Pelvic Inflammatory Disease. Denies: Hx Peritoneal Dialysis GI Medical History: Reports: Hx Gastroesophageal Reflux Disease Musculoskeltal Medical History: Reports Hx Arthritis - generalized Psychiatric Medical History: Reports: Hx Bipolar Disorder, Hx Depression, Hx Personality Disorder Past Surgical History: Reports: Hx Abdominal Surgery - hernia repair, Hx Adenoidectomy, Hx Section - x2, Hx Gynecologic Surgery, Hx Herniorrhaphy, Hx Orthopedic Surgery - Right Leg Surgery, Hx Tonsillectomy - Immunizations Immunizations up to date: No Hx Diphtheria, Pertussis, Tetanus Vaccination: Yes Physical Exam - Vital signs Vitals: Temp Pulse Resp BP Pulse Ox 98.1 F 128 H 20 152/112 H 96 05/02/20 18:42 05/02/20 18:42 05/02/20 18:42 05/02/20 18:42 05/02/20 18:42 Course - Vital Signs Vital signs: Temp Pulse Resp BP Pulse Ox 98.1 F 128 H 20 152/112 H 96 05/02/20 18:42 05/02/20 18:42 05/02/20 18:42 05/02/20 18:42 05/02/20 18:42 Doctor's Discharge - Discharge Referrals: ISAAC AQUINO MD [Primary Care Provider] - Follow up as needed
[2020-05-02 20:07] LABS: ABSOLUTE BASOPHILS # (AUTO) 0.1 10^3/uL (0.0-0.2); ABSOLUTE EOSINOPHILS # (AUTO) 0.1 10^3/uL (0.0-0.6); ABSOLUTE LYMPHOCYTES (AUTO) 2.7 10^3/uL (0.5-4.7); ABSOLUTE MONOCYTES (AUTO) 0.6 10^3/uL (0.1-1.4); ABSOLUTE NEUT (AUTO) 8.5 10^3/uL (1.7-8.2); BASOPHILS % (AUTO) 0.8 % (0-2); EOSINOPHILS % (AUTO) 0.8 % (0-6); HEMATOCRIT 40.7 % (36.0-47.0); HEMOGLOBIN 13.3 g/dL (12.0-15.5); LYMPHOCYTES % (AUTO) 22.6 % (13-45); MEAN CORPUSCULAR HEMOGLOBIN 25.7 pg (27.0-33.4); MEAN CORPUSCULAR HGB CONC 32.7 g/dL (32.0-36.0); MEAN CORPUSCULAR VOLUME 79 fl (80-97); MONOCYTES % (AUTO) 5.3 % (3-13); PLATELET COUNT 309 10^3/uL (150-450); RED BLOOD COUNT 5.16 10^6/uL (3.72-5.28); RED CELL DISTRIBUTION WIDTH 16.5 % (11.5-14.0); SEGMENTED NEUTROPHILS % (AUTO) 70.5 % (42-78); TOTAL CELLS COUNTED % (AUTO) 100 %
[2020-05-02 20:10] LABS: INTERNATIONAL RATION (INR) 0.97; PROTHROMBIN TIME 13.1 SEC (11.4-15.4)
[2020-05-02] MEDS ORDERED: ONDANSETRON HCL INJ/PF 4 MG/2 ML SDV IV ONE (20:26)
[2020-05-02 20:28] LABS: ACETAMINOPHEN < 10 ug/mL (10-30); ALBUMIN 4.5 g/dL (3.5-5.0); ALKALINE PHOSPHATASE 152 U/L (38-126); ANION GAP 12 (5-19); ASPARTATE AMINO TRANSFERASE 26 U/L (14-36); BILIRUBIN,DIRECT 0.4 mg/dL (0.0-0.4); BILIRUBIN,TOTAL 0.6 mg/dL (0.2-1.3); BLOOD UREA NITROGEN 16 mg/dL (7-20); CALCIUM 9.8 mg/dL (8.4-10.2); CARBON DIOXIDE 26 mmol/L (22-30); CHLORIDE 99 mmol/L (98-107); GLUCOSE 215 mg/dL (75-110); POTASSIUM 3.9 mmol/L (3.6-5.0); SALICYLATE < 1.0 mg/dL (2.0-20.0); TOTAL PROTEIN 7.7 g/dL (6.3-8.2)
[2020-05-02 20:36] LABS: URINE AMPHETAMINES SCREEN NEGATIVE; URINE BARBITURATES SCREEN NEGATIVE; URINE BENZODIAZEPINES SCREEN NEGATIVE; URINE COCAINE SCREEN NEGATIVE; URINE MARIJUANA (THC) SCREEN NEGATIVE; URINE METHADONE SCREEN NEGATIVE; URINE PHENCYCLIDINE SCREEN NEGATIVE
--- NOTE | 2020-05-02 22:50 | ER Document Report ---
ED General - General TRAVEL OUTSIDE OF THE [place] IN LAST 30 DAYS: No - HPI Associated symptoms: Other - See HPI Exacerbated by: Other - See HPI Relieved by: Other - See HPI - Related Data Home Medications: cymbalta, farideh <XAVI LORENZO IV - Last Filed: 05/03/20 03:23> <KAVIN BRAXTON - Last Filed: 05/03/20 12:44> <BRIA ROBLEDO - Last Filed: 05/03/20 14:14> - General Chief Complaint: Possible Overdose Stated Complaint: TOOK TOO MUCH MEDS/ANXIETY Time Seen by Provider: 05/02/20 18:57 Primary Care Provider: [facility] [Provider Group] - Follow up as needed (Current Provider you reported as Sola Kim. Can follow up with her and request therapy. ) Roxane In MD [Provider Group] - Follow up as needed (Call [phone] to initiate services. If they will not schedule you appointment and this is the provider you desire you can call [facility] at [phone] and ask for the Behavioral Health Team and we will assist with linkage. ) [facility] [Outside] - Follow up as needed (To initiate services can walk in Tuesdays-Fridays 8:00AM-12:00PM/Noon.) [facility] [Outside] - Follow up as needed (For Crisis, Talk Therapy, and linkage to other services/supports.) [facility] [Outside] - Follow up as needed (To initiate services walk in Mondays-Fridays 8:00AM-4:30 PM.) [facility] [Outside] - Follow up as needed (For Crisis, Talk Therapy, and linkage to other services/supports.) ISAAC AQUINO MD [ACTIVE STAFF] - Follow up as needed - HPI Context: This is a 40-year-old female with history of depression and anxiety that pr esents to the emergency department after taking approximately between 10 and 20 Cymbalta tablets, 60 mg each. Patient took the tablets intentionally after getting into an argument with her boyfriend. Patient is denying suicidal ideation or homicidal ideation at this time. Patient was in the emergency department yesterday for URI symptoms and happened to have a Covid swab done which the results of her pending. Patient at this time denies fevers, chills, cough, shortness of breath, chest pain, nausea, vomiting, diarrhea, loss of sense of taste or smell, history of prior Covid infection, known exposure to Covid positive persons or persons under investigation for Covid. Patient denies auditory or visual hallucinations. Patient states that she was just upset with her boyfriend when she took the overdose of pills and the emotional onset was the exacerbating factor that led to the overdose and she states that now she is feeling calm and would not take an overdose in such a state. (XAVI LORENZO IV) - Related Data Allergies/Adverse Reactions: amoxicillin Allergy (Verified 05/01/20 13:43) oxycodone [From OxyContin] Allergy (Verified 05/01/20 13:43) Nausea Penicillins Allergy (Verified 05/01/20 13:43) Past Medical History - General Information source: Patient - Social History Smoking Status: Never Smoker Chew tobacco use (# tins/day): No Frequency of alcohol use: Occasional Drug Abuse: None Family History: Reviewed & Not Pertinent, CAD, DM, Malignancy, Other - Past Medical History Cardiac Medical History: Reports: Hx Hypertension - on meds Denies: Hx Coronary Artery Disease, Hx Heart Attack Pulmonary Medical History: Denies: Hx Asthma, Hx Bronchitis, Hx COPD, Hx Pneumonia Neurological Medical History: Denies: Hx Cerebrovascular Accident, Hx Seizures Endocrine Medical History: Reports: Hx Diabetes Mellitus Type 1, Hx Diabetes Mellitus Type 2 Renal/ Medical History: Reports: Hx Pelvic Inflammatory Disease. Denies: Hx Peritoneal Dialysis GI Medical History: Reports: Hx Gastroesophageal Reflux Disease Musculoskeletal Medical History: Reports Hx Arthritis - generalized Psychiatric Medical History: Reports: Hx Bipolar Disorder, Hx Depression, Hx Personality Disorder Past Surgical History: Reports: Hx Abdominal Surgery - hernia repair, Hx Adenoi dectomy, Hx Section - x2, Hx Gynecologic Surgery, Hx Herniorrhaphy, Hx Orthopedic Surgery - Right Leg Surgery, Hx Tonsillectomy - Immunizations Immunizations up to date: No Hx Diphtheria, Pertussis, Tetanus Vaccination: Yes Hx Pneumococcal Vaccination: 07/12/00 <XAVI LORENZO IV - Last Filed: 05/03/20 03:23> Review of Systems - Review of Systems Constitutional: No symptoms reported EENT: No symptoms reported Cardiovascular: No symptoms reported Respiratory: No symptoms reported Gastrointestinal: No symptoms reported Genitourinary: No symptoms reported Female Genitourinary: No symptoms reported Musculoskeletal: No symptoms reported Skin: No symptoms reported Hematologic/Lymphatic: No symptoms reported Neurological/Psychological: Depression, Anxiety <XAVI LORENZO IV - Last Filed: 05/03/20 03:23> Physical Exam <XAVI LORENZO IV - Last Filed: 05/03/20 03:23> - Vital signs Vitals: Temp Pulse Resp BP Pulse Ox 98.1 F 128 H 20 152/112 H 96 05/02/20 18:42 05/02/20 18:42 05/02/20 18:42 05/02/20 18:42 05/02/20 18:42 - Notes Notes: CONSTITUTIONAL [Vital signs reviewed, Patient appears comfortable, Alert and oriented X 3, Normal stature.] HEAD [Atraumatic, Normocephalic.] EYES [Eyes are normal to inspection, No discharge from eyes, Extraocular muscles intact, Sclera are normal, Conjunctiva are normal.] ENT Nose examination normal, Mouth normal to inspection.] NECK [Normal ROM, No jugular venous distention, No meningeal signs] RESPIRATORY CHEST [Chest is nontender, Breath sounds normal, No respiratory distress.] CARDIOVASCULAR [RRR, No murmurs, Normal S1 S2, No rub, No gallop.] ABDOMEN [Abdomen is nontender, No pulsatile masses, No other masses, Bowel sounds normal, No distension, No peritoneal signs, No hernias.] BACK [There is no CVA Tenderness, There is no tenderness to palpation, Normal inspection.] UPPER EXTREMITY [Inspection normal, No cyanosis, No clubbing, No edema, 2+ radial pulses.] LOWER EXTREMITY [Inspection normal, No cyanosis, No clubbing, No edema, No calf tenderness, 2+ femoral pulses.] NEURO [No focal motor deficits, No focal sensory deficits, Speech normal.] SKIN [Skin is warm, Skin is dry, Skin is normal color.] PSYCHIATRIC [Depressed affect. ] (XAVI LORENZO IV) Course - Laboratory Result Diagrams: 05/02/20 19:44 05/02/20 19:44 <XAVI LORENZO IV - Last Filed: 05/03/20 03:23> - Laboratory Result Diagrams: 05/02/20 19:44 05/02/20 19:44 <ALKKAVIN ANGUIANO - Last Filed: 05/03/20 12:44> - Laboratory Result Diagrams: 05/02/20 19:44 05/02/20 19:44 <BRIA ROBLEDO - Last Filed: 05/03/20 14:14> - Vital Signs Vital signs: Temp Pulse Resp BP Pulse Ox 97.6 F 100 20 158/94 H 100 05/03/20 08:35 05/03/20 08:35 05/03/20 08:35 05/03/20 08:35 05/03/20 08:35 - Laboratory Laboratory results interpreted by me: 05/02/20 05/02/20 05/02/20 19:44 19:44 20:19 WBC 12.0 H MCV 79 L MCH 25.7 L RDW 16.5 H Absolute Neuts (auto) 8.5 H Sodium 136.8 L Glucose 215 H POC Glucose 224 H Alkaline Phosphatase 152 H Salicylates < 1.0 L Acetaminophen < 10 L 05/03/20 05/03/20 01:00 02:20 WBC MCV MCH RDW Absolute Neuts (auto) Sodium Glucose POC Glucose 186 H Alkaline Phosphatase Salicylates Acetaminophen < 10 L - EKG Interpretation by Me Additional EKG results interpreted by me: 05/02/20 22:48 EKG obtained on 05/02/2020 at 1849 hrs. was interpreted by this MD. Findings: Sinus tachycardia, rate 123, normal axis, OH interval appears to be within normal limits, P waves proceed QRS complexes, QRS complex appears narrow, QTC is 470, there are no obvious patterns of ST segment elevation, depression, or reciprocal change seen that might suggest acute myocardial ischemia or infarction. This EKG is compared to EKG from 05/01/2020. The morphology is grossly the same. I see no acute changes between the 2 EKGs. Impression: Sinus tachycardia with nonspecific ST segments. (XAVI LORENZO IV) Discharge <XAVI LORENZO IV - Last Filed: 05/03/20 03:23> <KAVIN BRAXTON - Last Filed: 05/03/20 12:44> <BRIA ROBLEDO - Last Filed: 05/03/20 14:14> - Discharge Clinical Impression: Relationship dysfunction, History of mental problems, History of bipolar disorder, History of posttraumatic stress disorder (PTSD), History of anxiety Intentional drug overdose Qualifiers: Encounter type: initial encounter Qualified Code(s): T50.902A - Poisoning by unspecified drugs, medicaments and biological substances, intentional self-harm, initial encounter Condition: Stable Disposition: HOME, SELF-CARE Additional Instructions: You have been evaluated by both medical and behavioral health teams for overdose of prescribed Cymbalta, relationship discord, and history of Bipolar/Post Traumatic Stress Disorder (PTSD). You have been deemed appropriate for dis charge. While in the emergency department you received the following services/or had access to: Medical screening and assessment, nursing services, dietary services, pharmacological services, one-on-one counseling and/or psychotherapy, environmental services, and continuous observation by a patient product safety coordinator. You are recommended to continue home medications and follow up with your medication provider or provider of your choice, as well as request therapist. You should only take your medication as prescribed. You and your fiance have agreed he will be in control of your medications and administration. Overdose You have taken more medication than you should have. After your evaluation and care, it is felt that your overdose is not likely to be harmful or of any significant consequences to you and you are being discharged. In the future, you should be careful not to take more medications than what is prescribed for you. Although your overdose does not seem to be of any danger to you at this time, if you develop any unusual or unexpected symptoms after your discharge, you should return to the Emergency Department immediately for re-evaluation. DEPRESSION: (a symptoms often associated with Bipolar and PTSD, often occurs when angry and upset) Your evaluation reveals that you have mental depression. While symptoms may be vague, they often include disturbance of sleep, fatigue, loss of appetite, and general loss of interest in life. While depression may be a side effect of drugs, or a reaction to a major change in your life, many cases have no known cause. If depression is acute, and related to a major loss in your life, you can expect it to clear completely with time. If you have been depressed a long time, are prone to repeated bouts of depression or low mood, or have been thinking of suicide, get help. Depression can be treated with anti-depressant medication and counselling. Long-term depression will often take a few weeks to clear, even with appropriate medication. Follow-up care is important. Anxiety: (a symptoms often associated with Bipolar and PTSD, often occurs when angry and upset) The physician feels that some of your health problems are being caused by anxiety. Anxiety affects your health in many ways. Anxiety alone can cause palpitations, sweats, chest pains, abdominal pains, shortness of breath, and headaches. It contributes to ulcer disease, high blood pressure, irritable bowel syndrome, and has been shown to cause flare-ups of many other diseases. Anxiety is not a simple disorder to treat. If the anxiety is due to recent life stresses, you may simply need time to "work through" the changes. If the anxiety is due to an underlying unhappiness with yourself or due to psychiatric disturbance, professional help will be needed. Your physician can refer you for further help if needed. Anti-anxiety medication is occasionally given if the stress is acute or if you are having trouble sleeping. Chronic or frequent use of these medications is not a good idea because the body becomes reliant on it, preventing you from dealing with life's normal stresses. SUICIDAL IDEATION: Suicidal ideation is a common medical term for thoughts about suicide, which may be as detailed as a formulated plan, without the suicidal act itself. Although most people who undergo suicidal ideation do not commit suicide, some go on to make suicide attempts. The range of suicidal ideation varies greatly from fleeting to detailed planning, role playing, and unsuccessful attempts. While thoughts about suicide are common, most people do not carry out serious actions to commit suicide. Based upon your evaluation and discussion with you, we do not believe you are currently at risk to act upon your thoughts of suicide. You have agreed to return to the Emergency Department, at any time, if you feel inclined to act upon your suicidal thoughts. FOLLOW-UP CARE: You are recommended to follow up with your medication provider at [facility] ([facility]) or provider of your choice within the next 3-5 days if possible. You should also request therapy. Both medication management and therapy have been proven to be effective treatment modalities in combination. You have been provided both local mobile crisis numbers. If you experience worsening or a significant change in your symptoms notify the physician immediately, utilize mobile crisis or return to the Emergency Departm ent at any time for re-evaluation. Referrals: ISAAC AQUINO MD [ACTIVE STAFF] - Follow up as needed [facility] [Outside] - Follow up as needed (For Crisis, Talk Therapy, and linkage to other services/supports.) [facility] [Outside] - Follow up as needed (For Crisis, Talk Therapy, and linkage to other services/supports.) [facility] [Provider Group] - Follow up as needed (Current Provider you reported as Sola Kim. Can follow up with her and request therapy. ) [facility] [Outside] - Follow up as needed (To initiate services walk in Mondays-Fridays 8:00AM-4:30 PM.) [facility] [Outside] - Follow up as needed (To initiate services can walk in Tuesdays-Fridays 8:00AM-12:00PM/Noon.) Roxane In MD [Provider Group] - Follow up as needed (Call [phone] to initiate services. If they will not schedule you appointment and this is the provider you desire you can call [facility] at [phone] and ask for the Behavioral Health Team and we will assist with linkage. )
[2020-05-03] MEDS ORDERED: LORAZEPAM 1 MG TABLET PO ONE (02:22)
[2020-05-03] MEDS ORDERED: LIDOCAINE 2% VISCOUS SOLN 15 ML UDCUP PO ONE (02:23)
[2020-05-03] MEDS ORDERED: METOCLOPRAMIDE HCL ORAL SOLN 10 MG/10 ML UDCUP PO ONE (02:23)
[2020-05-03] MEDS ORDERED: MAG HYDROX/AL HYDROX/SIMETH SUSP 30 ML UDCUP PO ONE (02:23)
[2020-05-03 14:52] VITALS: BP 132/86
--- NOTE | 2020-05-03 15:57 | EKG REPORT ---
SEVERITY:- OTHERWISE NORMAL ECG - SINUS TACHYCARDIA : Confirmed by: Corky Velasquez MD 03-May-2020 15:56:23
--- NOTE | 2020-05-07 19:28 | PSYCHOLOGICAL NOTE ---
Psych Note - Psych Note Date seen by psych provider: 05/03/20 Time seen by psych provider: 11:17 - Evaluation with patient from [id number].Collateral and coordination with fiance from [id number]. Psych Note: Patient is a 40 year old female who presented to the emergency department last evening via privately owned vehicle for intentional overdose of her prescribed Cymbalta. Reportedly she took 10-20 Cymbalta 60MG. She denied to medical staff that she was trying to end her life. Patient has a history of Bipolar, Anxiety, and PTSD. He Urine Drug Screen was negative for all substances tested. She was put on a 24 Hour Petition for Evaluation. Patient reported she was "frustrated with her provider and other providers since they will not prescribe her the medication she wants." She identified she was on Adderall last year and cannot get her doctor ro prescribe it anymore. She further stated she was initially taken off it due to but now is unable to get back on it. She commented "I am on medication now but they make me attempt suicide and throw stuff at people." She identified her outpatient provider is Sola Kim at [facility]. She is prescribed Wellbutrin, Abilify, Strattera and Cymbalta. When challenged that Strattera is similar to Adderall except that it is a non stimulant version patient's response was "well it makes me angry and I threw a cell phone at my fiance's private area." When confronted that it could be some of her other medications not being effective she stated "I have been on the other medications for awhile, the Strattera was just started a month ago." Patient was informed she would not be prescribed Adderall from the emergency department and would need to follow up with an outpatient provider for that possibility. She stated she has tried [facility] as well "and they wouldn't prescribe me it either." Patient's focus throughout the evaluation was wanting to be back on Adderall. Patient denied current suicidal and homicidal ideation. She finally stated her and her fiance argued over "a stupid thing, I had a message from Flores Pablo and he thought I was talking to a dude so accused me of cheating." Patient stated she spoke with bandar today already and they smoothed things over as it was a misunderstanding. Patient was alert and oriented to self, person, place, time and situation. Mood was euthymic with congruent affect. She denied current suicidal and homicidal ideation. Patient did not appear to be responding to internal stimuli as evidenced by fair eye contact, answering questions appropriately when addressed, carrying on dialogue conversation, and being engaged in evaluation. Thought processes were linear and organized. She did perseverate on wanting to be put back on Adderall. Conversational speech was within normal limits for rate, tone and prosody. Intellectual abilities are estimated to be average. Insight, judgment and impulse control were fair as evidenced by concern for getting put back on her Adderall and having a difficult time trying to get a provider to prescribe it again. This concern shows future/forward/goal oriented thinking. Patient gave verbal consent to contact her bandar and include him in plan of care. She provided contact information Derick Villafana ([phone]). Bandar said he would try to find transportation to milk pickup driver patient. He also said he would be in control of her medication and administration. He was made aware she should continue home medications as directed and follow up with current provider [facility] or another provider of choice and contact information would be part of discharge paperwork for alternative outpatient mental health agencies. Clinical Presentation: Overdose of prescribed Cymbalta Patient seemed medication seeking for Adderall even after being educated about Strattera being similar but non stimulant version History of Bipolar and PTSD Impression/Plan: Patient is cleared from acute psychiatric services. Recommendation to rescind 24 Hour Petition for Evaluation. She acknowledged her and gordyance fighting over her texting a Flores Pablo and him thinking she was texting a álvaro and cheating. She noted she spoke with bandar today and they smoothed things over. Patient denied current suicidal and homicidal ideation. There was no observed psychosis given appropriate interactions and good eye contact. She perseverated on wanting to be back on Adderall but having a difficult time getting providers to prescribe it again. This demonstrated future/forward/gaol oriented thinking. She agreed to include bandar in plan of care. Bandar stated he would try to get someone to assist with transportation, He also agreed to be in charge of medications and administration. Patient recommended to follow up with current medication provider Sola Flanagan at [facility] and request individual carolyn harrell. She was also provided contact information for [facility] (walk ins Mondays-Fridays [phone]), [facility] (walk ins Tuesdays- Fridays [phone]), [facility] [place] (call phone number and [facility] typically does intakes) and both local mobile crisis numbers. Consulted with Dr. Peterson regarding the management and care of patient. ED Physician in agreement with recommendations.
== END 2020-05-03 14:54 | disposition home or self-care (01) ==
LOC: ER 18:17
DX: T43.211A Poisoning by selective serotonin and norepinephrine reuptake inhibitors, accidental (unintentional), initial encounter (principal); F68.8 Other specified disorders of adult personality and behavior; R11.0 Nausea; R10.84 Generalized abdominal pain; Z88.0 Allergy status to penicillin; Z88.6 Allergy status to analgesic agent; I10 Essential (primary) hypertension; E11.9 Type 2 diabetes mellitus without complications
CPT/HCPCS: 93005; 99285; 96374; 36415; 82962; 80307 ×3; 85025; 85610; 85730; 80053; 93010; J3490; A9270 ×3; J2405

== ENCOUNTER 2020-05-03 22:26 | Emergency (ER) | payer MEDICARE, MEDICAID ==
--- NOTE | 2020-05-03 22:57 | ER Document Report ---
ED Medical Screen (RME) - General Chief Complaint: Suicidal Ideation Stated Complaint: SUICIDAL IDEATION Time Seen by Provider: 05/03/20 22:48 Primary Care Provider: MAYE JONES FNP-C [Primary Care Provider] - Follow up as needed Mode of Arrival: Ambulatory Information source: Patient Notes: HPI; 40-year-old female past medical history hypertension, diabetes, fibromyalgia, bipolar, ADHD, PTSD, anxiety, depression brought to the emergency room by EMS after calling [facility] earlier this evening. Patient was actually in the emergency room 2 days ago for an accidental overdose was discharged earlier today. Patient states her suicidal thoughts had gone away but they returned earlier this evening. [facility] called [facility] who then called an ambulance to bring both her and her boyfriend to the emergency room with suicidal thoughts. Patient states she does have a suicidal plan of either cutting herself or strangling herself. PE: Alert and oriented x3. Flat affect noted. Lungs: Clear to auscultation without rales, rhonchi, wheezes. Heart: Regular rate rhythm without murmurs, rubs, gallops. Admits to suicidal ideation but denies any homicidal ideation. I have greeted and performed a rapid initial assessment of this patient. A comprehensive ED assessment and evaluation of the patient, analysis of test results and completion of the medical decision making process will be conducted by additional ED providers. I have specifically instructed the patient or family members with the patient to immediately return to any nursing staff should anything change in the patient's condition or with their chief complaint. TRAVEL OUTSIDE OF THE [place] IN LAST 30 DAYS: No - Related Data Allergies/Adverse Reactions: amoxicillin Allergy (Verified 05/01/20 13:43) oxycodone [From OxyContin] Allergy (Verified 05/01/20 13:43) Nausea Penicillins Allergy (Verified 05/01/20 13:43) Past Medical History - Social History Chew tobacco use (# tins/day): No Frequency of alcohol use: None Drug Abuse: None - Past Medical History Cardiac Medical History: Reports: Hx Hypertension - on meds Denies: Hx Coronary Artery Disease, Hx Heart Attack Pulmonary Medical History: Denies: Hx Asthma, Hx Bronchitis, Hx COPD, Hx Pneumonia Neurological Medical History: Denies: Hx Cerebrovascular Accident, Hx Seizures Endocrine Medical History: Reports: Hx Diabetes Mellitus Type 1, Hx Diabetes Mellitus Type 2 Renal/ Medical History: Reports: Hx Pelvic Inflammatory Disease. Denies: Hx Peritoneal Dialysis GI Medical History: Reports: Hx Gastroesophageal Reflux Disease Musculoskeltal Medical History: Reports Hx Arthritis - generalized Psychiatric Medical History: Reports: Hx Bipolar Disorder, Hx Depression, Hx Personality Disorder Past Surgical History: Reports: Hx Abdominal Surgery - hernia repair, Hx Adenoidectomy, Hx Section - x2, Hx Gynecologic Surgery, Hx Herniorrhaphy, Hx Orthopedic Surgery - Right Leg Surgery, Hx Tonsillectomy - Immunizations Immunizations up to date: No Hx Diphtheria, Pertussis, Tetanus Vaccination: Yes Physical Exam - Vital signs Vitals: Temp Pulse Resp BP Pulse Ox 98.1 F 111 H 18 137/99 H 99 05/03/20 22:39 05/03/20 22:39 05/03/20 22:39 05/03/20 22:39 05/03/20 22:39 Course - Vital Signs Vital signs: Temp Pulse Resp BP Pulse Ox 98.1 F 111 H 18 137/99 H 99 05/03/20 22:50 05/03/20 22:39 05/03/20 22:39 05/03/20 22:39 05/03/20 22:39 Doctor's Discharge - Discharge Referrals: MAYE JONES FNP-C [Primary Care Provider] - Follow up as needed
[2020-05-03 23:33] LABS: ABSOLUTE BASOPHILS # (AUTO) 0.1 10^3/uL (0.0-0.2); ABSOLUTE EOSINOPHILS # (AUTO) 0.1 10^3/uL (0.0-0.6); ABSOLUTE LYMPHOCYTES (AUTO) 3.6 10^3/uL (0.5-4.7); ABSOLUTE MONOCYTES (AUTO) 0.7 10^3/uL (0.1-1.4); ABSOLUTE NEUT (AUTO) 6.8 10^3/uL (1.7-8.2); BASOPHILS % (AUTO) 0.8 % (0-2); EOSINOPHILS % (AUTO) 0.8 % (0-6); HEMATOCRIT 38.6 % (36.0-47.0); HEMOGLOBIN 12.7 g/dL (12.0-15.5); MEAN CORPUSCULAR HEMOGLOBIN 25.9 pg (27.0-33.4); MEAN CORPUSCULAR HGB CONC 32.8 g/dL (32.0-36.0); MEAN CORPUSCULAR VOLUME 79 fl (80-97); PLATELET COUNT 287 10^3/uL (150-450); RED BLOOD COUNT 4.89 10^6/uL (3.72-5.28); RED CELL DISTRIBUTION WIDTH 16.2 % (11.5-14.0); SEGMENTED NEUTROPHILS % (AUTO) 60.4 % (42-78); TOTAL CELLS COUNTED % (AUTO) 100 %; WHITE BLOOD COUNT 11.2 10^3/uL (4.0-10.5)
[2020-05-03 23:48] LABS: ALBUMIN 4.2 g/dL (3.5-5.0); ALKALINE PHOSPHATASE 123 U/L (38-126); ANION GAP 10 (5-19); ASPARTATE AMINO TRANSFERASE 20 U/L (14-36); BILIRUBIN,DIRECT 0.3 mg/dL (0.0-0.4); BILIRUBIN,TOTAL 0.6 mg/dL (0.2-1.3); BLOOD UREA NITROGEN 16 mg/dL (7-20); CALCIUM 9.8 mg/dL (8.4-10.2); CARBON DIOXIDE 29 mmol/L (22-30); CHLORIDE 99 mmol/L (98-107); GLUCOSE 182 mg/dL (75-110); POTASSIUM 3.9 mmol/L (3.6-5.0); TOTAL PROTEIN 7.3 g/dL (6.3-8.2)
[2020-05-03 23:49] LABS: ACETAMINOPHEN < 10 ug/mL (10-30); ALCOHOL < 10 mg/dL (NONE DETECTED); SALICYLATE < 1.0 mg/dL (2.0-20.0)
--- NOTE | 2020-05-04 00:36 | ER Document Report ---
Entered by ARLYN BIRMINGHAM SCRIBE 05/04/20 0020 Acting as scribe for:CHIARA PERRY DO ED General - General Chief Complaint: Suicidal Ideation Stated Complaint: SUICIDAL IDEATION Time Seen by Provider: 05/03/20 22:48 Primary Care Provider: MAYE JONES FNP-C [Primary Care Provider] - Follow up as needed Mode of Arrival: Ambulatory Information source: Patient, [facility] Records Notes: This 40 year old female patient with history of depression, bipolar disorder, HTN, and DM, presents to the emergency department today with suicidal ideation. Patient states she wants to cut herself and last did this a long time ago. Patient was discharged from the ED earlier today after a overdose. Patient states there is no longer trouble with her boyfriend and is stressed from her daughter being in custody. Patient states her last menstrual period was last month and are usually irregular. Denies any pain, or visual/auditory hallucinations. Denies drinking alcohol or drug use before arriving to the ED tonight. TRAVEL OUTSIDE OF THE [place] IN LAST 30 DAYS: No - Related Data Allergies/Adverse Reactions: amoxicillin Allergy (Verified 05/01/20 13:43) oxycodone [From OxyContin] Allergy (Verified 05/01/20 13:43) Nausea Penicillins Allergy (Verified 05/01/20 13:43) Past Medical History - General Information source: Patient, [facility] Records - Social History Smoking Status: Former Smoker Cigarette use (# per day): No Chew tobacco use (# tins/day): No Frequency of alcohol use: None Drug Abuse: None Family History: Reviewed & Not Pertinent, CAD, DM, Malignancy, Other Patient has homicidal ideation: No - Past Medical History Cardiac Medical History: Reports: Hx Hypertension - on meds Endocrine Medical History: Reports: Hx Diabetes Mellitus Type 1, Hx Diabetes Mellitus Type 2 Renal/ Medical History: Reports: Hx Pelvic Inflammatory Disease GI Medical History: Reports: Hx Gastroesophageal Reflux Disease Musculoskeletal Medical History: Reports Hx Arthritis - generalized Psychiatric Medical History: Reports: Hx Bipolar Disorder, Hx Depression, Hx Pe rsonality Disorder Past Surgical History: Reports: Hx Abdominal Surgery - hernia repair, Hx Adenoidectomy, Hx Section - x2, Hx Gynecologic Surgery, Hx Herniorrhaphy, Hx Orthopedic Surgery - Right Leg Surgery, Hx Tonsillectomy - Immunizations Immunizations up to date: No Hx Diphtheria, Pertussis, Tetanus Vaccination: Yes Hx Pneumococcal Vaccination: 07/12/00 Review of Systems - Review of Systems Constitutional: No symptoms reported EENT: No symptoms reported Cardiovascular: No symptoms reported Respiratory: No symptoms reported Gastrointestinal: No symptoms reported Genitourinary: No symptoms reported Female Genitourinary: See HPI, Last menstrual period - x1 month ago, Irregular period - normal Musculoskeletal: See HPI. denies: Muscle pain Skin: No symptoms reported Hematologic/Lymphatic: No symptoms reported Neurological/Psychological: See HPI, Suicidal ideation. denies: Hallucinations -: Yes All other systems reviewed and negative Physical Exam - Vital signs Vitals: Temp Pulse Resp BP Pulse Ox 98.1 F 111 H 18 137/99 H 99 05/03/20 22:39 05/03/20 22:39 05/03/20 22:39 05/03/20 22:39 05/03/20 22:39 - General General appearance: Appears well, Alert - HEENT Head: Normocephalic, Atraumatic Eyes: Normal Pupils: PERRL - Respiratory Respiratory status: No respiratory distress Chest status: Nontender Breath sounds: Normal Chest palpation: Normal - Cardiovascular Rhythm: Regular Heart sounds: Normal auscultation Murmur: No - Abdominal Inspection: Obese Distension: No distension Bowel sounds: Normal Tenderness: Nontender - Extremities General upper extremity: Normal inspection, Normal ROM General lower extremity: Normal inspection, Normal ROM. No: Edema - Neurological Neuro grossly intact: Yes Cognition: Normal Orientation: AAOx4 Eliu Coma Scale Eye Opening: Spontaneous [place] Coma Scale Verbal: Oriented [place] Coma Scale Motor: Obeys Commands [place] Coma Scale Total: 15 Speech: Normal Sensory: Normal - Psychological Notes: Somewhat flat affect. - Skin Skin Temperature: Warm Skin Moisture: Dry Skin Color: Normal Course - Vital Signs Vital signs: Temp Pulse Resp BP Pulse Ox 98.1 F 111 H 18 137/99 H 99 05/03/20 22:50 05/03/20 22:39 05/03/20 22:39 05/03/20 22:39 05/03/20 22:39 - Laboratory Result Diagrams: 05/03/20 23:20 05/03/20 23:20 Laboratory results interpreted by me: 05/03/20 05/03/20 23:20 23:20 WBC 11.2 H MCV 79 L MCH 25.9 L RDW 16.2 H Glucose 182 H Salicylates < 1.0 L Acetaminophen < 10 L Discharge - Discharge Clinical Impression: Suicidal ideation Diabetes mellitus Qualifiers: Diabetes mellitus type: type 2 Diabetes mellitus retirement insulin use: unspecified retirement insulin use status Diabetes mellitus complication status: with other specified complication Qualified Code(s): E11.69 - Type 2 diabetes mellitus with other specified complication Bipolar disorder Qualifiers: Active/Remission status: remission status unspecified Qualified Code(s): F31.9 - Bipolar disorder, unspecified Condition: Serious Disposition: PSYCH HOSP/UNIT Referrals: MAYE JONES FNP-C [Primary Care Provider] - Follow up as needed I personally performed the services described in the documentation, reviewed and edited the documentation which was dictated to the scribe in my presence, and it accurately records my words and actions.
[2020-05-04 03:09] LABS: APPEARANCE,URINE SLIGHTLY-CLOUDY; BILIRUBIN,URINE NEGATIVE (NEGATIVE); COLOR,URINE AMBER; GLUCOSE, URINE NEGATIVE (NEGATIVE); KETONES,URINE TRACE mg/dL (NEGATIVE); LEUKOCYTE ESTERASE,URINE SMALL (NEGATIVE); NITRITE,URINE NEGATIVE (NEGATIVE); PROTEIN,URINE 30 mg/dL (NEGATIVE); URINE SPECIFIC GRAVITY 1.027; UROBILINOGEN,URINE NEGATIVE mg/dL (<2.0)
[2020-05-04 03:21] LABS: URINE AMPHETAMINES SCREEN NEGATIVE; URINE BARBITURATES SCREEN NEGATIVE; URINE BENZODIAZEPINES SCREEN NEGATIVE; URINE COCAINE SCREEN NEGATIVE; URINE MARIJUANA (THC) SCREEN NEGATIVE; URINE METHADONE SCREEN NEGATIVE; URINE PHENCYCLIDINE SCREEN NEGATIVE
--- NOTE | 2020-05-04 06:58 | EKG REPORT ---
SEVERITY:- BORDERLINE ECG - SINUS RHYTHM : Confirmed by: Corky Velasquez MD 04-May-2020 06:57:28
[2020-05-04 14:33] VITALS: BP 150/90
--- NOTE | 2020-05-04 14:48 | ER Document Report ---
Doctor's Note Notes: 05/04/20 14:46 Patient's vital signs and previous labs, diagnostic images reviewed. Reviewed mental health notes, nurse's notes and previous providers notes. VSS. Pt is in no distress at this time. Denies any SI or HI. General: A&Ox3. Answers questions appropriately. Heart: RRR Lungs: CTAB Psych: Flat affect A/P: Continue monitoring and rec's per MH. Normal diet discharge home likely 05/04/20 14:46
--- NOTE | 2020-05-08 00:58 | PSYCHOLOGICAL NOTE ---
Psych Note - Psych Note Date seen by psych provider: 05/04/20 Time seen by psych provider: 12:20 - Evaluation with patient from [id number]. Psych Note: Patient is a 40 year old female who presented to the emergency department last evening via EMS for suicidal ideation which she said had gone away but returned two hours prior to arrival to emergency department. She stated she had a plan to cut her wrist but never took action. She called mobile crisis who called [employer] who called EMS.She then told EMS she would strangle herself. She denied any stress with fiance and commented "we made up." She reported stress about her daughter being in custody. Once in the emergency department she complained of being light headed and diabetic so needed to eat. This demonstrated future/forward/goal oriented thinking and concern for well being which goes against her reported suicidal ideation. Urine Drug Screen was negative for all substances tested. Patient was put on a 24 Hour Petition for Evaluation. Patient reported "I don't know when asked why she was back in the emergency department. She then stated "I was depressed and suicidal." With further questioning she noted she had thoughts of cutting but did not take action. She stated she called [facility] mobile crisis, and [employer] and EMS arrived. This demonstrated seeking help in addition to not taking any kind of action to hurt/harm/kill self. Patient said yes to current suicidal ideation and said "I just feel like giving up." When asked what she wanted from the hospital and how the hospital could help she stated "I want to go inpatient, they will help me get linked to a therapist." She was psychoeducated that inpatient is strictly medication management and therapy is obtained on an outpatient level such as requesting a referral from her medication provider at [facility] She commented "Oh I thought I could get therapy inpatient." She confirmed seeing Sola Kim at [facility] and having tried to go to [facility] but neither want to put her on the medication she wants (Adderall). Patient acknowledged her and her fiance had been staying at [address] [place] [address] but the "álvaro kicked us out yesterday." Patient was alert and oriented to self, person, place, time and situation. Mood was euthymic with congruent affect. She endorsed current suicidal ideation saying she just felt like giving up though she was the one to call mobile crisis, she requested going inpatient, and she thought going inpatient would get her linked to therapy. She was psychoeducated she needed to request a therapy referral with current medication provider at [facility] or another local agency of choice. She identified her and her fiance just became homeless yesterday after having stayed with a álvaro for awhile. She denied current homicidal ideation. Patient did not appear to be responding to internal stimuli as evidenced by fair eye contact, answering questions appropriately when addressed, and carrying on dialogue conversation. Thought processes were linear and organized. Conversational speech was within normal limits for rate, tone and prosody. Intellectual abilities are estimated to be average. Insight, judgment and impulse control were fair as evidenced by calling mobile crisis herself and seeking help though she stated suicidal ideation with thoughts to cut herself, later added strangle herself but never took any kind of action instead reached out to mobile [facility]. Clinical Presentation: Homelessness Medication seeking (not getting Adderall from providers) Requesting therapy History of Bipolar and PTSD Impression/Plan: Patient is cleared from acute psychiatric services. Recom mendation to [facility] 24 Hour petition for Evaluation. Patient endorsed suicidal ideation with first plan to cut self, then added to strangle self, never took an action, and she herself called mobile [facility] indicating hope. She identified her and her fiance just became homeless yesterday after the álvaro they had been staying with kicked them out. Patient stated she wanted to go inpatient to get linked to therapy. She was psychoedcuated that inpatient is strictly medication stabilization and the way to get connected to therapy is by requesting a referral from her medication provider at [facility] or other agency of choice. There was no observed psychosis given appropriate interactions with good eye contact. Provided patient with contact information for [facility] (current provider for medication management, noted request referral for therapy), [facility] (walk ins Mondays-Fridays [phone]), [facility] (walk in Tuesdays-Fridays [phone]), [facility] [place] (call and [facility] typically does intakes), [facility] (voluntary inpatient), both local mobile crisis numbers, and the economic resource sheet (lists homeless [place] [facility] and [facility]). Consulted with Dr. Peterson regarding the management and care of patient. ED Physician in agreement with recommendations.
== END 2020-05-04 15:05 | disposition home or self-care (01) ==
LOC: ER 22:26
DX: R45.851 Suicidal ideations (principal); Z59.0 Homelessness; F43.10 Post-traumatic stress disorder, unspecified; I10 Essential (primary) hypertension; E11.69 Type 2 diabetes mellitus with other specified complication; F31.9 Bipolar disorder, unspecified; Z88.0 Allergy status to penicillin; Z88.6 Allergy status to analgesic agent
CPT/HCPCS: 36415; 80053; 80307; 81001; 82962; 84703; 85025; 93005; 93010; 99285

== ENCOUNTER 2020-05-05 02:32 | Emergency (ER) | payer MEDICARE, MEDICAID ==
--- NOTE | 2020-05-05 05:04 | ER Document Report ---
ED GI/ - General Mode of Arrival: Ambulatory Information source: Patient TRAVEL OUTSIDE OF THE [place] IN LAST 30 DAYS: No - Related Data Home Medications: valacyclovir, atomoxetine, wellbutrin, bactrim, abilify, cymbalta, HCTZ, zanaflex - General Chief Complaint: Abdominal Pain Stated Complaint: SHORTNESS OF BREATH,CHEST PAIN,ABDOMINAL PAIN Time Seen by Provider: 05/05/20 04:03 Primary Care Provider: [facility] [Provider Group] - Follow up as needed MAYE JONES FNP-C [Primary Care Provider] - Follow up as needed Notes: 40-year-old female patient presenting to the emergency department with 3-month history of mid abdominal pain. She states she has a hernia and it is painful. She reports seeing a review analyst but states she is not getting the answers she wants. She denies any fever, chills, nausea, vomiting, diarrhea, urinary symptoms or abnormal vaginal discharge. (ANDI JADE) - Related Data Allergies/Adverse Reactions: amoxicillin Allergy (Verified 05/01/20 13:43) oxycodone [From OxyContin] Allergy (Verified 05/01/20 13:43) Nausea Penicillins Allergy (Verified 05/01/20 13:43) Past Medical History - General Information source: Patient - Social History Smoking Status: Never Smoker Family History: Reviewed & Not Pertinent, CAD, DM, Malignancy, Other - Past Medical History Cardiac Medical History: Reports: Hx Hypertension - on meds Denies: Hx Coronary Artery Disease, Hx Heart Attack Pulmonary Medical History: Denies: Hx Asthma, Hx Bronchitis, Hx COPD, Hx Pneumonia Neurological Medical History: Denies: Hx Cerebrovascular Accident, Hx Seizures Endocrine Medical History: Reports: Hx Diabetes Mellitus Type 1, Hx Diabetes Mellitus Type 2 Renal/ Medical History: Reports: Hx Pelvic Inflammatory Disease. Denies: Hx Peritoneal Dialysis GI Medical History: Reports: Hx Gastroesophageal Reflux Disease Musculoskeletal Medical History: Reports Hx Arthritis - generalized Psychiatric Medical History: Reports: Hx Bipolar Disorder, Hx Depression, Hx Personality Disorder Past Surgical History: Reports: Hx Abdominal Surgery - hernia repair, Hx Adenoidectomy, Hx Section - x2, Hx Gynecologic Surgery, Hx Herniorrhaphy, Hx Orthopedic Surgery - Right Leg Surgery, Hx Tonsillectomy - Immunizations Immunizations up to date: No Hx Diphtheria, Pertussis, Tetanus Vaccination: Yes Hx Pneumococcal Vaccination: 07/12/00 Review of Systems - Review of Systems Gastrointestinal: Abdominal pain -: Yes All other systems reviewed and negative Physical Exam - Vital signs Vitals: Temp Pulse Resp BP Pulse Ox 97.6 F 110 H 16 140/100 H 98 05/05/20 03:12 05/05/20 03:12 05/05/20 03:12 05/05/20 03:12 05/05/20 03:12 - Notes Notes: PHYSICAL EXAMINATION: GENERAL: Disheveled, obese, no acute distress HEAD: Atraumatic, normocephalic. EYES: Pupils equal round and reactive to light, extraocular movements intact, conjunctiva are normal. ENT: Nares patent, oropharynx clear without exudates. Moist mucous membranes. NECK: Normal range of motion, supple without lymphadenopathy LUNGS: Breath sounds clear to auscultation bilaterally and equal. No wheezes rales or rhonchi. HEART: Regular rate and rhythm without murmurs ABDOMEN: Soft, large, round, nontender, nondistended abdomen. No guarding, no rebound. No masses appreciated. Female : deferred Musculoskeletal: Normal range of motion, no pitting or edema. No cyanosis. NEUROLOGICAL: Cranial nerves grossly intact. Normal speech, normal gait. Normal sensory, motor exams PSYCH: Normal mood, normal affect. SKIN: Warm, Dry, normal turgor, no rashes or lesions noted. (ANDI JADE) Course - Re-evaluation Re-evalutation: Patient has been here 3 times in the last 72 hours for different reasons but all of her lab work each time was unremarkable. Her pain has been chronic for the last 3 months. An ultrasound was performed which showed no acute findings. No indication for further work-up. Patient will be discharged at this time. (ANDI JADE) - Vital Signs Vital signs: Temp Pulse Resp BP Pulse Ox 97.6 F 97 18 113/62 99 05/05/20 03:12 05/05/20 08:26 05/05/20 08:26 05/05/20 08:26 05/05/20 08:26 Discharge - Discharge Clinical Impression: Abdominal pain Qualifiers: Abdominal location: generalized Qualified Code(s): R10.84 - Generalized abdominal pain Condition: Stable Disposition: HOME, SELF-CARE Additional Instructions: You were seen in the emergency department for abdominal pain. Take Bentyl for abdominal cramping. There is no hernia seen on your ultrasound. Please follow- up with surgical clinic in regards to possible hernia. Prescriptions: Dicyclomine HCl [Bentyl 20 mg Tablet] 20 mg PO QID PRN #30 tablet PRN Reason: Referrals: MAYE JONES FNP-C [Primary Care Provider] - Follow up as needed [facility] [Provider Group] - Follow up as needed
--- NOTE | 2020-05-05 06:42 | RADIOLOGY REPORT (SQ) ---
EXAM: US Abdomen Limited EXAM DATE/TIME: 05/05/2020 05:59 CLINICAL HISTORY: The patient is 40 years old and is Female; mid abd pain, eval for hernia TECHNIQUE: Real-time ultrasound of the abdomen with image documentation. Images of the anterior abdominal wall were obtained in the area of interest. COMPARISON: Abdomen ultrasound from 04/03/2020, CT abdomen pelvis from 12/23/2018 FINDINGS: LIMITATIONS: Exam is suboptimal secondary to patient body habitus. SOFT TISSUES: There is no abdominal wall hernia appreciated on the available images. No fluid collection or soft tissue mass visualized. IMPRESSION: No obvious hernia. CT could be performed for further evaluation if indicated.
[2020-05-05 08:26] VITALS: BP 113/62
== END 2020-05-05 08:26 | disposition home or self-care (01) ==
LOC: ER 02:32
DX: R10.84 Generalized abdominal pain (principal); R06.02 Shortness of breath; R07.9 Chest pain, unspecified; Z88.0 Allergy status to penicillin; Z88.8 Allergy status to other drugs, medicaments and biological substances; I10 Essential (primary) hypertension; Z79.899 Other long term (current) drug therapy
CPT/HCPCS: 76705; 93976; 99284